=== PATIENT | male | born 1955 | race Caucasian/White ===

== ENCOUNTER 2017-05-27 16:34 | Inpatient (IN) | payer BC, OTHER ==
[2017-05-27] MEDS ORDERED: SODIUM CHLORIDE 0.9% 1,000 ML IV STA ×2 (17:52)
[2017-05-27] MEDS ORDERED: PIPERACILLIN-TAZOBACTAM 3.375 GM in DEXTROSE/WATER 1 50ML.BAG IVPB STA (17:53)
[2017-05-27] MEDS ORDERED: VANCOMYCIN IV PER PHARMACY 1 EACH MISC MISCELLANE PRN (17:54)
[2017-05-27 18:27] LABS: Basophils # (A) 0.1 k/uL (0-0.2); Basophils % (A) 1 %; Eosinophils # (A) 0.1 k/uL (0-0.7); Eosinophils % (A) 1 %; HGB 14.9 gm/dL (13.0-17.5); Lymphocytes # (A) 1.8 k/uL (1.0-4.8); Lymphocytes % (A) 18 %; MCH 29.2 pg (25.0-35.0); MCHC 32.4 g/dL (31.0-37.0); MCV 90.1 fL (80.0-100.0); Mean Platelet Volume 7.4; Monocytes # (A) 0.9 k/uL (0-1.0); Monocytes % (A) 8 %; Neutrophils # (A) 7.2 k/uL (1.3-7.7); Neutrophils % (A) 69 %; Platelet Count 175 k/uL (150-450); RBC 5.11 m/uL (4.30-5.90); RDW 13.6 % (11.5-15.5); WBC 10.4 k/uL (3.8-10.6)
[2017-05-27] MEDS ORDERED: LABETALOL 5 MG/ML VIAL MDV IVP STA (18:30)
--- NOTE | 2017-05-27 18:33 | ED ---
General Adult HPI - General Chief complaint: Skin/Abscess/Foreign Body Stated complaint: toe infection Time Seen by Provider: 05/27/17 17:01 Source: patient, family, RN notes reviewed, old records reviewed Mode of arrival: ambulatory Limitations: no limitations - History of Present Illness Initial comments: This is a 61-year-old male with history of poorly controlled diabetes presents with 3 weeks of worsening right great toe infection. Patient reports that 3 weeks ago he cut his toenails too short periods started having infection. Patient reports that over the past 2 weeks the skin over the great toe and surrounding digits started to flake off. He reports that the nail of the great toe is about to fall off. He reports that there is been area of black and swelling over the distal tip of the toe. Patient reports that he was sinus with diabetes many years ago. He initially saw Dr. Schofield started on oral antidiabetic agents. Patient reports that he's not had anything refilled since then. Patient reports it's been many years since he said his blood sugar checked. Patient reports he's also had some poorly healing wounds over his left lower extremity. He denies any chest pain or shortness of breath or abdominal pain. Denies any fever or chills. Patient states that he has poor sensation to bilateral feet. - Related Data Home Medications Medication Instructions Recorded Confirmed Ibuprofen [Motrin] 800 mg PO DAILY PRN 05/27/17 05/27/17 Allergies Allergy/AdvReac Type Severity Reaction Status Date / Time No Known Allergies Allergy Verified 05/27/17 17:00 Review of Systems ROS Statement: Those systems with pertinent positive or pertinent negative responses have been documented in the HPI. ROS Other: All systems not noted in ROS Statement are negative. Past Medical History Past Medical History: Diabetes Mellitus History of Any Multi-Drug Resistant Organisms: None Reported Past Surgical History: Tonsillectomy Past Psychological History: No Psychological Hx Reported Smoking Status: Former smoker Past Alcohol Use History: Daily, Occasional Past Drug Use History: None Reported General Exam - General Exam Comments Initial Comments: 61-year-old male. No acute distress. Limitations: no limitations General appearance: alert, in no apparent distress Head exam: Present: atraumatic, normocephalic, normal inspection Eye exam: Present: normal appearance, PERRL, EOMI. Absent: scleral icterus, conjunctival injection, periorbital swelling ENT exam: Present: normal exam, mucous membranes moist Neck exam: Present: normal inspection. Absent: tenderness, meningismus, lymphadenopathy Respiratory exam: Present: normal lung sounds bilaterally. Absent: respiratory distress, wheezes, rales, rhonchi, stridor Cardiovascular Exam: Present: regular rate, normal rhythm, normal heart sounds. Absent: systolic murmur, diastolic murmur, rubs, gallop, clicks GI/Abdominal exam: Present: soft, normal bowel sounds, other (protruberant). Absent: distended, tenderness, guarding, rebound, rigid Extremities exam: Present: normal inspection, full ROM, normal capillary refill. Absent: tenderness, pedal edema, joint swelling, calf tenderness Right Knee exam: Present: normal inspection, full ROM Lower Leg exam: Present: full ROM. Absent: normal inspection (dusky skin), tenderness, swelling Ankle exam: Present: full ROM. Absent: normal inspection (swelling and erythema.) Foot/Toe exam: Absent: normal inspection (first great toe infection with nail almost totally avulsed. Patient has gas filled bulla over great toe. ), full ROM Neurovascular tendon exam: Present: pulse deficit (Unable to palpate dorsalis pulse, but is done with doppler. ), decreased fine/light touch. Absent: abnormal cap refill (delayed cap refill) Gait: observed and normal Back exam: Present: normal inspection Neurological exam: Present: alert, oriented X3, CN II-XII intact Psychiatric exam: Present: normal affect, normal mood Course Vital Signs 05/27/17 05/27/17 05/27/17 16:35 18:40 18:59 Temperature 98.7 F 98.3 F Pulse Rate 74 69 52 L Respiratory 18 16 16 Rate Blood Pressure 222/93 208/88 158/69 O2 Sat by Pulse 98 98 98 Oximetry 05/27/17 19:25 Temperature Pulse Rate 57 L Respiratory 18 Rate Blood Pressure 154/74 O2 Sat by Pulse 98 Oximetry Medical Decision Making - Medical Decision Making This is a 61-year-old male with a history of poorly controlled diabetes presents today with infection over his right great toe. He reports he cut his nails short 3 weeks ago. He has not been any diabetes or blood pressure medications in many years. He reports that he virtually follows with Dr. Uribe. Patient has significant swelling, erythema in the left great toe. There is an area of bulla over the distal toe. There does appear to be some mild gas formation in this area. Patient has diminished dorsalis pedis pulse with palpation. We were able to obtained with Doppler ultrasound. Patient x- ray of the toe shows evidence of osteomyelitis within the tuft of the great toe. Patient started on IV vancomycin and Zosyn in the emergency department. He also came in with a very elevated blood pressure of 220/120. Patient was given 20 mg of labetalol IV push. Patient's EKG shows no acute abnormalities. Patient was informed of all these results. Discussed that this is a sequela of poorly controlled diabetes and vascular pathology. Patient will be admitted at this time for IV antibiotics for osteomyelitis. Discussed with Dr. Torres. He also examined the patient. - Lab Data Result diagrams: 05/27/17 18:13 05/27/17 18:13 Lab Results 05/27/17 05/27/17 Range/Units 18:13 18:13 WBC 10.4 (3.8-10.6) k/uL RBC 5.11 (4.30-5.90) m/uL Hgb 14.9 (13.0-17.5) gm/dL Hct 46.0 (39.0-53.0) % MCV 90.1 (80.0-100.0) fL MCH 29.2 (25.0-35.0) pg MCHC 32.4 (31.0-37.0) g/dL RDW 13.6 (11.5-15.5) % Plt Count 175 (150-450) k/uL Neutrophils % 69 % Lymphocytes % 18 % Monocytes % 8 % Eosinophils % 1 % Basophils % 1 % Neutrophils # 7.2 (1.3-7.7) k/uL Lymphocytes # 1.8 (1.0-4.8) k/uL Monocytes # 0.9 (0-1.0) k/uL Eosinophils # 0.1 (0-0.7) k/uL Basophils # 0.1 (0-0.2) k/uL Sodium 134 L (137-145) mmol/L Potassium 4.1 (3.5-5.1) mmol/L Chloride 98 (98-107) mmol/L Carbon Dioxide 28 (22-30) mmol/L Anion Gap 8 mmol/L BUN 17 (9-20) mg/dL Creatinine 0.80 (0.66-1.25) mg/dL Est GFR (MDRD) Af Amer >60 (>60 ml/min/1.73 sqM) Est GFR (MDRD) Non-Af >60 (>60 ml/min/1.73 sqM) Glucose 241 H (74-99) mg/dL Calcium 9.1 (8.4-10.2) mg/dL Total Bilirubin 1.2 (0.2-1.3) mg/dL AST 32 (17-59) U/L ALT 48 (21-72) U/L Alkaline Phosphatase 77 (38-126) U/L Total Protein 6.8 (6.3-8.2) g/dL Albumin 3.5 (3.5-5.0) g/dL 05/27/17 19:34 EKG shows sinus rhythm with short MN. Right bundle-branch block. Left anterior fascicular block. Left ventricular hypertrophy with repolarization abnormality. Ventricular rate 69 bpm. MN interval 104 ms. QRS ration 148 ms. QT QTc is 440/471 ms. - Radiology Data Radiology results: report reviewed Nose positive for osteomyelitis within the distal tuft of the right first phalanx. Disposition Clinical Impression: Poorly controlled diabetes mellitus, Hypertension, Osteomyelitis of toe of right foot Disposition: ADMITTED IP TO THIS HOSP Condition: Stable Referrals: Jose Hannah MD [Primary Care Provider] - 1-2 days Time of Disposition: 19:35
--- NOTE | 2017-05-27 18:34 | XR ---
EXAMINATION TYPE: XR foot complete RT DATE OF EXAM: 05/27/2017 COMPARISON: NONE HISTORY: Pain TECHNIQUE: 3 views FINDINGS: I see no fracture nor dislocation. There is some lucency on the medial aspect of the tuft o f the distal phalanx of the big toe that could relate to osteomyelitis. I see no fracture line. Metat arsals are intact. IMPRESSION: Possible osteomyelitis of the tuft of the distal phalanx big toe right foot.
[2017-05-27 18:37] LABS: ALT 48 U/L (21-72); AST 32 U/L (17-59); Albumin 3.5 g/dL (3.5-5.0); Alkaline Phosphatase 77 U/L (38-126); Anion Gap 8 mmol/L; Blood Urea Nitrogen 17 mg/dL (9-20); Calcium 9.1 mg/dL (8.4-10.2); Carbon Dioxide 28 mmol/L (22-30); Chloride 98 mmol/L (98-107); Glucose 241 mg/dL (74-99); Potassium 4.1 mmol/L (3.5-5.1); Sodium 134 mmol/L (137-145); Total Bilirubin 1.2 mg/dL (0.2-1.3); Total Protein 6.8 g/dL (6.3-8.2)
[2017-05-27] MEDS ORDERED: KETOROLAC 30 MG/ML 1 ML VIAL IVP STA (19:28)
[2017-05-27] MEDS ORDERED: ACETAMINOPHEN TAB 325 MG TAB PO PRN (19:35)
[2017-05-27] MEDS ORDERED: NALOXONE 0.4 MG/ML 1 ML VIAL IV PRN (19:35)
[2017-05-27] MEDS ORDERED: ONDANSETRON 4 MG/2 ML VIAL IVP PRN (19:35)
[2017-05-27] MEDS ORDERED: IBUPROFEN 400 MG TAB PO PRN (19:35)
[2017-05-27 20:40] VITALS: BMI 35.5
[2017-05-27] MEDS ORDERED: INSULIN ASPART 100 UNIT/ML 1 ML 10 ML VIAL SQ SCH (21:00)
[2017-05-27 21:22] LABS: Glucose,Whole Blood 197 mg/dL (75-99)
[2017-05-27] MEDS ORDERED: VANCOMYCIN 2,000 MG in SODIUM CHLORIDE 0.9% 500 ML IVPB ONE (22:00)
[2017-05-27] MEDS: HYDROmorphone 1 MG/ML 1 ML SYRINGE IVP PRN (23:00)
[2017-05-27 23:11] LABS: Hemoglobin A1C 9.3 % (4.0-6.0)
[2017-05-28] MEDS: SODIUM CHLORIDE 0.9% 1,000 ML IV SCH ×4 (03:55→20:55)
[2017-05-28] MEDS: HYDROmorphone 1 MG/ML 1 ML SYRINGE IVP PRN ×2 (06:29→18:48)
[2017-05-28] MEDS: PIPERACILLIN-TAZOBACTAM 3.375 GM in DEXTROSE/WATER 1 50ML.BAG IVPB SCH ×3 (06:29→20:56)
[2017-05-28 06:54] LABS: Glucose,Whole Blood 258 mg/dL (75-99)
[2017-05-28] MEDS: PANTOPRAZOLE 40 MG TABLET PO SCH (08:00)
[2017-05-28] MEDS: ATORVASTATIN 10 MG TAB PO SCH (08:01)
[2017-05-28] MEDS: INSULIN ASPART 100 UNIT/ML 1 ML 10 ML VIAL SQ SCH ×4 (08:01→20:51)
[2017-05-28] MEDS: VANCOMYCIN 2,000 MG in SODIUM CHLORIDE 0.9% 500 ML IVPB SCH ×2 (09:56→20:56)
--- NOTE | 2017-05-28 10:58 | P.HPIM ---
History of Present Illness H&P Date: 05/28/17 Chief Complaint: Right great toe infection This is a 61-year-old male with a past medical history of uncontrolled diabetes mellitus. He is noncompliant with medications.. It's been a few years since he is taken his metformin. He reports about 3 weeks ago clipping the toenail on his right great toe and cut it too short. He started to have infection along the edge of the toenail with some drainage and redness. He treated it with peroxide and antibiotic ointment. Patient had no improvement. He presents to the hospital now with black discoloration at the top of the toe. Toenail is following off. He has cellulitis changes along the distal aspect of the toe and into the top of the foot. Pulses were able to be obtained with the Doppler in the ER. He had a right foot x-ray and possible osteomyelitis of the of the distal phalanx of the big toe on the right foot. Patient started on IV Zosyn IV vancomycin. Culture obtained in the ER. Infectious disease and this was surgery have been consulted. Patient also had some severely elevated blood pressures on admission patient was given a dose of IV labetalol. Blood pressures have improved. Patient denies any past medical history of hypertension. Denies any fever, chills, sweats., Nausea or vomiting, bowel movement changes or urinary symptoms. Review of Systems Please refer to HPI otherwise unremarkable Past Medical History Past Medical History: Diabetes Mellitus History of Any Multi-Drug Resistant Organisms: None Reported Past Surgical History: Tonsillectomy Past Psychological History: No Psychological Hx Reported Smoking Status: Former smoker Past Alcohol Use History: Daily, Occasional Past Drug Use History: None Reported Medications and Allergies Home Medications Medication Instructions Recorded Confirmed Type Ibuprofen [Motrin] 800 mg PO DAILY PRN 05/27/17 05/27/17 History Allergies Allergy/AdvReac Type Severity Reaction Status Date / Time No Known Allergies Allergy Verified 05/27/17 17:00 Physical Exam Vitals: Vital Signs Temp Pulse Pulse Resp BP BP Pulse Ox 05/28/17 02:38 98.3 F 59 L 16 135/67 98 05/27/17 19:51 98.2 F 58 L 15 154/83 98 05/27/17 19:25 57 L 18 154/74 98 05/27/17 18:59 52 L 16 158/69 98 05/27/17 18:40 98.3 F 69 16 208/88 98 05/27/17 16:35 98.7 F 74 18 222/93 98 Intake and Output 05/27/17 05/28/17 05/28/17 22:59 06:59 14:59 Intake Total 1100 Output Total 200 Balance 900 Intake: Amount of Fluid Infused ( 1100 ml) Output: Urine 200 Other: Voiding Method Toilet # Voids 3 Weight 118.84 kg Head normocephalic Neck supple Lungs clear to auscultation bilaterally no wheezing or crackles Heart regular rate and rhythm S1-S2, no rub or gallop Abdomen is soft nontender nondistended positive bowel sounds no hepatosplenomegaly Extremities right great toe black discoloration of the top of the toe around the edges of the nail. Toenail is falling off. No drainage at this time. Red cellulitis type changes along the toe and into the top of the foot. A tickling sensation with palpation of the pad of the foot. No sensation with palpation of the great toe. Patient is unable to feel toe to 3 or 4. No discoloration noted. He is able to feel palpation on to 5 unable to palpate pulses. Apparently pulses were obtainable with Doppler. Neuro alert and orientated to 3 Results CBC & Chem 7: 05/27/17 18:13 05/27/17 18:13 Labs: Abnormal Lab Results - Last 24 Hours (Table) 05/27/17 05/27/17 05/27/17 Range/Units 18:13 18:13 20:38 Sodium 134 L (137-145) mmol/L Glucose 241 H (74-99) mg/dL POC Glucose (mg/dL) 197 H (75-99) mg/dL Hemoglobin A1c 9.3 H (4.0-6.0) % 05/28/17 Range/Units 06:48 Sodium (137-145) mmol/L Glucose (74-99) mg/dL POC Glucose (mg/dL) 258 H (75-99) mg/dL Hemoglobin A1c (4.0-6.0) % Microbiology - Last 24 Hours (Table) 05/27/17 18:13 Gram Stain - Preliminary Toe - Right First Wound Culture - Preliminary Thrombosis Risk Factor Assmnt - Choose All That Apply Each Factor Represents 1 point: Obesity (BMI >25) Thrombosis Risk Factor Assessment Total Risk Factor Score: 1 Thrombosis Risk Factor Assessment Level: Low Risk Assessment and Plan Assessment: 1. Osteomyelitis of the tuft of the distal phalanx of the big toe on the right foot area and wound culture results pending. Infectious disease and vascular surgery has been consulted. Patient currently on IV Zosyn and IV vancomycin. 2. Hypertensive emergency present on admission: Patient required IV labetalol. Blood pressures are improved. Continue to monitor 3. Uncontrolled diabetes mellitus type 2. History of noncompliance with medication. A1c is 9.3. nurses educator has been consulted. Continue with the NovoLog sliding scale. 4. GI prophylaxis Protonix and DVT prophylaxis subcu heparin Time with Patient: Greater than 30 (Greater than 50% of the total time spent in counseling and coordination of care.I performed an examination of the patient and discussed their management with the physician Corporate Paralegal. I have reviewed the Physician Corporate Paralegal's notes and agree with the documented findings and plan of care)
[2017-05-28 11:30] LABS: Glucose,Whole Blood 227 mg/dL (75-99)
[2017-05-28] MEDS ORDERED: LIDOCAINE 1% INJ 10MG/ML (20 ML MDV) ONE (11:36)
--- NOTE | 2017-05-28 13:03 | P.CONS ---
History of Present Illness - Reason for Consult Consult date: 05/28/17 Right great toe wound Requesting physician: Jose Hannah - History of Present Illness This is a 61-year-old male patient gives history that 3 weeks ago he cut his nails on his toes too short. He had worsening edema redness and flaking of the skin and eventually a tissue on the big toe became black and swollen. He came into the [facility] emergency center for evaluation. Foot x-rays that show possible osteomyelitis in the 12th of the distal phalanx right big toe. He has been afebrile with normal white count. Creatinine 0.8. Wound culture is showing gram-positive cocci and gram-negative bacilli. Blood cultures status received. Patient was started on Zosyn and vancomycin and admitted to the surgical unit. He has been seen in consultation by Dr. Armstrong with plans for debridement of the toe and nail. Patient has history of diabetes but is not taking any medications for many years. He was found having hemoglobin A1c of 9.3 and is now on Levemir and NovoLog scale. He was also found to have urgent hypertension with blood pressure 220/120 and started on IV labetalol. Review of Systems All systems: negative Constitutional: Denies anorexia, Denies chills, Denies fatigue, Denies fever, Denies poor appetite, Denies weight loss Eyes: denies blurred vision, denies pain Ears, nose, mouth and throat: Denies dental pain, Denies headache, Denies mouth pain, Denies sore throat, Denies vertigo Cardiovascular: Denies chest pain, Denies decreased exercise tolerance, Denies dyspnea on exertion, Denies lightheadedness, Denies shortness of breath, Denies syncope Respiratory: Denies cough, Denies cough with sputum, Denies dyspnea, Denies excessive sputum, Denies hemoptysis, Denies home oxygen, Denies wheezing Gastrointestinal: Denies abdominal pain, Denies diarrhea, Denies nausea, Denies vomiting Genitourinary: Denies dysuria, Denies hematuria Musculoskeletal: Denies myalgias Integumentary: Reports change in hair/nails, Reports color changes, Reports darkening of skin, Reports wounds, Denies pruritus, Denies rash Neurological: Denies numbness, Denies weakness Psychiatric: Denies anxiety, Denies depression Endocrine: Denies fatigue, Denies weight change Past Medical History Past Medical History: Diabetes Mellitus, Hypertension History of Any Multi-Drug Resistant Organisms: None Reported Past Surgical History: Tonsillectomy Past Psychological History: No Psychological Hx Reported Smoking Status: Former smoker Past Alcohol Use History: Daily, Occasional Additional Past Alcohol Use History / Comment(s): Patient only smoked briefly as a teenager. He denies any medical marijuana, marijuana, street drug use. He drinks alcohol socially and denies alcohol abuse. He lives at home with his . 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 Past Drug Use History: None Reported Medications and Allergies Home Medications Medication Instructions Recorded Confirmed Type Ibuprofen [Motrin] 800 mg PO DAILY PRN 05/27/17 05/27/17 History Allergies Allergy/AdvReac Type Severity Reaction Status Date / Time No Known Allergies Allergy Verified 05/27/17 17:00 Physical Exam Vitals: Vital Signs Temp Pulse Pulse Resp BP BP Pulse Ox 05/28/17 02:38 98.3 F 59 L 16 135/67 98 05/27/17 19:51 98.2 F 58 L 15 154/83 98 05/27/17 19:25 57 L 18 154/74 98 05/27/17 18:59 52 L 16 158/69 98 05/27/17 18:40 98.3 F 69 16 208/88 98 05/27/17 16:35 98.7 F 74 18 222/93 98 Intake and Output 05/27/17 05/28/17 05/28/17 22:59 06:59 14:59 Intake Total 1100 Output Total 200 Balance 900 Intake: Amount of Fluid Infused ( 1100 ml) Output: Urine 200 Other: Voiding Method Toilet # Voids 3 Weight 118.84 kg 118.84 kg Patient Weight 05/29/17 06:59 Weight 118.84 kg Gen: This is a 61-year-old obese male. He is sitting up in bed and appears to be in no acute distress. HEENT: Head is atraumatic, normocephalic. Pupils equal, round. Sclerae is anicteric. Junk developing. Mucous members of the mouth are slightly dry. No thrush noted. NECK: Short and thick. Supple. No JVD. No lymphadenopathy. No thyromegaly. LUNGS: Clear to auscultation. No wheezes or rhonchi. No intercostal retractions. HEART: Regular rate and rhythm. No murmur. ABDOMEN: Soft. Bowel sounds are present. No masses. No tenderness. EXTREMITIES: No pedal edema. No calf tenderness. +1 dorsalis pedis bilaterally. Patient has significant erythema, edema with black coloring to the right great toe. NEUROLOGICAL: Patient is awake, alert and oriented x3. Cranial nerves 2 through 12 are grossly intact. Results Results: Laboratory Results WBC 10.4 k/uL (3.8-10.6) 05/27/17 18:13 RBC 5.11 m/uL (4.30-5.90) 05/27/17 18:13 Hgb 14.9 gm/dL (13.0-17.5) 05/27/17 18: Hct 46.0 % (39.0-53.0) 05/27/17 18: MCV 90.1 fL (80.0-100.0) 05/27/17 18: MCH 29.2 pg (25.0-35.0) 05/27/17 18: MCHC 32.4 g/dL (31.0-37.0) 05/27/17 18: RDW 13.6 % (11.5-15.5) 05/27/17 18: Plt Count 175 k/uL (150-450) 05/27/17 18:13 Neutrophils % 69 % 05/27/17 18:13 Lymphocytes % 18 % 05/27/17 18:13 Monocytes % 8 % 05/27/17 18:13 Eosinophils % 1 % 05/27/17 18:13 Basophils % 1 % 05/27/17 18:13 Neutrophils # 7.2 k/uL (1.3-7.7) 05/27/17 18:13 Lymphocytes # 1.8 k/uL (1.0-4.8) 05/27/17 18: Monocytes # 0.9 k/uL (0-1.0) 05/27/17 18: Eosinophils # 0.1 k/uL (0-0.7) 05/27/17 18:13 Basophils # 0.1 k/uL (0-0.2) 05/27/17 18:13 Sodium 134 mmol/L (137-145) L 05/27/17 18:13 Potassium 4.1 mmol/L (3.5-5.1) 05/27/17 18:13 Chloride 98 mmol/L (98-107) 05/27/17 18:13 Carbon Dioxide 28 mmol/L (22-30) 05/27/17 18:13 Anion Gap 8 mmol/L 05/27/17 18:13 BUN 17 mg/dL (9-20) 05/27/17 18:13 Creatinine 0.80 mg/dL (0.66-1.25) 05/27/17 18:13 Est GFR (MDRD) Af Amer >60 (>60 ml/min/1.73 sqM) 05/27/17 18:13 Est GFR (MDRD) Non-Af >60 (>60 ml/min/1.73 sqM) 05/27/17 18:13 Glucose 241 mg/dL (74-99) H 05/27/17 18:13 POC Glucose (mg/dL) 227 mg/dL (75-99) H 05/28/17 11:27 POC Glu Call Center Operator CHELSEA Hari Mcfadden 05/28/17 11:[address] Glu mg/dL 220 05/27/17 18:13 Hemoglobin A1c 9.3 % (4.0-6.0) H 05/27/17 18:13 Calcium 9.1 mg/dL (8.4-10.2) 05/27/17 18:13 Total Bilirubin 1.2 mg/dL (0.2-1.3) 05/27/17 18:13 AST 32 U/L (17-59) 05/27/17 18:13 ALT 48 U/L (21-72) 05/27/17 18:13 Alkaline Phosphatase 77 U/L (38-126) 05/27/17 18:13 Troponin I <0.012 ng/mL (0.000-0.034) 05/27/17 18:13 Total Protein 6.8 g/dL (6.3-8.2) 05/27/17 18:13 Albumin 3.5 g/dL (3.5-5.0) 05/27/17 18:13 CBC & Chem 7: 05/27/17 18:13 05/27/17 18:13 Labs: Abnormal Lab Results - Last 24 Hours (Table) 05/27/17 05/27/17 05/27/17 Range/Units 18:13 18:13 20:38 Sodium 134 L (137-145) mmol/L Glucose 241 H (74-99) mg/dL POC Glucose (mg/dL) 197 H (75-99) mg/dL Hemoglobin A1c 9.3 H (4.0-6.0) % 05/28/17 05/28/17 Range/Units 06:48 11:27 Sodium (137-145) mmol/L Glucose (74-99) mg/dL POC Glucose (mg/dL) 258 H 227 H (75-99) mg/dL Hemoglobin A1c (4.0-6.0) % Microbiology - Last 24 Hours (Table) 05/27/17 18:13 Gram Stain - Preliminary Toe - Right First Wound Culture - Preliminary Assessment and Plan Plan: This is a 61-year-old male patient who presented to the hospital with diabetic ulcer to the right great toe in a patient with untreated diabetes. Patient is currently on IV antibiotics the form of Zosyn and vancomycin. Wound culture is in progress. Blood cultures status received Dr. Armstrong is planning for debridement. Sed rate, CRP, prealbumin ordered. Tetanus status will be updated. Continue supportive care. Patient understands need for tight glucose control in order to heal this wound. Further recommendations as patient progresses. The above dictated assessment and findings were discussed with Dr. Austin. The impression and plan of care have been directed as dictated. Vale Ford nurse practitioner acting as scribe for Dr. Austin.
[2017-05-28] MEDS: BACITRACIN 500 UNIT/GM OINT 28.4 GM TUBE TOPICAL SCH ×2 (13:22→20:57)
[2017-05-28] MEDS: KETOROLAC 30 MG/ML 1 ML VIAL IVP PRN (13:33)
[2017-05-28] MEDS ORDERED: DIPH,PERTUS(ACELL)TETVAC-LF 0.5 ML VIAL IM ONE (13:37)
--- NOTE | 2017-05-28 15:16 | CONS ---
DATE OF CONSULTATION: 05/28/2017 This is a 61-year-old gentleman who has been admitted to [facility]. He has a history of trimming his nails about 3 weeks ago and he went deeper and after that he was using hydrogen peroxide to clean the wound. He came to the emergency room and has been admitted with his nail completely and is stuck to the nail bed and there is some skin necrosis noted of the right foot big toe. The patient also has some chronic wounds on the left lower extremity dawn area. Patient has history of diabetes and hypertension controlled with medication. PHYSICAL EXAMINATION: NECK: Supple. Trachea central. Chest is clear to auscultation. Abdomen is soft. Femorals are palpable. Posterior tibial and dorsalis pedis by the Doppler. The patient has a right foot big toe that has skin necrosis and an infected nail bed and the patient has a chronic wound to the left lower extremity anterior of the dawn. PLAN: Debridement of the wound and removal of the nail which is hanging to the nail bed. MMODL / IJN: [id number] / CHULA
--- NOTE | 2017-05-28 15:19 | PCN ---
PROCEDURE NOTE PREOPERATIVE DIAGNOSIS: Infected nail bed to right foot big toe. PROCEDURE: debridement of the right foot, big toe of the nail bed and removal of the nail right foot, big toe. Patient was seen in his room. Right foot was prepped and draped in procedure manner; 1% Lidocaine was infiltrated in the nail bed area. This nailbed was hanging out which was removed and there was some skin necrosis noted at the nail bed which was excised with a sharp scissor. No active bleeding was noted. Wound was cleaned with saline and bacitracin to apply to the nail bed and dressings applied. Patient tolerated the procedure well. PLAN: We will use bacitracin cream for the nailbed and Medihoney gel for the left lower extremity. Will follow with you. If patient goes home, I will follow up in my office. Patient needs arterial study to evaluate further. MMODL / IJN: [id number] /
[2017-05-28 17:01] LABS: Glucose,Whole Blood 235 mg/dL (75-99)
--- NOTE | 2017-05-28 18:36 | NM ---
EXAMINATION TYPE: NM bone 3 phase DATE OF EXAM: 05/28/2017 COMPARISON: NONE HISTORY: Possible osteomyelitis. Great toe. Triple phase bone scintigraphy was performed following the injection of25.4 mCi Tc 99m MDP. Immediat e images and 3.5 hours post injection images acquired. FINDINGS: There is hyperemia of the right foot and ankle compared to the left. The delayed images show slight i ncreased uptake in the right big toe phalanges as well as the right first metatarsal head. Uptake is somewhat diffuse and consistent with soft tissue. IMPRESSION: Findings are most consistent with some cellulitis of the right foot. I do not see any strong evidence for osteomyelitis.
[2017-05-28] MEDS: HEPARIN SODIUM,PORCINE 5,000 UNIT/ML 1 ML VIAL SQ SCH (20:50)
[2017-05-28] MEDS: INSULIN DETEMIR 100 UNIT/ML 10 ML VIAL SQ SCH (20:50)
[2017-05-28 20:59] LABS: Glucose,Whole Blood 162 mg/dL (75-99)
--- NOTE | 2017-05-28 23:45 | P.CON ---
Consult Note - . Consult date: 05/28/17 Assessment/Plan:: This is a 61-year-old male patient gives history that 3 weeks ago he cut his nails on his toes too short. He had worsening edema redness and flaking of the skin and eventually a tissue on the big toe became black and swollen. He came into the [facility] emergency center for evaluation. Foot x-rays that show possible osteomyelitis in the 12th of the distal phalanx right big toe. He has been afebrile with normal white count. Creatinine 0.8. Wound culture is showing gram-positive cocci and gram-negative bacilli. Blood cultures status received. Patient was started on Zosyn and vancomycin and admitted to the surgical unit. He has been seen in consultation by Dr. Armstrong with plans for debridement of the toe and nail. Patient has history of diabetes but is not taking any medications for many years. He was found having hemoglobin A1c of 9.3 and is now on Levemir and NovoLog scale. He was also found to have urgent hypertension with blood pressure 220/120 and started on IV labetalol. Please see the consult note as dictated by nurse practitioner Mrs. Vale Ford. 61-year-old male has a history of significant medical noncompliance with his diabetes and his hypertension. He overs now very concerned due to the ulcerative processes occurred to the right great toe with concerns to toe loss. 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 It is tender plan will be to continue wound care, antibiotic therapy and offloading. Bone scan and process to determine if there is underlying osteomyelitis. We'll need especially offloading shoe at discharge. And may do well to follow the wound healing Center for a total contact cast to assist in the healing of this diabetic ulceration. Will need outpatient diabetic education. His hypertension is starting to improve with the medications and significant dietary restraints of being hospitalized. Wound culture will further guide antibiotic therapy the time of discharge, currently on vancomycin and Zosyn for the diabetic foot infection with concern to underlying osteomyelitis. The evaluation, assessment and plan his A. fib renders practitioner Mrs. Vale Ford.
[2017-05-29] MEDS: HYDROmorphone 1 MG/ML 1 ML SYRINGE IVP PRN ×3 (03:31→18:19)
[2017-05-29] MEDS: PIPERACILLIN-TAZOBACTAM 3.375 GM in DEXTROSE/WATER 1 50ML.BAG IVPB SCH ×3 (04:20→22:08)
[2017-05-29 07:01] LABS: Glucose,Whole Blood 179 mg/dL (75-99)
[2017-05-29 07:05] LABS: Basophils # (A) 0.1 k/uL (0-0.2); Basophils % (A) 1 %; Eosinophils # (A) 0.1 k/uL (0-0.7); Eosinophils % (A) 1 %; HCT 38.8 % (39.0-53.0); HGB 12.7 gm/dL (13.0-17.5); Lymphocytes # (A) 1.8 k/uL (1.0-4.8); Lymphocytes % (A) 19 %; MCH 29.6 pg (25.0-35.0); MCHC 32.8 g/dL (31.0-37.0); MCV 90.3 fL (80.0-100.0); Mean Platelet Volume 7.2; Monocytes # (A) 1.1 k/uL (0-1.0); Monocytes % (A) 11 %; Neutrophils # (A) 6.3 k/uL (1.3-7.7); Neutrophils % (A) 65 %; Platelet Count 194 k/uL (150-450); RDW 11.9 % (11.5-15.5); WBC 9.8 k/uL (3.8-10.6)
[2017-05-29] MEDS: SODIUM CHLORIDE 0.9% 1,000 ML IV SCH ×2 (07:05→13:26)
[2017-05-29 07:46] LABS: ALT 53 U/L (21-72); AST 29 U/L (17-59); Albumin 2.9 g/dL (3.5-5.0); Alkaline Phosphatase 75 U/L (38-126); Anion Gap 7 mmol/L; Blood Urea Nitrogen 16 mg/dL (9-20); Calcium 8.7 mg/dL (8.4-10.2); Carbon Dioxide 27 mmol/L (22-30); Chloride 102 mmol/L (98-107); Glucose 197 mg/dL (74-99); Potassium 4.7 mmol/L (3.5-5.1); Sodium 136 mmol/L (137-145); Total Bilirubin 1.3 mg/dL (0.2-1.3); Total Protein 5.7 g/dL (6.3-8.2)
[2017-05-29] MEDS: PANTOPRAZOLE 40 MG TABLET PO SCH (07:52)
[2017-05-29] MEDS: INSULIN ASPART 100 UNIT/ML 1 ML 10 ML VIAL SQ SCH ×4 (07:52→22:13)
[2017-05-29] MEDS: VANCOMYCIN 2,000 MG in SODIUM CHLORIDE 0.9% 500 ML IVPB SCH ×2 (08:30→22:08)
[2017-05-29] MEDS: ATORVASTATIN 10 MG TAB PO SCH (08:30)
[2017-05-29] MEDS: HEPARIN SODIUM,PORCINE 5,000 UNIT/ML 1 ML VIAL SQ SCH ×2 (08:30→22:11)
[2017-05-29] MEDS: BACITRACIN 500 UNIT/GM OINT 28.4 GM TUBE TOPICAL SCH ×2 (08:30→22:11)
[2017-05-29 11:33] LABS: Glucose,Whole Blood 193 mg/dL (75-99)
--- NOTE | 2017-05-29 12:35 | P.PN ---
Subjective Progress Note Date: 05/29/17 This is a 61-year-old male with a past medical history of uncontrolled diabetes mellitus. He is noncompliant with medications.. It's been a few years since he is taken his metformin. He reports about 3 weeks ago clipping the toenail on his right great toe and cut it too short. He started to have infection along the edge of the toenail with some drainage and redness. He treated it with peroxide and antibiotic ointment. Patient had no improvement. He presents to the hospital now with black discoloration at the top of the toe. Toenail is following off. He has cellulitis changes along the distal aspect of the toe and into the top of the foot. Pulses were able to be obtained with the Doppler in the ER. He had a right foot x-ray and possible osteomyelitis of the of the distal phalanx of the big toe on the right foot. Patient started on IV Zosyn IV vancomycin. Culture obtained in the ER. Infectious disease and this was surgery have been consulted. Patient also had some severely elevated blood pressures on admission patient was given a dose of IV labetalol. Blood pressures have improved. Patient denies any past medical history of hypertension. Denies any fever, chills, sweats., Nausea or vomiting, bowel movement changes or urinary symptoms. on 05/29/2017 patient is alert and oriented 3 glucose is better controlled, right big toe wound culture is positive for gram-negative bacilli, foot x-ray suggestive of osteomyelitis however bone scan is not revealing clear evidence of osteomyelitis, continue was current management at this time, awaiting final culture results. Objective - Vital Signs Vital signs: Vital Signs Temp 98 F 05/29/17 07:00 Pulse 60 05/29/17 07:00 Resp 16 05/29/17 07:00 BP 137/68 05/29/17 07:00 Pulse Ox 96 05/29/17 07:00 Intake & Output 05/28/17 05/29/17 05/29/17 18:59 06:59 18:59 Intake Total 240 Output Total 500 Balance -500 240 Weight 118.84 kg Intake: Oral 240 Output: Urine 500 Other: Voiding Method Toilet Toilet # Voids 2 - Exam Head normocephalic and atraumatic Neck supple no JVD no goiter no lymphadenopathy Lungs clear to auscultation bilaterally no wheezing or crackles Heart regular rate and rhythm S1-S2, no rub or gallop Abdomen is soft nontender nondistended positive bowel sounds no hepatosplenomegaly Extremities right great toe black discoloration of the top of the toe around the edges of the nail. Toenail is falling off. No drainage at this time. Red cellulitis type changes along the toe and into the top of the foot. A tickling sensation with palpation of the pad of the foot. No sensation with palpation of the great toe. Patient is unable to feel toe to 3 or 4. No discoloration noted. He is able to feel palpation on to 5 unable to palpate pulses. Apparently pulses were obtainable with Doppler. Neuro alert and orientated to 3 - Labs CBC & Chem 7: 05/29/17 06:38 05/29/17 06:38 Labs: Abnormal Lab Results - Last 24 Hours (Table) 05/27/17 05/27/17 05/28/17 Range/Units 18:15 18:15 15:49 Hgb (13.0-17.5) gm/dL Hct (39.0-53.0) % Monocytes # (0-1.0) k/uL ESR 48 H (0-15) mm/hr Sodium (137-145) mmol/L Glucose (74-99) mg/dL POC Glucose (mg/dL) (75-99) mg/dL C-Reactive Protein 78.2 H (<10.0) mg/L Total Protein (6.3-8.2) g/dL Albumin (3.5-5.0) g/dL Prealbumin 7.0 L (18.0-42.0) mg/dL 05/28/17 05/28/17 05/29/17 Range/Units 16:56 20:48 06:38 Hgb 12.7 L (13.0-17.5) gm/dL Hct 38.8 L (39.0-53.0) % Monocytes # 1.1 H (0-1.0) k/uL ESR (0-15) mm/hr Sodium (137-145) mmol/L Glucose (74-99) mg/dL POC Glucose (mg/dL) 235 H 162 H (75-99) mg/dL C-Reactive Protein (<10.0) mg/L Total Protein (6.3-8.2) g/dL Albumin (3.5-5.0) g/dL Prealbumin (18.0-42.0) mg/dL 05/29/17 05/29/17 05/29/17 Range/Units 06:38 06:55 11:26 Hgb (13.0-17.5) gm/dL Hct (39.0-53.0) % Monocytes # (0-1.0) k/uL ESR (0-15) mm/hr Sodium 136 L (137-145) mmol/L Glucose 197 H (74-99) mg/dL POC Glucose (mg/dL) 179 H 193 H (75-99) mg/dL C-Reactive Protein (<10.0) mg/L Total Protein 5.7 L (6.3-8.2) g/dL Albumin 2.9 L (3.5-5.0) g/dL Prealbumin (18.0-42.0) mg/dL Microbiology - Last 24 Hours (Table) 05/27/17 18:13 Blood Culture - Preliminary Blood No Growth after 24 hours 05/27/17 18:13 Gram Stain - Preliminary Toe - Right First Wound Culture - Preliminary Gram Neg Bacilli Assessment and Plan Plan: 1. Right foot cellulitis with possible Osteomyelitis of the tuft of the distal phalanx of the big toe on the right foot area and wound culture results pending. Infectious disease and vascular surgery has been consulted. Patient currently on IV Zosyn and IV vancomycin. 2. Hypertensive emergency present on admission: Patient required IV labetalol. Blood pressures are improved. Continue to monitor 3. Uncontrolled diabetes mellitus type 2. History of noncompliance with medication. A1c is 9.3. orthopedics teacher has been consulted. Continue with the NovoLog sliding scale. 4. GI prophylaxis Protonix and DVT prophylaxis subcu heparin
[2017-05-29 16:41] LABS: Glucose,Whole Blood 198 mg/dL (75-99)
[2017-05-29 19:33] LABS: Glucose,Whole Blood 204 mg/dL (75-99)
[2017-05-29] MEDS ORDERED: VANCOMYCIN TROUGH DUE 1 EACH MISC MISCELLANE ONE (20:00)
[2017-05-29] MEDS: INSULIN DETEMIR 100 UNIT/ML 10 ML VIAL SQ SCH (22:08)
[2017-05-29] MEDS: KETOROLAC 30 MG/ML 1 ML VIAL IVP PRN (22:14)
--- NOTE | 2017-05-29 23:49 | P.PN ---
Subjective Progress Note Date: 05/29/17 Principal diagnosis: Diabetic foot ulcer This is a 61-year-old male patient gives history that 3 weeks ago he cut his nails on his toes too short. He had worsening edema redness and flaking of the skin and eventually a tissue on the big toe became black and swollen. He came into the [facility] emergency center for evaluation. Foot x-rays that show possible osteomyelitis in the 12th of the distal phalanx right big toe. He has been afebrile with normal white count. Creatinine 0.8. Wound culture is showing gram-positive cocci and gram-negative bacilli. Blood cultures status received. Patient was started on Zosyn and vancomycin and admitted to the surgical unit. He has been seen in consultation by Dr. Armstrong with plans for debridement of the toe and nail. Patient has history of diabetes but is not taking any medications for many years. He was found having hemoglobin A1c of 9.3 and is now on Levemir and NovoLog scale. He was also found to have urgent hypertension with blood pressure 220/120 and started on IV labetalol. Patient is having some improvement today. We're able to inform him that the bone scan was negative for underlying osteomyelitis and will not require outpatient intravenous antibiotic therapy. Objective - Vital Signs Vital signs: Vital Signs Temp 98.1 F 05/29/17 14:50 Pulse 60 05/29/17 14:50 Resp 16 05/29/17 14:50 BP 134/74 05/29/17 14:50 Pulse Ox 97 05/29/17 14:50 Intake & Output 05/29/17 05/29/17 05/30/17 06:59 18:59 06:59 Intake Total 740 Output Total 500 Balance -500 740 Intake: Oral 740 Output: Urine 500 Other: Voiding Method Toilet # Voids 2 - Exam Gen: This is a 61-year-old obese male. He is sitting up in bed and appears to be in no acute distress. HEENT: Head is atraumatic, normocephalic. Pupils equal, round. Sclerae is anicteric. Junk developing. Mucous members of the mouth are slightly dry. No thrush noted. NECK: Short and thick. Supple. No JVD. No lymphadenopathy. No thyromegaly. LUNGS: Clear to auscultation. No wheezes or rhonchi. No intercostal retractions. HEART: Regular rate and rhythm. No murmur. ABDOMEN: Soft. Bowel sounds are present. No masses. No tenderness. EXTREMITIES: No pedal edema. No calf tenderness. +1 dorsalis pedis bilaterally. There is no erythema to the right great toe. He has had surgical debridement from Dr. Armstrong revealing evidence of a granulating base. Mild erythema on the dorsum of the foot. With his neuropathy does not have tenderness. NEUROLOGICAL: Patient is awake, alert and oriented x3 - Labs CBC & Chem 7: 05/29/17 06:38 05/29/17 06:38 Labs: Abnormal Lab Results - Last 24 Hours (Table) 05/27/17 05/29/17 05/29/17 Range/Units 18:15 06:38 06:38 Hgb 12.7 L (13.0-17.5) gm/dL Hct 38.8 L (39.0-53.0) % Monocytes # 1.1 H (0-1.0) k/uL Sodium 136 L (137-145) mmol/L Glucose 197 H (74-99) mg/dL POC Glucose (mg/dL) (75-99) mg/dL Total Protein 5.7 L (6.3-8.2) g/dL Albumin 2.9 L (3.5-5.0) g/dL Prealbumin 7.0 L (18.0-42.0) mg/dL 05/29/17 05/29/17 05/29/17 Range/Units 06:55 11:26 16:39 Hgb (13.0-17.5) gm/dL Hct (39.0-53.0) % Monocytes # (0-1.0) k/uL Sodium (137-145) mmol/L Glucose (74-99) mg/dL POC Glucose (mg/dL) 179 H 193 H 198 H (75-99) mg/dL Total Protein (6.3-8.2) g/dL Albumin (3.5-5.0) g/dL Prealbumin (18.0-42.0) mg/dL 05/29/17 Range/Units 19:30 Hgb (13.0-17.5) gm/dL Hct (39.0-53.0) % Monocytes # (0-1.0) k/uL Sodium (137-145) mmol/L Glucose (74-99) mg/dL POC Glucose (mg/dL) 204 H (75-99) mg/dL Total Protein (6.3-8.2) g/dL Albumin (3.5-5.0) g/dL Prealbumin (18.0-42.0) mg/dL Microbiology - Last 24 Hours (Table) 05/27/17 18:13 Blood Culture - Preliminary Blood No Growth after 48 hours 05/27/17 18:13 Gram Stain - Preliminary Toe - Right First Wound Culture - Preliminary Escherichia coli Presumptive Staph aureus Laboratory Results WBC 9.8 k/uL (3.8-10.6) 05/29/17 06:38 RBC 4.30 m/uL (4.30-5.90) 05/29/17 06:38 Hgb 12.7 gm/dL (13.0-17.5) L 05/29/17 06:38 Hct 38.8 % (39.0-53.0) L 05/29/17 06:38 MCV 90.3 fL (80.0-100.0) 05/29/17 06:38 MCH 29.6 pg (25.0-35.0) 05/29/17 06:38 MCHC 32.8 g/dL (31.0-37.0) 05/29/17 06:38 RDW 11.9 % (11.5-15.5) 05/29/17 06:38 Plt Count 194 k/uL (150-450) 05/29/17 06:38 Neutrophils % 65 % 05/29/17 06:38 Lymphocytes % 19 % 05/29/17 06:38 Monocytes % 11 % 05/29/17 06:38 Eosinophils % 1 % 05/29/17 06:38 Basophils % 1 % 05/29/17 06:38 Neutrophils # 6.3 k/uL (1.3-7.7) 05/29/17 06:38 Lymphocytes # 1.8 k/uL (1.0-4.8) 05/29/17 06:38 Monocytes # 1.1 k/uL (0-1.0) H 05/29/17 06:38 Eosinophils # 0.1 k/uL (0-0.7) 05/29/17 06:38 Basophils # 0.1 k/uL (0-0.2) 05/29/17 06:38 ESR 48 mm/hr (0-15) H 05/28/17 15:49 Sodium 136 mmol/L (137-145) L 05/29/17 06:38 Potassium 4.7 mmol/L (3.5-5.1) 05/29/17 06:38 Chloride 102 mmol/L (98-107) 05/29/17 06:38 Carbon Dioxide 27 mmol/L (22-30) 05/29/17 06:38 Anion Gap 7 mmol/L 05/29/17 06:38 BUN 16 mg/dL (9-20) 05/29/17 06:38 Creatinine 1.24 mg/dL (0.66-1.25) 05/29/17 06:38 Est GFR (MDRD) Af Amer >60 (>60 ml/min/1.73 sqM) 05/29/17 06:38 Est GFR (MDRD) Non-Af 60 (>60 ml/min/1.73 sqM) 05/29/17 06:38 Glucose 197 mg/dL (74-99) H 05/29/17 06:38 POC Glucose (mg/dL) 204 mg/dL (75-99) H 05/29/17 19:30 POC Glu Supervisor Pre Wave CHELSEA Cheyenne Ferrell 05/29/17 19:[address] Glu mg/dL 220 05/27/17 18:13 Hemoglobin A1c 9.3 % (4.0-6.0) H 05/27/17 18:13 Calcium 8.7 mg/dL (8.4-10.2) 05/29/17 06:38 Total Bilirubin 1.3 mg/dL (0.2-1.3) 05/29/17 06:38 AST 29 U/L (17-59) 05/29/17 06:38 ALT 53 U/L (21-72) 05/29/17 06:38 Alkaline Phosphatase 75 U/L (38-126) 05/29/17 06:38 Troponin I <0.012 ng/mL (0.000-0.034) 05/27/17 18:13 C-Reactive Protein 78.2 mg/L (<10.0) H 05/27/17 18:15 Total Protein 5.7 g/dL (6.3-8.2) L 05/29/17 06:38 Albumin 2.9 g/dL (3.5-5.0) L 05/29/17 06:38 Prealbumin 7.0 mg/dL (18.0-42.0) L 05/27/17 18:15 Vancomycin Trough 18.0 ug/mL 05/29/17 20:22 Microbiology 05/27/17 18:13 Blood Blood Culture - Preliminary No Growth after 48 hours 05/27/17 18:13 Toe - Right First Gram Stain - Preliminary 05/27/17 18:13 Toe - Right First Wound Culture - Preliminary Escherichia coli Presumptive Staph aureus Bone scan without evidence of osteomyelitis to the right great toe Assessment and Plan (1) Poorly controlled diabetes mellitus Current Visit: Yes Status: Acute Code(s): E11.65 - TYPE 2 DIABETES MELLITUS WITH HYPERGLYCEMIA SNOMED Code(s): 810109510 (2) Diabetic foot ulcer associated with type 2 diabetes mellitus, with fat layer exposed Current Visit: Yes Status: Acute Code(s): E11.621 - TYPE 2 DIABETES MELLITUS WITH FOOT ULCER; L97.502 - NON-PRS CHRONIC ULCER OTH PRT UNSP FOOT W FAT LAYER EXPOSED SNOMED Code(s): 3189060456143 Plan: 61-year-old male has a history of significant medical noncompliance with his diabetes and his hypertension. He however is now very concerned due to the ulcerative processes occurred to the right great toe with concerns to toe loss. 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 Bone scan has failed to reveal evidence of underlying osteomyelitis We'll need diabetic offloading shoe at discharge. And may do well to follow the wound healing Center for a total contact cast to assist in the healing of this diabetic ulceration. Will need outpatient diabetic education. His hypertension is starting to improve with the medications and significant dietary restraints of being hospitalized. Wound culture will further guide antibiotic therapy the time of discharge, currently on vancomycin and Zosyn for the diabetic foot infection , fortunately no osteomyelitis.
[2017-05-30] MEDS: HYDROmorphone 1 MG/ML 1 ML SYRINGE IVP PRN ×3 (01:30→19:14)
[2017-05-30 01:47] VITALS: RESP 16
[2017-05-30] MEDS: SODIUM CHLORIDE 0.9% 1,000 ML IV SCH ×3 (02:37→09:22)
[2017-05-30] MEDS: PIPERACILLIN-TAZOBACTAM 3.375 GM in DEXTROSE/WATER 1 50ML.BAG IVPB SCH ×3 (06:07→21:39)
[2017-05-30 07:08] LABS: Glucose,Whole Blood 179 mg/dL (75-99)
[2017-05-30 08:04] LABS: Basophils # (A) 0.1 k/uL (0-0.2); Basophils % (A) 1 %; Eosinophils # (A) 0.2 k/uL (0-0.7); Eosinophils % (A) 2 %; HGB 12.7 gm/dL (13.0-17.5); Lymphocytes # (A) 1.6 k/uL (1.0-4.8); Lymphocytes % (A) 15 %; MCH 29.4 pg (25.0-35.0); MCHC 32.5 g/dL (31.0-37.0); MCV 90.6 fL (80.0-100.0); Mean Platelet Volume 7.4; Monocytes # (A) 0.9 k/uL (0-1.0); Monocytes % (A) 9 %; Neutrophils # (A) 7.7 k/uL (1.3-7.7); Neutrophils % (A) 73 %; Platelet Count 216 k/uL (150-450); RDW 11.9 % (11.5-15.5); WBC 10.6 k/uL (3.8-10.6)
[2017-05-30 08:25] LABS: Albumin 3.1 g/dL (3.5-5.0); Calcium 8.3 mg/dL (8.4-10.2); Potassium 4.3 mmol/L (3.5-5.1); Total Bilirubin 1.4 mg/dL (0.2-1.3); Total Protein 5.9 g/dL (6.3-8.2)
[2017-05-30] MEDS: ATORVASTATIN 10 MG TAB PO SCH (08:44)
[2017-05-30] MEDS: VANCOMYCIN 2,000 MG in SODIUM CHLORIDE 0.9% 500 ML IVPB SCH (08:44)
[2017-05-30] MEDS: PANTOPRAZOLE 40 MG TABLET PO SCH (08:44)
[2017-05-30] MEDS: BACITRACIN 500 UNIT/GM OINT 28.4 GM TUBE TOPICAL SCH ×2 (08:45→21:41)
[2017-05-30] MEDS: INSULIN ASPART 100 UNIT/ML 1 ML 10 ML VIAL SQ SCH ×4 (08:45→21:39)
[2017-05-30] MEDS: HEPARIN SODIUM,PORCINE 5,000 UNIT/ML 1 ML VIAL SQ SCH ×2 (08:45→21:40)
--- NOTE | 2017-05-30 09:29 | PN ---
PROGRESS NOTE This is a 61-year-old gentleman who came with infected callus wound right foot, big toe. For that, patient had removal of the nail bed and the nail. Patient has history of diabetes and peripheral vascular disease. Today, we have changed the dressing and found to have the pulp of the right big toe is very soft and the nail bed and bone is exposed and also there was loss of skin on the plantar aspect of the big toe involving the distal phalanx. I have discussed with him because of nature of the bone exposed and the pulp is very soft and seems to have a poor blood supply. I have discussed with the patient and we will review with Dr. Adams Austin. Most likely this patient will need a partial toe amputation. If patient agrees, we will proceed. Patient has a Doppler signal on the foot involving the post tibial and dorsalis pedis. MMODL / IJN: [id number] /
--- NOTE | 2017-05-30 11:05 | P.PN ---
Subjective Progress Note Date: 05/30/17 This is a 61-year-old male with a past medical history of uncontrolled diabetes mellitus. He is noncompliant with medications.. It's been a few years since he is taken his metformin. He reports about 3 weeks ago clipping the toenail on his right great toe and cut it too short. He started to have infection along the edge of the toenail with some drainage and redness. He treated it with peroxide and antibiotic ointment. Patient had no improvement. He presents to the hospital now with black discoloration at the top of the toe. Toenail is following off. He has cellulitis changes along the distal aspect of the toe and into the top of the foot. Pulses were able to be obtained with the Doppler in the ER. He had a right foot x-ray and possible osteomyelitis of the of the distal phalanx of the big toe on the right foot. Patient started on IV Zosyn IV vancomycin. Culture obtained in the ER. Infectious disease and this was surgery have been consulted. Patient also had some severely elevated blood pressures on admission patient was given a dose of IV labetalol. Blood pressures have improved. Patient denies any past medical history of hypertension. Denies any fever, chills, sweats., Nausea or vomiting, bowel movement changes or urinary symptoms. 05/30/2017 patient has had some worsening in the right great toe. Evaluated by vascular surgery there planning to possibly proceed tomorrow with partial amputation of the right great toe. Patient had a rise in his creatinine to 1.64 possibly related to vancomycin. Case discussed with a faint infectious disease. Vancomycin discontinued. Patient started on IV fluids. They've also added daptomycin. Wound culture growing E. coli and presumptive staph aureus. Left tibia wound culture having some serous drainage. We'll culture this. Patient denies any chest pain, shortness breath, nausea or vomiting, bowel movement changes or urinary symptoms. Objective - Vital Signs Vital signs: Vital Signs Temp 97.9 F 05/30/17 07:00 Pulse 56 L 05/30/17 07:00 Resp 16 05/30/17 07:00 BP 166/82 05/30/17 07:00 Pulse Ox 98 05/30/17 07:00 Intake & Output 05/29/17 05/30/17 05/30/17 18:59 06:59 18:59 Intake Total 740 Balance 740 Intake: Oral 740 Other: Voiding Method Toilet Toilet Toilet # Voids 2 2 - Exam Head normocephalic Neck supple Lungs clear to auscultation bilaterally no wheezing or crackles Heart regular rate and rhythm S1-S2, no rub or gallop Abdomen is soft nontender nondistended positive bowel sounds no hepatosplenomegaly Extremities +1 edema right lower extremity. Dressing on right foot is clean dry and intact. Left tibia ulcer with serous drainage. The size of a quarter. No erythema Neuro alert and orientated to 3 - Labs CBC & Chem 7: 05/30/17 07:14 05/30/17 07:14 Labs: Abnormal Lab Results - Last 24 Hours (Table) 05/29/17 05/29/17 05/29/17 Range/Units 11:26 16:39 19:30 Hgb (13.0-17.5) gm/dL Sodium (137-145) mmol/L BUN (9-20) mg/dL Creatinine (0.66-1.25) mg/dL Glucose (74-99) mg/dL POC Glucose (mg/dL) 193 H 198 H 204 H (75-99) mg/dL Calcium (8.4-10.2) mg/dL Total Bilirubin (0.2-1.3) mg/dL Total Protein (6.3-8.2) g/dL Albumin (3.5-5.0) g/dL 05/30/17 05/30/17 05/30/17 Range/Units 06:57 07:14 07:14 Hgb 12.7 L (13.0-17.5) gm/dL Sodium 133 L (137-145) mmol/L BUN 24 H (9-20) mg/dL Creatinine 1.64 H (0.66-1.25) mg/dL Glucose 173 H (74-99) mg/dL POC Glucose (mg/dL) 179 H (75-99) mg/dL Calcium 8.3 L (8.4-10.2) mg/dL Total Bilirubin 1.4 H (0.2-1.3) mg/dL Total Protein 5.9 L (6.3-8.2) g/dL Albumin 3.1 L (3.5-5.0) g/dL Microbiology - Last 24 Hours (Table) 05/27/17 18:13 Blood Culture - Preliminary Blood No Growth after 48 hours 05/27/17 18:13 Gram Stain - Preliminary Toe - Right First Wound Culture - Preliminary Escherichia coli Presumptive Staph aureus Assessment and Plan Assessment: 1. Right great toe cellulitis and ulcer secondary to diabetes and peripheral vascular disease. Culture growing E. coli and presumptive staph aureus. Patient currently on Zosyn and daptomycin. Vancomycin discontinued today due to elevated creatinine. Daptomycin added by infectious disease. Vascular surgery following planning on a possible partial amputation of the right great toe tomorrow. Patient had debridement of that right great toe and toenail removal on 05/28/2017 2. Hypertensive emergency present on admission: Patient required IV labetalol. Blood pressures are improved. Continue to monitor 3. Uncontrolled diabetes mellitus type 2. History of noncompliance with medication. A1c is 9.3. clinical unit educator has been consulted. Continue with the NovoLog sliding scale. Avenue added during this admission. Blood sugars are still elevated. We'll increase Levemir to 12 units at bedtime. 4. GI prophylaxis Protonix and DVT prophylaxis subcu heparin 5. Left tibial ulcer: Culture drainage. Continue to monitor. We'll await further wound care recommendations per infectious disease I performed an examination of the patient and discussed their management with the physician Loom Fixer Supervisor. I have reviewed the Physician Loom Fixer Supervisor's notes and agree with the documented findings and plan of care
[2017-05-30 11:12] LABS: Glucose,Whole Blood 161 mg/dL (75-99)
[2017-05-30] MEDS: DAPTOmycin IN 0.9% NACL 500 MG/10 ML SYRINGE IVP SCH (11:56)
[2017-05-30 17:09] LABS: Glucose,Whole Blood 207 mg/dL (75-99)
[2017-05-30 19:56] LABS: Glucose,Whole Blood 146 mg/dL (75-99)
[2017-05-30] MEDS: INSULIN DETEMIR 100 UNIT/ML 10 ML VIAL SQ SCH (21:40)
[2017-05-31] MEDS: SODIUM CHLORIDE 0.9% 1,000 ML IV SCH ×3 (05:43→17:44)
[2017-05-31] MEDS: PIPERACILLIN-TAZOBACTAM 3.375 GM in DEXTROSE/WATER 1 50ML.BAG IVPB SCH ×3 (06:02→21:54)
[2017-05-31 07:08] LABS: Basophils # (A) 0.1 k/uL (0-0.2); Basophils % (A) 1 %; Eosinophils # (A) 0.1 k/uL (0-0.7); Eosinophils % (A) 1 %; HCT 38.4 % (39.0-53.0); HGB 12.3 gm/dL (13.0-17.5); Lymphocytes # (A) 1.3 k/uL (1.0-4.8); Lymphocytes % (A) 13 %; MCHC 32.1 g/dL (31.0-37.0); MCV 90.3 fL (80.0-100.0); Monocytes # (A) 0.8 k/uL (0-1.0); Monocytes % (A) 7 %; Neutrophils # (A) 8.1 k/uL (1.3-7.7); Neutrophils % (A) 77 %; Platelet Count 232 k/uL (150-450); RBC 4.25 m/uL (4.30-5.90); RDW 11.9 % (11.5-15.5); WBC 10.5 k/uL (3.8-10.6)
[2017-05-31 07:11] LABS: Glucose,Whole Blood 158 mg/dL (75-99)
[2017-05-31 07:18] LABS: Albumin 2.9 g/dL (3.5-5.0); Calcium 8.5 mg/dL (8.4-10.2); Potassium 4.6 mmol/L (3.5-5.1); Total Protein 5.8 g/dL (6.3-8.2)
[2017-05-31] MEDS: INSULIN ASPART 100 UNIT/ML 1 ML 10 ML VIAL SQ SCH ×4 (08:38→21:54)
[2017-05-31] MEDS: PANTOPRAZOLE 40 MG TABLET PO SCH (08:38)
[2017-05-31] MEDS: BACITRACIN 500 UNIT/GM OINT 28.4 GM TUBE TOPICAL SCH (09:44)
[2017-05-31] MEDS: HEPARIN SODIUM,PORCINE 5,000 UNIT/ML 1 ML VIAL SQ SCH ×2 (09:45→21:54)
[2017-05-31] MEDS ORDERED: hydrALAZINE HCL 20 MG/ML 1 ML VIAL IVP STA (09:58)
--- NOTE | 2017-05-31 10:00 | P.PN ---
Subjective Progress Note Date: 05/31/17 This is a 61-year-old male with a past medical history of uncontrolled diabetes mellitus. He is noncompliant with medications.. It's been a few years since he is taken his metformin. He reports about 3 weeks ago clipping the toenail on his right great toe and cut it too short. He started to have infection along the edge of the toenail with some drainage and redness. He treated it with peroxide and antibiotic ointment. Patient had no improvement. He presents to the hospital now with black discoloration at the top of the toe. Toenail is following off. He has cellulitis changes along the distal aspect of the toe and into the top of the foot. Pulses were able to be obtained with the Doppler in the ER. He had a right foot x-ray and possible osteomyelitis of the of the distal phalanx of the big toe on the right foot. Patient started on IV Zosyn IV vancomycin. Culture obtained in the ER. Infectious disease and this was surgery have been consulted. Patient also had some severely elevated blood pressures on admission patient was given a dose of IV labetalol. Blood pressures have improved. Patient denies any past medical history of hypertension. Denies any fever, chills, sweats., Nausea or vomiting, bowel movement changes or urinary symptoms. 05/30/2017 patient has had some worsening in the right great toe. Evaluated by vascular surgery there planning to possibly proceed tomorrow with partial amputation of the right great toe. Patient had a rise in his creatinine to 1.64 possibly related to vancomycin. Case discussed with a faint infectious disease. Vancomycin discontinued. Patient started on IV fluids. They've also added daptomycin. Wound culture growing E. coli and presumptive staph aureus. Left tibia wound culture having some serous drainage. We'll culture this. Patient denies any chest pain, shortness breath, nausea or vomiting, bowel movement changes or urinary symptoms. 05/31/2017 patient scheduled for partial amputation of the right great toe today. Patient is also had worsening in his kidney function creatinine is up to 2.06. Patient will have IV fluids increased to 100 mL an hour. Patient denies any chest pain or shortness of breath. Denies any nausea or vomiting. Reports regular bowel movements. And had no difficulty with urinating. Urine is a nice clear yellow. Patient feels anxious about surgery Objective - Vital Signs Vital signs: Vital Signs Temp 98 F 05/31/17 07:00 Pulse 58 L 05/31/17 07:00 Resp 16 05/31/17 07:00 BP 171/79 05/31/17 08:37 Pulse Ox 97 05/31/17 07:00 Intake & Output 05/30/17 05/31/17 05/31/17 18:59 06:59 18:59 Intake Total 237 400 Balance 237 400 Intake: Oral 237 400 Other: Voiding Method Toilet Toilet # Voids 2 0 - Exam Head normocephalic Neck supple Lungs clear to auscultation bilaterally no wheezing or crackles Heart regular rate and rhythm S1-S2, no rub or gallop Abdomen is soft nontender nondistended positive bowel sounds no hepatosplenomegaly Extremities +1 edema right lower extremity. Dressing on right foot is clean dry and intact. Left tibia ulcer with serous drainage. The size of a quarter. No erythema Neuro alert and orientated to 3 - Labs CBC & Chem 7: 05/31/17 06:43 05/31/17 06:43 Labs: Abnormal Lab Results - Last 24 Hours (Table) 05/30/17 05/30/17 05/30/17 Range/Units 10:55 16:56 19:48 RBC (4.30-5.90) m/uL Hgb (13.0-17.5) gm/dL Hct (39.0-53.0) % Neutrophils # (1.3-7.7) k/uL Sodium (137-145) mmol/L BUN (9-20) mg/dL Creatinine (0.66-1.25) mg/dL Glucose (74-99) mg/dL POC Glucose (mg/dL) 161 H 207 H 146 H (75-99) mg/dL Total Protein (6.3-8.2) g/dL Albumin (3.5-5.0) g/dL 05/31/17 05/31/17 05/31/17 Range/Units 06:43 06:43 07:01 RBC 4.25 L (4.30-5.90) m/uL Hgb 12.3 L (13.0-17.5) gm/dL Hct 38.4 L (39.0-53.0) % Neutrophils # 8.1 H (1.3-7.7) k/uL Sodium 136 L (137-145) mmol/L BUN 27 H (9-20) mg/dL Creatinine 2.06 H (0.66-1.25) mg/dL Glucose 168 H (74-99) mg/dL POC Glucose (mg/dL) 158 H (75-99) mg/dL Total Protein 5.8 L (6.3-8.2) g/dL Albumin 2.9 L (3.5-5.0) g/dL Microbiology - Last 24 Hours (Table) 05/30/17 10:40 Gram Stain - Preliminary Leg - Right Wound Culture - Preliminary 05/27/17 18:13 Blood Culture - Preliminary Blood No Growth after 72 hours 05/27/17 18:13 Gram Stain - Final Toe - Right First Wound Culture - Final Escherichia coli Staphylococcus aureus Assessment and Plan Assessment: 1. Right great toe cellulitis and ulcer secondary to diabetes and peripheral vascular disease. Culture growing E. coli and MRSA. Patient currently on Zosyn and daptomycin. Vancomycin discontinued due to elevated creatinine. Patient had debridement of that right great toe and toenail removal on 2017. Patient scheduled for partial amputation of the right great toe today 2. Hypertensive emergency present on admission: Patient required IV labetalol. Blood pressures elevated this morning. Continue to monitor. We'll give 1 dose of IV hydralazine 3. Uncontrolled diabetes mellitus type 2. History of noncompliance with medication. A1c is 9.3. clinical unit educator has been consulted. Continue with the NovoLog sliding scale. Continue to monitor. Continue Levemir 12 units at bedtime 4. GI prophylaxis Protonix and DVT prophylaxis subcu heparin 5. Left tibial ulcer: Culture drainage. Continue to monitor. We'll await further wound care recommendations per infectious disease 6. Acute kidney injury: Secondary to the IV vancomycin. IV vancomycin discontinued yesterday. Patient started on IV fluids. Will increase the normal saline to 100 mL an hour. Creatinine is at 2.06. Repeat labs in a.m. I performed an examination of the patient and discussed their management with the physician Manager Reliability. I have reviewed the Physician Manager Reliability's notes and agree with the documented findings and plan of care
[2017-05-31] MEDS: DAPTOmycin IN 0.9% NACL 500 MG/10 ML SYRINGE IVP SCH (11:33)
[2017-05-31] MEDS ORDERED: IV FLUID CONTINUATION 1,000 ML IV ONE ×2 (12:07→13:39)
[2017-05-31 12:09] LABS: Glucose,Whole Blood 145 mg/dL (75-99)
[2017-05-31] MEDS ORDERED: DEXAMETHASONE SOD PHOSPHATE 10 MG/ML 1 ML VIAL IV ONE (12:18)
[2017-05-31] MEDS ORDERED: PROPOFOL 10 MG/ML 20 ML VIAL IV ONE (13:39)
[2017-05-31] MEDS ORDERED: LIDOCAINE 1% INJ 10MG/ML (20 ML MDV) ONE (13:39)
[2017-05-31] MEDS ORDERED: SUCCINYLCHOLINE CHLORIDE 100 MG/5 ML SYR IV ONE (13:39)
[2017-05-31] MEDS ORDERED: fentaNYL (PF) 50 MCG/ML 2 ML AMP ONE (13:39)
[2017-05-31] MEDS ORDERED: ePHEDrine SULFATE/0.9% NACL/PF 50 MG/5 ML SYRINGE IV ONE (13:39)
[2017-05-31] MEDS ORDERED: MIDAZOLAM 2 MG/2 ML VIAL ONE (13:39)
--- NOTE | 2017-05-31 14:13 | P.PN ---
Subjective Progress Note Date: 05/31/17 Principal diagnosis: Diabetic foot ulcer This is a 61-year-old male patient gives history that 3 weeks ago he cut his nails on his toes too short. He had worsening edema redness and flaking of the skin and eventually a tissue on the big toe became black and swollen. He came into the [facility] emergency center for evaluation. Foot x-rays that show possible osteomyelitis in the 12th of the distal phalanx right big toe. He has been afebrile with normal white count. Creatinine 0.8. Wound culture is showing gram-positive cocci and gram-negative bacilli. Blood cultures status received. Patient was started on Zosyn and vancomycin and admitted to the surgical unit. He has been seen in consultation by Dr. Armstrong with plans for debridement of the toe and nail. Patient has history of diabetes but is not taking any medications for many years. He was found having hemoglobin A1c of 9.3 and is now on Levemir and NovoLog scale. He was also found to have urgent hypertension with blood pressure 220/120 and started on IV labetalol. Wound however had exposed bone per surgeon when toe derided. Will have distal amputation with flap. Objective - Vital Signs Vital signs: Vital Signs Temp 99.2 F 05/31/17 12:13 Pulse 77 05/31/17 12:13 Resp 16 05/31/17 12:13 BP 189/88 05/31/17 12:13 Pulse Ox 95 05/31/17 12:13 Intake & Output 05/30/17 05/31/17 05/31/17 18:59 06:59 18:59 Intake Total 237 400 250 Balance 237 400 250 Intake: IV 250 Oral 237 400 Other: Voiding Method Toilet Toilet # Voids 2 0 - Exam Gen: This is a 61-year-old obese male. He is sitting up in bed and appears to be in no acute distress. Post op dressing in place. - Labs CBC & Chem 7: 05/31/17 06:43 05/31/17 06:43 Labs: Abnormal Lab Results - Last 24 Hours (Table) 05/30/17 05/30/17 05/31/17 Range/Units 16:56 19:48 06:43 RBC 4.25 L (4.30-5.90) m/uL Hgb 12.3 L (13.0-17.5) gm/dL Hct 38.4 L (39.0-53.0) % Neutrophils # 8.1 H (1.3-7.7) k/uL Sodium (137-145) mmol/L BUN (9-20) mg/dL Creatinine (0.66-1.25) mg/dL Glucose (74-99) mg/dL POC Glucose (mg/dL) 207 H 146 H (75-99) mg/dL Total Protein (6.3-8.2) g/dL Albumin (3.5-5.0) g/dL 05/31/17 05/31/17 05/31/17 Range/Units 06:43 07:01 11:59 RBC (4.30-5.90) m/uL Hgb (13.0-17.5) gm/dL Hct (39.0-53.0) % Neutrophils # (1.3-7.7) k/uL Sodium 136 L (137-145) mmol/L BUN 27 H (9-20) mg/dL Creatinine 2.06 H (0.66-1.25) mg/dL Glucose 168 H (74-99) mg/dL POC Glucose (mg/dL) 158 H 145 H (75-99) mg/dL Total Protein 5.8 L (6.3-8.2) g/dL Albumin 2.9 L (3.5-5.0) g/dL Microbiology - Last 24 Hours (Table) 05/30/17 10:40 Gram Stain - Preliminary Leg - Right Wound Culture - Preliminary 05/27/17 18:13 Blood Culture - Preliminary Blood No Growth after 72 hours 05/27/17 18:13 Gram Stain - Final Toe - Right First Wound Culture - Final Escherichia coli Staphylococcus aureus Assessment and Plan (1) Poorly controlled diabetes mellitus Current Visit: Yes Status: Acute Code(s): E11.65 - TYPE 2 DIABETES MELLITUS WITH HYPERGLYCEMIA SNOMED Code(s): 167191323 (2) Diabetic foot ulcer associated with type 2 diabetes mellitus, with fat layer exposed Current Visit: Yes Status: Acute Code(s): E11.621 - TYPE 2 DIABETES MELLITUS WITH FOOT ULCER; L97.502 - NON-PRS CHRONIC ULCER OTH PRT UNSP FOOT W FAT LAYER EXPOSED SNOMED Code(s): 8195678180807 Plan: 61-year-old male has a history of significant medical noncompliance with his diabetes and his hypertension. He however is now very concerned due to the ulcerative processes occurred to the right great toe with concerns to toe loss. 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 Bone scan has failed to reveal evidence of underlying osteomyelitis We'll need diabetic offloading shoe at discharge. And may do well to follow the wound healing Center for a total contact cast to assist in the healing of this diabetic ulceration. Will need outpatient diabetic education. His hypertension is starting to improve with the medications and significant dietary restraints of being hospitalized. The surgeon found exposed bone at debridement site thus was taken to OR today for distal amputation. will not need IV antibiotic therapy at discharge, Augmentin sent to pharmacy.
[2017-05-31 14:37] LABS: Glucose,Whole Blood 146 mg/dL (75-99)
[2017-05-31] MEDS: HYDROmorphone 2 MG/ML 1 ML SYRINGE IVP PRN ×2 (16:44→19:48)
--- NOTE | 2017-05-31 16:55 | OP ---
OPERATIVE REPORT PREOP DIAGNOSES: Gangrene of the right foot, big toe. OPERATIONS: Amputation of the right foot big toe. DESCRIPTION OF PROCEDURE: This patient has an infected nail bed and gangrene changes noted about 3 weeks ago. The patient was on antibiotic and we brought this patient to the operating room. Right foot was prepped and draped and drapes applied in the usual sterile manner. An incision was made at the base of the proximal phalanx, big toe, deepened through skin, fat, and fascia. Tendons were divided and the posterior flap incision was made which was longer than the anterior flap incision deepened through skin, fat, fascia, and tendons were divided. The proximal phalanx of the right foot big toe was divided with the electric saw and after that, the specimen was removed and hemostasis was controlled and incisions were closed with hydrogen peroxide and saline. Incision was approximated with 3-0 Vicryl and skin was closed with 4-0 nylon mattress suture and dressing applied. The patient tolerated the procedure well. MMODL / IJN: [id number] /
[2017-05-31 17:14] LABS: Glucose,Whole Blood 192 mg/dL (75-99)
[2017-05-31] MEDS ORDERED: hydrALAZINE HCL 20 MG/ML 1 ML VIAL IVP PRN (19:44)
[2017-05-31 21:12] LABS: Glucose,Whole Blood 254 mg/dL (75-99)
[2017-05-31] MEDS: INSULIN DETEMIR 100 UNIT/ML 10 ML VIAL SQ SCH (21:54)
[2017-06-01] MEDS: BACITRACIN 500 UNIT/GM OINT 28.4 GM TUBE TOPICAL SCH ×2 (05:11→10:59)
[2017-06-01] MEDS: HYDROmorphone 2 MG/ML 1 ML SYRINGE IVP PRN ×3 (05:57→18:09)
[2017-06-01] MEDS: PIPERACILLIN-TAZOBACTAM 3.375 GM in DEXTROSE/WATER 1 50ML.BAG IVPB SCH ×2 (05:58→14:16)
[2017-06-01] MEDS: SODIUM CHLORIDE 0.9% 1,000 ML IV SCH ×2 (06:05→18:04)
[2017-06-01] MEDS: INSULIN ASPART 100 UNIT/ML 1 ML 10 ML VIAL SQ SCH ×3 (07:30→17:32)
[2017-06-01 07:40] LABS: Glucose,Whole Blood 186 mg/dL (75-99)
[2017-06-01 08:12] LABS: Basophils % (A) 0 %; Eosinophils % (A) 0 %; HCT 37.3 % (39.0-53.0); HGB 11.8 gm/dL (13.0-17.5); Lymphocytes # (A) 1.3 k/uL (1.0-4.8); Lymphocytes % (A) 11 %; MCH 28.8 pg (25.0-35.0); MCHC 31.6 g/dL (31.0-37.0); MCV 91.2 fL (80.0-100.0); Mean Platelet Volume 7.2; Monocytes # (A) 0.9 k/uL (0-1.0); Monocytes % (A) 8 %; Neutrophils % (A) 79 %; Platelet Count 271 k/uL (150-450); RBC 4.09 m/uL (4.30-5.90); RDW 11.9 % (11.5-15.5); WBC 11.4 k/uL (3.8-10.6)
[2017-06-01] MEDS: PANTOPRAZOLE 40 MG TABLET PO SCH (08:16)
[2017-06-01] MEDS: HEPARIN SODIUM,PORCINE 5,000 UNIT/ML 1 ML VIAL SQ SCH (08:16)
[2017-06-01 08:29] LABS: Albumin 3.1 g/dL (3.5-5.0); Calcium 8.5 mg/dL (8.4-10.2); Potassium 4.8 mmol/L (3.5-5.1); Total Bilirubin 0.8 mg/dL (0.2-1.3)
--- NOTE | 2017-06-01 09:43 | P.PN ---
Progress Note - Text 61 old diabetic male, patient had had infected gangrene of the right foot big toe patient went for a right foot big toe amputation today we've changed her dressing slight redness noted but no discharge dressing change continue with IV antibiotic we'll change her dressing on Saturday
[2017-06-01 11:33] LABS: Glucose,Whole Blood 223 mg/dL (75-99)
[2017-06-01] MEDS: DAPTOmycin IN 0.9% NACL 500 MG/10 ML SYRINGE IVP SCH (12:44)
--- NOTE | 2017-06-01 14:04 | P.PN ---
Subjective Progress Note Date: 06/01/17 Patient is doing well today. Pain is better controlled. Kidney function is not improving. Objective - Vital Signs Vital signs: Vital Signs Temp 97.4 F L 06/01/17 08:19 Pulse 74 06/01/17 08:19 Resp 16 06/01/17 08:19 BP 133/66 06/01/17 08:19 Pulse Ox 97 06/01/17 08:19 Intake & Output 05/31/17 06/01/17 06/01/17 18:59 06:59 18:59 Intake Total 1100 2710 Output Total 10 Balance 1090 2710 Intake: IV 1100 Intake, IV Titration 1750 Amount Piperacillin-Tazobactam 3 150 .375 gm In Dextrose/Water 1 50ml.bag @ 12.5 mls/hr IVPB Q8H [facility] Rx#: [id number] Sodium Chloride 0.9% 1, 1600 000 ml @ 100 mls/hr IV . Q10H [facility] Rx#:[id number] Oral 960 Output: Estimated Blood Loss 10 Other: Voiding Method Toilet Toilet # Voids 2 3 - Exam General: The patient is awake and alert, in no distress Eye: there is normal conjunctiva bilaterally. Neck: The neck is supple, there is no JVD. Cardiovascular: Normal S1-S2, no S3-S4, no murmurs. Respiratory: Lungs clear to auscultation bilaterally Gastrointestinal: Abdomen is soft, nontender Musculoskeletal: Right foot wrapped in clean dressing.. Neurological:. Speech is normal. Skin: Skin is warm and dry - Labs CBC & Chem 7: 06/01/17 06:47 06/01/17 06:47 Labs: Abnormal Lab Results - Last 24 Hours (Table) 05/31/17 05/31/17 05/31/17 Range/Units 14:35 16:42 21:10 WBC (3.8-10.6) k/uL RBC (4.30-5.90) m/uL Hgb (13.0-17.5) gm/dL Hct (39.0-53.0) % Neutrophils # (1.3-7.7) k/uL BUN (9-20) mg/dL Creatinine (0.66-1.25) mg/dL Glucose (74-99) mg/dL POC Glucose (mg/dL) 146 H 192 H 254 H (75-99) mg/dL Total Protein (6.3-8.2) g/dL Albumin (3.5-5.0) g/dL 06/01/17 06/01/17 06/01/17 Range/Units 06:47 06:47 06:51 WBC 11.4 H (3.8-10.6) k/uL RBC 4.09 L (4.30-5.90) m/uL Hgb 11.8 L (13.0-17.5) gm/dL Hct 37.3 L (39.0-53.0) % Neutrophils # 9.0 H (1.3-7.7) k/uL BUN 31 H (9-20) mg/dL Creatinine 2.06 H (0.66-1.25) mg/dL Glucose 184 H (74-99) mg/dL POC Glucose (mg/dL) 186 H (75-99) mg/dL Total Protein 6.0 L (6.3-8.2) g/dL Albumin 3.1 L (3.5-5.0) g/dL 06/01/17 Range/Units 11:30 WBC (3.8-10.6) k/uL RBC (4.30-5.90) m/uL Hgb (13.0-17.5) gm/dL Hct (39.0-53.0) % Neutrophils # (1.3-7.7) k/uL BUN (9-20) mg/dL Creatinine (0.66-1.25) mg/dL Glucose (74-99) mg/dL POC Glucose (mg/dL) 223 H (75-99) mg/dL Total Protein (6.3-8.2) g/dL Albumin (3.5-5.0) g/dL Microbiology - Last 24 Hours (Table) 05/27/17 18:13 Blood Culture - Preliminary Blood No Growth after 96 hours Assessment and Plan Assessment: 1. Infected gangrene of the right foot big toe status post amputation. Patient was maintained on Zosyn and vancomycin which was changed to Toe secondary to acute kidney injury. Vascular surgery following. Culture growing E. coli and MRSA. 2. Hypertensive emergency present on admission: Patient is not known to have essential hypertension. Elevated blood pressure may be attributed to uncontrolled pain. Patient has been receiving IV hydralazine as needed. I'll start him on low-dose Norvasc for now. Ideally patient should be on DUKE inhibitor but would avoid secondary to a KI. 3. Uncontrolled diabetes mellitus type 2. History of noncompliance with medication. A1c is 9.3. clinical document improvement educator has been consulted. Continue with the NovoLog sliding scale. Continue to monitor. Continue Levemir 12 units at bedtime 4. GI prophylaxis Protonix and DVT prophylaxis subcu heparin 6. Acute kidney injury: May be Secondary to the IV vancomycin. IV vancomycin discontinued yesterday. Patient started on IV fluids. We will consult nephrology for further evaluation.
[2017-06-01 16:47] LABS: Glucose,Whole Blood 199 mg/dL (75-99)
[2017-06-01 20:52] LABS: Glucose,Whole Blood 130 mg/dL (75-99)
[2017-06-02] MEDS: HEPARIN SODIUM,PORCINE 5,000 UNIT/ML 1 ML VIAL SQ SCH ×3 (00:10→22:11)
[2017-06-02] MEDS: PIPERACILLIN-TAZOBACTAM 3.375 GM in DEXTROSE/WATER 1 50ML.BAG IVPB SCH ×4 (00:10→22:11)
[2017-06-02] MEDS: INSULIN DETEMIR 100 UNIT/ML 10 ML VIAL SQ SCH ×2 (00:10→22:12)
[2017-06-02] MEDS: BACITRACIN 500 UNIT/GM OINT 28.4 GM TUBE TOPICAL SCH ×3 (00:11→22:12)
[2017-06-02] MEDS: INSULIN ASPART 100 UNIT/ML 1 ML 10 ML VIAL SQ SCH ×5 (00:18→22:12)
[2017-06-02] MEDS: SODIUM CHLORIDE 0.9% 1,000 ML IV SCH ×3 (00:18→22:13)
[2017-06-02] MEDS: HYDROmorphone 2 MG/ML 1 ML SYRINGE IVP PRN ×3 (06:48→18:58)
[2017-06-02 07:29] LABS: Glucose,Whole Blood 161 mg/dL (75-99)
[2017-06-02] MEDS: PANTOPRAZOLE 40 MG TABLET PO SCH (08:25)
[2017-06-02] MEDS ORDERED: hydrALAZINE HCL 20 MG/ML 1 ML VIAL IVP PRN (10:38)
--- NOTE | 2017-06-02 10:43 | P.NPCON ---
History of Present Illness - Reason for Consult acute renal failure - History of Present Illness Reason for consultation: Acute kidney injury History of present illness: Patient is a 61-year-old male seen in renal consultation for acute kidney injury. Patient denies any prior history of kidney disease. His baseline creatinine as of May 27 with 0.8. On last few days due to function has been worsening with creatinine up to 2.06 the last 2 days. Patient presented to the hospital with right toe infection. He underwent debridement by vascular surgery on May 28 and subsequently required amputation on May 31. His bone scan was suggestive of cellulitis. Initially he did receive a few doses of IV vancomycin and was also receiving Toradol for pain control. Patient also admits to taking ibuprofen a few times daily prior to admission due to the pain. His oral intake is good. He denies any chest pain or shortness of breath. He admits to good urine output. No vomiting or diarrhea. Patient denies any prior history of high blood pressure. His blood pressures have been running high this admission. He does admit to stress and anxiety due to being in the hospital. Denies any family history of renal disease. No other complaints at this time. Vital signs are stable. General: The patient appeared well nourished and normally developed. HEENT: Head exam is unremarkable. Neck is without jugular venous distension. LUNGS: Lungs are clear to auscultation and percussion. Breath sounds decreased. HEART: Rate and Rhythm are regular. First and second heart sounds normal. No murmurs, rubs or gallops. ABDOMEN: Abdominal exam reveals normal bowel sounds. Non-tender and non- distended. No evidence of peritonitis. EXTREMITITES: 1+ edema. Right foot wrapped. No obvious drainage. Past Medical History Past Medical History: Diabetes Mellitus, Hypertension History of Any Multi-Drug Resistant Organisms: None Reported Past Surgical History: Tonsillectomy Past Psychological History: No Psychological Hx Reported Smoking Status: Former smoker Past Alcohol Use History: Daily, Occasional Additional Past Alcohol Use History / Comment(s): Patient only smoked briefly as a teenager. He denies any medical marijuana, marijuana, street drug use. He drinks alcohol socially and denies alcohol abuse. He lives at home with his . 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 Past Drug Use History: None Reported Medications and Allergies Home Medications Medication Instructions Recorded Confirmed Type Ibuprofen [Motrin] 800 mg PO DAILY PRN 05/27/17 05/27/17 History Amoxic-Pot Clav 875-125Mg 1 tab PO Q12HR #20 tablet 05/31/17 Rx [Augmentin 875-125] Allergies Allergy/AdvReac Type Severity Reaction Status Date / Time No Known Allergies Allergy Verified 05/31/17 12:18 Physical Exam Vitals: Vital Signs Temp Pulse Pulse Resp BP Pulse Ox 06/02/17 08:20 97.9 F 62 16 184/78 06/02/17 02:36 97.5 F L 64 16 180/66 95 06/02/17 00:00 64 64 16 06/01/17 23:23 97.7 F 63 16 164/81 97 06/01/17 20:00 64 64 16 06/01/17 15:22 163/86 06/01/17 14:53 97.5 F L 64 16 165/77 98 Intake and Output 06/01/17 06/02/17 06/02/17 22:59 06:59 14:59 Intake Total 1550 360 Output Total 400 Balance -400 1550 360 Intake: Intake, IV Titration 950 Amount Piperacillin-Tazobactam 3 150 .375 gm In Dextrose/Water 1 50ml.bag @ 12.5 mls/hr IVPB Q8H [facility] Rx#: [id number] Sodium Chloride 0.9% 1, 800 000 ml @ 100 mls/hr IV . Q10H [facility] Rx#:[id number] Oral 600 360 Output: Urine 400 Other: Voiding Method Toilet # Voids 3 Results - Lab Results Most recent lab results Calcium 8.5 mg/dL (8.4-10.2) 06/01/17 06:47 06/01/17 06:47 06/01/17 06:47 Assessment and Plan Plan: Assessment: #1. Nonoliguric acute kidney injury secondary to ATN secondary to NSAIDs and cellulitis. Baseline creatinine is 1. Last 2 days creatinine seems to have stabilized at 2.06. #2. Right great toe infection status post amputation. Wound culture positive for E. coli and staph aureus. Maintained on antibiotics per infectious disease recommendations. #3. Benign hypertension. Partially related to IV fluids and anxiety. Patient denies prior history of hypertension. Plan: I will decrease rate of IV fluids to 50 mL an hour. Avoid nephrotoxic agents and hypotensive episodes. NSAIDs have been discontinued. Maintain when necessary hydralazine for systolic blood pressure greater than 160. Repeat electrolytes in the morning. Check UA and renal ultrasound. Thank you for the consultation. I will continue to follow the patient with you during his hospital stay.
--- NOTE | 2017-06-02 11:46 | US ---
EXAMINATION TYPE: US kidneys/renal and bladder DATE OF EXAM: 06/02/2017 COMPARISON: Previous study dated 02/01/2014. CLINICAL HISTORY: robbie. Abnormal labs. Diabetic. No pain EXAM MEASUREMENTS: Right Kidney: 12.0 x 6.7 x 6.3 cm Left Kidney: 12.3 x 5.5 x 7.1 cm Right Kidney: wnl Left Kidney: wnl Bladder: moderately distended, wnl as visualized Bilateral Jets seen There is no evidence for hydronephrosis at this point in time. No nephrolithiasis is seen. No og s are identified. The urinary bladder is anechoic. Bilateral ureteral jets are seen. IMPRESSION: NORMAL RENAL ULTRASOUND.
[2017-06-02 11:59] LABS: Glucose,Whole Blood 110 mg/dL (75-99)
[2017-06-02 13:31] LABS: Basophils # (A) 0.1 k/uL (0-0.2); Basophils % (A) 1 %; Eosinophils # (A) 0.1 k/uL (0-0.7); Eosinophils % (A) 2 %; HCT 39.1 % (39.0-53.0); HGB 12.6 gm/dL (13.0-17.5); Lymphocytes # (A) 1.5 k/uL (1.0-4.8); Lymphocytes % (A) 16 %; MCH 29.4 pg (25.0-35.0); MCHC 32.3 g/dL (31.0-37.0); Monocytes # (A) 0.9 k/uL (0-1.0); Monocytes % (A) 10 %; Neutrophils # (A) 6.6 k/uL (1.3-7.7); Neutrophils % (A) 71 %; Platelet Count 323 k/uL (150-450); RBC 4.29 m/uL (4.30-5.90); WBC 9.3 k/uL (3.8-10.6)
[2017-06-02 13:42] LABS: Potassium 4.8 mmol/L (3.5-5.1)
--- NOTE | 2017-06-02 14:16 | P.PN ---
Subjective Progress Note Date: 06/02/17 Patient is doing well today. Pain is better controlled. Kidney function is not improving. Blood pressure remained elevated despite patient being comfortable and is not in a lot of pain. Objective - Vital Signs Vital signs: Vital Signs Temp 97.9 F 06/02/17 08:20 Pulse 62 06/02/17 08:20 Resp 16 06/02/17 08:20 BP 177/91 06/02/17 12:01 Pulse Ox 95 06/02/17 02:36 Intake & Output 06/01/17 06/02/17 06/02/17 18:59 06:59 18:59 Intake Total 1550 360 Output Total 400 Balance 1150 360 Intake: Intake, IV Titration 950 Amount Piperacillin-Tazobactam 3 150 .375 gm In Dextrose/Water 1 50ml.bag @ 12.5 mls/hr IVPB Q8H [facility] Rx#: [id number] Sodium Chloride 0.9% 1, 800 000 ml @ 100 mls/hr IV . Q10H [facility] Rx#:[id number] Oral 600 360 Output: Urine 400 Other: Voiding Method Toilet # Voids 3 3 - Exam General: The patient is awake and alert, in no distress Eye: there is normal conjunctiva bilaterally. Neck: The neck is supple, there is no JVD. Cardiovascular: Normal S1-S2, no S3-S4, no murmurs. Respiratory: Lungs clear to auscultation bilaterally Gastrointestinal: Abdomen is soft, nontender Musculoskeletal: Right foot wrapped in clean dressing.. Neurological:. Speech is normal. Skin: Skin is warm and dry - Labs CBC & Chem 7: 06/02/17 13:11 06/02/17 13:11 Labs: Abnormal Lab Results - Last 24 Hours (Table) 06/01/17 06/01/17 06/02/17 Range/Units 16:40 20:31 07:22 RBC (4.30-5.90) m/uL Hgb (13.0-17.5) gm/dL BUN (9-20) mg/dL Creatinine (0.66-1.25) mg/dL Glucose (74-99) mg/dL POC Glucose (mg/dL) 199 H 130 H 161 H (75-99) mg/dL 06/02/17 06/02/17 06/02/17 Range/Units 11:45 13:11 13:11 RBC 4.29 L (4.30-5.90) m/uL Hgb 12.6 L (13.0-17.5) gm/dL BUN 28 H (9-20) mg/dL Creatinine 2.27 H (0.66-1.25) mg/dL Glucose 127 H (74-99) mg/dL POC Glucose (mg/dL) 110 H (75-99) mg/dL Microbiology - Last 24 Hours (Table) 05/27/17 18:13 Blood Culture - Preliminary Blood No Growth after 120 hours 05/30/17 10:40 Gram Stain - Final Leg - Right Wound Culture - Final Assessment and Plan Assessment: 1. Infected gangrene of the right foot big toe status post amputation. Patient was maintained on Zosyn and vancomycin which was changed to Toe secondary to acute kidney injury. Vascular surgery following. Culture growing E. coli and MRSA. 2. Hypertensive emergency present on admission: now patient with new onset essential hypertension. Start Norvasc 5 mg daily. Continue IV hydralazine as needed. Ideally patient should be on DUKE inhibitor but would avoid right now secondary to JUAN. 3. Uncontrolled diabetes mellitus type 2. History of noncompliance with medication. A1c is 9.3. portrait consultant has been consulted. Continue with the NovoLog sliding scale. Continue to monitor. Continue Levemir 12 units at bedtime 4. GI prophylaxis Protonix and DVT prophylaxis subcu heparin 6. Acute kidney injury: May be Secondary to the IV vancomycin. IV vancomycin discontinued yesterday. Patient started on IV fluids. he was seen and evaluated by nephrology. Kidney ultrasound unremarkable. Continue gentle IV fluid hydration.
[2017-06-02 14:33] LABS: Appearance,Urine Clear (Clear); Bilirubin,Urine Negative (Negative); Blood,Urine Trace (Negative); Color,Urine Light Yellow; Glucose,Urine (UA) Negative (Negative); Ketones,Urine Negative (Negative); Leukocyte Esterase,Urine Negative (Negative); Nitrite,Urine Negative (Negative); Protein,Urine Negative (Negative); Specific Gravity,Urine 1.005 (1.001-1.035); Urobilinogen,Urine <2.0 mg/dL (<2.0)
[2017-06-02] MEDS: amLODIPine 5 MG TAB PO SCH (14:55)
[2017-06-02 17:05] LABS: Glucose,Whole Blood 125 mg/dL (75-99)
[2017-06-02 20:27] LABS: Glucose,Whole Blood 153 mg/dL (75-99)
[2017-06-03] MEDS: HYDROmorphone 2 MG/ML 1 ML SYRINGE IVP PRN ×3 (02:38→20:50)
[2017-06-03 07:10] LABS: Glucose,Whole Blood 121 mg/dL (75-99)
[2017-06-03] MEDS: PIPERACILLIN-TAZOBACTAM 3.375 GM in DEXTROSE/WATER 1 50ML.BAG IVPB SCH ×3 (07:31→20:50)
[2017-06-03 07:33] LABS: Potassium 4.7 mmol/L (3.5-5.1)
[2017-06-03] MEDS: INSULIN ASPART 100 UNIT/ML 1 ML 10 ML VIAL SQ SCH ×4 (07:33→20:53)
[2017-06-03] MEDS: HEPARIN SODIUM,PORCINE 5,000 UNIT/ML 1 ML VIAL SQ SCH ×2 (09:07→20:50)
[2017-06-03] MEDS: amLODIPine 5 MG TAB PO SCH (09:07)
[2017-06-03] MEDS: PANTOPRAZOLE 40 MG TABLET PO SCH (09:07)
[2017-06-03] MEDS: BACITRACIN 500 UNIT/GM OINT 28.4 GM TUBE TOPICAL SCH ×2 (09:07→20:53)
[2017-06-03 11:40] LABS: Glucose,Whole Blood 166 mg/dL (75-99)
--- NOTE | 2017-06-03 12:48 | P.PN ---
Subjective Progress Note Date: 06/03/17 This is a 61-year-old male with a past medical history of uncontrolled diabetes mellitus. He is noncompliant with medications.. It's been a few years since he is taken his metformin. He reports about 3 weeks ago clipping the toenail on his right great toe and cut it too short. He started to have infection along the edge of the toenail with some drainage and redness. He treated it with peroxide and antibiotic ointment. Patient had no improvement. He presents to the hospital now with black discoloration at the top of the toe. Toenail is following off. He has cellulitis changes along the distal aspect of the toe and into the top of the foot. Pulses were able to be obtained with the Doppler in the ER. He had a right foot x-ray and possible osteomyelitis of the of the distal phalanx of the big toe on the right foot. Patient started on IV Zosyn IV vancomycin. Culture obtained in the ER. Infectious disease and this was surgery have been consulted. Patient also had some severely elevated blood pressures on admission patient was given a dose of IV labetalol. Blood pressures have improved. Patient denies any past medical history of hypertension. Denies any fever, chills, sweats., Nausea or vomiting, bowel movement changes or urinary symptoms. 05/30/2017 patient has had some worsening in the right great toe. Evaluated by vascular surgery there planning to possibly proceed tomorrow with partial amputation of the right great toe. Patient had a rise in his creatinine to 1.64 possibly related to vancomycin. Case discussed with a faint infectious disease. Vancomycin discontinued. Patient started on IV fluids. They've also added daptomycin. Wound culture growing E. coli and presumptive staph aureus. Left tibia wound culture having some serous drainage. We'll culture this. Patient denies any chest pain, shortness breath, nausea or vomiting, bowel movement changes or urinary symptoms. 05/31/2017 patient scheduled for partial amputation of the right great toe today. Patient is also had worsening in his kidney function creatinine is up to 2.06. Patient will have IV fluids increased to 100 mL an hour. Patient denies any chest pain or shortness of breath. Denies any nausea or vomiting. Reports regular bowel movements. And had no difficulty with urinating. Urine is a nice clear yellow. Patient feels anxious about surgery 06/03/2017 status post right great toe amputation completed on 05/31/2017. Patient's pain is controlled. Infectious diseases recommending Augmentin at discharge. Daptomycin discontinued. He is currently on Zosyn. Creatinine still elevated at 2.26. Nephrology is following. Patient has no new complaints Objective - Vital Signs Vital signs: Vital Signs Temp 98.2 F 06/03/17 07:00 Pulse 60 06/03/17 07:00 Resp 16 06/03/17 07:00 BP 182/85 06/03/17 07:00 Pulse Ox 96 06/03/17 07:00 Intake & Output 06/02/17 06/03/17 06/03/17 18:59 06:59 18:59 Intake Total 960 980 480 Output Total 450 Balance 960 530 480 Intake: IV 600 Sodium Chloride 0.9% 1, 600 000 ml @ 50 mls/hr IV . Q20H KAY Rx#:[id number] Intake, IV Titration 500 Amount Piperacillin-Tazobactam 3 100 .375 gm In Dextrose/Water 1 50ml.bag @ 12.5 mls/hr IVPB Q8H KAY Rx#: [id number] Sodium Chloride 0.9% 1, 400 000 ml @ 50 mls/hr IV . Q20H KAY Rx#:[id number] Oral 360 480 480 Output: Urine 450 Other: Voiding Method Toilet Toilet - Exam Head normocephalic Neck supple Lungs clear to auscultation bilaterally no wheezing or crackles Heart regular rate and rhythm S1-S2, no rub or gallop Abdomen is soft nontender nondistended positive bowel sounds no hepatosplenomegaly Extremities +1 edema bilateral lower extremities Neuro alert and orientated to 3 - Labs CBC & Chem 7: 06/02/17 13:11 06/03/17 06:53 Labs: Abnormal Lab Results - Last 24 Hours (Table) 06/02/17 06/02/17 06/02/17 Range/Units 13:11 13:11 14:15 RBC 4.29 L (4.30-5.90) m/uL Hgb 12.6 L (13.0-17.5) gm/dL Chloride (98-107) mmol/L BUN 28 H (9-20) mg/dL Creatinine 2.27 H (0.66-1.25) mg/dL Glucose 127 H (74-99) mg/dL POC Glucose (mg/dL) (75-99) mg/dL Urine Blood Trace H (Negative) 06/02/17 06/02/17 06/03/17 Range/Units 16:48 20:01 06:53 RBC (4.30-5.90) m/uL Hgb (13.0-17.5) gm/dL Chloride 108 H (98-107) mmol/L BUN 26 H (9-20) mg/dL Creatinine 2.26 H (0.66-1.25) mg/dL Glucose 133 H (74-99) mg/dL POC Glucose (mg/dL) 125 H 153 H (75-99) mg/dL Urine Blood (Negative) 06/03/17 06/03/17 Range/Units 07:02 11:37 RBC (4.30-5.90) m/uL Hgb (13.0-17.5) gm/dL Chloride (98-107) mmol/L BUN (9-20) mg/dL Creatinine (0.66-1.25) mg/dL Glucose (74-99) mg/dL POC Glucose (mg/dL) 121 H 166 H (75-99) mg/dL Urine Blood (Negative) Microbiology - Last 24 Hours (Table) 05/27/17 18:13 Blood Culture - Final Blood No Growth after 144 hours Assessment and Plan Assessment: 1. 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 Vascular surgery following. Patient currently on IV Zosyn. Wound culture had grown E. coli and MSSA. Infectious diseases recommending Augmentin at time of discharge 2. Hypertensive emergency present on admission with essential hypertension. We 'll pressures remain elevated. Norvasc added during the admission. Awaiting repeat blood pressure from this morning. 3. Uncontrolled diabetes mellitus type 2. History of noncompliance with medication. A1c is 9.3. medical educator has been consulted. Continue with the NovoLog sliding scale. Continue to monitor. Continue Levemir 12 units at bedtime 4. GI prophylaxis Protonix and DVT prophylaxis subcu heparin 5. Left tibial ulcer: Culture negative for growth. Appears to be improving. 6. Acute kidney injury: Secondary to the IV vancomycin and NSAIDs. Nephrology is following. Continue with IV fluid hydration. Renal ultrasound within normal limits. Creatinine 2.26 I performed an examination of the patient and discussed their management with the physician Em Physician. I have reviewed the Physician Em Physician's notes and agree with the documented findings and plan of care
--- NOTE | 2017-06-03 13:32 | P.PN ---
Progress Note - Text 61-year-old diabetic male who had a right big toe amputation today we have changed the dressing there is no flap necrosis noted no discharge or redness patient is going to go home tomorrow on by mouth antibiotic per Dr. Austin recommendation we'll change her dressing every other day when he goes home patient will follow me in in my office on advise nonweightbearing
[2017-06-03] MEDS: SODIUM CHLORIDE 0.9% 1,000 ML IV SCH (15:40)
[2017-06-03 17:08] LABS: Glucose,Whole Blood 172 mg/dL (75-99)
[2017-06-03 20:29] LABS: Glucose,Whole Blood 145 mg/dL (75-99)
[2017-06-03] MEDS: CARVEDILOL 6.25 MG TAB PO SCH (20:52)
[2017-06-03] MEDS: INSULIN DETEMIR 100 UNIT/ML 10 ML VIAL SQ SCH (20:53)
--- NOTE | 2017-06-03 22:43 | PN ---
PROGRESS NOTE Patient is seen for followup for acute kidney injury secondary to NSAIDs, cellulitis and ATN. The patient's serum creatinine is at 2.26, which is about the same as yesterday. He has had good urine output. His admission creatinine was 0.8 mg/dL. No nephrotoxic agents on board at this time. Blood pressure is not low. The patient is maintained on IV fluids at 50 mL/hour. PHYSICAL EXAMINATION: Blood pressure is elevated, 182/85 this morning and then 167/81. The patient is afebrile. Heart rate about 60 per minute. EXAMINATION OF THE HEART: S1, S2. EXAMINATION OF LUNGS: Bilateral breath sounds are heard. ABDOMEN: Soft, non-tender. Examination of lower extremities shows edema 1+ bilaterally. Right foot is currently dressed. LABS: Sodium 141, potassium 4.8, BUN 26, serum creatinine 2.26. ASSESSMENT: 1. Acute kidney injury secondary to acute tubular necrosis/non-steroidal anti- inflammatory agents. Renal function stable at this time. 2. Hypertension. Blood pressure is uncontrolled. I will discontinue the IV fluids in a.m. Patient is maintained on Norvasc. He already has edema and therefore I do not want to increase the Norvasc. We can add another agent. The patient has been receiving IV hydralazine. Oral beta-sammy will be added and down the road as the volume status improves his blood pressure should improve as well. 3. Right foot cellulitis and gangrene, status post right big toe amputation. PLAN: Discontinue IV fluids, add Coreg and repeat labs in a.m. Patient will need outpatient followup. He is advised to avoid use of any NSAIDs down the road. MMODL / IJN: [id number] /
--- NOTE | 2017-06-03 22:59 | P.PN ---
Subjective Progress Note Date: 06/03/17 Principal diagnosis: Diabetic foot ulcer This is a 61-year-old male patient gives history that 3 weeks ago he cut his nails on his toes too short. He had worsening edema redness and flaking of the skin and eventually a tissue on the big toe became black and swollen. He came into the [facility] emergency center for evaluation. Foot x-rays that show possible osteomyelitis in the 12th of the distal phalanx right big toe. He has been afebrile with normal white count. Creatinine 0.8. Wound culture is showing gram-positive cocci and gram-negative bacilli. Blood cultures status received. Patient was started on Zosyn and vancomycin and admitted to the surgical unit. He has been seen in consultation by Dr. Armstrong with plans for debridement of the toe and nail. Patient has history of diabetes but is not taking any medications for many years. He was found having hemoglobin A1c of 9.3 and is now on Levemir and NovoLog scale. He was also found to have urgent hypertension with blood pressure 220/120 and started on IV labetalol. Wound however had exposed bone per surgeon when toe derided. Distal toe amputation and flap closure has occurred Objective - Vital Signs Vital signs: Vital Signs Temp 98.5 F 06/03/17 14:58 Pulse 59 L 06/03/17 14:58 Resp 16 06/03/17 14:58 BP 167/81 06/03/17 14:58 Pulse Ox 96 06/03/17 14:58 Intake & Output 06/03/17 06/03/17 06/04/17 06:59 18:59 06:59 Intake Total 980 1480 400 Output Total 450 Balance 530 1480 400 Intake: Intake, IV Titration 500 Amount Piperacillin-Tazobactam 3 100 .375 gm In Dextrose/Water 1 50ml.bag @ 12.5 mls/hr IVPB Q8H KAY Rx#: [id number] Sodium Chloride 0.9% 1, 400 000 ml @ 50 mls/hr IV . Q20H KAY Rx#:[id number] Oral 480 1480 400 Output: Urine 450 Other: Voiding Method Toilet Toilet # Voids 3 - Exam Gen: This is a 61-year-old obese male. He is sitting up in bed and appears to be in no acute distress. Gen: This is a 61-year-old obese male. He is sitting up in bed and appears to be in no acute distress. HEENT: Head is atraumatic, normocephalic. Pupils equal, round. Sclerae is anicteric. Junk developing. Mucous members of the mouth are slightly dry. No thrush noted. NECK: Short and thick. Supple. No JVD. No lymphadenopathy. No thyromegaly. LUNGS: Clear to auscultation. No wheezes or rhonchi. No intercostal retractions. HEART: Regular rate and rhythm. No murmur. ABDOMEN: Soft. Bowel sounds are present. No masses. No tenderness. EXTREMITIES: No pedal edema. No calf tenderness. +1 dorsalis pedis bilaterally. The amputation site is healing well. No evidence of a flap necrosis. Scant drainage. No tenderness. NEUROLOGICAL: Patient is awake, alert and oriented x3 - Labs CBC & Chem 7: 06/02/17 13:11 06/03/17 06:53 Labs: Abnormal Lab Results - Last 24 Hours (Table) 06/03/17 06/03/17 06/03/17 Range/Units 06:53 07:02 11:37 Chloride 108 H (98-107) mmol/L BUN 26 H (9-20) mg/dL Creatinine 2.26 H (0.66-1.25) mg/dL Glucose 133 H (74-99) mg/dL POC Glucose (mg/dL) 121 H 166 H (75-99) mg/dL 06/03/17 06/03/17 Range/Units 17:05 20:13 Chloride (98-107) mmol/L BUN (9-20) mg/dL Creatinine (0.66-1.25) mg/dL Glucose (74-99) mg/dL POC Glucose (mg/dL) 172 H 145 H (75-99) mg/dL Microbiology - Last 24 Hours (Table) 05/27/17 18:13 Blood Culture - Final Blood No Growth after 144 hours Laboratory Results WBC 9.3 k/uL (3.8-10.6) 06/02/17 13:11 RBC 4.29 m/uL (4.30-5.90) L 06/02/17 13:11 Hgb 12.6 gm/dL (13.0-17.5) L 06/02/17 13:11 Hct 39.1 % (39.0-53.0) 06/02/17 13:11 MCV 91.0 fL (80.0-100.0) 06/02/17 13:11 MCH 29.4 pg (25.0-35.0) 06/02/17 13:11 MCHC 32.3 g/dL (31.0-37.0) 06/02/17 13:11 RDW 12.0 % (11.5-15.5) 06/02/17 13:11 Plt Count 323 k/uL (150-450) 06/02/17 13:11 Neutrophils % 71 % 06/02/17 13:11 Lymphocytes % 16 % 06/02/17 13:11 Monocytes % 10 % 06/02/17 13:11 Eosinophils % 2 % 06/02/17 13:11 Basophils % 1 % 06/02/17 13:11 Neutrophils # 6.6 k/uL (1.3-7.7) 06/02/17 13:11 Lymphocytes # 1.5 k/uL (1.0-4.8) 06/02/17 13:11 Monocytes # 0.9 k/uL (0-1.0) 06/02/17 13:11 Eosinophils # 0.1 k/uL (0-0.7) 06/02/17 13:11 Basophils # 0.1 k/uL (0-0.2) 06/02/17 13:11 ESR 48 mm/hr (0-15) H 05/28/17 15:49 Sodium 141 mmol/L (137-145) 06/03/17 06:53 Potassium 4.7 mmol/L (3.5-5.1) 06/03/17 06:53 Chloride 108 mmol/L (98-107) H 06/03/17 06:53 Carbon Dioxide 22 mmol/L (22-30) 06/03/17 06:53 Anion Gap 11 mmol/L 06/03/17 06:53 BUN 26 mg/dL (9-20) H 06/03/17 06:53 Creatinine 2.26 mg/dL (0.66-1.25) H 06/03/17 06:53 Est GFR (MDRD) Af Amer 36 (>60 ml/min/1.73 sqM) 06/03/17 06:53 Est GFR (MDRD) Non-Af 30 (>60 ml/min/1.73 sqM) 06/03/17 06:53 Glucose 133 mg/dL (74-99) H 06/03/17 06:53 POC Glucose (mg/dL) 145 mg/dL (75-99) H 06/03/17 20:13 POC Glu Electrical Solderer Cheyenne Daley 06/03/17 20:[address] Glu mg/dL 220 05/27/17 18:13 Hemoglobin A1c 9.3 % (4.0-6.0) H 05/27/17 18:13 Calcium 9.0 mg/dL (8.4-10.2) 06/03/17 06:53 Total Bilirubin 0.8 mg/dL (0.2-1.3) 06/01/17 06:47 AST 24 U/L (17-59) 06/01/17 06:47 ALT 45 U/L (21-72) 06/01/17 06:47 Alkaline Phosphatase 89 U/L (38-126) 06/01/17 06:47 Troponin I <0.012 ng/mL (0.000-0.034) 05/27/17 18:13 C-Reactive Protein 78.2 mg/L (<10.0) H 05/27/17 18:15 Total Protein 6.0 g/dL (6.3-8.2) L 06/01/17 06:47 Albumin 3.1 g/dL (3.5-5.0) L 06/01/17 06:47 Prealbumin 7.0 mg/dL (18.0-42.0) L 05/27/17 18:15 Urine Color Light Yellow 06/02/17 14:15 Urine Appearance Clear (Clear) 06/02/17 14:15 Urine pH 5.0 (5.0-8.0) 06/02/17 14:15 Ur Specific Pioneer 1.005 (1.001-1.035) 06/02/17 14:15 Urine Protein Negative (Negative) 06/02/17 14:15 Urine Glucose (UA) Negative (Negative) 06/02/17 14:15 Urine Ketones Negative (Negative) 06/02/17 14:15 Urine Blood Trace (Negative) H 06/02/17 14:15 Urine Nitrite Negative (Negative) 06/02/17 14:15 Urine Bilirubin Negative (Negative) 06/02/17 14:15 Urine Urobilinogen <2.0 mg/dL (<2.0) 06/02/17 14:15 Ur Leukocyte Esterase Negative (Negative) 06/02/17 14:15 Vancomycin Trough 18.0 ug/mL 05/29/17 20:22 Microbiology 05/27/17 18:13 Blood Blood Culture - Final No Growth after 144 hours 05/30/17 10:40 Leg - Right Gram Stain - Final 05/30/17 10:40 Leg - Right Wound Culture - Final 05/27/17 18:13 Toe - Right First Gram Stain - Final 05/27/17 18:13 Toe - Right First Wound Culture - Final Escherichia coli Staphylococcus aureus Assessment and Plan (1) Poorly controlled diabetes mellitus Current Visit: Yes Status: Acute Code(s): E11.65 - TYPE 2 DIABETES MELLITUS WITH HYPERGLYCEMIA SNOMED Code(s): 066772802 (2) Diabetic foot ulcer associated with type 2 diabetes mellitus, with fat layer exposed Current Visit: Yes Status: Acute Code(s): E11.621 - TYPE 2 DIABETES MELLITUS WITH FOOT ULCER; L97.502 - NON-PRS CHRONIC ULCER OTH PRT UNSP FOOT W FAT LAYER EXPOSED SNOMED Code(s): 9254927159276 Plan: 61-year-old male has a history of significant medical noncompliance with his diabetes and his hypertension. He however is now very concerned due to the ulcerative processes occurred to the right great toe with concerns to toe loss. 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 Bone scan has failed to reveal evidence of underlying osteomyelitis We'll need diabetic offloading shoe at discharge. And may do well to follow the wound healing Center for a total contact cast to assist in the healing of this diabetic ulceration. Will need outpatient diabetic education. His hypertension is starting to improve with the medications and significant dietary restraints of being hospitalized. As noted there was some exposed bone. Given the patient's many difficulties distal toe amputation with flap closure has occurred. Patient tolerated the surgery well. Sclerae for discharge home in the morning. He is having much improved glucose control. Oral Augmentin is sent to his pharmacy should follow- up with the vascular surgeon in his office or the wound center.
[2017-06-04] MEDS: HYDROmorphone 2 MG/ML 1 ML SYRINGE IVP PRN (03:49)
[2017-06-04] MEDS: PIPERACILLIN-TAZOBACTAM 3.375 GM in DEXTROSE/WATER 1 50ML.BAG IVPB SCH ×2 (05:11→13:06)
[2017-06-04 07:13] LABS: Glucose,Whole Blood 130 mg/dL (75-99)
[2017-06-04 07:55] LABS: Basophils # (A) 0.1 k/uL (0-0.2); Basophils % (A) 1 %; Eosinophils # (A) 0.2 k/uL (0-0.7); Eosinophils % (A) 2 %; HCT 37.9 % (39.0-53.0); HGB 12.1 gm/dL (13.0-17.5); Lymphocytes # (A) 1.6 k/uL (1.0-4.8); Lymphocytes % (A) 17 %; MCH 29.3 pg (25.0-35.0); MCV 91.4 fL (80.0-100.0); Mean Platelet Volume 6.6; Monocytes # (A) 0.8 k/uL (0-1.0); Monocytes % (A) 8 %; Neutrophils # (A) 6.6 k/uL (1.3-7.7); Neutrophils % (A) 70 %; Platelet Count 318 k/uL (150-450); RBC 4.14 m/uL (4.30-5.90); RDW 12.1 % (11.5-15.5); WBC 9.4 k/uL (3.8-10.6)
[2017-06-04 08:00] VITALS: TEMP 97.7
[2017-06-04] MEDS: INSULIN ASPART 100 UNIT/ML 1 ML 10 ML VIAL SQ SCH ×2 (08:01→11:48)
[2017-06-04 08:26] LABS: Calcium 9.2 mg/dL (8.4-10.2); Potassium 4.8 mmol/L (3.5-5.1)
[2017-06-04] MEDS: CARVEDILOL 6.25 MG TAB PO SCH (08:53)
[2017-06-04] MEDS: PANTOPRAZOLE 40 MG TABLET PO SCH (08:53)
[2017-06-04] MEDS: HEPARIN SODIUM,PORCINE 5,000 UNIT/ML 1 ML VIAL SQ SCH (08:53)
[2017-06-04] MEDS: amLODIPine 5 MG TAB PO SCH (08:53)
[2017-06-04] MEDS: BACITRACIN 500 UNIT/GM OINT 28.4 GM TUBE TOPICAL SCH (08:53)
[2017-06-04 11:02] VITALS: BP 152/74; PULSE 60
[2017-06-04 11:14] LABS: Glucose,Whole Blood 127 mg/dL (75-99)
[2017-06-04] MEDS ORDERED: HYDROcodone/APAP 5-325MG 1 EACH TAB PO PRN (11:47)
--- NOTE | 2017-06-04 15:26 | P.DS ---
Providers Date of admission: 05/27/17 19:35 Expected date of discharge: 06/04/17 Attending physician: Jose Hannah Consults: 05/27/17 22:49 Consult Physician Urgent Consulting Provider: Adams Austin Consult Reason/Comments: right great toe wound Do you want consulting provider notified?: Yes, Notify in am 05/27/17 22:51 Consult Physician Urgent Consulting Provider: Jewel Armstrong Consult Reason/Comments: new consult Do you want consulting provider notified?: Yes, Notify in am 06/01/17 13:59 Consult Physician Routine Consulting Provider: Diaz Romo Consult Reason/Comments: JUAN Do you want consulting provider notified?: Yes Primary care physician: Jose Hannah [facility] Course: Discharge diagnosis 1. 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 Vascular surgery following. Patient currently on IV Zosyn. Wound culture had grown E. coli and MSSA. Infectious diseases recommending Augmentin at time of discharge 2. Hypertensive emergency present on admission 3. Uncontrolled diabetes mellitus type 2. History of noncompliance with medication. A1c is 9.3. art educator has been consulted. Continue with the NovoLog sliding scale. Continue to monitor. Continue Levemir 12 units at bedtime 4. Newly diagnosed essential hypertension. Patient started on Norvasc and Coreg during this admission 5. Left tibial ulcer: Culture negative for growth. Appears to be improving. 6. Acute kidney injury: Secondary to the IV vancomycin and NSAIDs. Nephrology is following. Continue with IV fluid hydration. Renal ultrasound within normal limits. Creatinine 2.47 at time of discharge Hospital course This is a 61-year-old male with a past medical history of uncontrolled diabetes mellitus. He is noncompliant with medications.. It's been a few years since he is taken his metformin. He reports about 3 weeks ago clipping the toenail on his right great toe and cut it too short. He started to have infection along the edge of the toenail with some drainage and redness. He treated it with peroxide and antibiotic ointment. Patient had no improvement. He presents to the hospital now with black discoloration at the top of the toe. Toenail is following off. He has cellulitis changes along the distal aspect of the toe and into the top of the foot. Pulses were able to be obtained with the Doppler in the ER. He had a right foot x-ray and possible osteomyelitis of the of the distal phalanx of the big toe on the right foot. Patient started on IV Zosyn IV vancomycin. Culture obtained in the ER. Infectious disease and this was surgery have been consulted. Patient also had some severely elevated blood pressures on admission 207/93 patient was given a dose of IV labetalol. Blood pressures have improved. Patient denies any past medical history of hypertension. Denies any fever, chills, sweats., Nausea or vomiting, bowel movement changes or urinary symptoms. Patient was started on IV antibiotics in the form of IV Zosyn and IV vancomycin. He was seen by both infectious disease and vascular surgery. They initially debrided the right great toe. However, patient did require amputation of the right great toe due to infected gangrene. Wound culture had grown E. coli and MSSA. Infectious disease is recommending Augmentin for 10 more days. Patient will follow-up with vascular surgery on the June 06 for further wound care dressing and evaluation. Nephrology was consulted due to an acute kidney injury which was related to the IV vancomycin and NSAIDs. These medications were discontinued. Patient was given IV fluids. Creatinine at discharge is contained elevated at 2.47. However, nephrology has cleared patient for discharge to have a CBC and BMP checked on Saturday. And they'll follow up with him nephrology in 1 week. Also during this admission patient has had elevated blood pressures. He is required the addition of Norvasc and Coreg. Due to his kidney function we are unable to add DUKE inhibitor at this time. Patient also given a prescription for [place] for pain control. He'll continue wound care instructions and home care nurse to come out to help with wound care. Patient has a left tibial ulcer that is also healing nicely. Again he'll be following up with vascular surgery to make sure this continues to heal. At this time no ointment has been applied. Initially ointment had made the ulcer very soft. Cultures were obtained and were negative. Also note the patient has been started on insulin during this admission. He had issues with noncompliance with oral hypoglycemics at home A1c was 9.3. Levemir was started during this admission. He will be given a prescription for Levemir flex pen. He has been seen by our life educator. Patient has been given information for diabetic classes. Patient is medically stable for discharge. Blood sugars have been controlled since the initiation of Levemir. Please refer to chart for any further details I performed an examination of the patient and discussed their management with the physician Barber Tool Sharpener. I have reviewed the Physician Barber Tool Sharpener's notes and agree with the documented findings and plan of care Patient Condition at Discharge: Stable Plan - Discharge Summary Discharge Rx Participant: Yes New Discharge Prescriptions: New Amoxic-Pot Clav 875-125Mg [Augmentin 875-125] 1 tab PO Q12HR #20 tablet amLODIPine [Norvasc] 5 mg PO DAILY #30 tab Carvedilol [Coreg] 6.25 mg PO BID-W/MEALS #60 tab HYDROcodone/APAP 5-325MG [[place] 5-325] 1 each PO Q6HR PRN #40 tab PRN Reason: Pain Insulin Detemir [Levemir Flextouch] 12 units SQ HS #1 pen Discontinued Ibuprofen [Motrin] 800 mg PO DAILY PRN PRN Reason: Pain Discharge Medication List Amoxic-Pot Clav 875-125Mg [Augmentin 875-125] 1 tab PO Q12HR #20 tablet [Rx] Carvedilol [Coreg] 6.25 mg PO BID-W/MEALS #60 tab 06/04/17 [Rx] HYDROcodone/APAP 5-325MG [[place] 5-325] 1 each PO Q6HR PRN #40 tab 06/04/17 [Rx] Insulin Detemir [Levemir Flextouch] 12 units SQ HS #1 pen 06/04/17 [Rx] amLODIPine [Norvasc] 5 mg PO DAILY #30 tab 06/04/17 [Rx] Follow up Appointment(s)/Referral(s): Lorri Solorzano MD [STAFF PHYSICIAN] - 1 Week [facility], [NON-STAFF] - Jewel Armstrong MD [STAFF PHYSICIAN] - 06/06/17 Jose Hannah MD [Primary Care Provider] - 3 Days Activity/Diet/Wound Care/Special Instructions: Glucometer - [facility] - [phone] Diet: diabetic, cardiac Activity: per vascular surgeon Check CBC, BMP on Saturday Discharge Disposition: HOME WITH HOME HEALTH SERVICES
== END 2017-06-04 17:25 | disposition home health service (06) | DRG 255 ==
LOC: EC 16:34 → 3SUR 19:35
PROVIDERS: ADMIT Internal Medicine; ATTEND Internal Medicine
PROC: 0HBMXZZ Excision of Right Foot Skin, External Approach (ICD-10-PCS; 2017-05-28)
PROC: 0HBRXZZ Excision of Toe Nail, External Approach (ICD-10-PCS; 2017-05-28)
PROC: 0Y6P0Z1 Detachment at Right 1st Toe, High, Open Approach (ICD-10-PCS; principal; 2017-05-31 14:15)
DX: E11.52 Type 2 diabetes mellitus with diabetic peripheral angiopathy with gangrene (principal); N17.0 Acute kidney failure with tubular necrosis; I96 Gangrene, not elsewhere classified; I16.1 Hypertensive emergency; E11.65 Type 2 diabetes mellitus with hyperglycemia; F06.4 Anxiety disorder due to known physiological condition; I10 Essential (primary) hypertension; L03.031 Cellulitis of right toe; T39.395A Adverse effect of other nonsteroidal anti-inflammatory drugs [NSAID], initial encounter; T36.8X5A Adverse effect of other systemic antibiotics, initial encounter; T50.995A Adverse effect of other drugs, medicaments and biological substances, initial encounter; E11.622 Type 2 diabetes mellitus with other skin ulcer; L98.499 Non-pressure chronic ulcer of skin of other sites with unspecified severity; B96.20 Unspecified Escherichia coli [E. coli] as the cause of diseases classified elsewhere; B95.62 Methicillin resistant Staphylococcus aureus infection as the cause of diseases classified elsewhere; Z87.891 Personal history of nicotine dependence; Z91.14 Patient's other noncompliance with medication regimen; Y92.239 Unspecified place in hospital as the place of occurrence of the external cause
CPT/HCPCS: 36415; 76770; 78315; 80048; 80053; 80202; 81001; 83036; 84134; 84484; 85025; 85652; 86140; 87040; 87070; 87077; 87186; 87205; 88305; 88311; 93005; 96361; 96365; 96375; 99285

== ENCOUNTER → 2017-06-06 | Outpatient (CLI) | payer OTHER ==
[2017-06-06 17:40] LABS: HCT 37.8 % (39.0-53.0); HGB 12.1 gm/dL (13.0-17.5); MCV 90.5 fL (80.0-100.0); Mean Platelet Volume 6.7; Platelet Count 298 k/uL (150-450); RBC 4.18 m/uL (4.30-5.90); RDW 11.9 % (11.5-15.5); WBC 12.7 k/uL (3.8-10.6)
[2017-06-06 17:47] LABS: Calcium 9.5 mg/dL (8.4-10.2); Potassium 4.9 mmol/L (3.5-5.1)
== END | disposition home or self-care (01) ==
LOC: LABWHC1 16:32
PROVIDERS: ATTEND Internal Medicine
DX: N17.9 Acute kidney failure, unspecified (principal); I96 Gangrene, not elsewhere classified
CPT/HCPCS: 36415; 80048; 85027

== ENCOUNTER 2018-07-20 10:05 | Emergency (ER) | payer OTHER, BC ==
[2018-07-20 10:35] VITALS: RESP 18
[2018-07-20 10:55] LABS: Glucose,Whole Blood 128 mg/dL (75-99)
[2018-07-20] MEDS ORDERED: CEPHALEXIN 500MG STARTER PACK 4 CAP BTL PO STA (11:33)
[2018-07-20] MEDS ORDERED: SULFAMETH-TMP DS STARTER PACK 2 TAB BTL PO STA (11:34)
--- NOTE | 2018-07-20 11:40 | ED ---
General Adult HPI - General Chief complaint: Skin/Abscess/Foreign Body Stated complaint: Leg sore/blister Time Seen by Provider: 07/20/18 10:55 Source: patient, RN notes reviewed Mode of arrival: ambulatory Limitations: no limitations - History of Present Illness Initial comments: 62-year-old male presents to the emergency department for a chief complaint of wound on the left ankle. Patient states this has been there for the past 4 days. Patient states he has had similar ones in the past that he has had to seen wound care for. Patient does admit to diabetic neuropathy as well as arterial insufficiency. Patient states he thinks that she may have rubbed here. He denies fevers or chills. Patient states he did have a podiatry appointment 3 days ago but they canceled on him. He is going to try to see them Saturday.Patient has no other complaints at this time including shortness of breath, chest pain, abdominal pain, nausea or vomiting, headache, or visual changes. - Related Data Previous Rx's Medication Instructions Recorded Carvedilol [Coreg] 6.25 mg PO BID-W/MEALS #60 tab 06/04/17 HYDROcodone/APAP 5-325MG [[place] 1 each PO Q6HR PRN #40 tab 06/04/17 5-325] Insulin Glargine,Hum.rec.anlog 12 unit SQ HS #1 pen 06/04/17 [Lantus Solostar] amLODIPine [Norvasc] 5 mg PO DAILY #30 tab 06/04/17 Cephalexin [Keflex] 500 mg PO Q6HR 10 Days cap 07/20/18 Sulfamethox-Tmp 800-160Mg [Bactrim 1 tab PO Q12HR #20 tab 07/20/18 DS 800-160 mg] Allergies Allergy/AdvReac Type Severity Reaction Status Date / Time No Known Allergies Allergy Verified 07/20/18 10:35 Review of Systems ROS Statement: Those systems with pertinent positive or pertinent negative responses have been documented in the HPI. ROS Other: All systems not noted in ROS Statement are negative. Past Medical History Past Medical History: Diabetes Mellitus, Hypertension Additional Past Medical History / Comment(s): wound rt great toe amputation area History of Any Multi-Drug Resistant Organisms: None Reported Past Surgical History: Tonsillectomy Additional Past Surgical History / Comment(s): rt great toe amputation Past Anesthesia/Blood Transfusion Reactions: No Reported Reaction Past Psychological History: No Psychological Hx Reported Smoking Status: Former smoker Past Alcohol Use History: Occasional Past Drug Use History: None Reported - Past Family History Mother Family Medical History: No Reported History General Exam Limitations: no limitations General appearance: alert, in no apparent distress Head exam: Present: atraumatic, normocephalic, normal inspection Eye exam: Present: normal appearance, PERRL, EOMI. Absent: scleral icterus, conjunctival injection, periorbital swelling ENT exam: Present: normal exam, mucous membranes moist Neck exam: Present: normal inspection. Absent: tenderness, meningismus, lymphadenopathy Respiratory exam: Present: normal lung sounds bilaterally. Absent: respiratory distress, wheezes, rales, rhonchi, stridor Cardiovascular Exam: Present: regular rate, normal rhythm, normal heart sounds. Absent: systolic murmur, diastolic murmur, rubs, gallop, clicks Extremities exam: Present: normal capillary refill (Capillary refill less than 2 seconds in bilateral feet, warm to palpation.), other (There is a quarter- sized superficial wound noted just above the left medial malleolus. No significant surrounding erythema. No purulent drainage. No evidence of cellulitis at this time.) Neurological exam: Present: alert, oriented X3, CN II-XII intact Psychiatric exam: Present: normal affect, normal mood Skin exam: Present: warm, dry, intact, normal color. Absent: rash Course Vital Signs 07/20/18 10:34 Temperature 98.4 F Pulse Rate 69 Respiratory 18 Rate Blood Pressure 198/78 O2 Sat by Pulse 96 Oximetry Medical Decision Making - Medical Decision Making 62-year-old male presents to the emergency department for a chief complaint of wound. Wound is just above the left medial malleolus. Patient does have a history of diabetic neuropathy as well as arterial insufficiency. he has had chronic wounds in the past. No surrounding erythema or evidence of cellulitis. No purulent drainage. Wound is about quarter sized and superficial. Does appear like this will be a chronic wound. However patient started on antibiotics to treat any minimal cellulitis and prevent this as well. Patient will follow-up with his water chaser on Saturday. He will follow up with wound care as well. He will return here if he has any worsening symptoms. He is aware to watch for any signs of infection and return if this occurred as he may not heal well. - Lab Data Lab Results 07/20/18 Range/Units 10:52 POC Glucose (mg/dL) 128 H (75-99) mg/dL POC Glu Plate Painter ID Ivana Kamara Disposition Clinical Impression: Leg wound, left Disposition: HOME SELF-CARE Condition: Good Instructions (If sedation given, give patient instructions): Chronic Wounds (ED ), Acute Wounds (ED) Additional Instructions: Please follow up with primary care and podiatry tomorrow. Please follow-up with wound care. Return here to the emergency department if you have any worsening symptoms. Prescriptions: Cephalexin [Keflex] 500 mg PO Q6HR 10 Days cap Sulfamethox-Tmp 800-160Mg [Bactrim DS 800-160 mg] 1 tab PO Q12HR #20 tab Is patient prescribed a controlled substance at d/c from ED?: No Referrals: Jose Hannah MD [Primary Care Provider] - 1-2 days [facility] [[facility] - 1-2 days Time of Disposition: 12:06
[2018-07-20 12:13] VITALS: BP 184/83; PULSE 54; TEMP 98.3
== END 2018-07-20 12:14 | disposition home or self-care (01) ==
LOC: EC 10:05
DX: E11.622 Type 2 diabetes mellitus with other skin ulcer (principal); L97.329 Non-pressure chronic ulcer of left ankle with unspecified severity; E11.51 Type 2 diabetes mellitus with diabetic peripheral angiopathy without gangrene; I77.1 Stricture of artery; Z87.891 Personal history of nicotine dependence; E11.40 Type 2 diabetes mellitus with diabetic neuropathy, unspecified; Z89.411 Acquired absence of right great toe
CPT/HCPCS: 36415; 99283

== ENCOUNTER 2022-04-19 18:37 | Emergency (ER) | payer MEDICARE, BC ==
[2022-04-19] MEDS ORDERED: ACETAMINOPHEN TAB 325 MG TAB PO STA (19:47)
--- NOTE | 2022-04-19 19:52 | ED ---
General Adult HPI - General Chief complaint: Extremity Problem,Nontraumatic Stated complaint: Leg Pain & Swelling Time Seen by Provider: 04/19/22 19:30 Source: patient, RN notes reviewed Mode of arrival: wheelchair Limitations: no limitations - History of Present Illness Initial comments: 66-year-old male presents to the emergency department for evaluation of right lower extremity edema, increased redness, and pain. Patient states his symptoms began a week ago but worsened dramatically this afternoon. States he now has gathered purple discoloration on both legs. Complains of increased skin sensitivity, though no itching. States he typically keeps his legs elevated due to swelling. Reports the right leg is usually more swollen than the left and does usually have brownish discoloration to bilateral lower legs. Denies fever, though is found to be febrile. No new medication changes, travel, or injury. Denies headache, dizziness, chest pain, shortness of breath, abdominal pain, nausea, vomiting, diarrhea, hematochezia, hematuria, dysuria, or bleeding. - Related Data Previous Rx's Medication Instructions Recorded HYDROcodone/APAP 5-325MG [[place] 1 each PO Q6HR PRN #40 tab 06/04/17 5-325] Insulin Glargine,Hum.rec.anlog 12 unit SQ HS #1 pen 06/04/17 [Lantus Solostar] amLODIPine [Norvasc] 5 mg PO DAILY #30 tab 06/04/17 carvediloL [Coreg] 6.25 mg PO BID-W/MEALS #60 tab 06/04/17 Cephalexin [Keflex] 500 mg PO Q6HR 10 Days cap 07/20/18 Sulfamethox-Tmp 800-160Mg [Bactrim 1 tab PO Q12HR #20 tab 07/20/18 DS 800-160 mg] Allergies Allergy/AdvReac Type Severity Reaction Status Date / Time No Known Allergies Allergy Verified 04/19/22 19:17 Review of Systems ROS Statement: Those systems with pertinent positive or pertinent negative responses have been documented in the HPI. ROS Other: All systems not noted in ROS Statement are negative. Past Medical History Past Medical History: Diabetes Mellitus, Hypertension Additional Past Medical History / Comment(s): wound rt great toe amputation area History of Any Multi-Drug Resistant Organisms: None Reported Past Surgical History: Tonsillectomy Additional Past Surgical History / Comment(s): rt great toe amputation Past Anesthesia/Blood Transfusion Reactions: No Reported Reaction Past Psychological History: No Psychological Hx Reported Smoking Status: Never smoker Past Alcohol Use History: Occasional Past Drug Use History: None Reported - Past Family History Mother Family Medical History: No Reported History General Exam Limitations: no limitations General appearance: alert, in no apparent distress, anxious, other (This is a no ntoxic, well appearing male who is somewhat anxious, though in no acute distress.) Eye exam: Present: normal appearance, PERRL, EOMI. Absent: scleral icterus, conjunctival injection ENT exam: Present: normal oropharynx, other (No petechiae or bleeding from the gums) Neck exam: Present: normal inspection, full ROM. Absent: lymphadenopathy Respiratory exam: Present: normal lung sounds bilaterally. Absent: respiratory distress, wheezes, rales, rhonchi, stridor, chest wall tenderness Cardiovascular Exam: Present: normal rhythm, tachycardia, normal heart sounds GI/Abdominal exam: Present: soft, normal bowel sounds, other (Large abdominal habitus). Absent: distended, tenderness, guarding, rebound, rigid Extremities exam: Present: full ROM, tenderness (patient endorses increased sensitivity of skin but erythematous areas and purpura are not painful with palpation), pedal edema (2+ pedal and post-tibial pulses bilaterally), other (right lower extremity more swollen than left though patient states this is baseline for him). Absent: normal inspection (Purpura on bilateral lower extremities. Erythematous areas on RLE, both upper and lower leg. No drainage, pustule formation, or blistering.), calf tenderness Back exam: Absent: CVA tenderness (R), CVA tenderness (L) Neurological exam: Present: alert, oriented X3 Psychiatric exam: Present: anxious Skin exam: Present: warm, dry, intact, other (purpura remains isolated to bilateral lower extremities). Absent: normal color Course Vital Signs 04/19/22 04/19/22 04/20/22 19:14 19:49 00:30 Temperature 99.5 F 100.7 F H 98.9 F Pulse Rate 135 H 85 83 Respiratory 16 16 18 Rate Blood Pressure 135/73 168/73 129/76 O2 Sat by Pulse 96 99 97 Oximetry - Reevaluation(s) Reevaluation #1: 04/19/22 20:00 This patient's care was discussed with my attending, Dr. Burt, who also is present at bedside to examine patient. We discussed possible pathologies includ ing ITP, TTP, DIC, and HUS. Patient is advised that inpatient hospitalization would be recommended. Patient is not willing to stay overnight in the hospital but is agreeable with ED work-up POC including labs, imaging, and fluids. 04/19/22 21:53 Upon return from x-ray, patient complained of increased discomfort to the lower extremities. Pain medication will be ordered. Updated on results. Discussed plan of care including DVT study. Again reiterated my intent to admit for inpatient stay. 04/20/22 00:21 Upon reassessment, patient is reassured by negative DVT study and states pain is minimal. He insists on leaving AMA. Discussed my concerns with this including his poor renal function, the elevated D-Dimer, and the appearance of these purpuric lesions. Reiterated the importance of close follow up care. Instructed to return if he changes his mind regarding admission or with any other concerns. Medical Decision Making - Medical Decision Making This is a 66-year-old male with a past medical history of diabetes, chronic kidney disease, and hypertension who presents to the emergency department for evaluation of purpura lesions on bilateral lower extremities. Upon exam, patient is mildly anxious, though in no acute distress. Reports onset of lesions this afternoon. Has had no bleeding, injuries, or trauma. Patient is initially tachycardic with a slightly elevated temperature. He has no shortness of breath, difficulty breathing, or chest pain. Given the non-blanchable appearance of these lesions there was concern for coagulopathies including ITP, TTP, DIC, and HUS. Patient was placed on dixonac operator and laboratory studies were obtained. Hemoglobin stable at 12.7. Platelet count is 377. PT 10.8, INR 1.0, PTT 25.8. D-dimer is elevated at 8.4. Renal function is worsened from baseline BUN 51, creatinine 4.27. Liver enzymes are also mildly elevated. Urinalysis shows trace blood with hyaline casts. Given patient's poor renal function, imaging is limited, however venous Doppler study of bilateral lower e xtremities was obtained and was negative for DVT, of which patient was most concerned. Patient was given IV fluids, though had a conservative rate given his known renal impairment. Zosyn was administered. Patient did have elevated heart rate and temperature which resolved prior to departure. Despite multiple discussions of hospital admission, patient chose to leave AGAINST MEDICAL ADVICE. He is advised of the great risk associated with this given his decreased renal function and the unknown etiology of this pathology. He is implored to follow up with his PCP on Saturday, but to not hesitate to return to the emergency department if he changes his mind regarding admission or with any new or worsening symptoms. I spoke with patient and at length about my concerns. They verbalized understanding. Attending:Carmel - Lab Data Result diagrams: 04/19/22 20:02 04/19/22 20:02 Lab Results 04/19/22 04/19/22 04/19/22 Range/Units 20:02 20:02 20:02 WBC 12.7 H (3.8-10.6) k/uL RBC 4.23 L (4.30-5.90) m/uL Hgb 12.7 L (13.0-17.5) gm/dL Hct 39.1 (39.0-53.0) % MCV 92.6 (80.0-100.0) fL MCH 30.2 (25.0-35.0) pg MCHC 32.6 (31.0-37.0) g/dL RDW 12.5 (11.5-15.5) % Plt Count 377 (150-450) k/uL MPV 7.9 Neutrophils % 87 % Lymphocytes % 5 % Monocytes % 5 % Eosinophils % 1 % Basophils % 0 % Neutrophils # 11.1 H (1.3-7.7) k/uL Lymphocytes # 0.7 L (1.0-4.8) k/uL Monocytes # 0.7 (0-1.0) k/uL Eosinophils # 0.1 (0-0.7) k/uL Basophils # 0.1 (0-0.2) k/uL ESR (0-15) mm/hr PT 10.8 (9.0-12.0) sec INR 1.0 (<1.2) APTT 25.8 (22.0-30.0) sec D-Dimer 8.44 H (<0.60) mg/L FEU Sodium 136 L (137-145) mmol/L Potassium 4.8 (3.5-5.1) mmol/L Chloride 103 (98-107) mmol/L Carbon Dioxide 22 (22-30) mmol/L Anion Gap 11 mmol/L BUN 51 H (9-20) mg/dL Creatinine 4.37 H (0.66-1.25) mg/dL Est GFR (CKD-EPI)AfAm 15 (>60 ml/min/1.73 sqM) Est GFR (CKD-EPI)NonAf 13 (>60 ml/min/1.73 sqM) Glucose 176 H (74-99) mg/dL Plasma Lactic Acid Prave[place] (0.7-2.0) mmol/L Calcium 8.9 (8.4-10.2) mg/dL Total Bilirubin 0.7 (0.2-1.3) mg/dL AST 69 H (17-59) U/L ALT 54 H (4-49) U/L Alkaline Phosphatase 181 H (38-126) U/L Total Protein 7.0 (6.3-8.2) g/dL Albumin 3.6 (3.5-5.0) g/dL Urine Color Urine Appearance (Clear) Urine pH (5.0-8.0) Ur Specific [place] (1.001-1.035) Urine Protein (Negative) Urine Glucose (UA) (Negative) Urine Ketones (Negative) Urine Blood (Negative) Urine Nitrite (Negative) Urine Bilirubin (Negative) Urine Urobilinogen (<2.0) mg/dL Ur Leukocyte Esterase (Negative) Urine RBC (0-5) /hpf Urine WBC (0-5) /hpf Ur Squamous Epith Cells (0-4) /hpf Amorphous Sediment (None) /hpf Urine Bacteria (None) /hpf Hyaline Casts (0-2) /lpf Urine Mucus (None) /hpf 04/19/22 04/19/22 04/19/22 Range/Units 20:02 21:29 23:36 WBC (3.8-10.6) k/uL RBC (4.30-5.90) m/uL Hgb (13.0-17.5) gm/dL Hct (39.0-53.0) % MCV (80.0-100.0) fL MCH (25.0-35.0) pg MCHC (31.0-37.0) g/dL RDW (11.5-15.5) % Plt Count (150-450) k/uL MPV Neutrophils % % Lymphocytes % % Monocytes % % Eosinophils % % Basophils % % Neutrophils # (1.3-7.7) k/uL Lymphocytes # (1.0-4.8) k/uL Monocytes # (0-1.0) k/uL Eosinophils # (0-0.7) k/uL Basophils # (0-0.2) k/uL ESR 97 H (0-15) mm/hr PT (9.0-12.0) sec INR (<1.2) APTT (22.0-30.0) sec D-Dimer (<0.60) mg/L FEU Sodium (137-145) mmol/L Potassium (3.5-5.1) mmol/L Chloride (98-107) mmol/L Carbon Dioxide (22-30) mmol/L Anion Gap mmol/L BUN (9-20) mg/dL Creatinine (0.66-1.25) mg/dL Est GFR (CKD-EPI)AfAm (>60 ml/min/1.73 sqM) Est GFR (CKD-EPI)NonAf (>60 ml/min/1.73 sqM) Glucose (74-99) mg/dL Plasma Lactic Acid [place] 1.7 (0.7-2.0) mmol/L Calcium (8.4-10.2) mg/dL Total Bilirubin (0.2-1.3) mg/dL AST (17-59) U/L ALT (4-49) U/L Alkaline Phosphatase (38-126) U/L Total Protein (6.3-8.2) g/dL Albumin (3.5-5.0) g/dL Urine Color Yellow Urine Appearance Turbid (Clear) Urine pH 6.0 (5.0-8.0) Ur Specific [place] 1.017 (1.001-1.035) Urine Protein 3+ H (Negative) Urine Glucose (UA) 1+ H (Negative) Urine Ketones Negative (Negative) Urine Blood Trace H (Negative) Urine Nitrite Negative (Negative) Urine Bilirubin Negative (Negative) Urine Urobilinogen <2.0 (<2.0) mg/dL Ur Leukocyte Esterase Moderate H (Negative) Urine RBC 8 H (0-5) /hpf Urine WBC 22 H (0-5) /hpf Ur Squamous Epith Cells 2 (0-4) /hpf Amorphous Sediment Few H (None) /hpf Urine Bacteria Rare H (None) /hpf Hyaline Casts 91 H (0-2) /lpf Urine Mucus Few H (None) /hpf - EKG Data EKG shows normal: sinus rhythm Rate: normal EKG Comments: EKG obtained at 2107 shows sinus rhythm short MA interval and right bundle- branch block. Ventricular rate 79, MA interval 108, QRS duration 146, QT/QTC 399/431. Interpretation abnormal ECG - Radiology Data Radiology results: report reviewed, image reviewed Interpreted by me: Direct visualization of chest x-ray shows no area of focal consolidation or infiltrate. Two-view chest x-ray was obtained. Report was reviewed in its entirety. Impression per Dr. Matthew is normal chest. Venous Doppler study of bilateral lower extremities was performed. Report was reviewed in its entirety. Impression per Dr. Matthew is no evidence of deep vein thrombosis in both legs. Disposition Clinical Impression: Purpura, Vasculitis of skin, [id number] kidney injury Disposition: Left Against Medical Advice Condition: Serious Instructions (If sedation given, give patient instructions): Purpura (ED) Additional Instructions: If you change your mind regarding hospital admission, please do not hesitate to return the emergency Department. If your condition worsens, your fever returns, you develop bleeding, or if you unable to get in to see your PCP, return to the emergency department immediately. When you see your PCP, discuss today's visit including worsening kidney function. Call your PCP in the morning to schedule follow-up appointment as soon as possible. Avoid taking Motrin or Aspirin containing products. Is patient prescribed a controlled substance at d/c from ED?: No Referrals: Jose Hannah MD [Primary Care Provider] - 1-2 days Time of Disposition: 00:27
[2022-04-19] MEDS ORDERED: LACTATED RINGERS 1,000 ML IV SCH (20:00)
[2022-04-19 20:12] LABS: Basophils # (A) 0.1 k/uL (0-0.2); Basophils % (A) 0 %; Eosinophils # (A) 0.1 k/uL (0-0.7); Eosinophils % (A) 1 %; HCT 39.1 % (39.0-53.0); HGB 12.7 gm/dL (13.0-17.5); Lymphocytes # (A) 0.7 k/uL (1.0-4.8); Lymphocytes % (A) 5 %; MCH 30.2 pg (25.0-35.0); MCHC 32.6 g/dL (31.0-37.0); MCV 92.6 fL (80.0-100.0); Mean Platelet Volume 7.9; Monocytes # (A) 0.7 k/uL (0-1.0); Monocytes % (A) 5 %; Neutrophils # (A) 11.1 k/uL (1.3-7.7); Neutrophils % (A) 87 %; Platelet Count 377 k/uL (150-450); RBC 4.23 m/uL (4.30-5.90); RDW 12.5 % (11.5-15.5); WBC 12.7 k/uL (3.8-10.6)
[2022-04-19 20:19] LABS: Albumin 3.6 g/dL (3.5-5.0); Calcium 8.9 mg/dL (8.4-10.2); Potassium 4.8 mmol/L (3.5-5.1); Total Bilirubin 0.7 mg/dL (0.2-1.3)
[2022-04-19 20:43] LABS: Partial Thromboplastin Time 25.8 sec (22.0-30.0); Prothrombin Time 10.8 sec (9.0-12.0)
[2022-04-19] MEDS ORDERED: PIPERACILLIN-TAZOBACTAM 3.375 GM in SODIUM CHLORIDE 0.9% 100 ML IVPB STA (20:51)
[2022-04-19] MEDS ORDERED: HYDROmorphone 1 MG/ML 1 ML SYRINGE IVP STA (21:52)
[2022-04-19] MEDS ORDERED: ONDANSETRON 4 MG/2 ML VIAL IVP STA (21:52)
--- NOTE | 2022-04-19 22:37 | XR ---
EXAMINATION TYPE: XR chest 2V DATE OF EXAM: 04/19/2022 COMPARISON: NONE HISTORY: Leg pain TECHNIQUE: 2 view FINDINGS: Heart and mediastinum are normal. Lungs are clear. Diaphragm is normal. Bony thorax is inta ct. IMPRESSION: Normal chest.
--- NOTE | 2022-04-19 22:44 | US ---
EXAMINATION TYPE: US venous doppler duplex LE DATE OF EXAM: 04/19/2022 10:36 PM COMPARISON: NONE CLINICAL HISTORY: BLE edema. Leg swelling, very painful bilaterally. Deep red blotches on legs. SIDE PERFORMED: Bilateral TECHNIQUE: The lower extremity deep venous system is examined utilizing real time linear array sonog lara with graded compression, doppler sonography and color-flow sonography. VESSELS IMAGED: Common Femoral Vein Deep Femoral Vein Greater Saphenous Vein * Femoral Vein Popliteal Vein Small Saphenous Vein * Proximal Calf Veins (* superficial vessels) Some compressions deferred due to patient pain tolerance. Suboptimal due to edema. Right Leg: Negative for acute DVT Left Leg: Negative for acute DVT IMPRESSION: No evidence of deep vein thrombosis in both legs.
[2022-04-19 23:59] LABS: Amorphous Sediment,Urine Few /hpf; Appearance,Urine Turbid (Clear); Bacteria,Urine Rare /hpf; Bilirubin,Urine Negative (Negative); Blood,Urine Trace (Negative); Color,Urine Yellow; Glucose,Urine (UA) 1+ (Negative); Hyaline Casts,Urine 91 /lpf (0-2); Ketones,Urine Negative (Negative); Leukocyte Esterase,Urine Moderate (Negative); Mucus,Urine Few /hpf; Nitrite,Urine Negative (Negative); Protein,Urine 3+ (Negative); RBC,Urine 8 /hpf (0-5); Specific Gravity,Urine 1.017 (1.001-1.035); Squamous Epithelial Cell,Urine 2 /hpf (0-4); Urobilinogen,Urine <2.0 mg/dL (<2.0); WBC,Urine 22 /hpf (0-5)
[2022-04-20 00:31] VITALS: BP 129/76; PULSE 83; RESP 18; TEMP 98.9
== END 2022-04-20 00:31 | disposition left against medical advice (07) ==
LOC: EC 18:37
DX: S37.009A Unspecified injury of unspecified kidney, initial encounter (principal); D69.2 Other nonthrombocytopenic purpura; L95.9 Vasculitis limited to the skin, unspecified; I12.9 Hypertensive chronic kidney disease with stage 1 through stage 4 chronic kidney disease, or unspecified chronic kidney disease; E11.22 Type 2 diabetes mellitus with diabetic chronic kidney disease; N18.9 Chronic kidney disease, unspecified; Z53.29 Procedure and treatment not carried out because of patient's decision for other reasons; X58.XXXA Exposure to other specified factors, initial encounter
CPT/HCPCS: 99283; 96365; 96366 ×2; 96375; 36415; 93005; 85379; 80053; 85652; 83605; 85025; 85610; 85730; 81001; 87040; 87086; 71046; 93970; J2543; J1170; 96361

== ENCOUNTER 2022-12-15 11:04 | Inpatient (IN) | payer MEDICARE ==
[2022-12-15] MEDS ORDERED: SODIUM CHLORIDE 0.9% 500 ML 500 ML IV STA (11:29)
[2022-12-15] MEDS ORDERED: HYDROmorphone 0.5 MG/0.5 ML SYRINGE IVP STA (11:51)
[2022-12-15 12:01] LABS: HCT 30.7 % (39.0-53.0); HGB 9.9 gm/dL (13.0-17.5); MCH 29.7 pg (25.0-35.0); MCHC 32.3 g/dL (31.0-37.0); MCV 92.1 fL (80.0-100.0); Mean Platelet Volume 7.3; Platelet Count 384 k/uL (150-450); RBC 3.34 m/uL (4.30-5.90); RDW 13.5 % (11.5-15.5); WBC 12.1 k/uL (3.8-10.6)
[2022-12-15 12:14] LABS: Partial Thromboplastin Time 24.5 sec (22.0-30.0); Prothrombin Time 10.4 sec (9.0-12.0)
[2022-12-15 12:25] LABS: ALT 16 U/L (4-49); AST 26 U/L (17-59); African American GFR (CKD) 23 (>60 ml/min/1.73 sqM); Albumin 3.1 g/dL (3.5-5.0); Alkaline Phosphatase 122 U/L (38-126); Anion Gap 11 mmol/L; Blood Urea Nitrogen 52 mg/dL (9-20); Calcium 8.3 mg/dL (8.4-10.2); Carbon Dioxide 21 mmol/L (22-30); Chloride 105 mmol/L (98-107); Glucose 136 mg/dL (74-99); Magnesium 2.2 mg/dL (1.6-2.3); Non-African American GFR(CKD) 20 (>60 ml/min/1.73 sqM); Potassium 4.1 mmol/L (3.5-5.1); Sodium 137 mmol/L (137-145); Total Bilirubin 0.5 mg/dL (0.2-1.3); Total Protein 6.3 g/dL (6.3-8.2)
--- NOTE | 2022-12-15 12:28 | XR ---
EXAMINATION TYPE: XR foot complete LT DATE OF EXAM: 12/15/2022 12:21 PM INDICATION: Patient age:Male; 67 years old; Reason for study: pain; PHH. COMPARISON: None TECHNIQUE: The left foot was examined in the AP, oblique, and lateral projections. FINDINGS: No evidence of any acute osseous pathology. Joints are preserved. Atherosclerosis of the arterial vas culature. Calcifications near the posterior aspect of the ankle. Soft tissue wound noted near the thuy l. No evidence for erosion to suggest osteomyelitis. IMPRESSION: Soft tissue wound overlying the heel without evidence for erosion the osseous structures.
[2022-12-15 13:23] LABS: Eosinophils # (M) 0.61 k/uL (0-0.7); Lymphocytes # (M) 0.97 k/uL (1.0-4.8); Monocytes # (M) 1.33 k/uL (0-1.0); Neutrophils % (M) 76 %; Nucleated Red Blood Cells 0 /100 WBC (0-0); Total Cells Counted 100
[2022-12-15 13:24] LABS: RBC Morphology Normal
[2022-12-15] MEDS ORDERED: ACETAMINOPHEN TAB 325 MG TAB PO PRN (13:44)
[2022-12-15] MEDS ORDERED: NALOXONE 0.4 MG/ML 1 ML VIAL IV PRN (13:44)
[2022-12-15] MEDS ORDERED: ONDANSETRON 4 MG/2 ML VIAL IVP PRN (13:44)
--- NOTE | 2022-12-15 13:44 | ED ---
Weakness HPI - General Chief complaint: Weakness Stated complaint: Leg Pain Time Seen by Provider: 12/15/22 11:13 Source: patient, RN notes reviewed Mode of arrival: wheelchair Limitations: physical limitation - History of Present Illness Initial comments: 67-year-old male presents emergency Department with chief complaint of increasing weakness, left foot pain and infection. Patient is currently receiving daptomycin and Flagyl for ongoing diabetic foot infection that has been worsening. Patient injury 2 days ago in which she cannot ambulate she's had a prior right leg amputation. Patient states his pain, infection are also fairly worsen from his normal baseline use no he's been taking the antibiotics. Patient denies any chest pain or shortness of breath - Related Data Previous Rx's Medication Instructions Recorded HYDROcodone/APAP 5-325MG [[place] 1 each PO Q6HR PRN #40 tab 06/04/17 5-325] Insulin Glargine,Hum.rec.anlog 12 unit SQ HS #1 pen 06/04/17 [Lantus Solostar] amLODIPine [Norvasc] 5 mg PO DAILY #30 tab 06/04/17 carvediloL [Coreg] 6.25 mg PO BID-W/MEALS #60 tab 06/04/17 Cephalexin [Keflex] 500 mg PO Q6HR 10 Days cap 07/20/18 Sulfamethox-Tmp 800-160Mg [Bactrim 1 tab PO Q12HR #20 tab 07/20/18 DS 800-160 mg] Allergies Allergy/AdvReac Type Severity Reaction Status Date / Time No Known Allergies Allergy Verified 12/15/22 11:10 Review of Systems ROS Statement: Those systems with pertinent positive or pertinent negative responses have been documented in the HPI. ROS Other: All systems not noted in ROS Statement are negative. Past Medical History Past Medical History: Diabetes Mellitus, Hypertension Additional Past Medical History / Comment(s): wound rt great toe amputation area History of Any Multi-Drug Resistant Organisms: MRSA Date of last positivie culture/infection: 10/08/22 MDRO Source:: Left Heel Past Surgical History: Tonsillectomy Additional Past Surgical History / Comment(s): rt great toe amputation Past Anesthesia/Blood Transfusion Reactions: No Reported Reaction Past Psychological History: No Psychological Hx Reported Smoking Status: Never smoker Past Alcohol Use History: Occasional Past Drug Use History: None Reported - Past Family History Mother Family Medical History: No Reported History General Exam Limitations: physical limitation General appearance: alert, in no apparent distress Head exam: Present: atraumatic, normocephalic, normal inspection Eye exam: Present: normal appearance, PERRL, EOMI. Absent: scleral icterus, conjunctival injection, periorbital swelling ENT exam: Present: normal exam, normal oropharynx, mucous membranes moist, TM's normal bilaterally Neck exam: Present: normal inspection, full ROM. Absent: tenderness, meningismus, lymphadenopathy Respiratory exam: Present: normal lung sounds bilaterally. Absent: respiratory distress, wheezes, rales, rhonchi, stridor Cardiovascular Exam: Present: regular rate, normal rhythm, normal heart sounds. Absent: systolic murmur, diastolic murmur, rubs, gallop, clicks GI/Abdominal exam: Present: soft, normal bowel sounds. Absent: distended, ten derness, guarding, rebound, rigid Extremities exam: Present: other (Left heel there is extensive ulceration, erythema and purulent drainage noted) Course Vital Signs 12/15/22 12/15/22 12/15/22 11:10 11:15 12:40 Temperature 99 F 97.5 F L Pulse Rate 74 69 67 Pulse Rate [ 69 Exploration Driller ] Respiratory 18 18 17 Rate Blood Pressure 135/65 129/60 138/70 O2 Sat by Pulse 97 96 97 Oximetry 12/15/22 12/15/22 13:06 14:18 Temperature 98.4 F 98.0 F Pulse Rate 67 69 Pulse Rate [ Exploration Driller ] Respiratory 18 18 Rate Blood Pressure 139/80 138/72 O2 Sat by Pulse 97 98 Oximetry EKG Findings - EKG Comments: EKG Findings:: EKG performed at 11:57 sinus rhythm and right bundle rate of 78 ME 131 QRS 160 QT/QTC 426/446 - EKG Results: EKG: interpreted by ERMD Medical Decision Making - Medical Decision Making Was pt. sent in by a medical professional or institution (, PA, RUG CLEANER, urgent care, hospital, or intermediate...) When possible be specific @ -No Did you speak to anyone other than the patient for history (EMS, parent, family, police, friend...)? What history was obtained from this source @ - providing severe past medical history Did you review nursing and triage notes (agree or disagree)? Why? @ -I reviewed and agree with nursing and triage notes Were old charts reviewed (outside hosp., previous admission, EMS record, old EKG, old radiological studies, urgent care reports/EKG's, intermediate records)? Report findings @ -No old charts were reviewed Differential Diagnosis (chest pain, altered mental status, abdominal pain women, abdominal pain men, vaginal bleeding, weakness, fever, dyspnea, syncope, headache, dizziness, GI bleed, back pain, seizure, CVA, palpatations, mental health, musculoskeletal)? @ -Diabetic infection, osteomyelitis, weakness, sepsis EKG interpreted by me (3pts min.). @ -As above X-rays interpreted by me (1pt min.). @ -X-ray showing soft tissue changes no evidence of bony erosion CT interpreted by me (1pt min.). @ -None done U/S interpreted by me (1pt. min.). @ -None done What testing was considered but not performed or refused? (CT, X-rays, U/S, labs)? Why? @ -None What meds were considered but not given or refused? Why? @ -None Did you discuss the management of the patient with other professionals (professionals i.e. , PA, RUG CLEANER, lab, RT, psych nurse, social work msw, tacker off, teacher, correctional officer captain, director of casework department)? Give summary @ -Dr. Hannah for admission given increased weakness, worsening infection with consults Was smoking cessation discussed for >3mins.? @ -No Was critical care preformed (if so, how long)? @ -No Were there social determinants of health that impacted care today? How? (Homelessness, low income, unemployed, alcoholism, drug addiction, transportation, low edu. Level, literacy, decrease access to med. care, longterm, rehab)? @ -No Was there de-escalation of care discussed even if they declined (Discuss DNR or withdrawal of care, Hospice)? DNR status @ -No What co-morbidities impacted this encounter? (DM, HTN, Smoking, COPD, CAD, Cancer, CVA, ARF, Chemo, Hep., AIDS, mental health diagnosis, sleep apnea, morbid obesity)? @ -Diabetes Was patient admitted / discharged? Hospital course, mention meds given and route, prescriptions, significant lab abnormalities, going to OR and other pertinent info. @ -Admitted patient's having failure of outpatient treatment for diabetic infection patient is unable to transfer weight increasing pain. Patient be admitted for IV antibiotic as, consult to infectious disease, and Dr. Armstrong Undiagnosed new problem with uncertain prognosis? @ -No Drug Therapy requiring intensive monitoring for toxicity (Heparin, Nitro, Insulin, Cardizem)? @ -No Were any procedures done? @ -No Diagnosis/symptom? @ -Weakness, diabetic infection, failure of outpatient treatment Acute, or Chronic, or Acute on Chronic? @ -Acute Uncomplicated (without systemic symptoms) or Complicated (systemic symptoms)? @ -Comp complicated Side effects of treatment? @ -No Exacerbation, Progression, or Severe Exacerbation? @ -No Poses a threat to life or bodily function? How? (Chest pain, [place], [place], pneumonia, PE, COPD, DKA, ARF, appy, cholecystitis, CVA, Diverticulitis, Homicidal, Suicidal, threat to staff... and all critical care pts) @ -No - Lab Data Result diagrams: 12/15/22 11:40 12/15/22 11:40 Lab Results 12/15/22 12/15/22 12/15/22 Range/Units 11:40 11:40 11:40 WBC 12.1 H (3.8-10.6) k/uL RBC 3.34 L (4.30-5.90) m/uL Hgb 9.9 L (13.0-17.5) gm/dL Hct 30.7 L (39.0-53.0) % MCV 92.1 (80.0-100.0) fL MCH 29.7 (25.0-35.0) pg MCHC 32.3 (31.0-37.0) g/dL RDW 13.5 (11.5-15.5) % Plt Count 384 (150-450) k/uL MPV 7.3 Neutrophils % (Manual) 76 % Lymphocytes % (Manual) 8 % Monocytes % (Manual) 11 % Eosinophils % (Manual) 5 % Neutrophils # (Manual) 9.20 H (1.3-7.7) k/uL Lymphocytes # (Manual) 0.97 L (1.0-4.8) k/uL Monocytes # (Manual) 1.33 H (0-1.0) k/uL Eosinophils # (Manual) 0.61 (0-0.7) k/uL Nucleated RBCs 0 (0-0) /100 WBC Manual Slide Review Performed RBC Morphology Normal PT 10.4 (9.0-12.0) sec INR 1.0 (<1.2) APTT 24.5 (22.0-30.0) sec Sodium 137 (137-145) mmol/L Potassium 4.1 (3.5-5.1) mmol/L Chloride 105 (98-107) mmol/L Carbon Dioxide 21 L (22-30) mmol/L Anion Gap 11 mmol/L BUN 52 H (9-20) mg/dL Creatinine 3.08 H (0.66-1.25) mg/dL Est GFR (CKD-EPI)AfAm 23 (>60 ml/min/1.73 sqM) Est GFR (CKD-EPI)NonAf 20 (>60 ml/min/1.73 sqM) Glucose 136 H (74-99) mg/dL Plasma Lactic Acid Praveen (0.7-2.0) mmol/L Calcium 8.3 L (8.4-10.2) mg/dL Magnesium 2.2 (1.6-2.3) mg/dL Total Bilirubin 0.5 (0.2-1.3) mg/dL AST 26 (17-59) U/L ALT 16 (4-49) U/L Alkaline Phosphatase 122 (38-126) U/L Total Protein 6.3 (6.3-8.2) g/dL Albumin 3.1 L (3.5-5.0) g/dL 12/15/22 Range/Units 11:40 WBC (3.8-10.6) k/uL RBC (4.30-5.90) m/uL Hgb (13.0-17.5) gm/dL Hct (39.0-53.0) % MCV (80.0-100.0) fL MCH (25.0-35.0) pg MCHC (31.0-37.0) g/dL RDW (11.5-15.5) % Plt Count (150-450) k/uL MPV Neutrophils % (Manual) % Lymphocytes % (Manual) % Monocytes % (Manual) % Eosinophils % (Manual) % Neutrophils # (Manual) (1.3-7.7) k/uL Lymphocytes # (Manual) (1.0-4.8) k/uL Monocytes # (Manual) (0-1.0) k/uL Eosinophils # (Manual) (0-0.7) k/uL Nucleated RBCs (0-0) /100 WBC Manual Slide Review RBC Morphology PT (9.0-12.0) sec INR (<1.2) APTT (22.0-30.0) sec Sodium (137-145) mmol/L Potassium (3.5-5.1) mmol/L Chloride (98-107) mmol/L Carbon Dioxide (22-30) mmol/L Anion Gap mmol/L BUN (9-20) mg/dL Creatinine (0.66-1.25) mg/dL Est GFR (CKD-EPI)AfAm (>60 ml/min/1.73 sqM) Est GFR (CKD-EPI)NonAf (>60 ml/min/1.73 sqM) Glucose (74-99) mg/dL Plasma Lactic Acid Praveen 0.8 (0.7-2.0) mmol/L Calcium (8.4-10.2) mg/dL Magnesium (1.6-2.3) mg/dL Total Bilirubin (0.2-1.3) mg/dL AST (17-59) U/L ALT (4-49) U/L Alkaline Phosphatase (38-126) U/L Total Protein (6.3-8.2) g/dL Albumin (3.5-5.0) g/dL Disposition Clinical Impression: Weakness, Diabetic foot ulcer associated with type 2 diabetes mellitus, with fat layer exposed, Left ankle pain, Failure of outpatient treatment Disposition: ADMITTED IP TO THIS HOSP Condition: Poor Time of Disposition: 13:44
[2022-12-15] MEDS: HYDROcodone/APAP 5-325MG 1 EACH TAB PO PRN (16:49)
[2022-12-15 17:05] LABS: Glucose,Whole Blood 109 mg/dL (70-110)
--- NOTE | 2022-12-15 17:31 | P.GSCN ---
History of Present Illness History of present illness: 67-year-old diabetic male well known to me from the past patient has a wound on the left heel his been coming to the wound clinic for local wound care and hyperbaric treatment patient fell down at home she developed large wound with hematoma and we will blister formation on the lateral aspect of the heel and on the bed and at the ankle at the tendocalcaneus area with some fluctuation and tenderness noted as patient had a right above-knee impression done in the past patient is scheduled to have a debridement of the left foot and and left ankl tendocalcaneus area Medical history history of diabetes hypertension no history of coronary disease Surgical history patient 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 Neck examination neck is supple no bruit appreciated Chest is clear good and both lungs first and second sound present Abdomen is soft nontender Femorals are 1+ bilateral dorsal pedis is palpable her palpable on the left foot patient has a wound on the left heel with exposed calcaneus and also patient has an infected area and the left ankle and a lateral aspect of the foot with some fluctuation and tenderness with some redness Plan is patient IV antibiotic under care of infectious disease patient will need debridement and deep culture risk and complication discussed Past Medical History Past Medical History: Diabetes Mellitus, Hypertension Additional Past Medical History / Comment(s): wound rt great toe amputation area History of Any Multi-Drug Resistant Organisms: MRSA Year Discovered:: 10/08/22 MDRO Source:: Left Heel Past Surgical History: Tonsillectomy Additional Past Surgical History / Comment(s): rt great toe amputation, RAKA Past Anesthesia/Blood Transfusion Reactions: No Reported Reaction Past Psychological History: No Psychological Hx Reported Smoking Status: Never smoker Past Alcohol Use History: Occasional Additional Past Alcohol Use History / Comment(s): Patient only smoked briefly as a teenager. He denies any medical marijuana, marijuana, street drug use. He drinks alcohol socially and denies alcohol abuse. He lives at home with his . 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 Past Drug Use History: None Reported - Past Family History Mother Family Medical History: No Reported History Medications and Allergies Home Medications Medication Instructions Recorded Confirmed Type Albuterol Sulfate [Ventolin HFA] 1 - 2 puff INHALATION RT-QID PRN 12/15/22 12/15/22 History Ferrous Sulfate [Feosol] 325 mg PO DAILY 12/15/22 12/15/22 History HYDROcodone/APAP 10-325MG [[place] 1 tab PO Q8H 12/15/22 12/15/22 History 10-325] Insulin Glargine,Hum.rec.anlog 14 units SQ HS 12/15/22 12/15/22 History [Tomeliza Solostar] Levothyroxine Sodium [Synthroid] 25 mcg PO DAILY 12/15/22 12/15/22 History Loratadine [Claritin] 10 mg PO HS 12/15/22 12/15/22 History Potassium Chloride ER [K-Dur 20] 20 meq PO DAILY 12/15/22 12/15/22 History Tamsulosin HCl [Flomax] 0.4 mg PO DAILY 12/15/22 12/15/22 History Torsemide [Demadex] 40 mg PO DAILY 12/15/22 12/15/22 History allopurinoL [Zyloprim] 100 mg PO DAILY 12/15/22 12/15/22 History amLODIPine [Norvasc] 10 mg PO DAILY 12/15/22 12/15/22 History cloNIDine HCL [Catapres] 0.1 mg PO DAILY 12/15/22 12/15/22 History hydrALAZINE HCL [Apresoline] 100 mg PO DAILY 12/15/22 12/15/22 History metroNIDAZOLE [Flagyl] 500 mg PO TID 12/15/22 12/15/22 History Allergies Allergy/AdvReac Type Severity Reaction Status Date / Time No Known Allergies Allergy Verified 12/15/22 14:42 Surgical - Exam Vital Signs Temp Pulse Resp BP Pulse Ox 99 F 74 18 135/65 97 12/15/22 11:10 12/15/22 11:10 12/15/22 11:10 12/15/22 11:10 12/15/22 11:10 Results - Labs 12/15/22 11:40 12/15/22 11:40 Abnormal Lab Results - Last 24 Hours (Table) 12/15/22 12/15/22 Range/Units 11:40 11:40 WBC 12.1 H (3.8-10.6) k/uL RBC 3.34 L (4.30-5.90) m/uL Hgb 9.9 L (13.0-17.5) gm/dL Hct 30.7 L (39.0-53.0) % Neutrophils # (Manual) 9.20 H (1.3-7.7) k/uL Lymphocytes # (Manual) 0.97 L (1.0-4.8) k/uL Monocytes # (Manual) 1.33 H (0-1.0) k/uL Carbon Dioxide 21 L (22-30) mmol/L BUN 52 H (9-20) mg/dL Creatinine 3.08 H (0.66-1.25) mg/dL Glucose 136 H (74-99) mg/dL Calcium 8.3 L (8.4-10.2) mg/dL Albumin 3.1 L (3.5-5.0) g/dL Diabetes panel 12/15/22 Range/Units 11:40 Sodium 137 (137-145) mmol/L Potassium 4.1 (3.5-5.1) mmol/L Chloride 105 (98-107) mmol/L Carbon Dioxide 21 L (22-30) mmol/L BUN 52 H (9-20) mg/dL Creatinine 3.08 H (0.66-1.25) mg/dL Glucose 136 H (74-99) mg/dL Calcium 8.3 L (8.4-10.2) mg/dL AST 26 (17-59) U/L ALT 16 (4-49) U/L Alkaline Phosphatase 122 (38-126) U/L Total Protein 6.3 (6.3-8.2) g/dL Albumin 3.1 L (3.5-5.0) g/dL Calcium panel 12/15/22 Range/Units 11:40 Calcium 8.3 L (8.4-10.2) mg/dL Albumin 3.1 L (3.5-5.0) g/dL Pituitary panel 12/15/22 Range/Units 11:40 Sodium 137 (137-145) mmol/L Potassium 4.1 (3.5-5.1) mmol/L Chloride 105 (98-107) mmol/L Carbon Dioxide 21 L (22-30) mmol/L BUN 52 H (9-20) mg/dL Creatinine 3.08 H (0.66-1.25) mg/dL Glucose 136 H (74-99) mg/dL Calcium 8.3 L (8.4-10.2) mg/dL Adrenal panel 12/15/22 Range/Units 11:40 Sodium 137 (137-145) mmol/L Potassium 4.1 (3.5-5.1) mmol/L Chloride 105 (98-107) mmol/L Carbon Dioxide 21 L (22-30) mmol/L BUN 52 H (9-20) mg/dL Creatinine 3.08 H (0.66-1.25) mg/dL Glucose 136 H (74-99) mg/dL Calcium 8.3 L (8.4-10.2) mg/dL Total Bilirubin 0.5 (0.2-1.3) mg/dL AST 26 (17-59) U/L ALT 16 (4-49) U/L Alkaline Phosphatase 122 (38-126) U/L Total Protein 6.3 (6.3-8.2) g/dL Albumin 3.1 L (3.5-5.0) g/dL
[2022-12-15 18:24] LABS: Appearance,Urine Clear (Clear); Bacteria,Urine Rare /hpf; Bilirubin,Urine Negative (Negative); Blood,Urine Negative (Negative); Color,Urine Yellow; Glucose,Urine (UA) Negative (Negative); Hyaline Casts,Urine 3 /lpf (0-2); Ketones,Urine Negative (Negative); Leukocyte Esterase,Urine Small (Negative); Mucus,Urine Rare /hpf; Nitrite,Urine Negative (Negative); Protein,Urine 1+ (Negative); RBC,Urine 1 /hpf (0-5); Specific Gravity,Urine 1.008 (1.001-1.035); Squamous Epithelial Cell,Urine <1 /hpf (0-4); Urobilinogen,Urine <2.0 mg/dL (<2.0); WBC,Urine 3 /hpf (0-5)
[2022-12-15 20:22] LABS: Glucose,Whole Blood 171 mg/dL (70-110)
[2022-12-15] MEDS: COLLAGENASE 250 UNIT/GM OINTMENT 30 GM TUBE TOPICAL SCH (23:44)
[2022-12-15] MEDS: HYDROmorphone 1 MG/ML 1 ML SYRINGE IVP PRN (23:49)
[2022-12-16] MEDS: HYDROmorphone 1 MG/ML 1 ML SYRINGE IVP PRN (06:41)
[2022-12-16 07:12] LABS: Glucose,Whole Blood 112 mg/dL (70-110)
--- NOTE | 2022-12-16 07:46 | P.CONS ---
History of Present Illness - Reason for Consult Consult date: 12/15/22 - History of Present Illness Patient is a 67-year-old male with a past medical history significant for diabetes mellitus hypertension patient did have a history of left heel diabetic foot infection underlying osteomyelitis with a culture positive for MRSA patient did have a renal insufficiency and is currently getting daptomycin in the outpatient setting along with oral Flagyl patient is presenting to the ER concerning for increasing discomfort to the left heel area describing to be more of a dull aching and sharp pain 5-6 out of 10 no radiation and the patient did have a increasing discoloration and blister formation to the lateral aspect of the left foot along with increasing swelling redness and some foul-smelling drainage with the same but the patient has been evaluated by the ER physician on arrival to the ER patient did have a low-grade fever of 99 F patient did have a white count of 12.1 with a left shift creatinine 3.08 liver enzymes are normal urine was negative patient did have x-ray of the foot soft tissue wound overlying the heel without evidence of erosion patient did receive a dose of daptomycin in the ER subsequently has been admitted to the hospital infectious disease was consulted for further management of antibiotic therapy Past Medical History Past Medical History: Diabetes Mellitus, Hypertension Additional Past Medical History / Comment(s): wound rt great toe amputation area History of Any Multi-Drug Resistant Organisms: MRSA Year Discovered:: 10/08/22 MDRO Source:: Left Heel Past Surgical History: Tonsillectomy Additional Past Surgical History / Comment(s): rt great toe amputation, RAKA Past Anesthesia/Blood Transfusion Reactions: No Reported Reaction Past Psychological History: No Psychological Hx Reported Smoking Status: Never smoker Past Alcohol Use History: Occasional Additional Past Alcohol Use History / Comment(s): Patient only smoked briefly as a teenager. He denies any medical marijuana, marijuana, street drug use. He drinks alcohol socially and denies alcohol abuse. He lives at home with his . 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 Past Drug Use History: None Reported - Past Family History Mother Family Medical History: No Reported History Medications and Allergies Home Medications Medication Instructions Recorded Confirmed Type Albuterol Sulfate [Ventolin HFA] 1 - 2 puff INHALATION RT-QID PRN 12/15/22 12/15/22 History Ferrous Sulfate [Feosol] 325 mg PO DAILY 12/15/22 12/15/22 History HYDROcodone/APAP 10-325MG [[place] 1 tab PO Q8H 12/15/22 12/15/22 History 10-325] Insulin Glargine,Hum.rec.anlog 14 units SQ HS 12/15/22 12/15/22 History [[place]] Levothyroxine Sodium [Synthroid] 25 mcg PO DAILY 12/15/22 12/15/22 History Loratadine [Claritin] 10 mg PO HS 12/15/22 12/15/22 History Potassium Chloride ER [K-Dur 20] 20 meq PO DAILY 12/15/22 12/15/22 History Tamsulosin HCl [Flomax] 0.4 mg PO DAILY 12/15/22 12/15/22 History Torsemide [Demadex] 40 mg PO DAILY 12/15/22 12/15/22 History allopurinoL [Zyloprim] 100 mg PO DAILY 12/15/22 12/15/22 History amLODIPine [Norvasc] 10 mg PO DAILY 12/15/22 12/15/22 History cloNIDine HCL [Catapres] 0.1 mg PO DAILY 12/15/22 12/15/22 History hydrALAZINE HCL [Apresoline] 100 mg PO DAILY 12/15/22 12/15/22 History metroNIDAZOLE [Flagyl] 500 mg PO TID 12/15/22 12/15/22 History Allergies Allergy/AdvReac Type Severity Reaction Status Date / Time No Known Allergies Allergy Verified 12/15/22 14:42 Physical Exam Vitals: Vital Signs Temp Pulse Pulse Pulse Resp BP BP 12/15/22 15:22 98.1 F 71 17 156/74 12/15/22 14:18 98.0 F 69 18 138/72 12/15/22 13:06 98.4 F 67 18 139/80 12/15/22 12:40 97.5 F L 67 17 138/70 12/15/22 11:15 69 69 18 129/60 12/15/22 11:10 99 F 74 18 135/65 Pulse Ox 12/15/22 15:22 97 12/15/22 14:18 98 12/15/22 13:06 97 12/15/22 12:40 97 12/15/22 11:15 96 12/15/22 11:10 97 Intake and Output 12/15/22 12/15/22 12/15/22 06:59 14:59 22:59 Other: Weight 99.79 kg Results CBC & Chem 7: 12/15/22 11:40 12/15/22 11:40 Labs: Abnormal Lab Results - Last 24 Hours (Table) 12/15/22 12/15/22 Range/Units 11:40 11:40 WBC 12.1 H (3.8-10.6) k/uL RBC 3.34 L (4.30-5.90) m/uL Hgb 9.9 L (13.0-17.5) gm/dL Hct 30.7 L (39.0-53.0) % Neutrophils # (Manual) 9.20 H (1.3-7.7) k/uL Lymphocytes # (Manual) 0.97 L (1.0-4.8) k/uL Monocytes # (Manual) 1.33 H (0-1.0) k/uL Carbon Dioxide 21 L (22-30) mmol/L BUN 52 H (9-20) mg/dL Creatinine 3.08 H (0.66-1.25) mg/dL Glucose 136 H (74-99) mg/dL Calcium 8.3 L (8.4-10.2) mg/dL Albumin 3.1 L (3.5-5.0) g/dL Assessment and Plan Plan: 1patient with extensive left heel diabetic foot infection in this patient with recent outpatient culture positive for MRSA and the patient was getting daptomycin and oral Flagyl for it subsequently the patient did have a culture done on 12/10/2022 that did grew Proteus mirabilis now with worsening of cellulitis and necrotic changes patient did have a elevated white count no bony changes were noticed on the x-ray however concern of possible for deep infection and will benefit from surgical debridement and deep culture as per discussion with the vascular surgeon. 2we will start the patient on Rocephin 2 g daily Flagyl and continue with the daptomycin. 3local wound care with Santyl followed by moist dressing change daily and keep the area of the pressure. We will follow on clinical condition and cultures to further adjust medication if needed Thank you for this consultation we will follow the patient along with you Dictation was produced using [employer] software. please excuse any grammatical, word or spelling errors. Time with Patient: Greater than 30
[2022-12-16] MEDS ORDERED: PROPOFOL 10 MG/ML 20 ML VIAL IV ONE (07:53)
[2022-12-16] MEDS ORDERED: MIDAZOLAM 2 MG/2 ML VIAL ONE (07:53)
[2022-12-16] MEDS ORDERED: fentaNYL (PF) 50 MCG/ML 2 ML AMP ONE (07:53)
[2022-12-16] MEDS ORDERED: LACTATED RINGERS 1,000 ML IV ONE (07:56)
[2022-12-16] MEDS ORDERED: LIDOCAINE 1% INJ 10MG/ML (20 ML MDV) SQ ONE (08:05)
[2022-12-16] MEDS ORDERED: COLLAGENASE 250 UNIT/GM OINTMENT 30 GM TUBE TOPICAL ONE (08:25)
--- NOTE | 2022-12-16 08:35 | P.PCN ---
Operative Findings: Diagnoses is right ankle wound A lateral aspect of the heel measurement is 4 x 2 cm and her wound on the medial aspect of the ankle is 4 x 6 cm Postop right heel lateral aspect is 6 x 2 cm respectively is 0.5 x 1 cm Procedure this patient has a chronic wound on the right heel area patient developed wound on the medial lateral aspect of the ankle history of fall patient was brought to the operating room right foot was prepped and draped applied sterile manner under local IV sedation incision was made on the lateral aspect of the wound at the ankle ankle area deepened through skin fat and fascia all due to last tissue was noted and that was involving the tendocalcaneus which was tendocalcaneus was infected as her drainage of pus and necrotic tissue which was excised with sharp knife all the cubital tissue was removed which was sent for deep culture there were some bleeding points which were suture ligated then patient had a similar wound on the mid medial aspect aspect of the ankle deepened through skin fat and fascia there was all delivered last tissue all the necrotic which was excised with sharp knife deep tissue was sent for deep culture hemostasis well controlled wound was irrigated with saline Santyl cream applied to the wound pressure dressing applied patient are to the procedure well prognosis is guarded and transferred to the recovery room in satisfactory condition
[2022-12-16] MEDS ORDERED: TORSEMIDE 20 MG TAB PO SCH (09:15)
[2022-12-16] MEDS: HYDROcodone/APAP 10-325MG 1 EACH TAB PO SCH ×3 (09:57→23:36)
[2022-12-16] MEDS: LEVOTHYROXINE 25 MCG TAB PO SCH (09:58)
[2022-12-16] MEDS: allopurinoL 100 MG TAB PO SCH (09:58)
[2022-12-16] MEDS: POTASSIUM CHLORIDE ER 20 MEQ TAB.ER PO SCH (09:58)
[2022-12-16] MEDS: metroNIDAZOLE 500 MG TAB PO SCH ×3 (09:58→21:24)
[2022-12-16] MEDS: TAMSULOSIN 0.4 MG CAP.ER.24H PO SCH (09:58)
[2022-12-16] MEDS: hydrALAZINE HCL 50 MG TAB PO SCH (09:58)
[2022-12-16] MEDS: cloNIDine HCL 0.1 MG TAB PO SCH (09:58)
[2022-12-16] MEDS: amLODIPine 10 MG TAB PO SCH (09:58)
[2022-12-16] MEDS: COLLAGENASE 250 UNIT/GM OINTMENT 30 GM TUBE TOPICAL SCH (09:58)
[2022-12-16] MEDS: FERROUS SULFATE 325 MG TAB PO SCH (09:58)
[2022-12-16] MEDS ORDERED: DEXTROSE 50% SYRINGE 50 ML IVP PRN ×2 (10:17)
--- NOTE | 2022-12-16 10:23 | P.HPIM ---
History of Present Illness H&P Date: 12/16/22 Chief Complaint: Left foot diabetic ulceration with failed outpatient treatment This is 67-year-old male patient who presented to the ER with concerns of left foot pain infection. Patient has been receiving outpatient IV antibiotics of daptomycin and Flagyl and followed with wound care. Per patient's at bedside patient was developing blisters to foot over the past week and having increasing pain prompting the patient to come to ER. Patient has a past medical history of diabetes mellitus, hypertension, chronic kidney disease and previous amputations. Foot x-ray completed showing soft tissue wound overlying the heel without evidence for erosion of the osseous structures. At this time patient will be admitted patient was started on IV antibiotics of Rocephin and daptomycin along with by mouth Flagyl. Vascular surgery also consulted status post debridement with Dr. Armstrong on 12/16/2022. We'll also consult nephrology services for chronic kidney disease. At this time patient is resting comfortably in bed. Patient denies chest pain or shortness of breath. Patient denies nausea vomiting or diarrhea. Patient denies any urinary burning or frequency Review of Systems Please refer to HPI otherwise unremarkable Past Medical History Past Medical History: Diabetes Mellitus, Hypertension Additional Past Medical History / Comment(s): wound rt great toe amputation area History of Any Multi-Drug Resistant Organisms: MRSA Date of last positivie culture/infection: 10/08/22 MDRO Source:: Left Heel Past Surgical History: Tonsillectomy Additional Past Surgical History / Comment(s): rt great toe amputation, RAKA Past Anesthesia/Blood Transfusion Reactions: No Reported Reaction Past Psychological History: No Psychological Hx Reported Smoking Status: Never smoker Past Alcohol Use History: Occasional Additional Past Alcohol Use History / Comment(s): Patient only smoked briefly as a teenager. He denies any medical marijuana, marijuana, street drug use. He drinks alcohol socially and denies alcohol abuse. He lives at home with his . 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 Past Drug Use History: None Reported - Past Family History Mother Family Medical History: No Reported History Medications and Allergies Home Medications Medication Instructions Recorded Confirmed Type Albuterol Sulfate [Ventolin HFA] 1 - 2 puff INHALATION RT-QID PRN 12/15/22 12/15/22 History Ferrous Sulfate [Feosol] 325 mg PO DAILY 12/15/22 12/15/22 History HYDROcodone/APAP 10-325MG [[place] 1 tab PO Q8H 12/15/22 12/15/22 History 10-325] Insulin Glargine,Hum.rec.anlog 14 units SQ HS 12/15/22 12/15/22 History [James Solostar] Levothyroxine Sodium [Synthroid] 25 mcg PO DAILY 12/15/22 12/15/22 History Loratadine [Claritin] 10 mg PO HS 12/15/22 12/15/22 History Potassium Chloride ER [K-Dur 20] 20 meq PO DAILY 12/15/22 12/15/22 History Tamsulosin HCl [Flomax] 0.4 mg PO DAILY 12/15/22 12/15/22 History Torsemide [Demadex] 40 mg PO DAILY 12/15/22 12/15/22 History allopurinoL [Zyloprim] 100 mg PO DAILY 12/15/22 12/15/22 History amLODIPine [Norvasc] 10 mg PO DAILY 12/15/22 12/15/22 History cloNIDine HCL [Catapres] 0.1 mg PO DAILY 12/15/22 12/15/22 History hydrALAZINE HCL [Apresoline] 100 mg PO DAILY 12/15/22 12/15/22 History metroNIDAZOLE [Flagyl] 500 mg PO TID 12/15/22 12/15/22 History Allergies Allergy/AdvReac Type Severity Reaction Status Date / Time No Known Allergies Allergy Verified 12/15/22 14:42 Physical Exam Vitals: Vital Signs Temp Pulse Pulse Pulse Resp BP BP 12/16/22 09:05 98.3 F 61 18 151/72 12/16/22 09:02 12/16/22 08:56 61 16 146/65 12/16/22 08:41 60 16 140/62 12/16/22 08:26 99.2 F 63 18 136/62 12/16/22 07:15 98.8 F 65 18 159/67 12/16/22 01:38 98.9 F 59 L 18 146/74 12/15/22 19:02 98.8 F 68 17 129/74 12/15/22 15:22 98.1 F 71 17 156/74 12/15/22 14:18 98.0 F 69 18 138/72 12/15/22 13:06 98.4 F 67 18 139/80 12/15/22 12:40 97.5 F L 67 17 138/70 12/15/22 11:15 69 69 18 129/60 12/15/22 11:10 99 F 74 18 135/65 Pulse Ox 12/16/22 09:05 95 12/16/22 09:02 95 12/16/22 08:56 94 L 12/16/22 08:41 95 12/16/22 08:26 98 12/16/22 07:15 95 12/16/22 01:38 96 12/15/22 19:02 97 12/15/22 15:22 97 12/15/22 14:18 98 12/15/22 13:06 97 12/15/22 12:40 97 12/15/22 11:15 96 12/15/22 11:10 97 Intake and Output 12/15/22 12/16/22 12/16/22 22:59 06:59 14:59 Intake Total 222 500 Output Total 450 5 Balance 222 -450 495 Intake: IV 500 Oral 222 Output: Urine 450 Estimated Blood Loss 5 Other: Voiding Method Urinal # Voids 1 Weight 99.79 kg Head normocephalic Neck supple Lungs clear to auscultation bilaterally no wheezing or crackles Heart regular rate and rhythm S1-S2, no rub or gallop Abdomen is soft nontender nondistended positive bowel sounds no hepatosplenomegaly Extremities no edema. Left foot dressing clean dry and intact Neuro alert and orientated to 3 Results CBC & Chem 7: 12/15/22 11:40 12/15/22 11:40 Labs: Abnormal Lab Results - Last 24 Hours (Table) 12/15/22 12/15/22 12/15/22 Range/Units 11:29 11:40 11:40 WBC 12.1 H (3.8-10.6) k/uL RBC 3.34 L (4.30-5.90) m/uL Hgb 9.9 L (13.0-17.5) gm/dL Hct 30.7 L (39.0-53.0) % Neutrophils # (Manual) 9.20 H (1.3-7.7) k/uL Lymphocytes # (Manual) 0.97 L (1.0-4.8) k/uL Monocytes # (Manual) 1.33 H (0-1.0) k/uL Carbon Dioxide 21 L (22-30) mmol/L BUN 52 H (9-20) mg/dL Creatinine 3.08 H (0.66-1.25) mg/dL Glucose 136 H (74-99) mg/dL POC Glucose (mg/dL) (70-110) mg/dL Calcium 8.3 L (8.4-10.2) mg/dL Albumin 3.1 L (3.5-5.0) g/dL Urine Protein 1+ H (Negative) Ur Leukocyte Esterase Small H (Negative) Urine Bacteria Rare H (None) /hpf Hyaline Casts 3 H (0-2) /lpf Urine Mucus Rare H (None) /hpf 12/15/22 12/16/22 Range/Units 20:20 07:11 WBC (3.8-10.6) k/uL RBC (4.30-5.90) m/uL Hgb (13.0-17.5) gm/dL Hct (39.0-53.0) % Neutrophils # (Manual) (1.3-7.7) k/uL Lymphocytes # (Manual) (1.0-4.8) k/uL Monocytes # (Manual) (0-1.0) k/uL Carbon Dioxide (22-30) mmol/L BUN (9-20) mg/dL Creatinine (0.66-1.25) mg/dL Glucose (74-99) mg/dL POC Glucose (mg/dL) 171 H 112 H (70-110) mg/dL Calcium (8.4-10.2) mg/dL Albumin (3.5-5.0) g/dL Urine Protein (Negative) Ur Leukocyte Esterase (Negative) Urine Bacteria (None) /hpf Hyaline Casts (0-2) /lpf Urine Mucus (None) /hpf Thrombosis Risk Factor Assmnt - Choose All That Apply Any of the Below Risk Factors Present?: Yes Each Factor Represents 1 point: Medical pt on bed rest, Swollen legs (current) Each Risk Factor Represents 2 Points: Age 61-74 years, Patient confined to bed Thrombosis Risk Factor Assessment Total Risk Factor Score: 6 Thrombosis Risk Factor Assessment Level: High Risk Assessment and Plan Assessment: 1. Left foot diabetic ulceration with failed outpatient treatment 2. Chronic kidney disease 3. Diabetes mellitus type 2. A home Lantus dose ordered plus sliding scale coverage 4. Essential hypertension 5. History of right greater toe amputation 6. Obesity 7. Hypothyroidism DVT prophylaxis Lovenox. GI prophylaxis Protonix Vascular, infectious disease and nephrology service is consulted Patient maintained on IV antibiotics of daptomycin Rocephin plus by mouth Flagyl Repeat labs ordered Time with Patient: Greater than 30 (Greater than 60% of the total time spent in counseling and coordination of care)
[2022-12-16 11:26] LABS: Basophils % (A) 0 %; Eosinophils # (A) 0.3 k/uL (0-0.7); Eosinophils % (A) 3 %; HCT 29.9 % (39.0-53.0); HGB 9.4 gm/dL (13.0-17.5); Hypochromasia Slight; Lymphocytes # (A) 1.2 k/uL (1.0-4.8); Lymphocytes % (A) 10 %; MCH 29.3 pg (25.0-35.0); MCHC 31.6 g/dL (31.0-37.0); MCV 92.8 fL (80.0-100.0); Mean Platelet Volume 7.1; Monocytes # (A) 0.7 k/uL (0-1.0); Monocytes % (A) 6 %; Neutrophils # (A) 9.2 k/uL (1.3-7.7); Neutrophils % (A) 79 %; Platelet Count 369 k/uL (150-450); RBC 3.22 m/uL (4.30-5.90); RDW 13.6 % (11.5-15.5); WBC 11.7 k/uL (3.8-10.6)
[2022-12-16 11:35] LABS: ALT 14 U/L (4-49); AST 22 U/L (17-59); African American GFR (CKD) 27 (>60 ml/min/1.73 sqM); Albumin 2.8 g/dL (3.5-5.0); Albumin/Globulin Ratio 0.9; Alkaline Phosphatase 102 U/L (38-126); Anion Gap 10 mmol/L; Blood Urea Nitrogen 47 mg/dL (9-20); Calcium 8.2 mg/dL (8.4-10.2); Carbon Dioxide 23 mmol/L (22-30); Chloride 104 mmol/L (98-107); Glucose 116 mg/dL (74-99); Non-African American GFR(CKD) 23 (>60 ml/min/1.73 sqM); Potassium 4.4 mmol/L (3.5-5.1); Sodium 137 mmol/L (137-145); Total Bilirubin 0.4 mg/dL (0.2-1.3); Total Protein 5.8 g/dL (6.3-8.2)
[2022-12-16 11:45] LABS: Glucose,Whole Blood 133 mg/dL (70-110)
[2022-12-16] MEDS: INSULIN ASPART (NovoLOG) 100 UNIT/ML VIAL SQ SCH ×3 (12:11→21:24)
[2022-12-16] MEDS: HYDROcodone/APAP 5-325MG 1 EACH TAB PO PRN (14:19)
[2022-12-16 17:08] LABS: Glucose,Whole Blood 153 mg/dL (70-110)
[2022-12-16] MEDS: ALBUTEROL NEBULIZED 2.5 MG/3 ML INHALATION PRN (20:06)
[2022-12-16 20:14] LABS: Glucose,Whole Blood 164 mg/dL (70-110)
--- NOTE | 2022-12-16 20:23 | P.NPCON ---
History of Present Illness - Reason for Consult acute renal failure - History of Present Illness Patient is a 67-year-old male with history of type 2 diabetes, hypertension and chronic kidney disease NKF stage IV with baseline creatinine around 2.7-3.3 mg/dL. Patient is admitted to the hospital with increased pain in his left ankle after he twisted it while getting up from the commode 3 days ago. The swelling has persisted and worsened with worsening pain as well and therefore patient came into the hospital. He has chronic wounds on his leg which started bleeding. No fever noted Blood pressure is not low. Patient has been voiding. Serum creatinine was 3.0 on initial admission and decreased to 2.7 today. Currently not on IV fluids. Patient received 1 L fluid bolus in the ER. No complaints of chest pains or shortness of breath. Review of Systems As per HPI. Past Medical History Past Medical History: Diabetes Mellitus, Hypertension Additional Past Medical History / Comment(s): wound rt great toe amputation area History of Any Multi-Drug Resistant Organisms: MRSA Date of last positivie culture/infection: 10/08/22 MDRO Source:: Left Heel Past Surgical History: Tonsillectomy Additional Past Surgical History / Comment(s): rt great toe amputation, RAKA Past Anesthesia/Blood Transfusion Reactions: No Reported Reaction Past Psychological History: No Psychological Hx Reported Smoking Status: Never smoker Past Alcohol Use History: Occasional Additional Past Alcohol Use History / Comment(s): Patient only smoked briefly as a teenager. He denies any medical marijuana, marijuana, street drug use. He drinks alcohol socially and denies alcohol abuse. He lives at home with his . 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 Past Drug Use History: None Reported - Past Family History Mother Family Medical History: No Reported History Medications and Allergies Home Medications Medication Instructions Recorded Confirmed Type Albuterol Sulfate [Ventolin HFA] 1 - 2 puff INHALATION RT-QID PRN 12/15/22 12/15/22 History Ferrous Sulfate [Feosol] 325 mg PO DAILY 12/15/22 12/15/22 History HYDROcodone/APAP 10-325MG [[place] 1 tab PO Q8H 12/15/22 12/15/22 History 10-325] Insulin Glargine,Hum.rec.anlog 14 units SQ HS 12/15/22 12/15/22 History [James Allen] Levothyroxine Sodium [Synthroid] 25 mcg PO DAILY 12/15/22 12/15/22 History Loratadine [Claritin] 10 mg PO HS 12/15/22 12/15/22 History Potassium Chloride ER [K-Dur 20] 20 meq PO DAILY 12/15/22 12/15/22 History Tamsulosin HCl [Flomax] 0.4 mg PO DAILY 12/15/22 12/15/22 History Torsemide [Demadex] 40 mg PO DAILY 12/15/22 12/15/22 History allopurinoL [Zyloprim] 100 mg PO DAILY 12/15/22 12/15/22 History amLODIPine [Norvasc] 10 mg PO DAILY 12/15/22 12/15/22 History cloNIDine HCL [Catapres] 0.1 mg PO DAILY 12/15/22 12/15/22 History hydrALAZINE HCL [Apresoline] 100 mg PO DAILY 12/15/22 12/15/22 History metroNIDAZOLE [Flagyl] 500 mg PO TID 12/15/22 12/15/22 History Allergies Allergy/AdvReac Type Severity Reaction Status Date / Time No Known Allergies Allergy Verified 12/15/22 14:42 Physical Exam Vitals: Vital Signs Temp Pulse Pulse Pulse Resp BP Pulse Ox 12/16/22 20:13 68 12/16/22 20:06 65 12/16/22 19:13 98.9 F 63 18 130/74 97 12/16/22 13:06 97.9 F 59 L 18 129/73 97 12/16/22 10:05 62 156/77 12/16/22 09:35 59 L 151/79 12/16/22 09:05 98.3 F 61 18 151/72 95 12/16/22 09:02 95 12/16/22 08:56 61 16 146/65 94 L 12/16/22 08:41 60 16 140/62 95 12/16/22 08:26 99.2 F 63 18 136/62 98 12/16/22 07:15 98.8 F 65 18 159/67 95 12/16/22 01:38 98.9 F 59 L 18 146/74 96 Intake and Output 12/16/22 12/16/22 12/16/22 06:59 14:59 22:59 Intake Total 500 Output Total 450 5 Balance -450 495 Intake: IV 500 Output: Urine 450 Estimated Blood Loss 5 Other: # Voids 4 Patient is awake, comfortable, no acute distress Examination of the heart S1 and S2 Examination of the lungs bilateral breath sounds are heard Abdomen is soft nontender Examination of lower extremities shows right AKA. Left foot is currently wrapped. No significant edema noted. Results - Lab Results Most recent lab results Calcium 8.2 mg/dL (8.4-10.2) L 12/16/22 10:58 Magnesium 2.2 mg/dL (1.6-2.3) 12/15/22 11:40 12/16/22 10:58 12/16/22 10:58 Assessment and Plan Assessment: 1. Acute kidney injury likely ATN. Possible element of hypovolemia. Renal function improved post fluid bolus. I will hold the diuretics. 2. Chronic kidney disease NKF stage IV with baseline creatinine 2.7-3.3 mg/dL. Etiology is likely nephrosclerosis. 3. Left ankle wound/diabetic ulcer 4. History of right AKA Plan: Hold diuretics Add gentle IV hydration Check chest x-ray Repeat labs in a.m. Avoid hypotension next Thank you for the consultation. We will continue to follow the patient with you during his hospitalization
[2022-12-16] MEDS: SODIUM CHLORIDE 0.9% 1,000 ML IV SCH (21:23)
[2022-12-16] MEDS: INSULIN DETEMIR (LEVEMIR) 100 UNIT/ML SYR SQ SCH (21:24)
[2022-12-16] MEDS: LORATADINE 10 MG TAB PO SCH (21:24)
--- NOTE | 2022-12-16 21:28 | XR ---
EXAMINATION TYPE: XR chest 1V DATE OF EXAM: 12/16/2022 9:19 PM COMPARISON: Chest radiographs from 03/19/2022 TECHNIQUE: XR chest 1V Frontal view of the chest. CLINICAL INDICATION:Male, 67 years old with history of chf; FINDINGS: Lungs/Pleura: There is no evidence of pleural effusion, focal consolidation, or pneumothorax. Pulmonary vascularity: Unremarkable. Heart/mediastinum: Cardiomediastinal silhouette is unremarkable. Musculoskeletal: No acute osseous pathology. IMPRESSION: No acute cardiopulmonary disease/process.
[2022-12-17] MEDS: LEVOTHYROXINE 25 MCG TAB PO SCH (06:16)
[2022-12-17 07:50] LABS: Glucose,Whole Blood 107 mg/dL (70-110)
[2022-12-17] MEDS: INSULIN ASPART (NovoLOG) 100 UNIT/ML VIAL SQ SCH ×4 (08:19→21:02)
[2022-12-17] MEDS: POTASSIUM CHLORIDE ER 20 MEQ TAB.ER PO SCH (08:20)
[2022-12-17] MEDS: hydrALAZINE HCL 50 MG TAB PO SCH ×2 (08:20→21:01)
[2022-12-17] MEDS: amLODIPine 10 MG TAB PO SCH (08:20)
[2022-12-17] MEDS: HYDROcodone/APAP 10-325MG 1 EACH TAB PO SCH ×3 (08:20→23:56)
[2022-12-17] MEDS: PANTOPRAZOLE 40 MG TABLET PO SCH (08:20)
[2022-12-17] MEDS: allopurinoL 100 MG TAB PO SCH (08:20)
[2022-12-17] MEDS: FERROUS SULFATE 325 MG TAB PO SCH (08:20)
[2022-12-17] MEDS: cloNIDine HCL 0.1 MG TAB PO SCH (08:20)
[2022-12-17] MEDS: TAMSULOSIN 0.4 MG CAP.ER.24H PO SCH (08:20)
[2022-12-17] MEDS: metroNIDAZOLE 500 MG TAB PO SCH ×3 (08:20→21:02)
[2022-12-17] MEDS: ENOXAPARIN 40 MG/0.4 ML SYRINGE SQ SCH (08:21)
[2022-12-17] MEDS: COLLAGENASE 250 UNIT/GM OINTMENT 30 GM TUBE TOPICAL SCH (08:21)
[2022-12-17] MEDS: ALBUTEROL NEBULIZED 2.5 MG/3 ML INHALATION PRN ×3 (08:32→21:07)
[2022-12-17 09:21] LABS: Basophils # (A) 0.04 X 10*3/uL (0.00-0.10); Basophils % (A) 0.3 %; Eosinophils # (A) 0.26 X 10*3/uL (0.04-0.35); Eosinophils % (A) 2.1 %; HCT 28.4 % (39.6-50.0); HGB 8.8 d/dL (12.0-15.0); Lymphocytes % (A) 11.4 %; MCH 28.6 pg (27.0-32.0); MCV 92.2 FL (80.0-97.0); Mean Platelet Volume 9.1 FL (9.5-12.2); Monocytes # (A) 1.21 X 10*3/uL (0.20-1.00); Monocytes % (A) 9.9 %; NRBC Per 100 WBC 0 X 10*3/uL (0.00-0.01); Neutrophils # (A) 9.21 X 10*3/uL (1.80-7.70); Neutrophils % (A) 75.4 %; Platelet Count 399 X 10*3/uL (140-440); RBC 3.08 X 10*6/uL (4.40-5.60); RDW 13.6 % (11.5-14.5); WBC 12.23 X 10*3/uL (4.50-10.00)
[2022-12-17 09:32] LABS: ALT 12 U/L (10-49); AST 18 U/L (14-35); Albumin 2.9 d/dL (3.8-4.9); Albumin/Globulin Ratio 1.12 Ratio (1.60-3.17); Alkaline Phosphatase 103 U/L (41-126); BUN/Creat Ratio 17.86 Ratio (12.00-20.00); Calcium 8.1 mg/dL (8.7-10.3); Carbon Dioxide 19.9 mmol/L (21.6-31.8); Chloride 104 mmol/L (96-109); Globulin 2.6 d/dL (1.6-3.3); Glucose 98 mg/dL (70-110); Potassium 4.3 mmol/L (3.5-5.5); Sodium 138 mmol/L (135-145); Total Bilirubin <0.2 mg/dL (0.3-1.2); Total Protein 5.5 d/dL (6.2-8.2)
--- NOTE | 2022-12-17 10:14 | P.HPIM ---
History of Present Illness H&P Date: 12/16/22 Ian Paulino is a 67 year old male who presented to [facility] with a chief complaint of left foot pain and infection Patient has been receiving outpatient IV antibiotics of daptomycin and Flagyl and followed with wound care. Per patient's at bedside patient was developing blisters to foot over the past week and having increasing pain prompting the patient to come to ER. Patient has a past medical history of diabetes mellitus, hypertension, chronic kidney disease and previous amputations. Foot x-ray completed showing soft tissue wound overlying the heel without evidence for erosion of the osseous structures. At this time patient will be admitted patient was started on IV antibiotics of Rocephin and daptomycin along with by mouth Flagyl. Vascular surgery also consulted status post debridement with Dr. Armstrong on 12/16/2022. We'll also consult nephrology services for chronic kidney disease. At this time patient is resting comfortably in bed. Patient denies chest pain or shortness of breath. Patient denies nausea vomiting or diarrhea. Patient denies any urinary burning or frequency Past Medical History Past Medical History: Diabetes Mellitus, Hypertension Additional Past Medical History / Comment(s): wound rt great toe amputation area History of Any Multi-Drug Resistant Organisms: MRSA Date of last positivie culture/infection: 10/08/22 MDRO Source:: Left Heel Past Surgical History: Tonsillectomy Additional Past Surgical History / Comment(s): rt great toe amputation, RAKA Past Anesthesia/Blood Transfusion Reactions: No Reported Reaction Past Psychological History: No Psychological Hx Reported Smoking Status: Never smoker Past Alcohol Use History: Occasional Additional Past Alcohol Use History / Comment(s): Patient only smoked briefly as a teenager. He denies any medical marijuana, marijuana, street drug use. He drinks alcohol socially and denies alcohol abuse. He lives at home with his . 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 Past Drug Use History: None Reported - Past Family History Mother Family Medical History: No Reported History Medications and Allergies Home Medications Medication Instructions Recorded Confirmed Type Albuterol Sulfate [Ventolin HFA] 1 - 2 puff INHALATION RT-QID PRN 12/15/22 12/15/22 History Ferrous Sulfate [Feosol] 325 mg PO DAILY 12/15/22 12/15/22 History HYDROcodone/APAP 10-325MG [[place] 1 tab PO Q8H 12/15/22 12/15/22 History 10-325] Insulin Glargine,Hum.rec.anlog 14 units SQ HS 12/15/22 12/15/22 History [[place] Solostar] Levothyroxine Sodium [Synthroid] 25 mcg PO DAILY 12/15/22 12/15/22 History Loratadine [Claritin] 10 mg PO HS 12/15/22 12/15/22 History Potassium Chloride ER [K-Dur 20] 20 meq PO DAILY 12/15/22 12/15/22 History Tamsulosin HCl [Flomax] 0.4 mg PO DAILY 12/15/22 12/15/22 History Torsemide [Demadex] 40 mg PO DAILY 12/15/22 12/15/22 History allopurinoL [Zyloprim] 100 mg PO DAILY 12/15/22 12/15/22 History amLODIPine [Norvasc] 10 mg PO DAILY 12/15/22 12/15/22 History cloNIDine HCL [Catapres] 0.1 mg PO DAILY 12/15/22 12/15/22 History hydrALAZINE HCL [Apresoline] 100 mg PO DAILY 12/15/22 12/15/22 History metroNIDAZOLE [Flagyl] 500 mg PO TID 12/15/22 12/15/22 History Allergies Allergy/AdvReac Type Severity Reaction Status Date / Time No Known Allergies Allergy Verified 12/15/22 14:42 Physical Exam Vitals: Vital Signs Temp Pulse Pulse Pulse Resp BP BP 12/16/22 08:41 60 16 140/62 12/16/22 08:26 99.2 F 63 18 136/62 12/16/22 07:15 98.8 F 65 18 159/67 12/16/22 01:38 98.9 F 59 L 18 146/74 12/15/22 19:02 98.8 F 68 17 129/74 12/15/22 15:22 98.1 F 71 17 156/74 12/15/22 14:18 98.0 F 69 18 138/72 12/15/22 13:06 98.4 F 67 18 139/80 12/15/22 12:40 97.5 F L 67 17 138/70 12/15/22 11:15 69 69 18 129/60 12/15/22 11:10 99 F 74 18 135/65 Pulse Ox 12/16/22 08:41 95 12/16/22 08:26 98 12/16/22 07:15 95 12/16/22 01:38 96 12/15/22 19:02 97 12/15/22 15:22 97 12/15/22 14:18 98 12/15/22 13:06 97 12/15/22 12:40 97 12/15/22 11:15 96 12/15/22 11:10 97 Intake and Output 12/15/22 12/16/22 12/16/22 22:59 06:59 14:59 Intake Total 222 500 Output Total 450 5 Balance 222 -450 495 Intake: IV 500 Oral 222 Output: Urine 450 Estimated Blood Loss 5 Other: Voiding Method Urinal # Voids 1 Weight 99.79 kg In general patient is alert and oriented x 3 in no distress HEENT head normocephalic and atraumatic Neck is supple no JVD no goiter no lymphadenopathy no carotid bruit Chest examination is clear to auscultation no crackles no wheezing Cardiac exam reveals regular heart sounds S1 and S2 no gallops no murmurs Abdomen is soft nontender no organomegaly with normal bowel sounds Extremity exam reveals no edema no cyanosis or clubbing, Left foot dressing clean dry and intact Neurological examination reveals no gross focal deficits Results CBC & Chem 7: 12/17/22 05:12 12/17/22 05:12 Labs: Abnormal Lab Results - Last 24 Hours (Table) 12/15/22 12/15/22 12/15/22 Range/Units 11:29 11:40 11:40 WBC 12.1 H (3.8-10.6) k/uL RBC 3.34 L (4.30-5.90) m/uL Hgb 9.9 L (13.0-17.5) gm/dL Hct 30.7 L (39.0-53.0) % Neutrophils # (Manual) 9.20 H (1.3-7.7) k/uL Lymphocytes # (Manual) 0.97 L (1.0-4.8) k/uL Monocytes # (Manual) 1.33 H (0-1.0) k/uL Carbon Dioxide 21 L (22-30) mmol/L BUN 52 H (9-20) mg/dL Creatinine 3.08 H (0.66-1.25) mg/dL Glucose 136 H (74-99) mg/dL POC Glucose (mg/dL) (70-110) mg/dL Calcium 8.3 L (8.4-10.2) mg/dL Albumin 3.1 L (3.5-5.0) g/dL Urine Protein 1+ H (Negative) Ur Leukocyte Esterase Small H (Negative) Urine Bacteria Rare H (None) /hpf Hyaline Casts 3 H (0-2) /lpf Urine Mucus Rare H (None) /hpf 12/15/22 12/16/22 Range/Units 20:20 07:11 WBC (3.8-10.6) k/uL RBC (4.30-5.90) m/uL Hgb (13.0-17.5) gm/dL Hct (39.0-53.0) % Neutrophils # (Manual) (1.3-7.7) k/uL Lymphocytes # (Manual) (1.0-4.8) k/uL Monocytes # (Manual) (0-1.0) k/uL Carbon Dioxide (22-30) mmol/L BUN (9-20) mg/dL Creatinine (0.66-1.25) mg/dL Glucose (74-99) mg/dL POC Glucose (mg/dL) 171 H 112 H (70-110) mg/dL Calcium (8.4-10.2) mg/dL Albumin (3.5-5.0) g/dL Urine Protein (Negative) Ur Leukocyte Esterase (Negative) Urine Bacteria (None) /hpf Hyaline Casts (0-2) /lpf Urine Mucus (None) /hpf Thrombosis Risk Factor Assmnt - Choose All That Apply Any of the Below Risk Factors Present?: Yes Each Factor Represents 1 point: Medical pt on bed rest, Swollen legs (current) Each Risk Factor Represents 2 Points: Age 61-74 years, Patient confined to bed Thrombosis Risk Factor Assessment Total Risk Factor Score: 6 Thrombosis Risk Factor Assessment Level: High Risk Assessment and Plan Plan: 1. Left foot diabetic ulceration with failed outpatient treatment 2. Chronic kidney disease 3. Diabetes mellitus type 2. A home Lantus dose ordered plus sliding scale coverage 4. Essential hypertension 5. History of right greater toe amputation 6. Obesity 7. Hypothyroidism DVT prophylaxis Lovenox. GI prophylaxis Protonix Vascular, infectious disease and nephrology service is consulted Patient maintained on IV antibiotics of daptomycin Rocephin plus by mouth Flagyl Repeat labs ordered
--- NOTE | 2022-12-17 10:40 | P.PN ---
Subjective Patient is seen in follow-up for chronic kidney disease. Renal function fairly stable. Now receiving IV fluids. Torsemide stopped yesterday. No vomiting or diarrhea. Vital signs are stable. General: No acute distress. HEENT: Head exam is unremarkable. LUNGS: No audible rhonchi or wheezes. HEART: Rate and Rhythm are regular. ABDOMEN: Nontender. EXTREMITITES: Right AKA. Left foot fracture. No edema. Objective - Vital Signs Vital signs: Vital Signs Temp 98.6 F 12/17/22 07:46 Pulse 62 12/17/22 08:42 Resp 16 12/17/22 07:46 BP 153/71 12/17/22 07:46 Pulse Ox 96 12/17/22 07:46 FiO2 Intake & Output 12/16/22 12/17/22 12/17/22 18:59 06:59 18:59 Intake Total 500 500 Output Total 5 1400 475 Balance 495 900 475 Intake: IV 500 Oral 500 Output: Urine 1400 475 Estimated Blood Loss 5 Other: Voiding Method Urinal # Voids 4 - Labs CBC & Chem 7: 12/17/22 05:12 12/17/22 05:12 Labs: Abnormal Lab Results - Last 24 Hours (Table) 12/16/22 12/16/22 12/16/22 Range/Units 10:58 10:58 11:44 WBC 11.7 H (3.8-10.6) k/uL RBC 3.22 L (4.30-5.90) m/uL Hgb 9.4 L (13.0-17.5) gm/dL Hct 29.9 L (39.0-53.0) % MCHC (32.0-37.0) d/dL MPV (9.5-12.2) FL Neutrophils # 9.2 H (1.3-7.7) k/uL Monocytes # (0.20-1.00) X 10*3/uL Carbon Dioxide (21.6-31.8) mmol/L Anion Gap (4.00-12.00) mmol/L BUN 47 H (9-20) mg/dL Creatinine 2.77 H (0.66-1.25) mg/dL Est GFR (CKD-EPI) (>=60) Glucose 116 H (74-99) mg/dL POC Glucose (mg/dL) 133 H (70-110) mg/dL Calcium 8.2 L (8.4-10.2) mg/dL Total Bilirubin (0.3-1.2) mg/dL Total Protein 5.8 L (6.3-8.2) g/dL Albumin 2.8 L (3.5-5.0) g/dL Albumin/Globulin Ratio (1.60-3.17) Ratio 12/16/22 12/16/22 12/17/22 Range/Units 17:07 20:12 05:12 WBC 12.23 H (3.8-10.6) k/uL RBC 3.08 L (4.30-5.90) m/uL Hgb 8.8 L (13.0-17.5) gm/dL Hct 28.4 L (39.0-53.0) % MCHC 31.0 L (32.0-37.0) d/dL MPV 9.1 L (9.5-12.2) FL Neutrophils # 9.21 H (1.3-7.7) k/uL Monocytes # 1.21 H (0.20-1.00) X 10*3/uL Carbon Dioxide (21.6-31.8) mmol/L Anion Gap (4.00-12.00) mmol/L BUN (9-20) mg/dL Creatinine (0.66-1.25) mg/dL Est GFR (CKD-EPI) (>=60) Glucose (74-99) mg/dL POC Glucose (mg/dL) 153 H 164 H (70-110) mg/dL Calcium (8.4-10.2) mg/dL Total Bilirubin (0.3-1.2) mg/dL Total Protein (6.3-8.2) g/dL Albumin (3.5-5.0) g/dL Albumin/Globulin Ratio (1.60-3.17) Ratio 12/17/22 Range/Units 05:12 WBC (3.8-10.6) k/uL RBC (4.30-5.90) m/uL Hgb (13.0-17.5) gm/dL Hct (39.0-53.0) % MCHC (32.0-37.0) d/dL MPV (9.5-12.2) FL Neutrophils # (1.3-7.7) k/uL Monocytes # (0.20-1.00) X 10*3/uL Carbon Dioxide 19.9 L (21.6-31.8) mmol/L Anion Gap 14.10 H (4.00-12.00) mmol/L BUN 50.0 H (9-20) mg/dL Creatinine 2.8 H (0.66-1.25) mg/dL Est GFR (CKD-EPI) 24 L (>=60) Glucose (74-99) mg/dL POC Glucose (mg/dL) (70-110) mg/dL Calcium 8.1 L (8.4-10.2) mg/dL Total Bilirubin <0.2 L (0.3-1.2) mg/dL Total Protein 5.5 L (6.3-8.2) g/dL Albumin 2.9 L (3.5-5.0) g/dL Albumin/Globulin Ratio 1.12 L (1.60-3.17) Ratio Microbiology - Last 24 Hours (Table) 12/16/22 08:10 Gram Stain - Preliminary Heel - Left Tissue Culture - Preliminary Gram Neg Bacilli 12/15/22 11:40 Blood Culture Gram Stain - Preliminary Blood Blood Culture - Preliminary Gram Neg Bacilli 12/15/22 11:45 Blood Culture - Preliminary Blood Assessment and Plan Plan: Assessment: 1. Acute kidney injury mostly prerenal secondary to hypovolemia and infection. Creatinine 3.08 on admission and is stable at 2.8 today. 2. Chronic kidney disease stage IV with baseline creatinine near 3 secondary to diabetic kidney disease and cardiorenal syndrome. 3. Metabolic acidosis secondary to chronic kidney disease and IV fluids. 4. Left heel wound due to gram-negative bacilli. Blood culture also positive for gram-negative bacilli. On antibiotics. 5. Diabetes mellitus. 6. Hypertension with chronic kidney disease. 7. Anemia of chronic kidney disease. Rule out iron deficiency. Plan: Maintain IV fluids for another day. Stop potassium supplementation. Add oral bicarb. Increase hydralazine frequency to twice a day. Avoid nephrotoxins. Continue to monitor renal function and urine output. 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 He was advised to see rheumatology outpatient but doesn't believe he has. Stressed importance of following up outpatient.
[2022-12-17] MEDS: SODIUM CHLORIDE 0.9% 1,000 ML IV SCH ×2 (11:06→23:59)
[2022-12-17] MEDS: SODIUM BICARBONATE TAB 650 MG TAB PO SCH ×2 (11:06→21:02)
[2022-12-17 12:55] LABS: Glucose,Whole Blood 180 mg/dL (70-110)
[2022-12-17] MEDS: HYDROcodone/APAP 5-325MG 1 EACH TAB PO PRN ×2 (13:07→19:28)
--- NOTE | 2022-12-17 14:46 | P.PN ---
Progress Note - Text 67-year-old gentleman left ankle and the left heel wound dressing change today patient is an IV antibiotic under care of infectious disease we'll use sentinel cream we will continue with the Sentell cream and we'll change the dressing tomorrow
[2022-12-17 16:19] LABS: % Iron Saturation 14.6 (15.00-50.00)
[2022-12-17 17:29] LABS: Glucose,Whole Blood 139 mg/dL (70-110)
[2022-12-17 19:47] LABS: Glucose,Whole Blood 160 mg/dL (70-110)
[2022-12-17] MEDS: INSULIN DETEMIR (LEVEMIR) 100 UNIT/ML SYR SQ SCH (21:02)
[2022-12-17] MEDS: LORATADINE 10 MG TAB PO SCH (21:02)
[2022-12-18] MEDS: LEVOTHYROXINE 25 MCG TAB PO SCH (05:47)
[2022-12-18 07:30] LABS: Glucose,Whole Blood 79 mg/dL (70-110)
[2022-12-18] MEDS: INSULIN ASPART (NovoLOG) 100 UNIT/ML VIAL SQ SCH ×4 (07:32→20:57)
[2022-12-18] MEDS: SODIUM BICARBONATE TAB 650 MG TAB PO SCH ×2 (08:21→21:00)
[2022-12-18] MEDS: metroNIDAZOLE 500 MG TAB PO SCH ×3 (08:21→21:00)
[2022-12-18] MEDS: allopurinoL 100 MG TAB PO SCH (08:21)
[2022-12-18] MEDS: hydrALAZINE HCL 50 MG TAB PO SCH ×2 (08:21→21:00)
[2022-12-18] MEDS: TAMSULOSIN 0.4 MG CAP.ER.24H PO SCH (08:21)
[2022-12-18] MEDS: amLODIPine 10 MG TAB PO SCH (08:21)
[2022-12-18] MEDS: PANTOPRAZOLE 40 MG TABLET PO SCH (08:21)
[2022-12-18] MEDS: FERROUS SULFATE 325 MG TAB PO SCH (08:22)
[2022-12-18] MEDS: ENOXAPARIN 40 MG/0.4 ML SYRINGE SQ SCH (08:22)
[2022-12-18] MEDS: cloNIDine HCL 0.1 MG TAB PO SCH (08:22)
[2022-12-18] MEDS: HYDROcodone/APAP 10-325MG 1 EACH TAB PO SCH ×2 (08:22→16:44)
[2022-12-18] MEDS: COLLAGENASE 250 UNIT/GM OINTMENT 30 GM TUBE TOPICAL SCH (08:23)
--- NOTE | 2022-12-18 08:32 | P.PN ---
Subjective Progress Note Date: 12/16/22 Principal diagnosis: Left heel osteomyelitis/diabetic foot infection Patient is a 67-year-old male with a past medical history significant for diabetes mellitus hypertension patient did have a history of left heel diabetic foot infection underlying osteomyelitis with a culture positive for MRSA patient did have a renal insufficiency and is currently getting daptomycin in the outpatient setting along with oral Flagyl patient is presenting to the ER concerning for increasing discomfort to the left heel area , the patient is status post surgical debridement of the left heel on 12/16/2022. on today's evaluation that is 12/16/2022, the patient denies having any fever or any chills the patient is breathing comfortably on room air no chest pain or shortness of breath or cough no abdominal pain, pain to the left heel Has decreased in intensity Objective - Vital Signs Vital signs: Vital Signs Temp 97.9 F 12/16/22 13:06 Pulse 59 L 12/16/22 13:06 Resp 18 12/16/22 13:06 BP 129/73 12/16/22 13:06 Pulse Ox 97 12/16/22 13:06 FiO2 Intake & Output 12/15/22 12/16/22 12/16/22 18:59 06:59 18:59 Intake Total 222 500 Output Total 450 5 Balance -228 495 Weight 99.79 kg Intake: IV 500 Oral 222 Output: Urine 450 Estimated Blood Loss 5 Other: Voiding Method Urinal # Voids 1 - Exam GENERAL DESCRIPTION: An elderly male lying in bed in no distress RESPIRATORY SYSTEM: Unlabored breathing , decreased breath sounds at bases HEART: S1 S2 regular rate and rhythm , ABDOMEN: Soft , no tenderness EXTREMITIES: Left heel is currently dressed in OR dressing - Labs CBC & Chem 7: 12/17/22 05:12 12/17/22 05:12 Labs: Abnormal Lab Results - Last 24 Hours (Table) 12/15/22 12/15/22 12/16/22 Range/Units 11:29 20:20 07:11 WBC (3.8-10.6) k/uL RBC (4.30-5.90) m/uL Hgb (13.0-17.5) gm/dL Hct (39.0-53.0) % Neutrophils # (1.3-7.7) k/uL BUN (9-20) mg/dL Creatinine (0.66-1.25) mg/dL Glucose (74-99) mg/dL POC Glucose (mg/dL) 171 H 112 H (70-110) mg/dL Calcium (8.4-10.2) mg/dL Total Protein (6.3-8.2) g/dL Albumin (3.5-5.0) g/dL Urine Protein 1+ H (Negative) Ur Leukocyte Esterase Small H (Negative) Urine Bacteria Rare H (None) /hpf Hyaline Casts 3 H (0-2) /lpf Urine Mucus Rare H (None) /hpf 12/16/22 12/16/22 12/16/22 Range/Units 10:58 10:58 11:44 WBC 11.7 H (3.8-10.6) k/uL RBC 3.22 L (4.30-5.90) m/uL Hgb 9.4 L (13.0-17.5) gm/dL Hct 29.9 L (39.0-53.0) % Neutrophils # 9.2 H (1.3-7.7) k/uL BUN 47 H (9-20) mg/dL Creatinine 2.77 H (0.66-1.25) mg/dL Glucose 116 H (74-99) mg/dL POC Glucose (mg/dL) 133 H (70-110) mg/dL Calcium 8.2 L (8.4-10.2) mg/dL Total Protein 5.8 L (6.3-8.2) g/dL Albumin 2.8 L (3.5-5.0) g/dL Urine Protein (Negative) Ur Leukocyte Esterase (Negative) Urine Bacteria (None) /hpf Hyaline Casts (0-2) /lpf Urine Mucus (None) /hpf Microbiology - Last 24 Hours (Table) 12/15/22 11:40 Blood Culture Gram Stain - Preliminary Blood Assessment and Plan (1) Foot osteomyelitis, left Current Visit: Yes Status: Acute Code(s): M86.9 - OSTEOMYELITIS, UNSPECIFIED SNOMED Code(s): 9818125672413417 (2) Diabetic foot ulcer associated with type 2 diabetes mellitus, with fat layer exposed Current Visit: Yes Status: Acute Code(s): E11.621 - TYPE 2 DIABETES MELLITUS WITH FOOT ULCER; L97.502 - NON-PRS CHRONIC ULCER OTH PRT UNSP FOOT W FAT LAYER EXPOSED SNOMED Code(s): 7038620297443 (3) Failure of outpatient treatment Current Visit: Yes Status: Acute Code(s): Z78.9 - OTHER SPECIFIED HEALTH STATUS SNOMED Code(s): 807145073 Plan: 1patient with extensive left heel diabetic foot infection in this patient with recent outpatient culture positive for MRSA and the patient was getting daptomycin and oral Flagyl for it subsequently the patient did have a culture done on 12/10/2022 that did grew Proteus mirabilis now with worsening of cellulitis and necrotic changes patient did have a elevated white count no bony changes were noticed on the x-ray however concern of possible for deep infection , patient is status post surgical debridement and deep culture which are currently pending 2we will continue the patient on Rocephin 2 g daily Flagyl along with the daptomycin. 3local wound care with Santyl followed by moist dressing change daily and keep the area of the pressure. Dictation was produced using [employer] dictation software. please excuse any grammatical, word or spelling errors. Time with Patient: Less than 30
--- NOTE | 2022-12-18 08:33 | P.PN ---
Subjective Progress Note Date: 12/17/22 Principal diagnosis: Left heel osteomyelitis/diabetic foot infection Patient is a 67-year-old male with a past medical history significant for diabetes mellitus hypertension patient did have a history of left heel diabetic foot infection underlying osteomyelitis with a culture positive for MRSA patient did have a renal insufficiency and is currently getting daptomycin in the outpatient setting along with oral Flagyl patient is presenting to the ER concerning for increasing discomfort to the left heel area , the patient is status post surgical debridement of the left heel on 12/16/2022. on today's evaluation that is 12/17/2022, the patient remains to be afebrile, the patient is breathing comfortably on room air no chest pain or shortness of breath or cough no abdominal pain, the patient denies any worsening pain to the left heel Objective - Vital Signs Vital signs: Vital Signs Temp 98.6 F 12/17/22 07:46 Pulse 64 12/17/22 12:23 Resp 16 12/17/22 07:46 BP 153/71 12/17/22 07:46 Pulse Ox 96 12/17/22 07:46 FiO2 Intake & Output 12/16/22 12/17/22 12/17/22 18:59 06:59 18:59 Intake Total 500 500 Output Total 5 1400 475 Balance 495 900 -475 Intake: IV 500 Oral 500 Output: Urine 1400 475 Estimated Blood Loss 5 Other: Voiding Method Urinal # Voids 4 - Exam GENERAL DESCRIPTION: An elderly male lying in bed in no distress RESPIRATORY SYSTEM: Unlabored breathing , decreased breath sounds at bases HEART: S1 S2 regular rate and rhythm , ABDOMEN: Soft , no tenderness EXTREMITIES: Left heel is currently dressed in OR dressing - Labs CBC & Chem 7: 12/17/22 05:12 12/17/22 05:12 Labs: Abnormal Lab Results - Last 24 Hours (Table) 12/16/22 12/16/22 12/17/22 Range/Units 17:07 20:12 05:12 WBC 12.23 H (4.50-10.00) X 10*3/uL RBC 3.08 L (4.40-5.60) X 10*6/uL Hgb 8.8 L (12.0-15.0) d/dL Hct 28.4 L (39.6-50.0) % MCHC 31.0 L (32.0-37.0) d/dL MPV 9.1 L (9.5-12.2) FL Neutrophils # 9.21 H (1.80-7.70) X 10*3/uL Monocytes # 1.21 H (0.20-1.00) X 10*3/uL Carbon Dioxide (21.6-31.8) mmol/L Anion Gap (4.00-12.00) mmol/L BUN (9.0-27.0) mg/dL Creatinine (0.6-1.5) mg/dL Est GFR (CKD-EPI) (>=60) POC Glucose (mg/dL) 153 H 164 H (70-110) mg/dL Calcium (8.7-10.3) mg/dL Total Bilirubin (0.3-1.2) mg/dL Total Protein (6.2-8.2) d/dL Albumin (3.8-4.9) d/dL Albumin/Globulin Ratio (1.60-3.17) Ratio 12/17/22 12/17/22 Range/Units 05:12 12:54 WBC (4.50-10.00) X 10*3/uL RBC (4.40-5.60) X 10*6/uL Hgb (12.0-15.0) d/dL Hct (39.6-50.0) % MCHC (32.0-37.0) d/dL MPV (9.5-12.2) FL Neutrophils # (1.80-7.70) X 10*3/uL Monocytes # (0.20-1.00) X 10*3/uL Carbon Dioxide 19.9 L (21.6-31.8) mmol/L Anion Gap 14.10 H (4.00-12.00) mmol/L BUN 50.0 H (9.0-27.0) mg/dL Creatinine 2.8 H (0.6-1.5) mg/dL Est GFR (CKD-EPI) 24 L (>=60) POC Glucose (mg/dL) 180 H (70-110) mg/dL Calcium 8.1 L (8.7-10.3) mg/dL Total Bilirubin <0.2 L (0.3-1.2) mg/dL Total Protein 5.5 L (6.2-8.2) d/dL Albumin 2.9 L (3.8-4.9) d/dL Albumin/Globulin Ratio 1.12 L (1.60-3.17) Ratio Microbiology - Last 24 Hours (Table) 12/16/22 08:10 Gram Stain - Preliminary Heel - Left Tissue Culture - Preliminary Gram Neg Bacilli 12/15/22 11:40 Blood Culture Gram Stain - Preliminary Blood Blood Culture - Preliminary Gram Neg Bacilli 12/15/22 11:45 Blood Culture - Preliminary Blood Assessment and Plan (1) Gram-negative bacteremia Current Visit: Yes Status: Acute Code(s): R78.81 - BACTEREMIA SNOMED Code(s): 486104050479 (2) Diabetic foot ulcer associated with type 2 diabetes mellitus, with fat layer exposed Current Visit: Yes Status: Acute Code(s): E11.621 - TYPE 2 DIABETES MELLITUS WITH FOOT ULCER; L97.502 - NON-PRS CHRONIC ULCER OTH PRT UNSP FOOT W FAT LAYER EXPOSED SNOMED Code(s): 6220296335864 (3) Failure of outpatient treatment Current Visit: Yes Status: Acute Code(s): Z78.9 - OTHER SPECIFIED HEALTH STATUS SNOMED Code(s): 536966369 (4) Foot osteomyelitis, left Current Visit: Yes Status: Acute Code(s): M86.9 - OSTEOMYELITIS, UNSPECIFIED SNOMED Code(s): 7639011647662593 Plan: 1patient with extensive left heel diabetic foot infection in this patient with recent outpatient culture positive for MRSA and the patient was getting daptomycin and oral Flagyl for it subsequently the patient did have a culture done on 12/10/2022 that did grew Proteus mirabilis now with worsening of cellulitis and necrotic changes patient did have a elevated white count no bony changes were noticed on the x-ray however concern of possible for deep infection , patient is status post surgical debridement and deep culture which are currently growing gram-negative 2-patient with gram-negative bacteremia source is likely left heel osteomyelitis, blood cultures will be repeated from the PICC line and periphe rally 2we will continue the patient on Rocephin 2 g daily Flagyl along with the daptomycin. 3local wound care with Santyl followed by moist dressing change daily and keep the area of the pressure. Dictation was produced using [employer] software. please excuse any grammatical, word or spelling errors. Time with Patient: Less than 30
--- NOTE | 2022-12-18 09:44 | P.PN ---
Subjective Progress Note Date: 12/17/22 Ian Paulino is a 67 year old male who presented to [facility] with a chief complaint of left foot pain and infection. Patient has been receiving outpatient IV antibiotics of daptomycin and Flagyl and followed with wound care. Per patient's at bedside patient was developing blisters to foot over the past week and having increasing pain prompting the patient to come to ER. Patient has a past medical history of diabetes mellitus, hypertension, chronic kidney disease and previous amputations. Foot x-ray completed showing soft tissue wound overlying the heel without evidence for erosion of the osseous structures. At this time patient will be admitted patient was started on IV antibiotics of Rocephin and daptomycin along with by mouth Flagyl. Vascular surgery also consulted status post debridement with Dr. Armstrong on 12/16/2022. We'll also consult nephrology services for chronic kidney disease. At this time patient is resting comfortably in bed. Patient denies chest pain or shortness of breath. Patient denies nausea vomiting or diarrhea. Patient denies any urinary burning or frequency On 12/17/2022 patient is alert and oriented 3. Patient remains on IV an tibiotics. Followed by nephrology infectious disease and vascular services. At this time patient denies chest pain or shortness breath. Patient denies nausea vomiting or diarrhea. Patient denies any urinary burning or frequency Objective - Vital Signs Vital signs: Vital Signs Temp 98.4 F 12/17/22 14:26 Pulse 64 12/17/22 14:26 Resp 16 12/17/22 14:26 BP 116/42 12/17/22 14:26 Pulse Ox 98 12/17/22 14:26 FiO2 Intake & Output 12/16/22 12/17/22 12/17/22 18:59 06:59 18:59 Intake Total 500 500 Output Total 5 1400 475 Balance 495 900 -475 Intake: IV 500 Oral 500 Output: Urine 1400 475 Estimated Blood Loss 5 Other: Voiding Method Urinal # Voids 4 - Exam In general patient is alert and oriented x 3 in no distress HEENT head normocephalic and atraumatic Neck is supple no JVD no goiter no lymphadenopathy no carotid bruit Chest examination is clear to auscultation no crackles no wheezing Cardiac exam reveals regular heart sounds S1 and S2 no gallops no murmurs Abdomen is soft nontender no organomegaly with normal bowel sounds Extremity exam reveals no edema no cyanosis or clubbing, Left foot dressing clean dry and intact Neurological examination reveals no gross focal deficits - Labs CBC & Chem 7: 12/17/22 05:12 12/17/22 05:12 Labs: Abnormal Lab Results - Last 24 Hours (Table) 12/16/22 12/17/22 12/17/22 Range/Units 20:12 05:12 05:12 WBC 12.23 H (4.50-10.00) X 10*3/uL RBC 3.08 L (4.40-5.60) X 10*6/uL Hgb 8.8 L (12.0-15.0) d/dL Hct 28.4 L (39.6-50.0) % MCHC 31.0 L (32.0-37.0) d/dL MPV 9.1 L (9.5-12.2) FL Neutrophils # 9.21 H (1.80-7.70) X 10*3/uL Monocytes # 1.21 H (0.20-1.00) X 10*3/uL Carbon Dioxide 19.9 L (21.6-31.8) mmol/L Anion Gap 14.10 H (4.00-12.00) mmol/L BUN 50.0 H (9.0-27.0) mg/dL Creatinine 2.8 H (0.6-1.5) mg/dL Est GFR (CKD-EPI) 24 L (>=60) POC Glucose (mg/dL) 164 H (70-110) mg/dL Calcium 8.1 L (8.7-10.3) mg/dL Iron (65-175) UG/DL TIBC (228-460) UG/DL % Saturation (15.00-50.00) Transferrin (204.0-354.0) mg/dL Ferritin (22.0-322.0) ng/mL Total Bilirubin <0.2 L (0.3-1.2) mg/dL Total Protein 5.5 L (6.2-8.2) d/dL Albumin 2.9 L (3.8-4.9) d/dL Albumin/Globulin Ratio 1.12 L (1.60-3.17) Ratio 12/17/22 12/17/22 12/17/22 Range/Units 05:12 12:54 17:28 WBC (4.50-10.00) X 10*3/uL RBC (4.40-5.60) X 10*6/uL Hgb (12.0-15.0) d/dL Hct (39.6-50.0) % MCHC (32.0-37.0) d/dL MPV (9.5-12.2) FL Neutrophils # (1.80-7.70) X 10*3/uL Monocytes # (0.20-1.00) X 10*3/uL Carbon Dioxide (21.6-31.8) mmol/L Anion Gap (4.00-12.00) mmol/L BUN (9.0-27.0) mg/dL Creatinine (0.6-1.5) mg/dL Est GFR (CKD-EPI) (>=60) POC Glucose (mg/dL) 180 H 139 H (70-110) mg/dL Calcium (8.7-10.3) mg/dL Iron 20 L (65-175) UG/DL TIBC 137 L (228-460) UG/DL % Saturation 14.60 L (15.00-50.00) Transferrin 97.6 L (204.0-354.0) mg/dL Ferritin 754.0 H (22.0-322.0) ng/mL Total Bilirubin (0.3-1.2) mg/dL Total Protein (6.2-8.2) d/dL Albumin (3.8-4.9) d/dL Albumin/Globulin Ratio (1.60-3.17) Ratio Microbiology - Last 24 Hours (Table) 12/16/22 08:10 Gram Stain - Preliminary Heel - Left Tissue Culture - Preliminary Gram Neg Bacilli 12/15/22 11:40 Blood Culture Gram Stain - Preliminary Blood Blood Culture - Preliminary Gram Neg Bacilli 12/15/22 11:45 Blood Culture - Preliminary Blood Assessment and Plan Plan: 1. Left foot diabetic ulceration with failed outpatient treatment 2. Chronic kidney disease 3. Diabetes mellitus type 2. A home Lantus dose ordered plus sliding scale coverage 4. Essential hypertension 5. History of right greater toe amputation 6. Obesity 7. Hypothyroidism DVT prophylaxis Lovenox. GI prophylaxis Protonix Vascular, infectious disease and nephrology service is consulted Patient maintained on IV antibiotics of daptomycin Rocephin plus by mouth Flagyl Repeat labs ordered
--- NOTE | 2022-12-18 09:46 | P.PN ---
Subjective Progress Note Date: 12/18/22 Ian Paulino is a 67 year old male who presented to [facility] with a chief complaint of left foot pain and infection. Patient has been receiving outpatient IV antibiotics of daptomycin and Flagyl and followed with wound care. Per patient's at bedside patient was developing blisters to foot over the past week and having increasing pain prompting the patient to come to ER. Patient has a past medical history of diabetes mellitus, hypertension, chronic kidney disease and previous amputations. Foot x-ray completed showing soft tissue wound overlying the heel without evidence for erosion of the osseous structures. At this time patient will be admitted patient was started on IV antibiotics of Rocephin and daptomycin along with by mouth Flagyl. Vascular surgery also consulted status post debridement with Dr. Armstrong on 12/16/2022. We'll also consult nephrology services for chronic kidney disease. At this time patient is resting comfortably in bed. Patient denies chest pain or shortness of breath. Patient denies nausea vomiting or diarrhea. Patient denies any urinary burning or frequency On 12/17/2022 patient is alert and oriented 3. Patient remains on IV an tibiotics. Followed by nephrology infectious disease and vascular services. At this time patient denies chest pain or shortness breath. Patient denies nausea vomiting or diarrhea. Patient denies any urinary burning or frequency On 12/18/2022 patient is alert and oriented 3. Blood culture positive for gram-negative bacilli. Infectious disease services are following. PICC line placed patient remains on IV Rocephin, daptomycin and Flagyl. Current vital signs temp 98.7, heart rate 62, respiratory rate 16, blood pressure 142/60. Objective - Vital Signs Vital signs: Vital Signs Temp 98.7 F 12/18/22 07:24 Pulse 62 12/18/22 07:24 Resp 16 12/18/22 07:24 BP 142/60 12/18/22 07:24 Pulse Ox 98 12/18/22 07:24 FiO2 Intake & Output 12/17/22 12/18/22 12/18/22 18:59 06:59 18:59 Intake Total 1300 Output Total 475 850 Balance -475 450 Intake: Intake, IV Titration 950 Amount Sodium Chloride 0.9% 1, 900 000 ml @ 75 mls/hr IV . [id number] [facility] Rx#:[id number] cefTRIAXone 2 gm In 50 Sodium Chloride 0.9% 50 ml @ 100 mls/hr IVPB DAILY@2100 [facility] Rx#: [id number] Oral 350 Output: Urine 475 850 Other: Voiding Method Urinal - Exam In general patient is alert and oriented x 3 in no distress HEENT head normocephalic and atraumatic Neck is supple no JVD no goiter no lymphadenopathy no carotid bruit Chest examination is clear to auscultation no crackles no wheezing Cardiac exam reveals regular heart sounds S1 and S2 no gallops no murmurs Abdomen is soft nontender no organomegaly with normal bowel sounds Extremity exam reveals no edema no cyanosis or clubbing, Left foot dressing clean dry and intact Neurological examination reveals no gross focal deficits - Labs CBC & Chem 7: 12/17/22 05:12 12/17/22 05:12 Labs: Abnormal Lab Results - Last 24 Hours (Table) 12/17/22 12/17/22 12/17/22 Range/Units 05:12 12:54 17:28 POC Glucose (mg/dL) 180 H 139 H (70-110) mg/dL Iron 20 L (65-175) UG/DL TIBC 137 L (228-460) UG/DL % Saturation 14.60 L (15.00-50.00) Transferrin 97.6 L (204.0-354.0) mg/dL Ferritin 754.0 H (22.0-322.0) ng/mL 12/17/22 Range/Units 19:45 POC Glucose (mg/dL) 160 H (70-110) mg/dL Iron (65-175) UG/DL TIBC (228-460) UG/DL % Saturation (15.00-50.00) Transferrin (204.0-354.0) mg/dL Ferritin (22.0-322.0) ng/mL Microbiology - Last 24 Hours (Table) 12/15/22 11:45 Blood Culture - Preliminary Blood 12/16/22 08:10 Gram Stain - Preliminary Heel - Left Tissue Culture - Preliminary Gram Neg Bacilli 12/15/22 11:40 Blood Culture Gram Stain - Preliminary Blood Blood Culture - Preliminary Gram Neg Bacilli Assessment and Plan Plan: 1. Left foot diabetic ulceration with failed outpatient treatment with sepsis evident by positive blood culture 2. Chronic kidney disease 3. Diabetes mellitus type 2. A home Lantus dose ordered plus sliding scale coverage 4. Essential hypertension 5. History of right greater toe amputation 6. Obesity 7. Hypothyroidism DVT prophylaxis Lovenox. GI prophylaxis Protonix Vascular, infectious disease and nephrology service is consulted Patient maintained on IV antibiotics of daptomycin Rocephin plus by mouth Flagyl Repeat labs ordered
[2022-12-18] MEDS: ALBUTEROL NEBULIZED 2.5 MG/3 ML INHALATION PRN ×3 (11:14→19:59)
[2022-12-18 11:16] LABS: BUN/Creat Ratio 15.69 Ratio (12.00-20.00); Blood Urea Nitrogen 40.8 mg/dL (9.0-27.0); Calcium 8.3 mg/dL (8.7-10.3); Carbon Dioxide 21.5 mmol/L (21.6-31.8); Chloride 107 mmol/L (96-109); Glucose 65 mg/dL (70-110); Magnesium 2.2 mg/dL (1.5-2.4); Potassium 4.4 mmol/L (3.5-5.5); Sodium 140 mmol/L (135-145)
--- NOTE | 2022-12-18 12:04 | P.PN ---
Subjective Patient is seen in follow-up for chronic kidney disease. Renal function fairly stable. Now receiving IV fluids. Torsemide stopped 12/17/2022. No vomiting or diarrhea. No active complaints. Vital signs are stable. General: No acute distress. HEENT: Head exam is unremarkable. LUNGS: No audible rhonchi or wheezes. HEART: Rate and Rhythm are regular. ABDOMEN: Nontender. EXTREMITITES: Right AKA. Left foot fracture. No edema. Objective - Vital Signs Vital signs: Vital Signs Temp 98.7 F 12/18/22 07:24 Pulse 64 12/18/22 11:22 Resp 16 12/18/22 07:24 BP 142/60 12/18/22 07:24 Pulse Ox 98 12/18/22 07:24 FiO2 Intake & Output 12/17/22 12/18/22 12/18/22 18:59 06:59 18:59 Intake Total 1300 Output Total 475 850 Balance -475 450 Intake: Intake, IV Titration 950 Amount Sodium Chloride 0.9% 1, 900 000 ml @ 75 mls/hr IV . [id number] [facility] Rx#:[id number] cefTRIAXone 2 gm In 50 Sodium Chloride 0.9% 50 ml @ 100 mls/hr IVPB DAILY@2100 [facility] Rx#: [id number] Oral 350 Output: Urine 475 850 Other: Voiding Method Urinal - Labs CBC & Chem 7: 12/17/22 05:12 12/18/22 06:36 Labs: Abnormal Lab Results - Last 24 Hours (Table) 12/17/22 12/17/22 12/17/22 Range/Units 05:12 12:54 17:28 Carbon Dioxide (21.6-31.8) mmol/L BUN (9.0-27.0) mg/dL Creatinine (0.6-1.5) mg/dL Est GFR (CKD-EPI) (>=60) Glucose (70-110) mg/dL POC Glucose (mg/dL) 180 H 139 H (70-110) mg/dL Calcium (8.7-10.3) mg/dL Iron 20 L (65-175) UG/DL TIBC 137 L (228-460) UG/DL % Saturation 14.60 L (15.00-50.00) Transferrin 97.6 L (204.0-354.0) mg/dL Ferritin 754.0 H (22.0-322.0) ng/mL 12/17/22 12/18/22 Range/Units 19:45 06:36 Carbon Dioxide 21.5 L (21.6-31.8) mmol/L BUN 40.8 H (9.0-27.0) mg/dL Creatinine 2.6 H (0.6-1.5) mg/dL Est GFR (CKD-EPI) 27 L (>=60) Glucose 65 L (70-110) mg/dL POC Glucose (mg/dL) 160 H (70-110) mg/dL Calcium 8.3 L (8.7-10.3) mg/dL Iron (65-175) UG/DL TIBC (228-460) UG/DL % Saturation (15.00-50.00) Transferrin (204.0-354.0) mg/dL Ferritin (22.0-322.0) ng/mL Microbiology - Last 24 Hours (Table) 12/16/22 08:10 Gram Stain - Preliminary Heel - Left Tissue Culture - Preliminary Gram Neg Bacilli Gram Neg Bacilli#2 12/15/22 11:45 Blood Culture - Preliminary Blood 12/15/22 11:40 Blood Culture Gram Stain - Preliminary Blood Blood Culture - Preliminary Gram Neg Bacilli Assessment and Plan Plan: Assessment: 1. Acute kidney injury mostly prerenal secondary to hypovolemia and infection. Creatinine 3.08 on admission - 2.6 today. 2. Chronic kidney disease stage IV with baseline creatinine near 3 secondary to diabetic kidney disease and cardiorenal syndrome. 3. Metabolic acidosis secondary to chronic kidney disease and IV fluids. On oral bicarb. Better. 4. Left heel wound due to gram-negative bacilli. Blood culture also positive for gram-negative bacilli. On antibiotics. 5. Diabetes mellitus. 6. Hypertension with chronic kidney disease. 7. Anemia of chronic kidney disease. Iron deficiency noted. Plan: Hep-Lock IV fluids. Add IV iron. Continue to hold torsemide for now (held starting 12/17/22). Avoid nephrotoxins. Continue to monitor renal function and urine output. 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 He was advised to see rheumatology outpatient but doesn't believe he has. Repeat titers ordered. Stressed importance of following up outpatient.
[2022-12-18 12:18] LABS: Glucose,Whole Blood 143 mg/dL (70-110)
[2022-12-18] MEDS: SODIUM FERRIC GLUCONAT-SUCROSE 125 MG in SODIUM CHLORIDE 0.9% 100 ML IVPB SCH (13:21)
[2022-12-18] MEDS: HYDROcodone/APAP 5-325MG 1 EACH TAB PO PRN ×2 (13:22→19:26)
--- NOTE | 2022-12-18 14:43 | P.PN ---
Subjective Progress Note Date: 12/18/22 Principal diagnosis: Left heel osteomyelitis/diabetic foot infection Patient is a 67-year-old male with a past medical history significant for diabetes mellitus hypertension patient did have a history of left heel diabetic foot infection underlying osteomyelitis with a culture positive for MRSA patient did have a renal insufficiency and is currently getting daptomycin in the outpatient setting along with oral Flagyl patient is presenting to the ER concerning for increasing discomfort to the left heel area , the patient is status post surgical debridement of the left heel on 12/16/2022. on today's evaluation that is 12/18/2022, the patient continues to be afebrile, the patient is breathing comfortably on room air, the patient denies chest pain or shortness of breath or cough no abdominal pain, the patient denies any worsening pain to the left heel Objective - Vital Signs Vital signs: Vital Signs Temp 98.7 F 12/18/22 07:24 Pulse 64 12/18/22 11:22 Resp 16 12/18/22 07:24 BP 142/60 12/18/22 07:24 Pulse Ox 98 12/18/22 07:24 FiO2 Intake & Output 12/17/22 12/18/22 12/18/22 18:59 06:59 18:59 Intake Total 1300 Output Total 475 850 Balance -475 450 Intake: Intake, IV Titration 950 Amount Sodium Chloride 0.9% 1, 900 000 ml @ 75 mls/hr IV . [id number] [facility] Rx#:[id number] cefTRIAXone 2 gm In 50 Sodium Chloride 0.9% 50 ml @ 100 mls/hr IVPB DAILY@2100 [facility] Rx#: [id number] Oral 350 Output: Urine 475 850 Other: Voiding Method Urinal - Exam GENERAL DESCRIPTION: An elderly male lying in bed in no distress RESPIRATORY SYSTEM: Unlabored breathing , decreased breath sounds at bases HEART: S1 S2 regular rate and rhythm , ABDOMEN: Soft , no tenderness EXTREMITIES: Left heel is currently dressed in OR dressing - Labs CBC & Chem 7: 12/17/22 05:12 12/18/22 06:36 Labs: Abnormal Lab Results - Last 24 Hours (Table) 12/17/22 12/17/22 12/17/22 Range/Units 05:12 12:54 17:28 Carbon Dioxide (21.6-31.8) mmol/L BUN (9.0-27.0) mg/dL Creatinine (0.6-1.5) mg/dL Est GFR (CKD-EPI) (>=60) Glucose (70-110) mg/dL POC Glucose (mg/dL) 180 H 139 H (70-110) mg/dL Calcium (8.7-10.3) mg/dL Iron 20 L (65-175) UG/DL TIBC 137 L (228-460) UG/DL % Saturation 14.60 L (15.00-50.00) Transferrin 97.6 L (204.0-354.0) mg/dL Ferritin 754.0 H (22.0-322.0) ng/mL 12/17/22 12/18/22 12/18/22 Range/Units 19:45 06:36 12:17 Carbon Dioxide 21.5 L (21.6-31.8) mmol/L BUN 40.8 H (9.0-27.0) mg/dL Creatinine 2.6 H (0.6-1.5) mg/dL Est GFR (CKD-EPI) 27 L (>=60) Glucose 65 L (70-110) mg/dL POC Glucose (mg/dL) 160 H 143 H (70-110) mg/dL Calcium 8.3 L (8.7-10.3) mg/dL Iron (65-175) UG/DL TIBC (228-460) UG/DL % Saturation (15.00-50.00) Transferrin (204.0-354.0) mg/dL Ferritin (22.0-322.0) ng/mL Microbiology - Last 24 Hours (Table) 12/16/22 08:10 Anaerobic Culture - Preliminary Heel - Left 12/16/22 08:10 Gram Stain - Preliminary Heel - Left Tissue Culture - Preliminary Gram Neg Bacilli Gram Neg Bacilli#2 12/15/22 11:45 Blood Culture - Preliminary Blood Assessment and Plan (1) Gram-negative bacteremia Current Visit: Yes Status: Acute Code(s): R78.81 - BACTEREMIA SNOMED Code(s): 138118902356 (2) Diabetic foot ulcer associated with type 2 diabetes mellitus, with fat layer exposed Current Visit: Yes Status: Acute Code(s): E11.621 - TYPE 2 DIABETES MELLITUS WITH FOOT ULCER; L97.502 - NON-PRS CHRONIC ULCER OTH PRT UNSP FOOT W FAT LAYER EXPOSED SNOMED Code(s): 9639131111982 (3) Failure of outpatient treatment Current Visit: Yes Status: Acute Code(s): Z78.9 - OTHER SPECIFIED HEALTH STATUS SNOMED Code(s): 768163813 (4) Foot osteomyelitis, left Current Visit: Yes Status: Acute Code(s): M86.9 - OSTEOMYELITIS, UNSPECIFIED SNOMED Code(s): 9475583110106825 Plan: 1patient with extensive left heel diabetic foot infection in this patient with recent outpatient culture positive for MRSA and the patient was getting daptomycin and oral Flagyl for it subsequently the patient did have a culture done on 12/10/2022 that did grew Proteus mirabilis now with worsening of cellulitis and necrotic changes patient did have a elevated white count no bony changes were noticed on the x-ray however concern of possible for deep infection , patient is status post surgical debridement and deep culture which are currently growing gram-negative 2-patient with gram-negative bacteremia source is likely left heel osteomyelitis, blood cultures has been repeated from the PICC line and peripherally to document clearance of bacteremia 3we will continue the patient on Rocephin 2 g daily Flagyl along with the daptomycin. With the discharge antibiotics on the basis of final culture clinical response Dictation was produced using [employer] dictation software. please excuse any grammatical, word or spelling errors. Time with Patient: Less than 30
[2022-12-18 14:52] LABS: C-ANCA ATYP C Titer (<1:20)
[2022-12-18 17:33] LABS: Glucose,Whole Blood 191 mg/dL (70-110)
[2022-12-18 20:06] LABS: Glucose,Whole Blood 121 mg/dL (70-110)
[2022-12-18] MEDS: INSULIN DETEMIR (LEVEMIR) 100 UNIT/ML SYR SQ SCH (21:00)
[2022-12-18] MEDS: LORATADINE 10 MG TAB PO SCH (21:00)
[2022-12-18] MEDS: HYDROmorphone 0.5 MG/0.5 ML SYRINGE IVP PRN (21:04)
[2022-12-19] MEDS: HYDROcodone/APAP 10-325MG 1 EACH TAB PO SCH ×3 (00:54→17:05)
[2022-12-19 01:00] LABS: Glucose,Whole Blood 93 mg/dL (70-110)
[2022-12-19] MEDS: LEVOTHYROXINE 25 MCG TAB PO SCH (06:11)
[2022-12-19 07:24] LABS: Glucose,Whole Blood 82 mg/dL (70-110)
[2022-12-19] MEDS: ALBUTEROL NEBULIZED 2.5 MG/3 ML INHALATION PRN ×3 (08:32→20:19)
[2022-12-19] MEDS: INSULIN ASPART (NovoLOG) 100 UNIT/ML VIAL SQ SCH ×4 (08:33→21:30)
[2022-12-19] MEDS: SODIUM BICARBONATE TAB 650 MG TAB PO SCH ×2 (08:38→21:30)
[2022-12-19] MEDS: TAMSULOSIN 0.4 MG CAP.ER.24H PO SCH (08:38)
[2022-12-19] MEDS: metroNIDAZOLE 500 MG TAB PO SCH ×3 (08:38→21:29)
[2022-12-19] MEDS: PANTOPRAZOLE 40 MG TABLET PO SCH (08:38)
[2022-12-19] MEDS: hydrALAZINE HCL 50 MG TAB PO SCH ×2 (08:38→21:29)
[2022-12-19] MEDS: FERROUS SULFATE 325 MG TAB PO SCH (08:38)
[2022-12-19] MEDS: amLODIPine 10 MG TAB PO SCH (08:39)
[2022-12-19] MEDS: cloNIDine HCL 0.1 MG TAB PO SCH ×3 (08:39→21:29)
[2022-12-19] MEDS: allopurinoL 100 MG TAB PO SCH (08:39)
[2022-12-19] MEDS: SODIUM FERRIC GLUCONAT-SUCROSE 125 MG in SODIUM CHLORIDE 0.9% 100 ML IVPB SCH (08:39)
[2022-12-19] MEDS: ENOXAPARIN 40 MG/0.4 ML SYRINGE SQ SCH (08:39)
[2022-12-19 09:21] LABS: Basophils # (A) 0.06 X 10*3/uL (0.00-0.10); Basophils % (A) 0.5 %; Eosinophils # (A) 0.17 X 10*3/uL (0.04-0.35); Eosinophils % (A) 1.4 %; HCT 27.3 % (39.6-50.0); HGB 8.3 d/dL (13.0-17.0); Lymphocytes # (A) 1.15 X 10*3/uL (0.90-5.00); Lymphocytes % (A) 9.5 %; MCH 28.5 pg (27.0-32.0); MCHC 30.4 d/dL (32.0-37.0); MCV 93.8 FL (80.0-97.0); Mean Platelet Volume 9.2 FL (9.5-12.2); Monocytes # (A) 1.11 X 10*3/uL (0.20-1.00); Monocytes % (A) 9.2 %; NRBC Per 100 WBC 0 X 10*3/uL (0.00-0.01); Neutrophils # (A) 9.39 X 10*3/uL (1.80-7.70); Neutrophils % (A) 77.8 %; Platelet Count 464 X 10*3/uL (140-440); RBC 2.91 X 10*6/uL (4.40-5.60); RDW 13.9 % (11.5-14.5); WBC 12.07 X 10*3/uL (4.50-10.00)
[2022-12-19 09:46] LABS: ALT 10 U/L (10-49); AST 16 U/L (14-35); Albumin/Globulin Ratio 1.15 Ratio (1.60-3.17); Alkaline Phosphatase 92 U/L (41-126); BUN/Creat Ratio 14.29 Ratio (12.00-20.00); Blood Urea Nitrogen 34.3 mg/dL (9.0-27.0); Calcium 8.3 mg/dL (8.7-10.3); Carbon Dioxide 21.8 mmol/L (21.6-31.8); Chloride 106 mmol/L (96-109); Globulin 2.6 d/dL (1.6-3.3); Glucose 58 mg/dL (70-110); Potassium 4.4 mmol/L (3.5-5.5); Sodium 139 mmol/L (135-145); Total Bilirubin <0.2 mg/dL (0.3-1.2); Total Protein 5.6 d/dL (6.2-8.2)
--- NOTE | 2022-12-19 11:50 | P.PN ---
Subjective Progress Note Date: 12/19/22 Ian Paulino is a 67 year old male who presented to [facility] with a chief complaint of left foot pain and infection. Patient has been receiving outpatient IV antibiotics of daptomycin and Flagyl and followed with wound care. Per patient's at bedside patient was developing blisters to foot over the past week and having increasing pain prompting the patient to come to ER. Patient has a past medical history of diabetes mellitus, hypertension, chronic kidney disease and previous amputations. Foot x-ray completed showing soft tissue wound overlying the heel without evidence for erosion of the osseous structures. At this time patient will be admitted patient was started on IV antibiotics of Rocephin and daptomycin along with by mouth Flagyl. Vascular surgery also consulted status post debridement with Dr. Armstrong on 12/16/2022. We'll also consult nephrology services for chronic kidney disease. At this time patient is resting comfortably in bed. Patient denies chest pain or shortness of breath. Patient denies nausea vomiting or diarrhea. Patient denies any urinary burning or frequency On 12/17/2022 patient is alert and oriented 3. Patient remains on IV an tibiotics. Followed by nephrology infectious disease and vascular services. At this time patient denies chest pain or shortness breath. Patient denies nausea vomiting or diarrhea. Patient denies any urinary burning or frequency On 12/18/2022 patient is alert and oriented 3. Blood culture positive for gram-negative bacilli. Infectious disease services are following. PICC line placed patient remains on IV Rocephin, daptomycin and Flagyl. Current vital signs temp 98.7, heart rate 62, respiratory rate 16, blood pressure 142/60. On 12/19/2022 patient alert and oriented 3. Awaiting final recommendations per ID in regards to antibiotics. This time patient is resting in chair. Patient denies chest pain or shortness breath. Patient denies nausea vomiting or diarrhea. Patient denies any urinary burning or frequency. Current vital signs temp 98.3, heart rate 69, respiratory 18, blood pressure 156/80 with a pulse ox 97% on room air Objective - Vital Signs Vital signs: Vital Signs Temp 98.3 F 12/19/22 11:23 Pulse 69 12/19/22 11:23 Resp 18 12/19/22 11:23 BP 156/88 12/19/22 11:23 Pulse Ox 97 12/19/22 11:23 FiO2 Intake & Output 12/18/22 12/19/22 12/19/22 18:59 06:59 18:59 Output Total 500 300 Balance -500 -300 Output: Urine 500 300 Other: # Voids 1 - Exam In general patient is alert and oriented x 3 in no distress HEENT head normocephalic and atraumatic Neck is supple no JVD no goiter no lymphadenopathy no carotid bruit Chest examination is clear to auscultation no crackles no wheezing Cardiac exam reveals regular heart sounds S1 and S2 no gallops no murmurs Abdomen is soft nontender no organomegaly with normal bowel sounds Extremity exam reveals no edema no cyanosis or clubbing, Left foot dressing clean dry and intact Neurological examination reveals no gross focal deficits - Labs CBC & Chem 7: 12/19/22 05:44 12/19/22 05:44 Labs: Abnormal Lab Results - Last 24 Hours (Table) 12/17/22 12/18/22 12/18/22 Range/Units 05:12 12:17 17:32 WBC (4.50-10.00) X 10*3/uL RBC (4.40-5.60) X 10*6/uL Hgb (13.0-17.0) d/dL Hct (39.6-50.0) % MCHC (32.0-37.0) d/dL Plt Count (140-440) X 10*3/uL MPV (9.5-12.2) FL Neutrophils # (1.80-7.70) X 10*3/uL Monocytes # (0.20-1.00) X 10*3/uL BUN (9.0-27.0) mg/dL Creatinine (0.6-1.5) mg/dL Est GFR (CKD-EPI) (>=60) Glucose (70-110) mg/dL POC Glucose (mg/dL) 143 H 191 H (70-110) mg/dL Calcium (8.7-10.3) mg/dL Total Bilirubin (0.3-1.2) mg/dL Total Protein (6.2-8.2) d/dL Albumin (3.8-4.9) d/dL Albumin/Globulin Ratio (1.60-3.17) Ratio c-ANCA ATYP C A (<1:20) Titer 12/18/22 12/19/22 12/19/22 Range/Units 20:04 05:44 05:44 WBC 12.07 H (4.50-10.00) X 10*3/uL RBC 2.91 L (4.40-5.60) X 10*6/uL Hgb 8.3 L (13.0-17.0) d/dL Hct 27.3 L (39.6-50.0) % MCHC 30.4 L (32.0-37.0) d/dL Plt Count 464 H (140-440) X 10*3/uL MPV 9.2 L (9.5-12.2) FL Neutrophils # 9.39 H (1.80-7.70) X 10*3/uL Monocytes # 1.11 H (0.20-1.00) X 10*3/uL BUN 34.3 H (9.0-27.0) mg/dL Creatinine 2.4 H (0.6-1.5) mg/dL Est GFR (CKD-EPI) 29 L (>=60) Glucose 58 L (70-110) mg/dL POC Glucose (mg/dL) 121 H (70-110) mg/dL Calcium 8.3 L (8.7-10.3) mg/dL Total Bilirubin <0.2 L (0.3-1.2) mg/dL Total Protein 5.6 L (6.2-8.2) d/dL Albumin 3.0 L (3.8-4.9) d/dL Albumin/Globulin Ratio 1.15 L (1.60-3.17) Ratio c-ANCA (<1:20) Titer Microbiology - Last 24 Hours (Table) 12/16/22 08:10 Gram Stain - Final Heel - Left Tissue Culture - Final Proteus mirabilis Pseudomonas aeruginosa 12/15/22 11:45 Blood Culture - Preliminary Blood 12/15/22 11:40 Blood Culture Gram Stain - Final Blood Blood Culture - Final Proteus mirabilis 12/16/22 08:10 Anaerobic Culture - Preliminary Heel - Left Assessment and Plan Plan: 1. Left foot diabetic ulceration with failed outpatient treatment with sepsis evident by positive blood culture 2. Chronic kidney disease 3. Diabetes mellitus type 2. A home Lantus dose ordered plus sliding scale coverage 4. Essential hypertension 5. History of right greater toe amputation 6. Obesity 7. Hypothyroidism DVT prophylaxis Lovenox. GI prophylaxis Protonix Vascular, infectious disease and nephrology service is consulted Patient maintained on IV antibiotics of daptomycin Rocephin plus by mouth Flagyl Repeat labs ordered
[2022-12-19 11:56] LABS: Glucose,Whole Blood 192 mg/dL (70-110)
--- NOTE | 2022-12-19 12:36 | P.PN ---
Subjective Patient is seen in follow-up for chronic kidney disease. Renal function fairly stable. No vomiting or diarrhea. Oral intake is good. No active complaints. Vital signs are stable. General: No acute distress. HEENT: Head exam is unremarkable. LUNGS: No audible rhonchi or wheezes. HEART: Rate and Rhythm are regular. ABDOMEN: Nontender. EXTREMITITES: Right AKA. Left foot fracture. No edema. Objective - Vital Signs Vital signs: Vital Signs Temp 98.3 F 12/19/22 11:23 Pulse 69 12/19/22 11:23 Resp 18 12/19/22 11:23 BP 156/88 12/19/22 11:23 Pulse Ox 97 12/19/22 11:23 FiO2 Intake & Output 12/18/22 12/19/22 12/19/22 18:59 06:59 18:59 Output Total 500 300 Balance -500 -300 Output: Urine 500 300 Other: # Voids 1 - Labs CBC & Chem 7: 12/19/22 05:44 12/19/22 05:44 Labs: Abnormal Lab Results - Last 24 Hours (Table) 12/17/22 12/18/22 12/18/22 Range/Units 05:12 17:32 20:04 WBC (4.50-10.00) X 10*3/uL RBC (4.40-5.60) X 10*6/uL Hgb (13.0-17.0) d/dL Hct (39.6-50.0) % MCHC (32.0-37.0) d/dL Plt Count (140-440) X 10*3/uL MPV (9.5-12.2) FL Neutrophils # (1.80-7.70) X 10*3/uL Monocytes # (0.20-1.00) X 10*3/uL BUN (9.0-27.0) mg/dL Creatinine (0.6-1.5) mg/dL Est GFR (CKD-EPI) (>=60) Glucose (70-110) mg/dL POC Glucose (mg/dL) 191 H 121 H (70-110) mg/dL Calcium (8.7-10.3) mg/dL Total Bilirubin (0.3-1.2) mg/dL Total Protein (6.2-8.2) d/dL Albumin (3.8-4.9) d/dL Albumin/Globulin Ratio (1.60-3.17) Ratio c-ANCA ATYP C A (<1:20) Titer 12/19/22 12/19/22 12/19/22 Range/Units 05:44 05:44 11:53 WBC 12.07 H (4.50-10.00) X 10*3/uL RBC 2.91 L (4.40-5.60) X 10*6/uL Hgb 8.3 L (13.0-17.0) d/dL Hct 27.3 L (39.6-50.0) % MCHC 30.4 L (32.0-37.0) d/dL Plt Count 464 H (140-440) X 10*3/uL MPV 9.2 L (9.5-12.2) FL Neutrophils # 9.39 H (1.80-7.70) X 10*3/uL Monocytes # 1.11 H (0.20-1.00) X 10*3/uL BUN 34.3 H (9.0-27.0) mg/dL Creatinine 2.4 H (0.6-1.5) mg/dL Est GFR (CKD-EPI) 29 L (>=60) Glucose 58 L (70-110) mg/dL POC Glucose (mg/dL) 192 H (70-110) mg/dL Calcium 8.3 L (8.7-10.3) mg/dL Total Bilirubin <0.2 L (0.3-1.2) mg/dL Total Protein 5.6 L (6.2-8.2) d/dL Albumin 3.0 L (3.8-4.9) d/dL Albumin/Globulin Ratio 1.15 L (1.60-3.17) Ratio c-ANCA (<1:20) Titer Microbiology - Last 24 Hours (Table) 12/16/22 08:10 Gram Stain - Final Heel - Left Tissue Culture - Final Proteus mirabilis Pseudomonas aeruginosa 12/15/22 11:45 Blood Culture - Preliminary Blood 12/15/22 11:40 Blood Culture Gram Stain - Final Blood Blood Culture - Final Proteus mirabilis 12/16/22 08:10 Anaerobic Culture - Preliminary Heel - Left Assessment and Plan Plan: Assessment: 1. Acute kidney injury mostly prerenal secondary to hypovolemia and infection. Creatinine 3.08 on admission - 2.4 today. 2. Chronic kidney disease stage IV with baseline creatinine near 3 secondary to diabetic kidney disease and cardiorenal syndrome. 3. Metabolic acidosis secondary to chronic kidney disease and IV fluids. On oral bicarb. Better. 4. Left heel wound with tissue culture positive for Proteus and Pseudomonas along with Proteus bacteremia. On antibiotics. 5. Diabetes mellitus. 6. Hypertension with chronic kidney disease. 7. Anemia of chronic kidney disease. Iron deficiency noted. Plan: Maintain IV iron. Add Aranesp. Continue to hold torsemide for now (held starting 12/17/22). Increase clonidine to 0.1 mg 3 times daily. Avoid nephrotoxins. Continue to monitor renal function and urine output. 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 He was advised to see rheumatology outpatient but doesn't believe he has. 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 Stressed importance of following up outpatient.
[2022-12-19] MEDS: DARBEPOETIN ALFA 40 MCG/0.4 ML SYRINGE SQ SCH (15:25)
[2022-12-19] MEDS: COLLAGENASE 250 UNIT/GM OINTMENT 30 GM TUBE TOPICAL SCH (16:29)
[2022-12-19 16:48] LABS: Glucose,Whole Blood 121 mg/dL (70-110)
[2022-12-19] MEDS: HYDROcodone/APAP 5-325MG 1 EACH TAB PO PRN (19:39)
[2022-12-19 19:56] LABS: Glucose,Whole Blood 153 mg/dL (70-110)
[2022-12-19] MEDS: LORATADINE 10 MG TAB PO SCH (21:29)
[2022-12-19] MEDS: INSULIN DETEMIR (LEVEMIR) 100 UNIT/ML SYR SQ SCH (21:29)
[2022-12-20] MEDS: HYDROcodone/APAP 10-325MG 1 EACH TAB PO SCH ×4 (00:17→23:27)
[2022-12-20 04:32] LABS: ALT 13 U/L (4-49); AST 19 U/L (17-59); African American GFR (CKD) 31 (>60 ml/min/1.73 sqM); Albumin 2.8 g/dL (3.5-5.0); Alkaline Phosphatase 94 U/L (38-126); Anion Gap 9 mmol/L; Blood Urea Nitrogen 34 mg/dL (9-20); Calcium 8.2 mg/dL (8.4-10.2); Carbon Dioxide 21 mmol/L (22-30); Chloride 106 mmol/L (98-107); Globulin 2.9 g/dL; Glucose 110 mg/dL (74-99); Non-African American GFR(CKD) 27 (>60 ml/min/1.73 sqM); Potassium 4.4 mmol/L (3.5-5.1); Sodium 136 mmol/L (137-145); Total Bilirubin 0.3 mg/dL (0.2-1.3); Total Protein 5.7 g/dL (6.3-8.2)
[2022-12-20 05:22] LABS: Basophils % (A) 0 %; Eosinophils # (A) 0.1 k/uL (0-0.7); Eosinophils % (A) 1 %; HCT 27.2 % (39.0-53.0); HGB 8.4 gm/dL (13.0-17.5); Hypochromasia Slight; Lymphocytes # (A) 1.1 k/uL (1.0-4.8); Lymphocytes % (A) 11 %; MCH 29.1 pg (25.0-35.0); MCV 93.8 fL (80.0-100.0); Mean Platelet Volume 7.9; Monocytes # (A) 0.6 k/uL (0-1.0); Monocytes % (A) 6 %; Neutrophils # (A) 7.7 k/uL (1.3-7.7); Neutrophils % (A) 81 %; Platelet Count 435 k/uL (150-450); RDW 13.9 % (11.5-15.5); WBC 9.5 k/uL (3.8-10.6)
[2022-12-20] MEDS: LEVOTHYROXINE 25 MCG TAB PO SCH (06:08)
[2022-12-20 07:27] LABS: Glucose,Whole Blood 81 mg/dL (70-110)
[2022-12-20] MEDS: INSULIN ASPART (NovoLOG) 100 UNIT/ML VIAL SQ SCH ×4 (07:41→20:52)
[2022-12-20] MEDS: SODIUM FERRIC GLUCONAT-SUCROSE 125 MG in SODIUM CHLORIDE 0.9% 100 ML IVPB SCH (08:20)
[2022-12-20] MEDS: allopurinoL 100 MG TAB PO SCH (09:46)
[2022-12-20] MEDS: SODIUM BICARBONATE TAB 650 MG TAB PO SCH ×2 (09:46→20:53)
[2022-12-20] MEDS: ENOXAPARIN 40 MG/0.4 ML SYRINGE SQ SCH (09:46)
[2022-12-20] MEDS: amLODIPine 10 MG TAB PO SCH (09:49)
[2022-12-20] MEDS: PANTOPRAZOLE 40 MG TABLET PO SCH (09:49)
[2022-12-20] MEDS: metroNIDAZOLE 500 MG TAB PO SCH ×3 (09:49→20:59)
[2022-12-20] MEDS: FERROUS SULFATE 325 MG TAB PO SCH (09:49)
[2022-12-20] MEDS: TAMSULOSIN 0.4 MG CAP.ER.24H PO SCH (09:50)
[2022-12-20] MEDS: hydrALAZINE HCL 50 MG TAB PO SCH ×2 (09:50→20:53)
[2022-12-20] MEDS: cloNIDine HCL 0.1 MG TAB PO SCH ×3 (09:55→20:59)
--- NOTE | 2022-12-20 10:05 | P.PN ---
Subjective Patient is seen in follow-up for chronic kidney disease. Renal function fairly stable. No vomiting or diarrhea. Oral intake is good. No active complaints. Vital signs are stable. General: No acute distress. HEENT: Head exam is unremarkable. LUNGS: No audible rhonchi or wheezes. HEART: Rate and Rhythm are regular. ABDOMEN: Nontender. EXTREMITITES: Right AKA. Left foot fracture. No edema. Objective - Vital Signs Vital signs: Vital Signs Temp 97.3 F L 12/20/22 07:30 Pulse 53 L 12/20/22 07:30 Resp 18 12/20/22 07:30 BP 151/69 12/20/22 07:30 Pulse Ox 97 12/20/22 07:30 FiO2 Intake & Output 12/19/22 12/20/22 12/20/22 18:59 06:59 18:59 Output Total 1100 Balance -1100 Weight 99.79 kg Output: Urine 1100 Other: Voiding Method Urinal - Labs CBC & Chem 7: 12/20/22 03:03 12/20/22 03:03 Labs: Abnormal Lab Results - Last 24 Hours (Table) 12/19/22 12/19/22 12/19/22 Range/Units 11:53 16:46 19:54 RBC (4.30-5.90) m/uL Hgb (13.0-17.5) gm/dL Hct (39.0-53.0) % Sodium (137-145) mmol/L Carbon Dioxide (22-30) mmol/L BUN (9-20) mg/dL Creatinine (0.66-1.25) mg/dL Glucose (74-99) mg/dL POC Glucose (mg/dL) 192 H 121 H 153 H (70-110) mg/dL Calcium (8.4-10.2) mg/dL Total Protein (6.3-8.2) g/dL Albumin (3.5-5.0) g/dL 12/20/22 12/20/22 Range/Units 03:03 03:03 RBC 2.90 L (4.30-5.90) m/uL Hgb 8.4 L (13.0-17.5) gm/dL Hct 27.2 L (39.0-53.0) % Sodium 136 L (137-145) mmol/L Carbon Dioxide 21 L (22-30) mmol/L BUN 34 H (9-20) mg/dL Creatinine 2.44 H (0.66-1.25) mg/dL Glucose 110 H (74-99) mg/dL POC Glucose (mg/dL) (70-110) mg/dL Calcium 8.2 L (8.4-10.2) mg/dL Total Protein 5.7 L (6.3-8.2) g/dL Albumin 2.8 L (3.5-5.0) g/dL Microbiology - Last 24 Hours (Table) 12/18/22 11:00 Blood Culture - Preliminary Blood 12/18/22 10:45 Blood Culture - Preliminary Blood 12/16/22 08:10 Gram Stain - Final Heel - Left Tissue Culture - Final Proteus mirabilis Pseudomonas aeruginosa Assessment and Plan Plan: Assessment: 1. Acute kidney injury mostly prerenal secondary to hypovolemia and infection. Creatinine 3.08 on admission - 2.44 today. 2. Chronic kidney disease stage IV with baseline creatinine near 3 secondary to diabetic kidney disease and cardiorenal syndrome. 3. Metabolic acidosis secondary to chronic kidney disease and IV fluids. On oral bicarb. 4. Left heel wound with tissue culture positive for Proteus and Pseudomonas along with Proteus bacteremia. On antibiotics. 5. Diabetes mellitus. 6. Hypertension with chronic kidney disease. Stable. 7. Anemia of chronic kidney disease. Iron deficiency noted.. Plan: Maintain IV iron. Continue to hold torsemide for now (held starting 12/17/22). Avoid nephrotoxins. Continue to monitor renal function and urine output. 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 He was advised to see rheumatology outpatient but doesn't believe he has. 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 Stressed importance of following up outpatient. I advised patient to monitor his weight closely at home. To resume torsemide if develops edema or gains more than 3-4 pounds in one week duration. Follow-up outpatient in 1 week post discharge.
[2022-12-20 11:55] LABS: Glucose,Whole Blood 95 mg/dL (70-110)
--- NOTE | 2022-12-20 14:23 | P.PN ---
Subjective Progress Note Date: 12/19/22 Principal diagnosis: Left heel osteomyelitis/diabetic foot infection Patient is a 67-year-old male with a past medical history significant for diabetes mellitus hypertension patient did have a history of left heel diabetic foot infection underlying osteomyelitis with a culture positive for MRSA patient did have a renal insufficiency and is currently getting daptomycin in the outpatient setting along with oral Flagyl patient is presenting to the ER concerning for increasing discomfort to the left heel area , the patient is status post surgical debridement of the left heel on 12/16/2022. on today's evaluation that is 12/19/2022, the patient remains to be afebrile, the patient is breathing comfortably on room air, the patient denies chest pain or shortness of breath, patient denies any nausea no vomiting no abdominal pain, the patient denies pain to the left heel is currently controlled Objective - Vital Signs Vital signs: Vital Signs Temp 98.3 F 12/19/22 11:23 Pulse 68 12/19/22 12:37 Resp 18 12/19/22 11:23 BP 156/88 12/19/22 11:23 Pulse Ox 97 12/19/22 11:23 FiO2 Intake & Output 12/18/22 12/19/22 12/19/22 18:59 06:59 18:59 Output Total 500 300 Balance -500 -300 Output: Urine 500 300 Other: # Voids 1 - Exam GENERAL DESCRIPTION: An elderly male lying in bed in no distress RESPIRATORY SYSTEM: Unlabored breathing , decreased breath sounds at bases HEART: S1 S2 regular rate and rhythm , ABDOMEN: Soft , no tenderness EXTREMITIES: Left heel is currently dressed in OR dressing - Labs CBC & Chem 7: 12/20/22 03:03 12/20/22 03:03 Labs: Abnormal Lab Results - Last 24 Hours (Table) 12/17/22 12/18/22 12/18/22 Range/Units 05:12 17:32 20:04 WBC (4.50-10.00) X 10*3/uL RBC (4.40-5.60) X 10*6/uL Hgb (13.0-17.0) d/dL Hct (39.6-50.0) % MCHC (32.0-37.0) d/dL Plt Count (140-440) X 10*3/uL MPV (9.5-12.2) FL Neutrophils # (1.80-7.70) X 10*3/uL Monocytes # (0.20-1.00) X 10*3/uL BUN (9.0-27.0) mg/dL Creatinine (0.6-1.5) mg/dL Est GFR (CKD-EPI) (>=60) Glucose (70-110) mg/dL POC Glucose (mg/dL) 191 H 121 H (70-110) mg/dL Calcium (8.7-10.3) mg/dL Total Bilirubin (0.3-1.2) mg/dL Total Protein (6.2-8.2) d/dL Albumin (3.8-4.9) d/dL Albumin/Globulin Ratio (1.60-3.17) Ratio c-ANCA ATYP C A (<1:20) Titer 12/19/22 12/19/22 12/19/22 Range/Units 05:44 05:44 11:53 WBC 12.07 H (4.50-10.00) X 10*3/uL RBC 2.91 L (4.40-5.60) X 10*6/uL Hgb 8.3 L (13.0-17.0) d/dL Hct 27.3 L (39.6-50.0) % MCHC 30.4 L (32.0-37.0) d/dL Plt Count 464 H (140-440) X 10*3/uL MPV 9.2 L (9.5-12.2) FL Neutrophils # 9.39 H (1.80-7.70) X 10*3/uL Monocytes # 1.11 H (0.20-1.00) X 10*3/uL BUN 34.3 H (9.0-27.0) mg/dL Creatinine 2.4 H (0.6-1.5) mg/dL Est GFR (CKD-EPI) 29 L (>=60) Glucose 58 L (70-110) mg/dL POC Glucose (mg/dL) 192 H (70-110) mg/dL Calcium 8.3 L (8.7-10.3) mg/dL Total Bilirubin <0.2 L (0.3-1.2) mg/dL Total Protein 5.6 L (6.2-8.2) d/dL Albumin 3.0 L (3.8-4.9) d/dL Albumin/Globulin Ratio 1.15 L (1.60-3.17) Ratio c-ANCA (<1:20) Titer Microbiology - Last 24 Hours (Table) 12/16/22 08:10 Gram Stain - Final Heel - Left Tissue Culture - Final Proteus mirabilis Pseudomonas aeruginosa 12/15/22 11:45 Blood Culture - Preliminary Blood 12/15/22 11:40 Blood Culture Gram Stain - Final Blood Blood Culture - Final Proteus mirabilis 12/16/22 08:10 Anaerobic Culture - Preliminary Heel - Left Assessment and Plan (1) Gram-negative bacteremia Current Visit: Yes Status: Acute Code(s): R78.81 - BACTEREMIA SNOMED Code(s): 521051177110 (2) Diabetic foot ulcer associated with type 2 diabetes mellitus, with fat layer exposed Current Visit: Yes Status: Acute Code(s): E11.621 - TYPE 2 DIABETES MELLITUS WITH FOOT ULCER; L97.502 - NON-PRS CHRONIC ULCER OTH PRT UNSP FOOT W FAT LAYER EXPOSED SNOMED Code(s): 1891448882762 (3) Failure of outpatient treatment Current Visit: Yes Status: Acute Code(s): Z78.9 - OTHER SPECIFIED HEALTH STATUS SNOMED Code(s): 933548102 (4) Foot osteomyelitis, left Current Visit: Yes Status: Acute Code(s): M86.9 - OSTEOMYELITIS, UNSPECIFIED SNOMED Code(s): 0026317301882348 Plan: 1patient with extensive left heel diabetic foot infection in this patient with recent outpatient culture positive for MRSA and the patient was getting daptomycin and oral Flagyl for it subsequently the patient did have a culture done on 12/10/2022 that did grew Proteus mirabilis now with worsening of cellulitis and necrotic changes patient did have a elevated white count no bony changes were noticed on the x-ray however concern of possible for deep infection , patient is status post surgical debridement and deep culture which are cur rently growing gram-negative 2-patient with gram-negative bacteremia source is likely left heel oste omyelitis, blood cultures has been repeated from the PICC line and peripherally which is so far pending 3we will continue the patient on Rocephin 2 g daily Flagyl along with the daptomycin. With the discharge antibiotics on the basis of final culture clinical response at the bedside questions were answered Dictation was produced using [employer] software. please excuse any grammatical, word or spelling errors.
--- NOTE | 2022-12-20 14:26 | P.PN ---
Subjective Progress Note Date: 12/20/22 Principal diagnosis: Left heel osteomyelitis/diabetic foot infection Patient is a 67-year-old male with a past medical history significant for diabetes mellitus hypertension patient did have a history of left heel diabetic foot infection underlying osteomyelitis with a culture positive for MRSA patient did have a renal insufficiency and is currently getting daptomycin in the outpatient setting along with oral Flagyl patient is presenting to the ER concerning for increasing discomfort to the left heel area , the patient is status post surgical debridement of the left heel on 12/16/2022. on today's evaluation that is 12/20/2022, the patient continues to be afebrile, the patient is breathing comfortably on room air, the patient denies chest pain or shortness of breath, patient denies any nausea no vomiting no abdominal pain, the patient pain to the left heel has decreased in intensity Patient blood culture positive for Proteus, left heel culture positive for Proteus and also growing Pseudomonas, white count is normal. Creatinine is 2.44 Objective - Vital Signs Vital signs: Vital Signs Temp 97.3 F L 12/20/22 07:30 Pulse 53 L 12/20/22 07:30 Resp 18 12/20/22 07:30 BP 151/69 12/20/22 07:30 Pulse Ox 97 12/20/22 07:30 FiO2 Intake & Output 12/19/22 12/20/22 12/20/22 18:59 06:59 18:59 Output Total 1100 Balance -1100 Weight 99.79 kg Output: Urine 1100 Other: Voiding Method Urinal - Exam GENERAL DESCRIPTION: An elderly male lying in bed in no distress RESPIRATORY SYSTEM: Unlabored breathing , decreased breath sounds at bases HEART: S1 S2 regular rate and rhythm , ABDOMEN: Soft , no tenderness EXTREMITIES: Left heel is currently dressed up no drainage on the dressing - Labs CBC & Chem 7: 12/20/22 03:03 12/20/22 03:03 Labs: Abnormal Lab Results - Last 24 Hours (Table) 12/19/22 12/19/22 12/20/22 Range/Units 16:46 19:54 03:03 RBC 2.90 L (4.30-5.90) m/uL Hgb 8.4 L (13.0-17.5) gm/dL Hct 27.2 L (39.0-53.0) % Sodium (137-145) mmol/L Carbon Dioxide (22-30) mmol/L BUN (9-20) mg/dL Creatinine (0.66-1.25) mg/dL Glucose (74-99) mg/dL POC Glucose (mg/dL) 121 H 153 H (70-110) mg/dL Calcium (8.4-10.2) mg/dL Total Protein (6.3-8.2) g/dL Albumin (3.5-5.0) g/dL 12/20/22 Range/Units 03:03 RBC (4.30-5.90) m/uL Hgb (13.0-17.5) gm/dL Hct (39.0-53.0) % Sodium 136 L (137-145) mmol/L Carbon Dioxide 21 L (22-30) mmol/L BUN 34 H (9-20) mg/dL Creatinine 2.44 H (0.66-1.25) mg/dL Glucose 110 H (74-99) mg/dL POC Glucose (mg/dL) (70-110) mg/dL Calcium 8.2 L (8.4-10.2) mg/dL Total Protein 5.7 L (6.3-8.2) g/dL Albumin 2.8 L (3.5-5.0) g/dL Microbiology - Last 24 Hours (Table) 12/18/22 11:00 Blood Culture - Preliminary Blood 12/18/22 10:45 Blood Culture - Preliminary Blood 12/16/22 08:10 Gram Stain - Final Heel - Left Tissue Culture - Final Proteus mirabilis Pseudomonas aeruginosa Assessment and Plan (1) Gram-negative bacteremia Current Visit: Yes Status: Acute Code(s): R78.81 - BACTEREMIA SNOMED Code(s): 996755625253 (2) Diabetic foot ulcer associated with type 2 diabetes mellitus, with fat layer exposed Current Visit: Yes Status: Acute Code(s): E11.621 - TYPE 2 DIABETES MELLITUS WITH FOOT ULCER; L97.502 - NON-PRS CHRONIC ULCER OTH PRT UNSP FOOT W FAT LAYER EXPOSED SNOMED Code(s): 7690326807356 (3) Failure of outpatient treatment Current Visit: Yes Status: Acute Code(s): Z78.9 - OTHER SPECIFIED HEALTH STATUS SNOMED Code(s): 210989492 (4) Foot osteomyelitis, left Current Visit: Yes Status: Acute Code(s): M86.9 - OSTEOMYELITIS, UNSPECIFIED SNOMED Code(s): 9285618916409762 Plan: 1patient with extensive left heel diabetic foot infection in this patient with recent outpatient culture positive for MRSA and the patient was getting daptomycin and oral Flagyl for it subsequently the patient did have a culture done on 12/10/2022 that did grew Proteus mirabilis now with worsening of cellulitis and necrotic changes patient did have a elevated white count no bony changes were noticed on the x-ray however concern of possible for deep infection , patient is status post surgical debridement and deep culture which are currently growing gram-negative 2-patient with Proteus bacteremia source is likely left heel osteomyelitis, blood cultures has been repeated from the PICC line and peripherally which are negative so far 3patient left hip cultures are growing Proteus as well as Pseudomonas aeruginosa, we will continue daptomycin on the basis of previous culture discontinue Rocephin and started patient cefepime and continue with the Flagyl, await further recommendations from vascular surgery Dictation was produced using [employer] dictation software. please excuse any grammatical, word or spelling errors.
[2022-12-20] MEDS: ALBUTEROL NEBULIZED 2.5 MG/3 ML INHALATION PRN (15:08)
[2022-12-20] MEDS: CEFEPIME 2 GM in SODIUM CHLORIDE 0.9% 100 ML IVPB SCH (15:09)
[2022-12-20] MEDS: COLLAGENASE 250 UNIT/GM OINTMENT 30 GM TUBE TOPICAL SCH (15:10)
[2022-12-20 17:13] LABS: Glucose,Whole Blood 143 mg/dL (70-110)
--- NOTE | 2022-12-20 17:38 | P.PN ---
Subjective Progress Note Date: 12/20/22 Ian Paulino is a 67 year old male who presented to [facility] with a chief complaint of left foot pain and infection. Patient has been receiving outpatient IV antibiotics of daptomycin and Flagyl and followed with wound care. Per patient's at bedside patient was developing blisters to foot over the past week and having increasing pain prompting the patient to come to ER. Patient has a past medical history of diabetes mellitus, hypertension, chronic kidney disease and previous amputations. Foot x-ray completed showing soft tissue wound overlying the heel without evidence for erosion of the osseous structures. At this time patient will be admitted patient was started on IV antibiotics of Rocephin and daptomycin along with by mouth Flagyl. Vascular surgery also consulted status post debridement with Dr. Armstrong on 12/16/2022. We'll also consult nephrology services for chronic kidney disease. At this time patient is resting comfortably in bed. Patient denies chest pain or shortness of breath. Patient denies nausea vomiting or diarrhea. Patient denies any urinary burning or frequency On 12/17/2022 patient is alert and oriented 3. Patient remains on IV an tibiotics. Followed by nephrology infectious disease and vascular services. At this time patient denies chest pain or shortness breath. Patient denies nausea vomiting or diarrhea. Patient denies any urinary burning or frequency On 12/18/2022 patient is alert and oriented 3. Blood culture positive for gram-negative bacilli. Infectious disease services are following. PICC line placed patient remains on IV Rocephin, daptomycin and Flagyl. Current vital signs temp 98.7, heart rate 62, respiratory rate 16, blood pressure 142/60. On 12/19/2022 patient alert and oriented 3. Awaiting final recommendations per ID in regards to antibiotics. This time patient is resting in chair. Patient denies chest pain or shortness breath. Patient denies nausea vomiting or diarrhea. Patient denies any urinary burning or frequency. Current vital signs temp 98.3, heart rate 69, respiratory 18, blood pressure 156/80 with a pulse ox 97% on room air On 12/20/2022 patient was seen and examined on the medical floor he is alert and oriented 3 in no apparent distress there is no fever or chills no headache or dizziness no chest pain no shortness of breath no cough no nausea or vomiting no abdominal pain no diarrhea no blood in the stools no burning with urination no frequency or urgency and no hematuria, at this time I'm still waiting for further recommendation from infectious disease and vascular surgery, possible discharge tomorrow, if no further intervention is recommended. Objective - Vital Signs Vital signs: Vital Signs Temp 97.3 F L 12/20/22 07:30 Pulse 53 L 12/20/22 07:30 Resp 18 12/20/22 07:30 BP 151/69 12/20/22 07:30 Pulse Ox 97 12/20/22 07:30 FiO2 Intake & Output 12/19/22 12/20/22 12/20/22 18:59 06:59 18:59 Output Total 1100 Balance -1100 Weight 99.79 kg Output: Urine 1100 Other: Voiding Method Urinal - Exam In general patient is alert and oriented x 3 in no distress HEENT head normocephalic and atraumatic Neck is supple no JVD no goiter no lymphadenopathy no carotid bruit Chest examination is clear to auscultation no crackles no wheezing Cardiac exam reveals regular heart sounds S1 and S2 no gallops no murmurs Abdomen is soft nontender no organomegaly with normal bowel sounds Extremity exam reveals no edema no cyanosis or clubbing, Left foot dressing clean dry and intact Neurological examination reveals no gross focal deficits - Labs CBC & Chem 7: 12/20/22 03:03 12/20/22 03:03 Labs: Abnormal Lab Results - Last 24 Hours (Table) 12/19/22 12/19/22 12/19/22 Range/Units 11:53 16:46 19:54 RBC (4.30-5.90) m/uL Hgb (13.0-17.5) gm/dL Hct (39.0-53.0) % Sodium (137-145) mmol/L Carbon Dioxide (22-30) mmol/L BUN (9-20) mg/dL Creatinine (0.66-1.25) mg/dL Glucose (74-99) mg/dL POC Glucose (mg/dL) 192 H 121 H 153 H (70-110) mg/dL Calcium (8.4-10.2) mg/dL Total Protein (6.3-8.2) g/dL Albumin (3.5-5.0) g/dL 12/20/22 12/20/22 Range/Units 03:03 03:03 RBC 2.90 L (4.30-5.90) m/uL Hgb 8.4 L (13.0-17.5) gm/dL Hct 27.2 L (39.0-53.0) % Sodium 136 L (137-145) mmol/L Carbon Dioxide 21 L (22-30) mmol/L BUN 34 H (9-20) mg/dL Creatinine 2.44 H (0.66-1.25) mg/dL Glucose 110 H (74-99) mg/dL POC Glucose (mg/dL) (70-110) mg/dL Calcium 8.2 L (8.4-10.2) mg/dL Total Protein 5.7 L (6.3-8.2) g/dL Albumin 2.8 L (3.5-5.0) g/dL Microbiology - Last 24 Hours (Table) 12/18/22 11:00 Blood Culture - Preliminary Blood 12/18/22 10:45 Blood Culture - Preliminary Blood 12/16/22 08:10 Gram Stain - Final Heel - Left Tissue Culture - Final Proteus mirabilis Pseudomonas aeruginosa Assessment and Plan Plan: 1. Left foot diabetic ulceration with failed outpatient treatment with sepsis evident by positive blood culture 2. Chronic kidney disease 3. Diabetes mellitus type 2. A home Lantus dose ordered plus sliding scale coverage 4. Essential hypertension 5. History of right greater toe amputation 6. Obesity 7. Hypothyroidism DVT prophylaxis Lovenox. GI prophylaxis Protonix Vascular, infectious disease and nephrology service is consulted Patient maintained on IV antibiotics of daptomycin Rocephin plus by mouth Flagyl Repeat labs ordered
[2022-12-20 20:23] LABS: Glucose,Whole Blood 154 mg/dL (70-110)
[2022-12-20] MEDS: LORATADINE 10 MG TAB PO SCH (20:53)
[2022-12-20] MEDS: INSULIN DETEMIR (LEVEMIR) 100 UNIT/ML SYR SQ SCH (20:54)
--- NOTE | 2022-12-20 23:10 | PN ---
PROGRESS NOTE The patient has history of diabetes, hypertension, especially right leg above-knee amputation. The patient had a wound on his left heel. We did the debridement and also the patient had history of fall. Then, he developed a wound on his tendocalcaneus and medial aspect of the ankle. The patient was taken to the OR on 12/16/2022 and the tendo calcaneus was infected. With debridement of the tendocalcaneus, infected part was removed and also the patient had a wound on the medial aspect of the ankle, we did the debridement and the patient is growing MRSA, under care of Infectious Disease we have been changing dressing daily with Santyl cream and the patient was on hyperbaric before he fell down at home. I recommend to continue with rehab and hyperbaric treatment 5 days a week to increase the chance of healing. The patient also needs right leg prosthesis when he goes to rehab. We will continue with IV antibiotic and local wound care. MMODL / IJN: [id number] /
[2022-12-21] MEDS: CEFEPIME 2 GM in SODIUM CHLORIDE 0.9% 100 ML IVPB SCH ×2 (02:58→16:07)
[2022-12-21] MEDS: LEVOTHYROXINE 25 MCG TAB PO SCH (05:54)
[2022-12-21 07:11] LABS: Glucose,Whole Blood 94 mg/dL (70-110)
[2022-12-21] MEDS: amLODIPine 10 MG TAB PO SCH (08:27)
[2022-12-21] MEDS: PANTOPRAZOLE 40 MG TABLET PO SCH (08:27)
[2022-12-21] MEDS: ENOXAPARIN 40 MG/0.4 ML SYRINGE SQ SCH (08:27)
[2022-12-21] MEDS: allopurinoL 100 MG TAB PO SCH (08:27)
[2022-12-21] MEDS: metroNIDAZOLE 500 MG TAB PO SCH ×3 (08:27→21:15)
[2022-12-21] MEDS: cloNIDine HCL 0.1 MG TAB PO SCH ×3 (08:27→21:16)
[2022-12-21] MEDS: TAMSULOSIN 0.4 MG CAP.ER.24H PO SCH (08:28)
[2022-12-21] MEDS: HYDROcodone/APAP 10-325MG 1 EACH TAB PO SCH ×3 (08:28→23:26)
[2022-12-21] MEDS: FERROUS SULFATE 325 MG TAB PO SCH (08:28)
[2022-12-21] MEDS: hydrALAZINE HCL 50 MG TAB PO SCH ×2 (08:28→21:16)
[2022-12-21] MEDS: SODIUM BICARBONATE TAB 650 MG TAB PO SCH ×2 (08:28→21:15)
[2022-12-21] MEDS: INSULIN ASPART (NovoLOG) 100 UNIT/ML VIAL SQ SCH ×4 (08:40→21:16)
[2022-12-21] MEDS: SODIUM FERRIC GLUCONAT-SUCROSE 125 MG in SODIUM CHLORIDE 0.9% 100 ML IVPB SCH (09:10)
[2022-12-21 11:47] LABS: Glucose,Whole Blood 98 mg/dL (70-110)
--- NOTE | 2022-12-21 12:05 | P.PN ---
Subjective Patient is seen in follow-up for chronic kidney disease. Renal function fairly stable. No vomiting or diarrhea. Oral intake is good. No active complaints. Vital signs are stable. General: No acute distress. HEENT: Head exam is unremarkable. LUNGS: No audible rhonchi or wheezes. HEART: Rate and Rhythm are regular. ABDOMEN: Nontender. EXTREMITITES: Right AKA. Left foot fracture. No edema. Objective - Vital Signs Vital signs: Vital Signs Temp 97.5 F L 12/21/22 07:35 Pulse 55 L 12/21/22 07:35 Resp 14 12/21/22 07:35 BP 150/74 12/21/22 07:35 Pulse Ox 97 12/21/22 07:35 FiO2 Intake & Output 12/20/22 12/21/22 12/21/22 18:59 06:59 18:59 Intake Total 800 Output Total 1100 Balance -300 Intake: Intake, IV Titration 200 Amount Cefepime 2 gm In Sodium 200 Chloride 0.9% 100 ml @ 25 mls/hr IVPB Q12H [facility] Rx# :[id number] Oral 600 Output: Urine 1100 Other: Voiding Method Urinal Urinal - Labs CBC & Chem 7: 12/20/22 03:03 12/20/22 03:03 Labs: Abnormal Lab Results - Last 24 Hours (Table) 12/20/22 12/20/22 Range/Units 17:09 20:21 POC Glucose (mg/dL) 143 H 154 H (70-110) mg/dL Microbiology - Last 24 Hours (Table) 12/15/22 11:45 Blood Culture - Final Blood 12/18/22 11:00 Blood Culture - Preliminary Blood 12/18/22 10:45 Blood Culture - Preliminary Blood 12/16/22 08:10 Anaerobic Culture - Final Heel - Left Assessment and Plan Plan: Assessment: 1. Acute kidney injury mostly prerenal secondary to hypovolemia and infection. Creatinine 3.08 on admission - 2.44 yesterday. 2. Chronic kidney disease stage IV with baseline creatinine near 3 secondary to diabetic kidney disease and cardiorenal syndrome. 3. Metabolic acidosis secondary to chronic kidney disease and IV fluids. On oral bicarb. 4. Left heel wound with tissue culture positive for Proteus and Pseudomonas along with Proteus bacteremia. On antibiotics. 5. Diabetes mellitus. 6. Hypertension with chronic kidney disease. Stable. 7. Anemia of chronic kidney disease. Iron deficiency noted. On Aranesp. Plan: Maintain IV iron. Continue to hold torsemide for now (held starting 12/17/22). Avoid nephrotoxins. Continue to monitor renal function and urine output. Patient needs lower extremity angiogram per vascular surgery. I discussed with the patient the risk of worsening renal function, potentially requiring renal replacement therapy, post-IV contrast exposure. He understands. Start normal saline at 75 mL an hour at midnight and continue for 8-10 hours post IV contrast exposure. Plan is for angiogram tomorrow. Discussed with vascular surgery. 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 He was advised to see rheumatology outpatient but doesn't believe he has. 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 Stressed importance of following up outpatient. I advised patient to monitor his weight closely at home. To resume torsemide if develops edema or gains more than 3-4 pounds in one week duration. Follow-up outpatient in 1 week post discharge.
--- NOTE | 2022-12-21 13:02 | P.PN ---
Subjective Progress Note Date: 12/21/22 Ian Paulino is a 67 year old male who presented to [facility] with a chief complaint of left foot pain and infection. Patient has been receiving outpatient IV antibiotics of daptomycin and Flagyl and followed with wound care. Per patient's at bedside patient was developing blisters to foot over the past week and having increasing pain prompting the patient to come to ER. Patient has a past medical history of diabetes mellitus, hypertension, chronic kidney disease and previous amputations. Foot x-ray completed showing soft tissue wound overlying the heel without evidence for erosion of the osseous structures. At this time patient will be admitted patient was started on IV antibiotics of Rocephin and daptomycin along with by mouth Flagyl. Vascular surgery also consulted status post debridement with Dr. Armstrong on 12/16/2022. We'll also consult nephrology services for chronic kidney disease. At this time patient is resting comfortably in bed. Patient denies chest pain or shortness of breath. Patient denies nausea vomiting or diarrhea. Patient denies any urinary burning or frequency On 12/17/2022 patient is alert and oriented 3. Patient remains on IV an tibiotics. Followed by nephrology infectious disease and vascular services. At this time patient denies chest pain or shortness breath. Patient denies nausea vomiting or diarrhea. Patient denies any urinary burning or frequency On 12/18/2022 patient is alert and oriented 3. Blood culture positive for gram-negative bacilli. Infectious disease services are following. PICC line placed patient remains on IV Rocephin, daptomycin and Flagyl. Current vital signs temp 98.7, heart rate 62, respiratory rate 16, blood pressure 142/60. On 12/19/2022 patient alert and oriented 3. Awaiting final recommendations per ID in regards to antibiotics. This time patient is resting in chair. Patient denies chest pain or shortness breath. Patient denies nausea vomiting or diarrhea. Patient denies any urinary burning or frequency. Current vital signs temp 98.3, heart rate 69, respiratory 18, blood pressure 156/80 with a pulse ox 97% on room air On 12/20/2022 patient was seen and examined on the medical floor he is alert and oriented 3 in no apparent distress there is no fever or chills no headache or dizziness no chest pain no shortness of breath no cough no nausea or vomiting no abdominal pain no diarrhea no blood in the stools no burning with urination no frequency or urgency and no hematuria, at this time I'm still waiting for further recommendation from infectious disease and vascular surgery, possible discharge tomorrow, if no further intervention is recommended. On 12/21/2022 patient was seen and examined on the medical floor he is alert and oriented 3 in no apparent distress, there is no fever or chills no headache or dizziness no chest pain no shortness of breath no cough no nausea or vomiting no abdominal pain no diarrhea and no urinary symptoms. Patient is scheduled for an angiogram tomorrow per vascular surgery, will continue to follow closely. Objective - Vital Signs Vital signs: Vital Signs Temp 97.5 F L 12/21/22 07:35 Pulse 55 L 12/21/22 07:35 Resp 14 12/21/22 07:35 BP 150/74 12/21/22 07:35 Pulse Ox 97 12/21/22 07:35 FiO2 Intake & Output 12/20/22 12/21/22 12/21/22 18:59 06:59 18:59 Intake Total 800 Output Total 1100 Balance -300 Intake: Intake, IV Titration 200 Amount Cefepime 2 gm In Sodium 200 Chloride 0.9% 100 ml @ 25 mls/hr IVPB Q12H [facility] Rx# :[id number] Oral 600 Output: Urine 1100 Other: Voiding Method Urinal Urinal - Exam In general patient is alert and oriented x 3 in no distress HEENT head normocephalic and atraumatic Neck is supple no JVD no goiter no lymphadenopathy no carotid bruit Chest examination is clear to auscultation no crackles no wheezing Cardiac exam reveals regular heart sounds S1 and S2 no gallops no murmurs Abdomen is soft nontender no organomegaly with normal bowel sounds Extremity exam reveals no edema no cyanosis or clubbing, Left foot dressing clean dry and intact Neurological examination reveals no gross focal deficits - Labs CBC & Chem 7: 12/20/22 03:03 12/20/22 03:03 Labs: Abnormal Lab Results - Last 24 Hours (Table) 12/20/22 12/20/22 Range/Units 17:09 20:21 POC Glucose (mg/dL) 143 H 154 H (70-110) mg/dL Microbiology - Last 24 Hours (Table) 12/15/22 11:45 Blood Culture - Final Blood 12/18/22 11:00 Blood Culture - Preliminary Blood 12/18/22 10:45 Blood Culture - Preliminary Blood 12/16/22 08:10 Anaerobic Culture - Final Heel - Left Assessment and Plan Plan: 1. Left foot diabetic ulceration with failed outpatient treatment with sepsis evident by positive blood culture 2. Chronic kidney disease 3. Diabetes mellitus type 2. A home Lantus dose ordered plus sliding scale coverage 4. Essential hypertension 5. History of right greater toe amputation 6. Obesity 7. Hypothyroidism DVT prophylaxis Lovenox. GI prophylaxis Protonix Vascular, infectious disease and nephrology service is consulted Patient maintained on IV antibiotics of daptomycin Rocephin plus by mouth Flagyl Repeat labs ordered
--- NOTE | 2022-12-21 15:44 | P.PN ---
Subjective Progress Note Date: 12/21/22 Principal diagnosis: Left heel osteomyelitis/diabetic foot infection Patient is a 67-year-old male with a past medical history significant for diabetes mellitus hypertension patient did have a history of left heel diabetic foot infection underlying osteomyelitis with a culture positive for MRSA patient did have a renal insufficiency and is currently getting daptomycin in the outpatient setting along with oral Flagyl patient is presenting to the ER concerning for increasing discomfort to the left heel area , the patient is status post surgical debridement of the left heel on 12/16/2022. on today's evaluation that is 12/21/2022, the patient denies any fever or any chills, the patient is breathing comfortably on room air, the patient denies chest pain or shortness of breath, patient denies any nausea no vomiting no abdominal pain, the patient pain to the left heel has decreased in intensity, vascular surgery is planning for angiogram Patient blood culture positive for Proteus, left heel culture positive for Proteus and also growing Pseudomonas, white count is normal. Creatinine is 2.44 Objective - Vital Signs Vital signs: Vital Signs Temp 97.5 F L 12/21/22 07:35 Pulse 55 L 12/21/22 07:35 Resp 14 12/21/22 07:35 BP 150/74 12/21/22 07:35 Pulse Ox 97 12/21/22 07:35 FiO2 Intake & Output 12/20/22 12/21/22 12/21/22 18:59 06:59 18:59 Intake Total 800 Output Total 1100 Balance -300 Weight 99.79 kg Intake: Intake, IV Titration 200 Amount Cefepime 2 gm In Sodium 200 Chloride 0.9% 100 ml @ 25 mls/hr IVPB Q12H [facility] Rx# :[id number] Oral 600 Output: Urine 1100 Other: Voiding Method Urinal Urinal - Exam GENERAL DESCRIPTION: An elderly male lying in bed in no distress RESPIRATORY SYSTEM: Unlabored breathing , decreased breath sounds at bases HEART: S1 S2 regular rate and rhythm , ABDOMEN: Soft , no tenderness EXTREMITIES: Left heel is currently dressed up no drainage on the dressing - Labs CBC & Chem 7: 12/20/22 03:03 12/20/22 03:03 Labs: Abnormal Lab Results - Last 24 Hours (Table) 12/20/22 12/20/22 Range/Units 17:09 20:21 POC Glucose (mg/dL) 143 H 154 H (70-110) mg/dL Microbiology - Last 24 Hours (Table) 12/15/22 11:45 Blood Culture - Final Blood 12/18/22 11:00 Blood Culture - Preliminary Blood 12/18/22 10:45 Blood Culture - Preliminary Blood 12/16/22 08:10 Anaerobic Culture - Final Heel - Left Assessment and Plan (1) Gram-negative bacteremia Current Visit: Yes Status: Acute Code(s): R78.81 - BACTEREMIA SNOMED Code(s): 583181234005 (2) Diabetic foot ulcer associated with type 2 diabetes mellitus, with fat layer exposed Current Visit: Yes Status: Acute Code(s): E11.621 - TYPE 2 DIABETES MELLITUS WITH FOOT ULCER; L97.502 - NON-PRS CHRONIC ULCER OTH PRT UNSP FOOT W FAT LAYER EXPOSED SNOMED Code(s): 6634922725212 (3) Failure of outpatient treatment Current Visit: Yes Status: Acute Code(s): Z78.9 - OTHER SPECIFIED HEALTH STATUS SNOMED Code(s): 356976262 (4) Foot osteomyelitis, left Current Visit: Yes Status: Acute Code(s): M86.9 - OSTEOMYELITIS, UNSPECIFIED SNOMED Code(s): 9998714172419109 Plan: 1patient with extensive left heel diabetic foot infection in this patient with recent outpatient culture positive for MRSA and the patient was getting daptomycin and oral Flagyl for it subsequently the patient did have a culture done on 12/10/2022 that did grew Proteus mirabilis now with worsening of cellulitis and necrotic changes patient did have a elevated white count no bony changes were noticed on the x-ray however concern of possible for deep infection , patient is status post surgical debridement and deep culture which are currently growing gram-negative 2-patient with Proteus bacteremia source is likely left heel osteomyelitis, blood cultures has been repeated from the PICC line and peripherally which are negative so far 3patient left heel cultures are growing Proteus as well as Pseudomonas aeruginosa, we will continue daptomycin on the basis of previous culture and continue with cefepime and Flagyl, vascular surgery is pending for angiogram and intervention on the basis of angiogram as per discussion with the family Dictation was produced using [email or web address] dictation software. please excuse any grammatical, word or spelling errors. Time with Patient: Less than 30
[2022-12-21] MEDS: polyethylene glycoL 3350 17 GM POWD.PACK PO SCH (16:16)
[2022-12-21] MEDS: COLLAGENASE 250 UNIT/GM OINTMENT 30 GM TUBE TOPICAL SCH (16:40)
[2022-12-21] MEDS: ALBUTEROL NEBULIZED 2.5 MG/3 ML INHALATION PRN ×2 (16:43→20:22)
[2022-12-21 17:14] LABS: Glucose,Whole Blood 133 mg/dL (70-110)
[2022-12-21 20:18] LABS: Glucose,Whole Blood 191 mg/dL (70-110)
[2022-12-21] MEDS: DOCUSATE 100 MG CAP PO SCH (21:16)
[2022-12-21] MEDS: INSULIN DETEMIR (LEVEMIR) 100 UNIT/ML SYR SQ SCH (21:16)
[2022-12-21] MEDS: LORATADINE 10 MG TAB PO SCH (21:16)
[2022-12-22] MEDS: CEFEPIME 2 GM in SODIUM CHLORIDE 0.9% 100 ML IVPB SCH ×2 (02:12→16:40)
[2022-12-22 07:44] LABS: Glucose,Whole Blood 76 mg/dL (70-110)
[2022-12-22] MEDS: ALBUTEROL NEBULIZED 2.5 MG/3 ML INHALATION PRN ×2 (07:47→17:09)
[2022-12-22] MEDS: INSULIN ASPART (NovoLOG) 100 UNIT/ML VIAL SQ SCH ×4 (08:12→21:08)
[2022-12-22] MEDS ORDERED: IV FLUID CONTINUATION 1,000 ML IV ONE (08:14)
[2022-12-22] MEDS: MIDAZOLAM 2 MG/2 ML VIAL IVP ONE ×2 (08:25→08:35)
[2022-12-22] MEDS ORDERED: LIDOCAINE 1% INJ 10MG/ML (30 ML VIAL-PF) SQ ONE ×2 (08:26→08:56)
[2022-12-22] MEDS ORDERED: MIDAZOLAM 2 MG/2 ML VIAL IVP ONE (08:26)
[2022-12-22] MEDS: fentaNYL (PF) 50 MCG/1 ML VIAL IVP ONE ×2 (08:45→08:57)
[2022-12-22] MEDS ORDERED: IOPAMIDOL-370 100ML BTL INTRATHECA ONE (09:09)
--- NOTE | 2022-12-22 09:22 | IR ---
EXAMINATION TYPE: IR angio lower extremity LT DATE OF EXAM: 12/22/2022 COMPARISON: NONE HISTORY: Peripheral vascular disease, 4.9 minutes fluoroscopy time, total DAP [id number] uGym2. Fluoroscopy was provided to the referring clinician.
--- NOTE | 2022-12-22 09:22 | P.PCN ---
Description of Procedure: Preo we will perative diagnoses is peripheral vascular disease lower extremity with wound left foot involving the heel and tendocalcaneu Postoperative the same Procedure this patient brought to the [facility] right and left groin was prepped and draped applied sterile manner 1% lidocaine plain infiltrated in the right groin with IV sedation ultrasound guided micropuncture introduced to right common femoral artery micropuncture guidewire passed. Then 4-Sami sheath advanced top the guidewire. The possibility Glidewire 5-Sami sheath about top the guidewire flushed with heparin saline. Then Anthony catheter was passed on the top of guidewire and left common iliac artery guidewire passed and then the rim catheter was advanced. With hand injection left leg angiogram was performed Left common iliac artery was found to be patent Left common femoral and profunda was visualized Left superficial femoral artery and popliteal artery was visualized tibial. Trunk has some atherosclerosis disease Anterior tibial short segment visualized distally occluded Posttibial peroneal visualized up with the ankle some flow was noted in the posterior tibial artery Sheath was removed pressure was held patient was transferred to recovery room in satisfactory condition
[2022-12-22] MEDS: DOCUSATE 100 MG CAP PO SCH ×2 (10:06→21:08)
[2022-12-22] MEDS: HYDROcodone/APAP 10-325MG 1 EACH TAB PO SCH ×2 (10:06→16:40)
[2022-12-22] MEDS: polyethylene glycoL 3350 17 GM POWD.PACK PO SCH (10:06)
[2022-12-22] MEDS: PANTOPRAZOLE 40 MG TABLET PO SCH (10:07)
[2022-12-22] MEDS: hydrALAZINE HCL 50 MG TAB PO SCH ×2 (10:07→21:08)
[2022-12-22] MEDS: metroNIDAZOLE 500 MG TAB PO SCH ×3 (10:07→21:08)
[2022-12-22] MEDS: LEVOTHYROXINE 25 MCG TAB PO SCH (10:07)
[2022-12-22] MEDS: SODIUM BICARBONATE TAB 650 MG TAB PO SCH ×2 (10:07→21:08)
[2022-12-22] MEDS: FERROUS SULFATE 325 MG TAB PO SCH (10:07)
[2022-12-22] MEDS: TAMSULOSIN 0.4 MG CAP.ER.24H PO SCH (10:07)
[2022-12-22] MEDS: allopurinoL 100 MG TAB PO SCH (10:07)
[2022-12-22] MEDS: amLODIPine 10 MG TAB PO SCH (10:07)
[2022-12-22] MEDS: cloNIDine HCL 0.1 MG TAB PO SCH ×3 (10:07→21:08)
[2022-12-22] MEDS: ENOXAPARIN 40 MG/0.4 ML SYRINGE SQ SCH (10:08)
--- NOTE | 2022-12-22 11:25 | P.PN ---
Subjective Progress Note Date: 12/22/22 Ian Paulino is a 67 year old male who presented to [facility] with a chief complaint of left foot pain and infection. Patient has been receiving outpatient IV antibiotics of daptomycin and Flagyl and followed with wound care. Per patient's at bedside patient was developing blisters to foot over the past week and having increasing pain prompting the patient to come to ER. Patient has a past medical history of diabetes mellitus, hypertension, chronic kidney disease and previous amputations. Foot x-ray completed showing soft tissue wound overlying the heel without evidence for erosion of the osseous structures. At this time patient will be admitted patient was started on IV antibiotics of Rocephin and daptomycin along with by mouth Flagyl. Vascular surgery also consulted status post debridement with Dr. Armstrong on 12/16/2022. We'll also consult nephrology services for chronic kidney disease. At this time patient is resting comfortably in bed. Patient denies chest pain or shortness of breath. Patient denies nausea vomiting or diarrhea. Patient denies any urinary burning or frequency On 12/17/2022 patient is alert and oriented 3. Patient remains on IV an tibiotics. Followed by nephrology infectious disease and vascular services. At this time patient denies chest pain or shortness breath. Patient denies nausea vomiting or diarrhea. Patient denies any urinary burning or frequency On 12/18/2022 patient is alert and oriented 3. Blood culture positive for gram-negative bacilli. Infectious disease services are following. PICC line placed patient remains on IV Rocephin, daptomycin and Flagyl. Current vital signs temp 98.7, heart rate 62, respiratory rate 16, blood pressure 142/60. On 12/19/2022 patient alert and oriented 3. Awaiting final recommendations per ID in regards to antibiotics. This time patient is resting in chair. Patient denies chest pain or shortness breath. Patient denies nausea vomiting or diarrhea. Patient denies any urinary burning or frequency. Current vital signs temp 98.3, heart rate 69, respiratory 18, blood pressure 156/80 with a pulse ox 97% on room air On 12/20/2022 patient was seen and examined on the medical floor he is alert and oriented 3 in no apparent distress there is no fever or chills no headache or dizziness no chest pain no shortness of breath no cough no nausea or vomiting no abdominal pain no diarrhea no blood in the stools no burning with urination no frequency or urgency and no hematuria, at this time I'm still waiting for further recommendation from infectious disease and vascular surgery, possible discharge tomorrow, if no further intervention is recommended. On 12/21/2022 patient was seen and examined on the medical floor he is alert and oriented 3 in no apparent distress, there is no fever or chills no headache or dizziness no chest pain no shortness of breath no cough no nausea or vomiting no abdominal pain no diarrhea and no urinary symptoms. Patient is scheduled for an angiogram tomorrow per vascular surgery, will continue to follow closely. On 12/22/2022 patient was seen and examined on the medical floor he is alert and oriented 3 in no apparent distress, he underwent lower extremity angiogram today . there is no fever or chills no headache or dizziness no chest pain no shortness of breath no cough no nausea or vomiting no abdominal pain no diarrhea and no urinary symptoms. Patient is scheduled for an angiogram tomorrow per vascular surgery, will continue to follow closely. Objective - Vital Signs Vital signs: Vital Signs Temp 98.2 F 12/22/22 07:47 Pulse 66 12/22/22 08:04 Resp 16 12/22/22 07:47 BP 158/70 12/22/22 07:47 Pulse Ox 95 12/22/22 07:47 FiO2 Intake & Output 12/21/22 12/22/22 12/22/22 18:59 06:59 18:59 Intake Total 900 200 Output Total 500 1000 Balance -500 -100 200 Weight 99.79 kg Intake: IV 200 Intake, IV Titration 600 Amount Cefepime 2 gm In Sodium 100 Chloride 0.9% 100 ml @ 25 mls/hr IVPB Q12H [facility] Rx# :[id number] Sodium Chloride 0.9% 1, 500 000 ml @ 75 mls/hr IV . [id number] [facility] Rx#:[id number] Oral 300 Output: Urine 500 1000 Other: Voiding Method Urinal Urinal - Exam In general patient is alert and oriented x 3 in no distress HEENT head normocephalic and atraumatic Neck is supple no JVD no goiter no lymphadenopathy no carotid bruit Chest examination is clear to auscultation no crackles no wheezing Cardiac exam reveals regular heart sounds S1 and S2 no gallops no murmurs Abdomen is soft nontender no organomegaly with normal bowel sounds Extremity exam reveals no edema no cyanosis or clubbing, Left foot dressing clean dry and intact Neurological examination reveals no gross focal deficits - Labs CBC & Chem 7: 12/20/22 03:03 12/20/22 03:03 Labs: Abnormal Lab Results - Last 24 Hours (Table) 12/21/22 12/21/22 Range/Units 17:06 20:16 POC Glucose (mg/dL) 133 H 191 H (70-110) mg/dL Microbiology - Last 24 Hours (Table) 12/18/22 11:00 Blood Culture - Preliminary Blood 12/18/22 10:45 Blood Culture - Preliminary Blood Assessment and Plan Plan: 1. Left foot diabetic ulceration with failed outpatient treatment with sepsis evident by positive blood culture 2. Chronic kidney disease 3. Diabetes mellitus type 2. A home Lantus dose ordered plus sliding scale coverage 4. Essential hypertension 5. History of right greater toe amputation 6. Obesity 7. Hypothyroidism DVT prophylaxis Lovenox. GI prophylaxis Protonix Vascular, infectious disease and nephrology service is consulted Patient maintained on IV antibiotics of daptomycin Rocephin plus by mouth Flagyl Repeat labs ordered
[2022-12-22 12:03] LABS: Glucose,Whole Blood 93 mg/dL (70-110)
[2022-12-22 12:51] LABS: Basophils # (A) 0.06 X 10*3/uL (0.00-0.10); Basophils % (A) 0.6 %; Eosinophils # (A) 0.12 X 10*3/uL (0.04-0.35); Eosinophils % (A) 1.2 %; HCT 26.6 % (39.6-50.0); HGB 8.1 d/dL (13.0-17.0); Lymphocytes # (A) 1.11 X 10*3/uL (0.90-5.00); Lymphocytes % (A) 10.8 %; MCH 28.1 pg (27.0-32.0); MCHC 30.5 d/dL (32.0-37.0); MCV 92.4 FL (80.0-97.0); Monocytes # (A) 0.86 X 10*3/uL (0.20-1.00); Monocytes % (A) 8.4 %; NRBC Per 100 WBC 0 X 10*3/uL (0.00-0.01); Neutrophils # (A) 7.95 X 10*3/uL (1.80-7.70); Neutrophils % (A) 77.2 %; Platelet Count 440 X 10*3/uL (140-440); RBC 2.88 X 10*6/uL (4.40-5.60); RDW 13.8 % (11.5-14.5); WBC 10.29 X 10*3/uL (4.50-10.00)
[2022-12-22] MEDS: COLLAGENASE 250 UNIT/GM OINTMENT 30 GM TUBE TOPICAL SCH (12:56)
[2022-12-22 13:18] LABS: ALT 11 U/L (10-49); AST 21 U/L (14-35); Albumin/Globulin Ratio 1.15 Ratio (1.60-3.17); Alkaline Phosphatase 96 U/L (41-126); BUN/Creat Ratio 12.04 Ratio (12.00-20.00); Blood Urea Nitrogen 28.9 mg/dL (9.0-27.0); Calcium 8.5 mg/dL (8.7-10.3); Carbon Dioxide 21.2 mmol/L (21.6-31.8); Chloride 106 mmol/L (96-109); Globulin 2.6 d/dL (1.6-3.3); Glucose 59 mg/dL (70-110); Magnesium 2.2 mg/dL (1.5-2.4); Sodium 139 mmol/L (135-145); Total Bilirubin 0.2 mg/dL (0.3-1.2); Total Protein 5.6 d/dL (6.2-8.2)
--- NOTE | 2022-12-22 14:21 | P.PN ---
Subjective Progress Note Date: 12/22/22 Principal diagnosis: Left heel osteomyelitis/diabetic foot infection Patient is a 67-year-old male with a past medical history significant for diabetes mellitus hypertension patient did have a history of left heel diabetic foot infection underlying osteomyelitis with a culture positive for MRSA patient did have a renal insufficiency and is currently getting daptomycin in the outpatient setting along with oral Flagyl patient is presenting to the ER concerning for increasing discomfort to the left heel area , the patient is status post surgical debridement of the left heel on 12/16/2022. Patient is status post angiogram completed on 12/22/2022 did have evidence of anterior tibial occluded on today's evaluation that is 12/22/2022, the patient remains to be afebrile, the patient is breathing comfortably on room air, the patient denies chest pain or shortness of breath, patient denies any nausea no vomiting no abdominal pain, the patient pain to the left heel has decreased in intensity, vascular surgery is planning for angiogram Patient blood culture positive for Proteus, left heel culture positive for Proteus and also growing Pseudomonas, the patient white count is 10.29 today. Creatinine is 2.4, blood culture repeat on 12/18/2022 has been negative so far Objective - Vital Signs Vital signs: Vital Signs Temp 97.8 F 12/22/22 09:20 Pulse 66 12/22/22 08:04 Resp 16 12/22/22 09:50 BP 134/61 12/22/22 09:50 Pulse Ox 96 12/22/22 09:50 FiO2 Intake & Output 12/21/22 12/22/22 12/22/22 18:59 06:59 18:59 Intake Total 900 320 Output Total 500 1000 Balance -500 -100 320 Weight 99.79 kg Intake: IV 200 Intake, IV Titration 600 Amount Cefepime 2 gm In Sodium 100 Chloride 0.9% 100 ml @ 25 mls/hr IVPB Q12H [facility] Rx# :[id number] Sodium Chloride 0.9% 1, 500 000 ml @ 75 mls/hr IV . [id number] [facility] Rx#:[id number] Oral 300 120 Output: Urine 500 1000 Other: Voiding Method Urinal Urinal Urinal - Exam GENERAL DESCRIPTION: An elderly male lying in bed in no distress RESPIRATORY SYSTEM: Unlabored breathing , decreased breath sounds at bases HEART: S1 S2 regular rate and rhythm , ABDOMEN: Soft , no tenderness EXTREMITIES: Left heel did have extensive wound with slough tissue and some necrotic changes - Labs CBC & Chem 7: 12/22/22 07:26 12/22/22 07:26 Labs: Abnormal Lab Results - Last 24 Hours (Table) 12/21/22 12/21/22 12/22/22 Range/Units 17:06 20:16 07:26 WBC (4.50-10.00) X 10*3/uL RBC (4.40-5.60) X 10*6/uL Hgb (13.0-17.0) d/dL Hct (39.6-50.0) % MCHC (32.0-37.0) d/dL MPV (9.5-12.2) FL Neutrophils # (1.80-7.70) X 10*3/uL Carbon Dioxide 21.2 L (21.6-31.8) mmol/L BUN 28.9 H (9.0-27.0) mg/dL Creatinine 2.4 H (0.6-1.5) mg/dL Est GFR (CKD-EPI) 29 L (>=60) Glucose 59 L (70-110) mg/dL POC Glucose (mg/dL) 133 H 191 H (70-110) mg/dL Calcium 8.5 L (8.7-10.3) mg/dL Total Bilirubin 0.2 L (0.3-1.2) mg/dL Total Protein 5.6 L (6.2-8.2) d/dL Albumin 3.0 L (3.8-4.9) d/dL Albumin/Globulin Ratio 1.15 L (1.60-3.17) Ratio 12/22/22 Range/Units 07:26 WBC 10.29 H (4.50-10.00) X 10*3/uL RBC 2.88 L (4.40-5.60) X 10*6/uL Hgb 8.1 L (13.0-17.0) d/dL Hct 26.6 L (39.6-50.0) % MCHC 30.5 L (32.0-37.0) d/dL MPV 9.0 L (9.5-12.2) FL Neutrophils # 7.95 H (1.80-7.70) X 10*3/uL Carbon Dioxide (21.6-31.8) mmol/L BUN (9.0-27.0) mg/dL Creatinine (0.6-1.5) mg/dL Est GFR (CKD-EPI) (>=60) Glucose (70-110) mg/dL POC Glucose (mg/dL) (70-110) mg/dL Calcium (8.7-10.3) mg/dL Total Bilirubin (0.3-1.2) mg/dL Total Protein (6.2-8.2) d/dL Albumin (3.8-4.9) d/dL Albumin/Globulin Ratio (1.60-3.17) Ratio Microbiology - Last 24 Hours (Table) 12/18/22 11:00 Blood Culture - Preliminary Blood 12/18/22 10:45 Blood Culture - Preliminary Blood Assessment and Plan (1) Gram-negative bacteremia Current Visit: Yes Status: Acute Code(s): R78.81 - BACTEREMIA SNOMED Code(s): 445319988586 (2) Diabetic foot ulcer associated with type 2 diabetes mellitus, with fat layer exposed Current Visit: Yes Status: Acute Code(s): E11.621 - TYPE 2 DIABETES MELLITUS WITH FOOT ULCER; L97.502 - NON-PRS CHRONIC ULCER OTH PRT UNSP FOOT W FAT LAYER EXPOSED SNOMED Code(s): 5690443673923 (3) Failure of outpatient treatment Current Visit: Yes Status: Acute Code(s): Z78.9 - OTHER SPECIFIED HEALTH STATUS SNOMED Code(s): 734328640 (4) Foot osteomyelitis, left Current Visit: Yes Status: Acute Code(s): M86.9 - OSTEOMYELITIS, UNSPECIFIED SNOMED Code(s): 6428043595842410 Plan: 1patient with extensive left heel diabetic foot infection in this patient with recent outpatient culture positive for MRSA and the patient was getting daptomycin and oral Flagyl for it subsequently the patient did have a culture done on 12/10/2022 that did grew Proteus mirabilis now with worsening of c ellulitis and necrotic changes patient did have a elevated white count no bony changes were noticed on the x-ray however concern of possible for deep infection , patient is status post surgical debridement and deep culture which are currently growing gram-negative 2-patient with Proteus bacteremia source is likely left heel osteomyelitis, blood cultures has been repeated from the PICC line and peripherally which are negative so far 3patient left heel cultures are growing Proteus as well as Pseudomonas aeruginosa, patient did have angiogram with evidence of occlusion possibility responsible for nonhealing of this wound await further recommendation from vascular surgery 4-we will continue daptomycin along with cefepime and Flagyl, prognosis is very guarded as for as limb salavage Dictation was produced using [employer] dictation software. please excuse any grammatical, word or spelling errors. Time with Patient: Less than 30
--- NOTE | 2022-12-22 16:21 | P.PN ---
Subjective Progress Note Date: 12/22/22 Follow-up for chronic kidney disease. Objective - Vital Signs Vital signs: Vital Signs Temp 97.8 F 12/22/22 09:20 Pulse 66 12/22/22 08:04 Resp 16 12/22/22 09:50 BP 134/61 12/22/22 09:50 Pulse Ox 96 12/22/22 09:50 FiO2 Intake & Output 12/21/22 12/22/22 12/22/22 18:59 06:59 18:59 Intake Total 900 320 Output Total 500 1000 0 Balance -500 -100 320 Weight 99.79 kg Intake: IV 200 Intake, IV Titration 600 Amount Cefepime 2 gm In Sodium 100 Chloride 0.9% 100 ml @ 25 mls/hr IVPB Q12H [facility] Rx# :[id number] Sodium Chloride 0.9% 1, 500 000 ml @ 75 mls/hr IV . [id number] [facility] Rx#:[id number] Oral 300 120 Output: Gastric Drainage 0 Urine 500 1000 0 Stool 0 Urine/Stool Mix 0 Emesis 0 Oral Regurgitation 0 Other 0 Other: Voiding Method Urinal Urinal Urinal # Voids 0 # Bowel Movements 0 - Exam No acute distress S1-S2 heard Decreased breath sounds Trace edema - Labs CBC & Chem 7: 12/22/22 07:26 12/22/22 07:26 Labs: Abnormal Lab Results - Last 24 Hours (Table) 12/21/22 12/21/22 12/22/22 Range/Units 17:06 20:16 07:26 WBC (4.50-10.00) X 10*3/uL RBC (4.40-5.60) X 10*6/uL Hgb (13.0-17.0) d/dL Hct (39.6-50.0) % MCHC (32.0-37.0) d/dL MPV (9.5-12.2) FL Neutrophils # (1.80-7.70) X 10*3/uL Carbon Dioxide 21.2 L (21.6-31.8) mmol/L BUN 28.9 H (9.0-27.0) mg/dL Creatinine 2.4 H (0.6-1.5) mg/dL Est GFR (CKD-EPI) 29 L (>=60) Glucose 59 L (70-110) mg/dL POC Glucose (mg/dL) 133 H 191 H (70-110) mg/dL Calcium 8.5 L (8.7-10.3) mg/dL Total Bilirubin 0.2 L (0.3-1.2) mg/dL Total Protein 5.6 L (6.2-8.2) d/dL Albumin 3.0 L (3.8-4.9) d/dL Albumin/Globulin Ratio 1.15 L (1.60-3.17) Ratio 12/22/22 Range/Units 07:26 WBC 10.29 H (4.50-10.00) X 10*3/uL RBC 2.88 L (4.40-5.60) X 10*6/uL Hgb 8.1 L (13.0-17.0) d/dL Hct 26.6 L (39.6-50.0) % MCHC 30.5 L (32.0-37.0) d/dL MPV 9.0 L (9.5-12.2) FL Neutrophils # 7.95 H (1.80-7.70) X 10*3/uL Carbon Dioxide (21.6-31.8) mmol/L BUN (9.0-27.0) mg/dL Creatinine (0.6-1.5) mg/dL Est GFR (CKD-EPI) (>=60) Glucose (70-110) mg/dL POC Glucose (mg/dL) (70-110) mg/dL Calcium (8.7-10.3) mg/dL Total Bilirubin (0.3-1.2) mg/dL Total Protein (6.2-8.2) d/dL Albumin (3.8-4.9) d/dL Albumin/Globulin Ratio (1.60-3.17) Ratio Microbiology - Last 24 Hours (Table) 12/18/22 11:00 Blood Culture - Preliminary Blood 12/18/22 10:45 Blood Culture - Preliminary Blood Assessment and Plan Assessment: #1 acute kidney injury secondary to septic ATN. #2 CK D stage IV with a baseline creatinine around 3.0 MG per DL secondary to diabetic nephropathy. #3 left heel wound, tissue cultures growing Proteus and Pseudomonas #4 Proteus bacteremia #5 anemia with chronic kidney disease #6 hypertension with chronic kidney disease Plan: #1 renal function stable. #2 avoid nephrotoxic agents.
[2022-12-22 16:25] LABS: Glucose,Whole Blood 94 mg/dL (70-110)
[2022-12-22] MEDS: SODIUM CHLORIDE 0.9% 1,000 ML IV SCH ×2 (16:53)
[2022-12-22 20:11] LABS: Glucose,Whole Blood 153 mg/dL (70-110)
[2022-12-22] MEDS: INSULIN DETEMIR (LEVEMIR) 100 UNIT/ML SYR SQ SCH (21:08)
[2022-12-22] MEDS: LORATADINE 10 MG TAB PO SCH (21:08)
[2022-12-23] MEDS: HYDROcodone/APAP 10-325MG 1 EACH TAB PO SCH ×3 (00:05→17:07)
[2022-12-23] MEDS: CEFEPIME 2 GM in SODIUM CHLORIDE 0.9% 100 ML IVPB SCH ×2 (03:20→17:08)
[2022-12-23 06:08] LABS: Glucose,Whole Blood 62 mg/dL (70-110)
[2022-12-23] MEDS: SODIUM CHLORIDE 0.9% 1,000 ML IV SCH ×2 (06:15→21:50)
[2022-12-23] MEDS: INSULIN ASPART (NovoLOG) 100 UNIT/ML VIAL SQ SCH ×4 (06:18→20:41)
[2022-12-23] MEDS: PANTOPRAZOLE 40 MG TABLET PO SCH (06:56)
[2022-12-23] MEDS: LEVOTHYROXINE 25 MCG TAB PO SCH (06:56)
[2022-12-23 07:55] LABS: Basophils % (A) 0 %; Eosinophils # (A) 0.1 k/uL (0-0.7); Eosinophils % (A) 1 %; HCT 28.6 % (39.0-53.0); HGB 8.6 gm/dL (13.0-17.5); Hypochromasia Moderate; Lymphocytes # (A) 1.2 k/uL (1.0-4.8); Lymphocytes % (A) 11 %; MCH 28.6 pg (25.0-35.0); MCHC 30.3 g/dL (31.0-37.0); MCV 94.6 fL (80.0-100.0); Mean Platelet Volume 7.3; Monocytes # (A) 0.7 k/uL (0-1.0); Monocytes % (A) 7 %; Neutrophils # (A) 8.4 k/uL (1.3-7.7); Neutrophils % (A) 80 %; Platelet Count 484 k/uL (150-450); RBC 3.02 m/uL (4.30-5.90); RDW 14.1 % (11.5-15.5); WBC 10.5 k/uL (3.8-10.6)
[2022-12-23 08:16] LABS: ALT 16 U/L (4-49); AST 28 U/L (17-59); African American GFR (CKD) 33 (>60 ml/min/1.73 sqM); Albumin 2.9 g/dL (3.5-5.0); Alkaline Phosphatase 104 U/L (38-126); Anion Gap 10 mmol/L; Blood Urea Nitrogen 25 mg/dL (9-20); Calcium 8.2 mg/dL (8.4-10.2); Carbon Dioxide 18 mmol/L (22-30); Chloride 106 mmol/L (98-107); Glucose 56 mg/dL (74-99); Non-African American GFR(CKD) 29 (>60 ml/min/1.73 sqM); Potassium 4.8 mmol/L (3.5-5.1); Sodium 134 mmol/L (137-145); Total Bilirubin 0.5 mg/dL (0.2-1.3); Total Protein 5.9 g/dL (6.3-8.2)
[2022-12-23] MEDS: ALBUTEROL NEBULIZED 2.5 MG/3 ML INHALATION PRN ×3 (08:36→22:53)
[2022-12-23] MEDS: TAMSULOSIN 0.4 MG CAP.ER.24H PO SCH (09:38)
[2022-12-23] MEDS: hydrALAZINE HCL 50 MG TAB PO SCH ×2 (09:38→21:49)
[2022-12-23] MEDS: SODIUM BICARBONATE TAB 650 MG TAB PO SCH ×2 (09:38→21:49)
[2022-12-23] MEDS: DOCUSATE 100 MG CAP PO SCH ×2 (09:38→21:49)
[2022-12-23] MEDS: amLODIPine 10 MG TAB PO SCH (09:39)
[2022-12-23] MEDS: ENOXAPARIN 40 MG/0.4 ML SYRINGE SQ SCH (09:39)
[2022-12-23] MEDS: metroNIDAZOLE 500 MG TAB PO SCH ×3 (09:39→21:49)
[2022-12-23] MEDS: allopurinoL 100 MG TAB PO SCH (09:39)
[2022-12-23] MEDS: FERROUS SULFATE 325 MG TAB PO SCH (09:39)
[2022-12-23] MEDS: cloNIDine HCL 0.1 MG TAB PO SCH ×3 (09:39→21:49)
[2022-12-23] MEDS: polyethylene glycoL 3350 17 GM POWD.PACK PO SCH (09:39)
--- NOTE | 2022-12-23 10:39 | P.PN ---
Subjective Progress Note Date: 12/23/22 Ian Paulino is a 67 year old male who presented to [facility] with a chief complaint of left foot pain and infection. Patient has been receiving outpatient IV antibiotics of daptomycin and Flagyl and followed with wound care. Per patient's at bedside patient was developing blisters to foot over the past week and having increasing pain prompting the patient to come to ER. Patient has a past medical history of diabetes mellitus, hypertension, chronic kidney disease and previous amputations. Foot x-ray completed showing soft tissue wound overlying the heel without evidence for erosion of the osseous structures. At this time patient will be admitted patient was started on IV antibiotics of Rocephin and daptomycin along with by mouth Flagyl. Vascular surgery also consulted status post debridement with Dr. Armstrong on 12/16/2022. We'll also consult nephrology services for chronic kidney disease. At this time patient is resting comfortably in bed. Patient denies chest pain or shortness of breath. Patient denies nausea vomiting or diarrhea. Patient denies any urinary burning or frequency On 12/17/2022 patient is alert and oriented 3. Patient remains on IV an tibiotics. Followed by nephrology infectious disease and vascular services. At this time patient denies chest pain or shortness breath. Patient denies nausea vomiting or diarrhea. Patient denies any urinary burning or frequency On 12/18/2022 patient is alert and oriented 3. Blood culture positive for gram-negative bacilli. Infectious disease services are following. PICC line placed patient remains on IV Rocephin, daptomycin and Flagyl. Current vital signs temp 98.7, heart rate 62, respiratory rate 16, blood pressure 142/60. On 12/19/2022 patient alert and oriented 3. Awaiting final recommendations per ID in regards to antibiotics. This time patient is resting in chair. Patient denies chest pain or shortness breath. Patient denies nausea vomiting or diarrhea. Patient denies any urinary burning or frequency. Current vital signs temp 98.3, heart rate 69, respiratory 18, blood pressure 156/80 with a pulse ox 97% on room air On 12/20/2022 patient was seen and examined on the medical floor he is alert and oriented 3 in no apparent distress there is no fever or chills no headache or dizziness no chest pain no shortness of breath no cough no nausea or vomiting no abdominal pain no diarrhea no blood in the stools no burning with urination no frequency or urgency and no hematuria, at this time I'm still waiting for further recommendation from infectious disease and vascular surgery, possible discharge tomorrow, if no further intervention is recommended. On 12/21/2022 patient was seen and examined on the medical floor he is alert and oriented 3 in no apparent distress, there is no fever or chills no headache or dizziness no chest pain no shortness of breath no cough no nausea or vomiting no abdominal pain no diarrhea and no urinary symptoms. Patient is scheduled for an angiogram tomorrow per vascular surgery, will continue to follow closely. On 12/22/2022 patient was seen and examined on the medical floor he is alert and oriented 3 in no apparent distress, he underwent lower extremity angiogram today . there is no fever or chills no headache or dizziness no chest pain no shortness of breath no cough no nausea or vomiting no abdominal pain no diarrhea and no urinary symptoms. Patient is scheduled for an angiogram tomorrow per vascular surgery, will continue to follow closely. On 12/23/2022 patient alert and oriented 3. Patient underwent angiogram plans to have a meeting with Dr. Armstrong tomorrow to go over plan. Current vital signs temp 98.3, heart rate 62, respiratory rate 16, blood pressure 156/66 with pulse ox 98% on room air. Patient remains on antibiotics Objective - Vital Signs Vital signs: Vital Signs Temp 98.3 F 12/23/22 09:35 Pulse 62 12/23/22 08:49 Resp 16 12/23/22 09:35 BP 156/66 12/23/22 09:35 Pulse Ox 98 12/23/22 09:35 FiO2 Intake & Output 12/22/22 12/23/22 12/23/22 18:59 06:59 18:59 Intake Total 680 240 Output Total 500 1450 300 Balance 180 -1450 -60 Intake: IV 200 Oral 480 240 Output: Gastric Drainage 0 Urine 500 1450 300 Stool 0 Urine/Stool Mix 0 Emesis 0 Oral Regurgitation 0 Other 0 Other: Voiding Method Urinal # Voids 0 # Bowel Movements 0 - Exam In general patient is alert and oriented x 3 in no distress HEENT head normocephalic and atraumatic Neck is supple no JVD no goiter no lymphadenopathy no carotid bruit Chest examination is clear to auscultation no crackles no wheezing Cardiac exam reveals regular heart sounds S1 and S2 no gallops no murmurs Abdomen is soft nontender no organomegaly with normal bowel sounds Extremity exam reveals no edema no cyanosis or clubbing, Left foot dressing clean dry and intact Neurological examination reveals no gross focal deficits - Labs CBC & Chem 7: 12/23/22 07:15 12/23/22 07:15 Labs: Abnormal Lab Results - Last 24 Hours (Table) 12/22/22 12/22/22 12/22/22 Range/Units 07:26 07:26 20:08 WBC 10.29 H (4.50-10.00) X 10*3/uL RBC 2.88 L (4.40-5.60) X 10*6/uL Hgb 8.1 L (13.0-17.0) d/dL Hct 26.6 L (39.6-50.0) % MCHC 30.5 L (32.0-37.0) d/dL Plt Count (150-450) k/uL MPV 9.0 L (9.5-12.2) FL Neutrophils # 7.95 H (1.80-7.70) X 10*3/uL Sodium (137-145) mmol/L Carbon Dioxide 21.2 L (21.6-31.8) mmol/L BUN 28.9 H (9.0-27.0) mg/dL Creatinine 2.4 H (0.6-1.5) mg/dL Est GFR (CKD-EPI) 29 L (>=60) Glucose 59 L (70-110) mg/dL POC Glucose (mg/dL) 153 H (70-110) mg/dL Calcium 8.5 L (8.7-10.3) mg/dL Total Bilirubin 0.2 L (0.3-1.2) mg/dL Total Protein 5.6 L (6.2-8.2) d/dL Albumin 3.0 L (3.8-4.9) d/dL Albumin/Globulin Ratio 1.15 L (1.60-3.17) Ratio 12/23/22 12/23/22 12/23/22 Range/Units 06:07 07:15 07:15 WBC (4.50-10.00) X 10*3/uL RBC 3.02 L (4.40-5.60) X 10*6/uL Hgb 8.6 L (13.0-17.0) d/dL Hct 28.6 L (39.6-50.0) % MCHC 30.3 L (32.0-37.0) d/dL Plt Count 484 H (150-450) k/uL MPV (9.5-12.2) FL Neutrophils # 8.4 H (1.80-7.70) X 10*3/uL Sodium 134 L (137-145) mmol/L Carbon Dioxide 18 L (21.6-31.8) mmol/L BUN 25 H (9.0-27.0) mg/dL Creatinine 2.30 H (0.6-1.5) mg/dL Est GFR (CKD-EPI) (>=60) Glucose 56 L (70-110) mg/dL POC Glucose (mg/dL) 62 L (70-110) mg/dL Calcium 8.2 L (8.7-10.3) mg/dL Total Bilirubin (0.3-1.2) mg/dL Total Protein 5.9 L (6.2-8.2) d/dL Albumin 2.9 L (3.8-4.9) d/dL Albumin/Globulin Ratio (1.60-3.17) Ratio Assessment and Plan Plan: 1. Left foot diabetic ulceration with failed outpatient treatment with sepsis evident by positive blood culture 2. Chronic kidney disease 3. Diabetes mellitus type 2. A home Lantus dose ordered plus sliding scale coverage 4. Essential hypertension 5. History of right greater toe amputation 6. Obesity 7. Hypothyroidism DVT prophylaxis Lovenox. GI prophylaxis Protonix Vascular, infectious disease and nephrology service is consulted Patient maintained on IV antibiotics of daptomycin Rocephin plus by mouth Flagyl Repeat labs ordered
[2022-12-23 12:10] LABS: Glucose,Whole Blood 105 mg/dL (70-110)
[2022-12-23] MEDS: HYDROcodone/APAP 5-325MG 1 EACH TAB PO PRN (13:52)
[2022-12-23] MEDS: COLLAGENASE 250 UNIT/GM OINTMENT 30 GM TUBE TOPICAL SCH (13:52)
--- NOTE | 2022-12-23 14:23 | P.PN ---
Subjective Progress Note Date: 12/23/22 Follow-up for chronic kidney disease. Objective - Vital Signs Vital signs: Vital Signs Temp 97.8 F 12/23/22 13:00 Pulse 62 12/23/22 13:20 Resp 18 12/23/22 13:00 BP 116/62 12/23/22 13:00 Pulse Ox 100 12/23/22 13:00 FiO2 Intake & Output 12/22/22 12/23/22 12/23/22 18:59 06:59 18:59 Intake Total 680 240 Output Total 500 1450 300 Balance 180 -1450 -60 Intake: IV 200 Oral 480 240 Output: Gastric Drainage 0 Urine 500 1450 300 Stool 0 Urine/Stool Mix 0 Emesis 0 Oral Regurgitation 0 Other 0 Other: Voiding Method Urinal Urinal # Voids 0 # Bowel Movements 0 - Exam No acute distress S1-S2 heard Decreased breath sounds Trace edema Right BKA - Labs CBC & Chem 7: 12/23/22 07:15 12/23/22 07:15 Labs: Abnormal Lab Results - Last 24 Hours (Table) 12/22/22 12/23/22 12/23/22 Range/Units 20:08 06:07 07:15 RBC 3.02 L (4.30-5.90) m/uL Hgb 8.6 L (13.0-17.5) gm/dL Hct 28.6 L (39.0-53.0) % MCHC 30.3 L (31.0-37.0) g/dL Plt Count 484 H (150-450) k/uL Neutrophils # 8.4 H (1.3-7.7) k/uL Sodium (137-145) mmol/L Carbon Dioxide (22-30) mmol/L BUN (9-20) mg/dL Creatinine (0.66-1.25) mg/dL Glucose (74-99) mg/dL POC Glucose (mg/dL) 153 H 62 L (70-110) mg/dL Calcium (8.4-10.2) mg/dL Total Protein (6.3-8.2) g/dL Albumin (3.5-5.0) g/dL 12/23/22 Range/Units 07:15 RBC (4.30-5.90) m/uL Hgb (13.0-17.5) gm/dL Hct (39.0-53.0) % MCHC (31.0-37.0) g/dL Plt Count (150-450) k/uL Neutrophils # (1.3-7.7) k/uL Sodium 134 L (137-145) mmol/L Carbon Dioxide 18 L (22-30) mmol/L BUN 25 H (9-20) mg/dL Creatinine 2.30 H (0.66-1.25) mg/dL Glucose 56 L (74-99) mg/dL POC Glucose (mg/dL) (70-110) mg/dL Calcium 8.2 L (8.4-10.2) mg/dL Total Protein 5.9 L (6.3-8.2) g/dL Albumin 2.9 L (3.5-5.0) g/dL Assessment and Plan Assessment: #1 acute kidney injury secondary to septic ATN. #2 CK D stage IV with a baseline creatinine around 3.0 MG per DL secondary to diabetic nephropathy. #3 left heel wound, tissue cultures growing Proteus and Pseudomonas #4 Proteus bacteremia #5 anemia with chronic kidney disease #6 hypertension with chronic kidney disease Plan: #1 renal function stable, better than baseline. #2 avoid nephrotoxic agents.
[2022-12-23 16:51] LABS: Glucose,Whole Blood 159 mg/dL (70-110)
[2022-12-23 20:31] LABS: Glucose,Whole Blood 108 mg/dL (70-110)
[2022-12-23] MEDS: LORATADINE 10 MG TAB PO SCH (21:49)
[2022-12-23] MEDS: INSULIN DETEMIR (LEVEMIR) 100 UNIT/ML SYR SQ SCH (21:50)
[2022-12-24] MEDS: CEFEPIME 2 GM in SODIUM CHLORIDE 0.9% 100 ML IVPB SCH ×2 (03:36→16:14)
[2022-12-24] MEDS: HYDROcodone/APAP 10-325MG 1 EACH TAB PO SCH ×4 (06:06→23:40)
[2022-12-24 06:20] LABS: Glucose,Whole Blood 100 mg/dL (70-110)
[2022-12-24] MEDS: PANTOPRAZOLE 40 MG TABLET PO SCH (06:58)
[2022-12-24] MEDS: SODIUM CHLORIDE 0.9% 1,000 ML IV SCH (06:58)
[2022-12-24] MEDS: LEVOTHYROXINE 25 MCG TAB PO SCH (06:58)
[2022-12-24] MEDS: INSULIN ASPART (NovoLOG) 100 UNIT/ML VIAL SQ SCH ×4 (06:58→20:54)
[2022-12-24] MEDS: ALBUTEROL NEBULIZED 2.5 MG/3 ML INHALATION PRN ×3 (08:13→21:32)
[2022-12-24] MEDS ORDERED: MAGNESIUM HYDROXIDE 2,400 MG/30 ML CUP PO PRN (09:37)
[2022-12-24] MEDS: hydrALAZINE HCL 50 MG TAB PO SCH ×2 (09:51→20:52)
[2022-12-24] MEDS: FERROUS SULFATE 325 MG TAB PO SCH (09:51)
[2022-12-24] MEDS: DOCUSATE 100 MG CAP PO SCH ×2 (09:51→20:53)
[2022-12-24] MEDS: cloNIDine HCL 0.1 MG TAB PO SCH ×3 (09:51→20:53)
[2022-12-24] MEDS: metroNIDAZOLE 500 MG TAB PO SCH ×3 (09:51→20:53)
[2022-12-24] MEDS: SODIUM BICARBONATE TAB 650 MG TAB PO SCH ×2 (09:51→20:52)
[2022-12-24] MEDS: amLODIPine 10 MG TAB PO SCH (09:52)
[2022-12-24] MEDS: polyethylene glycoL 3350 17 GM POWD.PACK PO SCH (09:52)
[2022-12-24] MEDS: allopurinoL 100 MG TAB PO SCH (09:52)
[2022-12-24] MEDS: ENOXAPARIN 40 MG/0.4 ML SYRINGE SQ SCH (09:52)
[2022-12-24] MEDS: COLLAGENASE 250 UNIT/GM OINTMENT 30 GM TUBE TOPICAL SCH (09:52)
[2022-12-24] MEDS: TAMSULOSIN 0.4 MG CAP.ER.24H PO SCH (09:59)
[2022-12-24 11:40] LABS: Glucose,Whole Blood 122 mg/dL (70-110)
[2022-12-24 12:10] LABS: ALT 20 U/L (4-49); AST 36 U/L (17-59); African American GFR (CKD) 32 (>60 ml/min/1.73 sqM); Albumin 3.5 g/dL (3.5-5.0); Alkaline Phosphatase 126 U/L (38-126); Anion Gap 14 mmol/L; Blood Urea Nitrogen 23 mg/dL (9-20); Calcium 8.8 mg/dL (8.4-10.2); Carbon Dioxide 17 mmol/L (22-30); Chloride 108 mmol/L (98-107); Glucose 118 mg/dL (74-99); Non-African American GFR(CKD) 27 (>60 ml/min/1.73 sqM); Sodium 139 mmol/L (137-145); Total Bilirubin 0.5 mg/dL (0.2-1.3); Total Protein 6.6 g/dL (6.3-8.2)
[2022-12-24 12:36] LABS: Basophils # (A) 0.1 k/uL (0-0.2); Basophils % (A) 0 %; Eosinophils # (A) 0.1 k/uL (0-0.7); Eosinophils % (A) 1 %; HCT 30.2 % (39.0-53.0); HGB 9.6 gm/dL (13.0-17.5); Hypochromasia Moderate; Lymphocytes # (A) 1.2 k/uL (1.0-4.8); Lymphocytes % (A) 10 %; MCH 29.7 pg (25.0-35.0); MCHC 31.9 g/dL (31.0-37.0); MCV 93.3 fL (80.0-100.0); Monocytes # (A) 0.6 k/uL (0-1.0); Monocytes % (A) 5 %; Neutrophils # (A) 10.4 k/uL (1.3-7.7); Neutrophils % (A) 84 %; Platelet Count 470 k/uL (150-450); RBC 3.24 m/uL (4.30-5.90); RDW 14.2 % (11.5-15.5); WBC 12.4 k/uL (3.8-10.6)
--- NOTE | 2022-12-24 12:42 | P.PN ---
Subjective Progress Note Date: 12/23/22 Principal diagnosis: Left heel osteomyelitis/diabetic foot infection Patient is a 67-year-old male with a past medical history significant for diabetes mellitus hypertension patient did have a history of left heel diabetic foot infection underlying osteomyelitis with a culture positive for MRSA patient did have a renal insufficiency and is currently getting daptomycin in the outpatient setting along with oral Flagyl patient is presenting to the ER concerning for increasing discomfort to the left heel area , the patient is status post surgical debridement of the left heel on 12/16/2022. Patient is status post angiogram completed on 12/22/2022 did have evidence of anterior tibial occluded on today's evaluation that is 12/23/2022, the patient continues to be afebrile, the patient is breathing comfortably on room air, the patient denies chest pain or shortness of breath, patient denies any nausea no vomiting no abdominal pain, the patient pain to the left heel has decreased in intensity, Patient did have a white count of 10.5 and creatinine 2.30 today Patient blood culture positive for Proteus, left heel culture positive for Proteus and also growing Pseudomonas, Objective - Vital Signs Vital signs: Vital Signs Temp 98.3 F 12/23/22 09:35 Pulse 62 12/23/22 08:49 Resp 16 12/23/22 09:35 BP 156/66 12/23/22 09:35 Pulse Ox 98 12/23/22 09:35 FiO2 Intake & Output 12/22/22 12/23/22 12/23/22 18:59 06:59 18:59 Intake Total 680 240 Output Total 500 1450 300 Balance 180 -1450 -60 Intake: IV 200 Oral 480 240 Output: Gastric Drainage 0 Urine 500 1450 300 Stool 0 Urine/Stool Mix 0 Emesis 0 Oral Regurgitation 0 Other 0 Other: Voiding Method Urinal # Voids 0 # Bowel Movements 0 - Exam GENERAL DESCRIPTION: An elderly male lying in bed in no distress RESPIRATORY SYSTEM: Unlabored breathing , decreased breath sounds at bases HEART: S1 S2 regular rate and rhythm , ABDOMEN: Soft , no tenderness EXTREMITIES: Left heel wound is currently dressed no drainage on the dressing - Labs CBC & Chem 7: 12/24/22 10:47 12/24/22 10:47 Labs: Abnormal Lab Results - Last 24 Hours (Table) 12/22/22 12/22/22 12/22/22 Range/Units 07:26 07:26 20:08 WBC 10.29 H (4.50-10.00) X 10*3/uL RBC 2.88 L (4.40-5.60) X 10*6/uL Hgb 8.1 L (13.0-17.0) d/dL Hct 26.6 L (39.6-50.0) % MCHC 30.5 L (32.0-37.0) d/dL Plt Count (150-450) k/uL MPV 9.0 L (9.5-12.2) FL Neutrophils # 7.95 H (1.80-7.70) X 10*3/uL Sodium (137-145) mmol/L Carbon Dioxide 21.2 L (21.6-31.8) mmol/L BUN 28.9 H (9.0-27.0) mg/dL Creatinine 2.4 H (0.6-1.5) mg/dL Est GFR (CKD-EPI) 29 L (>=60) Glucose 59 L (70-110) mg/dL POC Glucose (mg/dL) 153 H (70-110) mg/dL Calcium 8.5 L (8.7-10.3) mg/dL Total Bilirubin 0.2 L (0.3-1.2) mg/dL Total Protein 5.6 L (6.2-8.2) d/dL Albumin 3.0 L (3.8-4.9) d/dL Albumin/Globulin Ratio 1.15 L (1.60-3.17) Ratio 12/23/22 12/23/22 12/23/22 Range/Units 06:07 07:15 07:15 WBC (4.50-10.00) X 10*3/uL RBC 3.02 L (4.40-5.60) X 10*6/uL Hgb 8.6 L (13.0-17.0) d/dL Hct 28.6 L (39.6-50.0) % MCHC 30.3 L (32.0-37.0) d/dL Plt Count 484 H (150-450) k/uL MPV (9.5-12.2) FL Neutrophils # 8.4 H (1.80-7.70) X 10*3/uL Sodium 134 L (137-145) mmol/L Carbon Dioxide 18 L (21.6-31.8) mmol/L BUN 25 H (9.0-27.0) mg/dL Creatinine 2.30 H (0.6-1.5) mg/dL Est GFR (CKD-EPI) (>=60) Glucose 56 L (70-110) mg/dL POC Glucose (mg/dL) 62 L (70-110) mg/dL Calcium 8.2 L (8.7-10.3) mg/dL Total Bilirubin (0.3-1.2) mg/dL Total Protein 5.9 L (6.2-8.2) d/dL Albumin 2.9 L (3.8-4.9) d/dL Albumin/Globulin Ratio (1.60-3.17) Ratio Assessment and Plan (1) Gram-negative bacteremia Current Visit: Yes Status: Acute Code(s): R78.81 - BACTEREMIA SNOMED Code(s): 352405679448 (2) Diabetic foot ulcer associated with type 2 diabetes mellitus, with fat layer exposed Current Visit: Yes Status: Acute Code(s): E11.621 - TYPE 2 DIABETES MELLITUS WITH FOOT ULCER; L97.502 - NON-PRS CHRONIC ULCER OTH PRT UNSP FOOT W FAT LAYER EXPOSED SNOMED Code(s): 4037481820515 (3) Failure of outpatient treatment Current Visit: Yes Status: Acute Code(s): Z78.9 - OTHER SPECIFIED HEALTH STATUS SNOMED Code(s): 608248505 (4) Foot osteomyelitis, left Current Visit: Yes Status: Acute Code(s): M86.9 - OSTEOMYELITIS, UNSPECIFIED SNOMED Code(s): 6094981435074609 Plan: 1patient with extensive left heel diabetic foot infection in this patient with recent outpatient culture positive for MRSA and the patient was getting daptomycin and oral Flagyl for it subsequently the patient did have a culture done on 12/10/2022 that did grew Proteus mirabilis now with worsening of cellulitis and necrotic changes patient did have a elevated white count no bony changes were noticed on the x-ray however concern of possible for deep infection , patient is status post surgical debridement and deep culture which are currently growing gram-negative 2-patient with Proteus bacteremia source is likely left heel osteomyelitis, bl ood cultures has been repeated from the PICC line and peripherally which are negative so far 3patient left heel cultures are growing Proteus as well as Pseudomonas aeruginosa, patient did have angiogram with evidence of occlusion possibility responsible for nonhealing of this wound await further recommendation from vascular surgery 4-patient to continue with the current treatment of daptomycin along with cefepime and Flagyl, prognosis is very guarded discussed with the family Dictation was produced using [employer] dictation software. please excuse any grammatical, word or spelling errors. Time with Patient: Less than 30
--- NOTE | 2022-12-24 12:45 | P.PN ---
Subjective Progress Note Date: 12/24/22 Principal diagnosis: Left heel osteomyelitis/diabetic foot infection Patient is a 67-year-old male with a past medical history significant for diabetes mellitus hypertension patient did have a history of left heel diabetic foot infection underlying osteomyelitis with a culture positive for MRSA patient did have a renal insufficiency and is currently getting daptomycin in the outpatient setting along with oral Flagyl patient is presenting to the ER concerning for increasing discomfort to the left heel area , the patient is status post surgical debridement of the left heel on 12/16/2022. Patient is status post angiogram completed on 12/22/2022 did have evidence of anterior tibial occluded on today's evaluation that is 12/24/2022, the patient remains to be afebrile, the patient is breathing comfortably on room air, the patient denies chest pain or shortness of breath, patient denies any nausea no vomiting no abdominal pain, the patient pain to the left heel is currently controlled has been complaining of some drainage in the wound Patient did have a white count is slightly up to 12.4 today and creatinine is up to 2.40 today Patient blood culture positive for Proteus, repeat blood culture has been negative left heel culture positive for Proteus and also growing Pseudomonas, Objective - Vital Signs Vital signs: Vital Signs Temp 98.3 F 12/24/22 08:42 Pulse 58 L 12/24/22 12:19 Resp 18 12/24/22 12:19 BP 158/65 12/24/22 12:19 Pulse Ox 98 12/24/22 12:19 FiO2 Intake & Output 12/23/22 12/24/22 12/24/22 18:59 06:59 18:59 Intake Total 720 358 Output Total 1350 1280 Balance -630 -1280 358 Weight 103 kg Intake: Oral 720 358 Output: Urine 1350 1280 Other: Voiding Method Urinal Urinal Urinal # Bowel Movements 1 - Exam GENERAL DESCRIPTION: An elderly male lying in bed in no distress RESPIRATORY SYSTEM: Unlabored breathing , decreased breath sounds at bases HEART: S1 S2 regular rate and rhythm , ABDOMEN: Soft , no tenderness EXTREMITIES: Left heel wound is currently dressed no drainage on the dressing - Labs CBC & Chem 7: 12/24/22 10:47 12/24/22 10:47 Labs: Abnormal Lab Results - Last 24 Hours (Table) 12/23/22 12/24/22 12/24/22 Range/Units 16:49 10:47 10:47 WBC 12.4 H (3.8-10.6) k/uL RBC 3.24 L (4.30-5.90) m/uL Hgb 9.6 L (13.0-17.5) gm/dL Hct 30.2 L (39.0-53.0) % Plt Count 470 H (150-450) k/uL Neutrophils # 10.4 H (1.3-7.7) k/uL Chloride 108 H (98-107) mmol/L Carbon Dioxide 17 L (22-30) mmol/L BUN 23 H (9-20) mg/dL Creatinine 2.40 H (0.66-1.25) mg/dL Glucose 118 H (74-99) mg/dL POC Glucose (mg/dL) 159 H (70-110) mg/dL 12/24/22 Range/Units 11:35 WBC (3.8-10.6) k/uL RBC (4.30-5.90) m/uL Hgb (13.0-17.5) gm/dL Hct (39.0-53.0) % Plt Count (150-450) k/uL Neutrophils # (1.3-7.7) k/uL Chloride (98-107) mmol/L Carbon Dioxide (22-30) mmol/L BUN (9-20) mg/dL Creatinine (0.66-1.25) mg/dL Glucose (74-99) mg/dL POC Glucose (mg/dL) 122 H (70-110) mg/dL Microbiology - Last 24 Hours (Table) 12/18/22 11:00 Blood Culture - Final Blood 12/18/22 10:45 Blood Culture - Final Blood Assessment and Plan (1) Gram-negative bacteremia Current Visit: Yes Status: Acute Code(s): R78.81 - BACTEREMIA SNOMED Code(s): 712454552624 (2) Diabetic foot ulcer associated with type 2 diabetes mellitus, with fat layer exposed Current Visit: Yes Status: Acute Code(s): E11.621 - TYPE 2 DIABETES MELLITUS WITH FOOT ULCER; L97.502 - NON-PRS CHRONIC ULCER OTH PRT UNSP FOOT W FAT LAYER EXPOSED SNOMED Code(s): 7920279816923 (3) Failure of outpatient treatment Current Visit: Yes Status: Acute Code(s): Z78.9 - OTHER SPECIFIED HEALTH STATUS SNOMED Code(s): 916628531 (4) Foot osteomyelitis, left Current Visit: Yes Status: Acute Code(s): M86.9 - OSTEOMYELITIS, UNSPECIFIED SNOMED Code(s): 6688343809360947 Plan: 1patient with extensive left heel diabetic foot infection in this patient with recent outpatient culture positive for MRSA and the patient was getting daptomy thomas and oral Flagyl for it subsequently the patient did have a culture done on 12/10/2022 that did grew Proteus mirabilis now with worsening of cellulitis and necrotic changes patient did have a elevated white count no bony changes were noticed on the x-ray however concern of possible for deep infection , patient is status post surgical debridement and deep culture which are currently growing gram-negative 2-patient with Proteus bacteremia source is likely left heel osteomyelitis, blood cultures has been repeated from the PICC line and peripherally which are negative so far 3patient left heel cultures are growing Proteus as well as Pseudomonas aeruginosa, patient did have angiogram with evidence of occlusion possibility responsible for nonhealing of this wound , and discussed in detail with the vascular surgery waiting for possible revascularization versus amputation 4-patient to continue with the current treatment of daptomycin along with cefepime and Flagyl, prognosis is guarded as for his limb salvage questions and concerns were answered Dictation was produced using [employer] dictation software. please excuse any grammatical, word or spelling errors. Time with Patient: Less than 30
[2022-12-24] MEDS: ALPRAZolam 0.5 MG TAB PO PRN ×2 (13:44→20:53)
--- NOTE | 2022-12-24 13:46 | P.PN ---
Subjective Patient is seen for follow-up for chronic kidney disease. Renal function has been stable with serum creatinine staying at about 2.4 mg/dL. Patient has been voiding. Maintained on IV fluids. Tolerating oral intake. Blood pressure is not low. Objective - Vital Signs Vital signs: Vital Signs Temp 98.3 F 12/24/22 08:42 Pulse 58 L 12/24/22 12:19 Resp 18 12/24/22 12:19 BP 158/65 12/24/22 12:19 Pulse Ox 98 12/24/22 12:19 FiO2 Intake & Output 12/23/22 12/24/22 12/24/22 18:59 06:59 18:59 Intake Total 720 358 Output Total 1350 1280 Balance -630 -1280 358 Weight 103 kg Intake: Oral 720 358 Output: Urine 1350 1280 Other: Voiding Method Urinal Urinal Urinal # Bowel Movements 1 - Exam Awake, comfortable, no acute distress Examination of the heart S1 and S2 Examination of the lungs bilateral breath sounds are heard Abdomen is soft nontender Examination lower extremities shows right AKA and left leg is wrapped - Labs CBC & Chem 7: 12/24/22 10:47 12/24/22 10:47 Labs: Abnormal Lab Results - Last 24 Hours (Table) 12/23/22 12/24/22 12/24/22 Range/Units 16:49 10:47 10:47 WBC 12.4 H (3.8-10.6) k/uL RBC 3.24 L (4.30-5.90) m/uL Hgb 9.6 L (13.0-17.5) gm/dL Hct 30.2 L (39.0-53.0) % Plt Count 470 H (150-450) k/uL Neutrophils # 10.4 H (1.3-7.7) k/uL Chloride 108 H (98-107) mmol/L Carbon Dioxide 17 L (22-30) mmol/L BUN 23 H (9-20) mg/dL Creatinine 2.40 H (0.66-1.25) mg/dL Glucose 118 H (74-99) mg/dL POC Glucose (mg/dL) 159 H (70-110) mg/dL 12/24/22 Range/Units 11:35 WBC (3.8-10.6) k/uL RBC (4.30-5.90) m/uL Hgb (13.0-17.5) gm/dL Hct (39.0-53.0) % Plt Count (150-450) k/uL Neutrophils # (1.3-7.7) k/uL Chloride (98-107) mmol/L Carbon Dioxide (22-30) mmol/L BUN (9-20) mg/dL Creatinine (0.66-1.25) mg/dL Glucose (74-99) mg/dL POC Glucose (mg/dL) 122 H (70-110) mg/dL Microbiology - Last 24 Hours (Table) 12/18/22 11:00 Blood Culture - Final Blood 12/18/22 10:45 Blood Culture - Final Blood Assessment and Plan Assessment: 1. Acute kidney injury likely ATN, nonoliguric currently maintained on IV fluids. 2. Chronic kidney disease NKF stage IV with baseline creatinine 2.7-3.3 mg/dL. Etiology is likely nephrosclerosis. 3. Left ankle wound/diabetic ulcer 4. History of right AKA 5. Non-gap metabolic acidosis secondary to tonic kidney disease/acute kidney injury Plan: Change IV fluids to IV bicarb Encourage increased oral intake Continue with antibiotics Repeat labs in a.m.
[2022-12-24] MEDS: DEXTROSE 5% IN WATER 1,000 ML with SODIUM BICARB (1 MEQ/ML) 150 ML IV SCH (14:42)
--- NOTE | 2022-12-24 14:54 | P.PN ---
Progress Note - Text Patient has a wound left foot involving the heel and medial lateral aspect of the foot. Patient is an IV antibiotic and local wound care we've been using Santyl cream we'll do the left leg angiogram 22 zion occluded posterior tibial was visualize to the ankle and that aspect of the foot there is some mild atherosclerotic risk O some disease noted on the popliteal artery. I have discussed the films with Dr. Geraldo Cheema patient is a candidate for atherectomy with angioplasty continue with local wound care and IV antibiotic
[2022-12-24 16:38] LABS: Glucose,Whole Blood 133 mg/dL (70-110)
--- NOTE | 2022-12-24 17:43 | P.PN ---
Subjective Progress Note Date: 12/24/22 Ian Paulino is a 67 year old male who presented to [facility] with a chief complaint of left foot pain and infection. Patient has been receiving outpatient IV antibiotics of daptomycin and Flagyl and followed with wound care. Per patient's at bedside patient was developing blisters to foot over the past week and having increasing pain prompting the patient to come to ER. Patient has a past medical history of diabetes mellitus, hypertension, chronic kidney disease and previous amputations. Foot x-ray completed showing soft tissue wound overlying the heel without evidence for erosion of the osseous structures. At this time patient will be admitted patient was started on IV antibiotics of Rocephin and daptomycin along with by mouth Flagyl. Vascular surgery also consulted status post debridement with Dr. Armstrong on 12/16/2022. We'll also consult nephrology services for chronic kidney disease. At this time patient is resting comfortably in bed. Patient denies chest pain or shortness of breath. Patient denies nausea vomiting or diarrhea. Patient denies any urinary burning or frequency On 12/17/2022 patient is alert and oriented 3. Patient remains on IV an tibiotics. Followed by nephrology infectious disease and vascular services. At this time patient denies chest pain or shortness breath. Patient denies nausea vomiting or diarrhea. Patient denies any urinary burning or frequency On 12/18/2022 patient is alert and oriented 3. Blood culture positive for gram-negative bacilli. Infectious disease services are following. PICC line placed patient remains on IV Rocephin, daptomycin and Flagyl. Current vital signs temp 98.7, heart rate 62, respiratory rate 16, blood pressure 142/60. On 12/19/2022 patient alert and oriented 3. Awaiting final recommendations per ID in regards to antibiotics. This time patient is resting in chair. Patient denies chest pain or shortness breath. Patient denies nausea vomiting or diarrhea. Patient denies any urinary burning or frequency. Current vital signs temp 98.3, heart rate 69, respiratory 18, blood pressure 156/80 with a pulse ox 97% on room air On 12/20/2022 patient was seen and examined on the medical floor he is alert and oriented 3 in no apparent distress there is no fever or chills no headache or dizziness no chest pain no shortness of breath no cough no nausea or vomiting no abdominal pain no diarrhea no blood in the stools no burning with urination no frequency or urgency and no hematuria, at this time I'm still waiting for further recommendation from infectious disease and vascular surgery, possible discharge tomorrow, if no further intervention is recommended. On 12/21/2022 patient was seen and examined on the medical floor he is alert and oriented 3 in no apparent distress, there is no fever or chills no headache or dizziness no chest pain no shortness of breath no cough no nausea or vomiting no abdominal pain no diarrhea and no urinary symptoms. Patient is scheduled for an angiogram tomorrow per vascular surgery, will continue to follow closely. On 12/22/2022 patient was seen and examined on the medical floor he is alert and oriented 3 in no apparent distress, he underwent lower extremity angiogram today . there is no fever or chills no headache or dizziness no chest pain no shortness of breath no cough no nausea or vomiting no abdominal pain no diarrhea and no urinary symptoms. Patient is scheduled for an angiogram tomorrow per vascular surgery, will continue to follow closely. On 12/23/2022 patient alert and oriented 3. Patient underwent angiogram plans to have a meeting with Dr. Armstrong tomorrow to go over plan. Current vital signs temp 98.3, heart rate 62, respiratory rate 16, blood pressure 156/66 with pulse ox 98% on room air. Patient remains on antibiotics. On 12/24/2022 patient was seen and examined on the medical floor he is alert and oriented 3 in no apparent distress he is still complaining of constipation otherwise he denies any complaints, there is no fever or chills no headache or dizziness no chest pain no shortness of breath no cough no nausea or vomiting no abdominal pain no diarrhea no blood in the stools no burning with urination no frequency or urgency and no hematuria. Objective - Vital Signs Vital signs: Vital Signs Temp 98.3 F 12/24/22 08:42 Pulse 58 L 12/24/22 12:19 Resp 18 12/24/22 12:19 BP 158/65 12/24/22 12:19 Pulse Ox 98 12/24/22 12:19 FiO2 Intake & Output 12/23/22 12/24/22 12/24/22 18:59 06:59 18:59 Intake Total 720 358 Output Total 1350 1280 Balance -630 -1280 358 Weight 103 kg Intake: Oral 720 358 Output: Urine 1350 1280 Other: Voiding Method Urinal Urinal Urinal # Bowel Movements 1 - Exam In general patient is alert and oriented x 3 in no distress HEENT head normocephalic and atraumatic Neck is supple no JVD no goiter no lymphadenopathy no carotid bruit Chest examination is clear to auscultation no crackles no wheezing Cardiac exam reveals regular heart sounds S1 and S2 no gallops no murmurs Abdomen is soft nontender no organomegaly with normal bowel sounds Extremity exam reveals no edema no cyanosis or clubbing, Left foot dressing clean dry and intact Neurological examination reveals no gross focal deficits - Labs CBC & Chem 7: 12/24/22 10:47 12/24/22 10:47 Labs: Abnormal Lab Results - Last 24 Hours (Table) 12/23/22 12/24/22 12/24/22 Range/Units 16:49 10:47 10:47 WBC 12.4 H (3.8-10.6) k/uL RBC 3.24 L (4.30-5.90) m/uL Hgb 9.6 L (13.0-17.5) gm/dL Hct 30.2 L (39.0-53.0) % Plt Count 470 H (150-450) k/uL Neutrophils # 10.4 H (1.3-7.7) k/uL Chloride 108 H (98-107) mmol/L Carbon Dioxide 17 L (22-30) mmol/L BUN 23 H (9-20) mg/dL Creatinine 2.40 H (0.66-1.25) mg/dL Glucose 118 H (74-99) mg/dL POC Glucose (mg/dL) 159 H (70-110) mg/dL 12/24/22 Range/Units 11:35 WBC (3.8-10.6) k/uL RBC (4.30-5.90) m/uL Hgb (13.0-17.5) gm/dL Hct (39.0-53.0) % Plt Count (150-450) k/uL Neutrophils # (1.3-7.7) k/uL Chloride (98-107) mmol/L Carbon Dioxide (22-30) mmol/L BUN (9-20) mg/dL Creatinine (0.66-1.25) mg/dL Glucose (74-99) mg/dL POC Glucose (mg/dL) 122 H (70-110) mg/dL Microbiology - Last 24 Hours (Table) 12/18/22 11:00 Blood Culture - Final Blood 12/18/22 10:45 Blood Culture - Final Blood Assessment and Plan Plan: 1. Left foot diabetic ulceration with failed outpatient treatment with sepsis evident by positive blood culture 2. Chronic kidney disease 3. Diabetes mellitus type 2. A home Lantus dose ordered plus sliding scale coverage 4. Essential hypertension 5. History of right greater toe amputation 6. Obesity 7. Hypothyroidism DVT prophylaxis Lovenox. GI prophylaxis Protonix Vascular, infectious disease and nephrology service is consulted Patient maintained on IV antibiotics of daptomycin Rocephin plus by mouth Flagyl Repeat labs ordered
[2022-12-24 20:01] LABS: Glucose,Whole Blood 165 mg/dL (70-110)
[2022-12-24] MEDS: INSULIN DETEMIR (LEVEMIR) 100 UNIT/ML SYR SQ SCH (20:53)
[2022-12-24] MEDS: LORATADINE 10 MG TAB PO SCH (20:53)
[2022-12-25] MEDS: CEFEPIME 2 GM in SODIUM CHLORIDE 0.9% 100 ML IVPB SCH ×2 (04:13→15:47)
[2022-12-25 05:55] LABS: Glucose,Whole Blood 73 mg/dL (70-110)
[2022-12-25] MEDS: INSULIN ASPART (NovoLOG) 100 UNIT/ML VIAL SQ SCH ×4 (05:55→21:11)
[2022-12-25] MEDS: LEVOTHYROXINE 25 MCG TAB PO SCH (06:29)
[2022-12-25] MEDS: PANTOPRAZOLE 40 MG TABLET PO SCH (06:29)
[2022-12-25 08:47] LABS: Basophils % (A) 0 %; Eosinophils # (A) 0.1 k/uL (0-0.7); Eosinophils % (A) 1 %; HCT 27.6 % (39.0-53.0); HGB 8.8 gm/dL (13.0-17.5); Hypochromasia Slight; Lymphocytes # (A) 1.6 k/uL (1.0-4.8); Lymphocytes % (A) 15 %; MCH 29.6 pg (25.0-35.0); MCHC 31.9 g/dL (31.0-37.0); Mean Platelet Volume 7.2; Monocytes # (A) 0.7 k/uL (0-1.0); Monocytes % (A) 7 %; Neutrophils % (A) 76 %; Platelet Count 450 k/uL (150-450); RBC 2.97 m/uL (4.30-5.90); RDW 14.4 % (11.5-15.5); WBC 10.5 k/uL (3.8-10.6)
[2022-12-25] MEDS: ALBUTEROL NEBULIZED 2.5 MG/3 ML INHALATION PRN ×3 (08:54→20:55)
[2022-12-25 09:00] LABS: ALT 21 U/L (4-49); AST 44 U/L (17-59); African American GFR (CKD) 31 (>60 ml/min/1.73 sqM); Albumin 3.1 g/dL (3.5-5.0); Alkaline Phosphatase 102 U/L (38-126); Anion Gap 6 mmol/L; Blood Urea Nitrogen 22 mg/dL (9-20); Calcium 8.6 mg/dL (8.4-10.2); Carbon Dioxide 24 mmol/L (22-30); Chloride 106 mmol/L (98-107); Glucose 62 mg/dL (74-99); Non-African American GFR(CKD) 27 (>60 ml/min/1.73 sqM); Potassium 5.3 mmol/L (3.5-5.1); Sodium 136 mmol/L (137-145); Total Bilirubin 0.6 mg/dL (0.2-1.3)
[2022-12-25] MEDS: ENOXAPARIN 40 MG/0.4 ML SYRINGE SQ SCH (09:38)
[2022-12-25] MEDS: polyethylene glycoL 3350 17 GM POWD.PACK PO SCH (09:39)
[2022-12-25] MEDS: amLODIPine 10 MG TAB PO SCH (09:39)
[2022-12-25] MEDS: hydrALAZINE HCL 50 MG TAB PO SCH ×2 (09:39→21:10)
[2022-12-25] MEDS: metroNIDAZOLE 500 MG TAB PO SCH ×3 (09:39→21:10)
[2022-12-25] MEDS: SODIUM BICARBONATE TAB 650 MG TAB PO SCH ×2 (09:39→21:10)
[2022-12-25] MEDS: TAMSULOSIN 0.4 MG CAP.ER.24H PO SCH (09:39)
[2022-12-25] MEDS: HYDROcodone/APAP 10-325MG 1 EACH TAB PO SCH ×3 (09:39→23:28)
[2022-12-25] MEDS: allopurinoL 100 MG TAB PO SCH (09:39)
[2022-12-25] MEDS: DOCUSATE 100 MG CAP PO SCH ×2 (09:39→21:10)
[2022-12-25] MEDS: FERROUS SULFATE 325 MG TAB PO SCH (09:39)
[2022-12-25] MEDS: ESCITALOPRAM 10 MG TAB PO SCH (09:39)
[2022-12-25] MEDS: cloNIDine HCL 0.1 MG TAB PO SCH ×3 (09:40→21:15)
[2022-12-25] MEDS: COLLAGENASE 250 UNIT/GM OINTMENT 30 GM TUBE TOPICAL SCH (09:40)
[2022-12-25 11:59] LABS: Glucose,Whole Blood 104 mg/dL (70-110)
--- NOTE | 2022-12-25 12:34 | P.PN ---
Subjective Patient is seen for follow-up for chronic kidney disease. Renal function has been stable with serum creatinine staying at about 2.4 mg/dL. Patient has been voiding. Maintained on IV fluids. Tolerating oral intake. Blood pressure is not low. Being considered for left BKA versus AKA Objective - Vital Signs Vital signs: Vital Signs Temp 98 F 12/25/22 09:35 Pulse 60 12/25/22 09:35 Resp 18 12/25/22 09:35 BP 157/69 12/25/22 09:35 Pulse Ox 99 12/25/22 09:35 FiO2 Intake & Output 12/24/22 12/25/22 12/25/22 18:59 06:59 18:59 Intake Total 1094 Output Total 525 600 Balance 569 -600 Intake: Oral 1094 Output: Urine 525 600 Other: Voiding Method Urinal Urinal Urinal # Bowel Movements 1 - Exam Awake, comfortable, no acute distress Examination of the heart S1 and S2 Examination of the lungs bilateral breath sounds are heard Abdomen is soft nontender Examination lower extremities shows right AKA and left leg is wrapped - Labs CBC & Chem 7: 12/25/22 08:01 12/25/22 08:01 Labs: Abnormal Lab Results - Last 24 Hours (Table) 12/24/22 12/24/22 12/24/22 Range/Units 10:47 16:34 19:59 WBC 12.4 H (3.8-10.6) k/uL RBC 3.24 L (4.30-5.90) m/uL Hgb 9.6 L (13.0-17.5) gm/dL Hct 30.2 L (39.0-53.0) % Plt Count 470 H (150-450) k/uL Neutrophils # 10.4 H (1.3-7.7) k/uL Sodium (137-145) mmol/L Potassium (3.5-5.1) mmol/L BUN (9-20) mg/dL Creatinine (0.66-1.25) mg/dL Glucose (74-99) mg/dL POC Glucose (mg/dL) 133 H 165 H (70-110) mg/dL Total Protein (6.3-8.2) g/dL Albumin (3.5-5.0) g/dL 08/01/23 08/01/23 Range/Units 08:01 08:01 WBC (3.8-10.6) k/uL RBC 2.97 L (4.30-5.90) m/uL Hgb 8.8 L (13.0-17.5) gm/dL Hct 27.6 L (39.0-53.0) % Plt Count (150-450) k/uL Neutrophils # 8.0 H (1.3-7.7) k/uL Sodium 136 L (137-145) mmol/L Potassium 5.3 H (3.5-5.1) mmol/L BUN 22 H (9-20) mg/dL Creatinine 2.42 H (0.66-1.25) mg/dL Glucose 62 L (74-99) mg/dL POC Glucose (mg/dL) (70-110) mg/dL Total Protein 6.0 L (6.3-8.2) g/dL Albumin 3.1 L (3.5-5.0) g/dL Assessment and Plan Assessment: 1. Acute kidney injury likely ATN, nonoliguric currently maintained on IV fluids. Serum creatinine is stable at 2.4 mg/dL 2. Chronic kidney disease NKF stage IV with baseline creatinine 2.7-3.3 mg/dL. Etiology is likely nephrosclerosis. 3. Left ankle wound/diabetic ulcer 4. History of right AKA 5. Non-gap metabolic acidosis secondary to chronic kidney disease/acute kidney injury Plan: DC IV bicarb Continue with oral sodium bicarb Encourage increased oral intake Low potassium diet Continue with antibiotics Repeat labs in a.m.
[2022-12-25] MEDS: DEXTROSE 5% IN WATER 1,000 ML with SODIUM BICARB (1 MEQ/ML) 150 ML IV SCH (14:36)
--- NOTE | 2022-12-25 15:04 | P.PN ---
Subjective Progress Note Date: 12/25/22 Principal diagnosis: Left heel osteomyelitis/diabetic foot infection Patient is a 67-year-old male with a past medical history significant for diabetes mellitus hypertension patient did have a history of left heel diabetic foot infection underlying osteomyelitis with a culture positive for MRSA patient did have a renal insufficiency and is currently getting daptomycin in the outpatient setting along with oral Flagyl patient is presenting to the ER concerning for increasing discomfort to the left heel area , the patient is status post surgical debridement of the left heel on 12/16/2022. Patient is status post angiogram completed on 12/22/2022 did have evidence of anterior tibial occluded on today's evaluation that is 12/25/2022, the patient continues to be afebrile, the patient is breathing comfortably on room air, the patient denies chest pain or shortness of breath, patient denies any nausea no vomiting no abdominal pain, the patient pain to the left heel is controlled with the current medication and no new symptoms Patient did have a white count is down to 10.5 today and creatinine is up to 2.42 today Patient blood culture positive for Proteus, repeat blood culture has been negative left heel culture positive for Proteus and also growing Pseudomonas, Objective - Vital Signs Vital signs: Vital Signs Temp 98 F 12/25/22 09:35 Pulse 60 12/25/22 09:35 Resp 18 12/25/22 09:35 BP 157/69 12/25/22 09:35 Pulse Ox 99 12/25/22 09:35 FiO2 Intake & Output 12/24/22 12/25/22 12/25/22 18:59 06:59 18:59 Intake Total 1094 240 Output Total 525 600 Balance 569 -600 240 Intake: Oral 1094 240 Output: Urine 525 600 Other: Voiding Method Urinal Urinal Urinal # Bowel Movements 1 - Exam GENERAL DESCRIPTION: An elderly male lying in bed in no distress RESPIRATORY SYSTEM: Unlabored breathing , decreased breath sounds at bases HEART: S1 S2 regular rate and rhythm , ABDOMEN: Soft , no tenderness EXTREMITIES: Left heel wound is currently dressed no drainage on the dressing - Labs CBC & Chem 7: 12/25/22 08:01 12/25/22 08:01 Labs: Abnormal Lab Results - Last 24 Hours (Table) 12/24/22 12/24/22 12/25/22 Range/Units 16:34 19:59 08:01 RBC 2.97 L (4.30-5.90) m/uL Hgb 8.8 L (13.0-17.5) gm/dL Hct 27.6 L (39.0-53.0) % Neutrophils # 8.0 H (1.3-7.7) k/uL Sodium (137-145) mmol/L Potassium (3.5-5.1) mmol/L BUN (9-20) mg/dL Creatinine (0.66-1.25) mg/dL Glucose (74-99) mg/dL POC Glucose (mg/dL) 133 H 165 H (70-110) mg/dL Total Protein (6.3-8.2) g/dL Albumin (3.5-5.0) g/dL 12/25/22 Range/Units 08:01 RBC (4.30-5.90) m/uL Hgb (13.0-17.5) gm/dL Hct (39.0-53.0) % Neutrophils # (1.3-7.7) k/uL Sodium 136 L (137-145) mmol/L Potassium 5.3 H (3.5-5.1) mmol/L BUN 22 H (9-20) mg/dL Creatinine 2.42 H (0.66-1.25) mg/dL Glucose 62 L (74-99) mg/dL POC Glucose (mg/dL) (70-110) mg/dL Total Protein 6.0 L (6.3-8.2) g/dL Albumin 3.1 L (3.5-5.0) g/dL Assessment and Plan (1) Gram-negative bacteremia Current Visit: Yes Status: Acute Code(s): R78.81 - BACTEREMIA SNOMED Code(s): 821175969058 (2) Diabetic foot ulcer associated with type 2 diabetes mellitus, with fat layer exposed Current Visit: Yes Status: Acute Code(s): E11.621 - TYPE 2 DIABETES MELLITUS WITH FOOT ULCER; L97.502 - NON-PRS CHRONIC ULCER OTH PRT UNSP FOOT W FAT LAYER EXPOSED SNOMED Code(s): 4784318652966 (3) Failure of outpatient treatment Current Visit: Yes Status: Acute Code(s): Z78.9 - OTHER SPECIFIED HEALTH STATUS SNOMED Code(s): 123134773 (4) Foot osteomyelitis, left Current Visit: Yes Status: Acute Code(s): M86.9 - OSTEOMYELITIS, UNSPECIFIED SNOMED Code(s): 8743680300944464 Plan: 1patient with extensive left heel diabetic foot infection in this patient with recent outpatient culture positive for MRSA and the patient was getting daptomycin and oral Flagyl for it subsequently the patient did have a culture done on 12/10/2022 that did grew Proteus mirabilis now with worsening of cellulitis and necrotic changes patient did have a elevated white count no bony changes were noticed on the x-ray however concern of possible for deep infection , patient is status post surgical debridement and deep culture which are currently growing gram-negative 2-patient with Proteus bacteremia source is likely left heel osteomyelitis, blood cultures has been repeated from the PICC line and peripherally which are negative so far 3patient left heel cultures are growing Proteus as well as Pseudomonas aeruginosa, patient did have angiogram with evidence of occlusion possibility responsible for nonhealing of this wound , plan is for possible [id number] amputation this admission as per discussion with the patient and the 4-patient to continue with the current treatment of daptomycin along with cefepime and Flagyl, and the patient undergoes amputation will more likely not need any antibiotics on discharge Dictation was produced using [employer] dictation software. please excuse any grammatical, word or spelling errors. Time with Patient: Less than 30
[2022-12-25 17:01] LABS: Glucose,Whole Blood 139 mg/dL (70-110)
--- NOTE | 2022-12-25 17:32 | P.PN ---
Subjective Progress Note Date: 12/25/22 Ian Paulino is a 67 year old male who presented to [facility] with a chief complaint of left foot pain and infection. Patient has been receiving outpatient IV antibiotics of daptomycin and Flagyl and followed with wound care. Per patient's at bedside patient was developing blisters to foot over the past week and having increasing pain prompting the patient to come to ER. Patient has a past medical history of diabetes mellitus, hypertension, chronic kidney disease and previous amputations. Foot x-ray completed showing soft tissue wound overlying the heel without evidence for erosion of the osseous structures. At this time patient will be admitted patient was started on IV antibiotics of Rocephin and daptomycin along with by mouth Flagyl. Vascular surgery also consulted status post debridement with Dr. Armstrong on 12/16/2022. We'll also consult nephrology services for chronic kidney disease. At this time patient is resting comfortably in bed. Patient denies chest pain or shortness of breath. Patient denies nausea vomiting or diarrhea. Patient denies any urinary burning or frequency On 12/17/2022 patient is alert and oriented 3. Patient remains on IV an tibiotics. Followed by nephrology infectious disease and vascular services. At this time patient denies chest pain or shortness breath. Patient denies nausea vomiting or diarrhea. Patient denies any urinary burning or frequency On 12/18/2022 patient is alert and oriented 3. Blood culture positive for gram-negative bacilli. Infectious disease services are following. PICC line placed patient remains on IV Rocephin, daptomycin and Flagyl. Current vital signs temp 98.7, heart rate 62, respiratory rate 16, blood pressure 142/60. On 12/19/2022 patient alert and oriented 3. Awaiting final recommendations per ID in regards to antibiotics. This time patient is resting in chair. Patient denies chest pain or shortness breath. Patient denies nausea vomiting or diarrhea. Patient denies any urinary burning or frequency. Current vital signs temp 98.3, heart rate 69, respiratory 18, blood pressure 156/80 with a pulse ox 97% on room air On 12/20/2022 patient was seen and examined on the medical floor he is alert and oriented 3 in no apparent distress there is no fever or chills no headache or dizziness no chest pain no shortness of breath no cough no nausea or vomiting no abdominal pain no diarrhea no blood in the stools no burning with urination no frequency or urgency and no hematuria, at this time I'm still waiting for further recommendation from infectious disease and vascular surgery, possible discharge tomorrow, if no further intervention is recommended. On 12/21/2022 patient was seen and examined on the medical floor he is alert and oriented 3 in no apparent distress, there is no fever or chills no headache or dizziness no chest pain no shortness of breath no cough no nausea or vomiting no abdominal pain no diarrhea and no urinary symptoms. Patient is scheduled for an angiogram tomorrow per vascular surgery, will continue to follow closely. On 12/22/2022 patient was seen and examined on the medical floor he is alert and oriented 3 in no apparent distress, he underwent lower extremity angiogram today . there is no fever or chills no headache or dizziness no chest pain no shortness of breath no cough no nausea or vomiting no abdominal pain no diarrhea and no urinary symptoms. Patient is scheduled for an angiogram tomorrow per vascular surgery, will continue to follow closely. On 12/23/2022 patient alert and oriented 3. Patient underwent angiogram plans to have a meeting with Dr. Armstrong tomorrow to go over plan. Current vital signs temp 98.3, heart rate 62, respiratory rate 16, blood pressure 156/66 with pulse ox 98% on room air. Patient remains on antibiotics. On 12/24/2022 patient was seen and examined on the medical floor he is alert and oriented 3 in no apparent distress he is still complaining of constipation otherwise he denies any complaints, there is no fever or chills no headache or dizziness no chest pain no shortness of breath no cough no nausea or vomiting no abdominal pain no diarrhea no blood in the stools no burning with urination no frequency or urgency and no hematuria. On 12/25/2022 patient was seen and examined on the medical floor he is alert and oriented 3 in no apparent distress there is no fever or chills no headache or dizziness no chest pain no shortness of breath no cough no nausea or vomiting no abdominal pain no diarrhea and no urinary symptoms. He remains on IV antibiotics. Awaiting further recommendations from vascular surgery. Objective - Vital Signs Vital signs: Vital Signs Temp 98 F 12/25/22 09:35 Pulse 58 L 08/01/23 12:05 Resp 17 12/25/22 12:05 BP 146/63 12/25/22 12:05 Pulse Ox 98 12/25/22 12:05 FiO2 Intake & Output 12/24/22 12/25/22 12/25/22 18:59 06:59 18:59 Intake Total 1094 240 Output Total 525 600 Balance 569 -600 240 Intake: Oral 1094 240 Output: Urine 525 600 Other: Voiding Method Urinal Urinal Urinal # Bowel Movements 1 - Exam In general patient is alert and oriented x 3 in no distress HEENT head normocephalic and atraumatic Neck is supple no JVD no goiter no lymphadenopathy no carotid bruit Chest examination is clear to auscultation no crackles no wheezing Cardiac exam reveals regular heart sounds S1 and S2 no gallops no murmurs Abdomen is soft nontender no organomegaly with normal bowel sounds Extremity exam reveals no edema no cyanosis or clubbing, Left foot dressing clean dry and intact Neurological examination reveals no gross focal deficits - Labs CBC & Chem 7: 12/25/22 08:01 12/25/22 08:01 Labs: Abnormal Lab Results - Last 24 Hours (Table) 12/24/22 12/24/22 12/25/22 Range/Units 16:34 19:59 08:01 RBC 2.97 L (4.30-5.90) m/uL Hgb 8.8 L (13.0-17.5) gm/dL Hct 27.6 L (39.0-53.0) % Neutrophils # 8.0 H (1.3-7.7) k/uL Sodium (137-145) mmol/L Potassium (3.5-5.1) mmol/L BUN (9-20) mg/dL Creatinine (0.66-1.25) mg/dL Glucose (74-99) mg/dL POC Glucose (mg/dL) 133 H 165 H (70-110) mg/dL Total Protein (6.3-8.2) g/dL Albumin (3.5-5.0) g/dL 12/25/22 Range/Units 08:01 RBC (4.30-5.90) m/uL Hgb (13.0-17.5) gm/dL Hct (39.0-53.0) % Neutrophils # (1.3-7.7) k/uL Sodium 136 L (137-145) mmol/L Potassium 5.3 H (3.5-5.1) mmol/L BUN 22 H (9-20) mg/dL Creatinine 2.42 H (0.66-1.25) mg/dL Glucose 62 L (74-99) mg/dL POC Glucose (mg/dL) (70-110) mg/dL Total Protein 6.0 L (6.3-8.2) g/dL Albumin 3.1 L (3.5-5.0) g/dL Assessment and Plan Plan: 1. Left foot diabetic ulceration with failed outpatient treatment with sepsis evident by positive blood culture 2. Chronic kidney disease 3. Diabetes mellitus type 2. A home Lantus dose ordered plus sliding scale coverage 4. Essential hypertension 5. History of right greater toe amputation 6. Obesity 7. Hypothyroidism DVT prophylaxis Lovenox. GI prophylaxis Protonix Vascular, infectious disease and nephrology service is consulted Patient maintained on IV antibiotics of daptomycin Rocephin plus by mouth Flagyl Repeat labs ordered
[2022-12-25 20:23] LABS: Glucose,Whole Blood 162 mg/dL (70-110)
[2022-12-25] MEDS: LORATADINE 10 MG TAB PO SCH (21:10)
[2022-12-25] MEDS: INSULIN DETEMIR (LEVEMIR) 100 UNIT/ML SYR SQ SCH (21:11)
[2022-12-26] MEDS: CEFEPIME 2 GM in SODIUM CHLORIDE 0.9% 100 ML IVPB SCH ×2 (04:04→15:46)
[2022-12-26 05:58] LABS: Glucose,Whole Blood 128 mg/dL (70-110)
[2022-12-26] MEDS: INSULIN ASPART (NovoLOG) 100 UNIT/ML VIAL SQ SCH ×4 (05:58→20:10)
[2022-12-26] MEDS: PANTOPRAZOLE 40 MG TABLET PO SCH (06:30)
[2022-12-26] MEDS: LEVOTHYROXINE 25 MCG TAB PO SCH (06:30)
[2022-12-26] MEDS: ALBUTEROL NEBULIZED 2.5 MG/3 ML INHALATION PRN ×3 (08:24→21:13)
[2022-12-26] MEDS: amLODIPine 10 MG TAB PO SCH (08:34)
[2022-12-26] MEDS: SODIUM BICARBONATE TAB 650 MG TAB PO SCH ×2 (08:34→20:49)
[2022-12-26] MEDS: cloNIDine HCL 0.1 MG TAB PO SCH ×3 (08:34→20:49)
[2022-12-26] MEDS: metroNIDAZOLE 500 MG TAB PO SCH ×3 (08:34→20:49)
[2022-12-26] MEDS: TAMSULOSIN 0.4 MG CAP.ER.24H PO SCH (08:34)
[2022-12-26] MEDS: HYDROcodone/APAP 10-325MG 1 EACH TAB PO SCH ×3 (08:34→23:59)
[2022-12-26] MEDS: DOCUSATE 100 MG CAP PO SCH ×2 (08:34→20:49)
[2022-12-26] MEDS: FERROUS SULFATE 325 MG TAB PO SCH (08:34)
[2022-12-26] MEDS: ENOXAPARIN 40 MG/0.4 ML SYRINGE SQ SCH (08:35)
[2022-12-26] MEDS: hydrALAZINE HCL 50 MG TAB PO SCH ×2 (08:35→20:49)
[2022-12-26] MEDS: ESCITALOPRAM 10 MG TAB PO SCH (08:35)
[2022-12-26] MEDS: polyethylene glycoL 3350 17 GM POWD.PACK PO SCH (08:35)
[2022-12-26] MEDS: allopurinoL 100 MG TAB PO SCH (08:35)
--- NOTE | 2022-12-26 10:25 | P.PN ---
Subjective Progress Note Date: 12/26/22 Ian Paulino is a 67 year old male who presented to [facility] with a chief complaint of left foot pain and infection. Patient has been receiving outpatient IV antibiotics of daptomycin and Flagyl and followed with wound care. Per patient's at bedside patient was developing blisters to foot over the past week and having increasing pain prompting the patient to come to ER. Patient has a past medical history of diabetes mellitus, hypertension, chronic kidney disease and previous amputations. Foot x-ray completed showing soft tissue wound overlying the heel without evidence for erosion of the osseous structures. At this time patient will be admitted patient was started on IV antibiotics of Rocephin and daptomycin along with by mouth Flagyl. Vascular surgery also consulted status post debridement with Dr. Armstrong on 12/16/2022. We'll also consult nephrology services for chronic kidney disease. At this time patient is resting comfortably in bed. Patient denies chest pain or shortness of breath. Patient denies nausea vomiting or diarrhea. Patient denies any urinary burning or frequency On 12/17/2022 patient is alert and oriented 3. Patient remains on IV an tibiotics. Followed by nephrology infectious disease and vascular services. At this time patient denies chest pain or shortness breath. Patient denies nausea vomiting or diarrhea. Patient denies any urinary burning or frequency On 12/18/2022 patient is alert and oriented 3. Blood culture positive for gram-negative bacilli. Infectious disease services are following. PICC line placed patient remains on IV Rocephin, daptomycin and Flagyl. Current vital signs temp 98.7, heart rate 62, respiratory rate 16, blood pressure 142/60. On 12/19/2022 patient alert and oriented 3. Awaiting final recommendations per ID in regards to antibiotics. This time patient is resting in chair. Patient denies chest pain or shortness breath. Patient denies nausea vomiting or diarrhea. Patient denies any urinary burning or frequency. Current vital signs temp 98.3, heart rate 69, respiratory 18, blood pressure 156/80 with a pulse ox 97% on room air On 12/20/2022 patient was seen and examined on the medical floor he is alert and oriented 3 in no apparent distress there is no fever or chills no headache or dizziness no chest pain no shortness of breath no cough no nausea or vomiting no abdominal pain no diarrhea no blood in the stools no burning with urination no frequency or urgency and no hematuria, at this time I'm still waiting for further recommendation from infectious disease and vascular surgery, possible discharge tomorrow, if no further intervention is recommended. On 12/21/2022 patient was seen and examined on the medical floor he is alert and oriented 3 in no apparent distress, there is no fever or chills no headache or dizziness no chest pain no shortness of breath no cough no nausea or vomiting no abdominal pain no diarrhea and no urinary symptoms. Patient is scheduled for an angiogram tomorrow per vascular surgery, will continue to follow closely. On 12/22/2022 patient was seen and examined on the medical floor he is alert and oriented 3 in no apparent distress, he underwent lower extremity angiogram today . there is no fever or chills no headache or dizziness no chest pain no shortness of breath no cough no nausea or vomiting no abdominal pain no diarrhea and no urinary symptoms. Patient is scheduled for an angiogram tomorrow per vascular surgery, will continue to follow closely. On 12/23/2022 patient alert and oriented 3. Patient underwent angiogram plans to have a meeting with Dr. Armstrong tomorrow to go over plan. Current vital signs temp 98.3, heart rate 62, respiratory rate 16, blood pressure 156/66 with pulse ox 98% on room air. Patient remains on antibiotics. On 12/24/2022 patient was seen and examined on the medical floor he is alert and oriented 3 in no apparent distress he is still complaining of constipation otherwise he denies any complaints, there is no fever or chills no headache or dizziness no chest pain no shortness of breath no cough no nausea or vomiting no abdominal pain no diarrhea no blood in the stools no burning with urination no frequency or urgency and no hematuria. On 12/25/2022 patient was seen and examined on the medical floor he is alert and oriented 3 in no apparent distress there is no fever or chills no headache or dizziness no chest pain no shortness of breath no cough no nausea or vomiting no abdominal pain no diarrhea and no urinary symptoms. He remains on IV antibiotics. Awaiting further recommendations from vascular surgery. On 12/26/2022 patient is alert and oriented 3 resting comfortably in bed. At this time patient denies chest pain or shortness breath. Patient denies nausea vomiting or diarrhea. Patient denies any urinary burning or frequency. Awaiting input from vascular surgery for the planned possibly amputation Objective - Vital Signs Vital signs: Vital Signs Temp 98 F 12/26/22 08:30 Pulse 54 L 12/26/22 08:37 Resp 18 12/26/22 08:30 BP 189/77 12/26/22 08:30 Pulse Ox 99 12/26/22 08:30 FiO2 Intake & Output 12/25/22 12/26/22 12/26/22 18:59 06:59 18:59 Intake Total 240 Output Total 1750 630 Balance 240 -1750 -630 Intake: Oral 240 Output: Urine 1750 630 Other: Voiding Method Urinal Urinal Urinal # Voids 3 - Exam In general patient is alert and oriented x 3 in no distress HEENT head normocephalic and atraumatic Neck is supple no JVD no goiter no lymphadenopathy no carotid bruit Chest examination is clear to auscultation no crackles no wheezing Cardiac exam reveals regular heart sounds S1 and S2 no gallops no murmurs Abdomen is soft nontender no organomegaly with normal bowel sounds Extremity exam reveals no edema no cyanosis or clubbing, Left foot dressing cl ese dry and intact Neurological examination reveals no gross focal deficits - Labs CBC & Chem 7: 12/25/22 08:01 12/25/22 08:01 Labs: Abnormal Lab Results - Last 24 Hours (Table) 12/25/22 12/25/22 12/26/22 Range/Units 16:53 20:21 05:57 POC Glucose (mg/dL) 139 H 162 H 128 H (70-110) mg/dL Assessment and Plan Plan: 1. Left foot diabetic ulceration with failed outpatient treatment with sepsis evident by positive blood culture 2. Chronic kidney disease 3. Diabetes mellitus type 2. A home Lantus dose ordered plus sliding scale coverage 4. Essential hypertension 5. History of right greater toe amputation 6. Obesity 7. Hypothyroidism DVT prophylaxis Lovenox. GI prophylaxis Protonix Vascular, infectious disease and nephrology service is consulted Patient maintained on IV antibiotics of daptomycin Rocephin plus by mouth Flagyl Repeat labs ordered
[2022-12-26 11:42] LABS: Glucose,Whole Blood 106 mg/dL (70-110)
[2022-12-26] MEDS: DARBEPOETIN ALFA 40 MCG/0.4 ML SYRINGE SQ SCH (11:54)
[2022-12-26] MEDS: COLLAGENASE 250 UNIT/GM OINTMENT 30 GM TUBE TOPICAL SCH (11:54)
[2022-12-26 12:33] VITALS: BMI 29.9
--- NOTE | 2022-12-26 12:46 | P.PN ---
Subjective Patient is seen for follow-up for chronic kidney disease. Renal function has been stable with serum creatinine staying at about 2.4 mg/dL. Patient has been voiding. Status post IV fluids Tolerating oral intake. Blood pressure is not low. Being considered for left BKA versus AKA Objective - Vital Signs Vital signs: Vital Signs Temp 98 F 12/26/22 08:30 Pulse 52 L 12/26/22 11:55 Resp 18 12/26/22 11:55 BP 152/68 12/26/22 11:55 Pulse Ox 98 12/26/22 11:55 FiO2 Intake & Output 12/25/22 12/26/22 12/26/22 18:59 06:59 18:59 Intake Total 240 Output Total 1750 630 Balance 240 -1750 -630 Weight 103 kg Intake: Oral 240 Output: Urine 1750 630 Other: Voiding Method Urinal Urinal Urinal # Voids 3 - Exam Awake, comfortable, no acute distress Examination of the heart S1 and S2 Examination of the lungs bilateral breath sounds are heard Abdomen is soft nontender Examination lower extremities shows right AKA and left leg is wrapped - Labs CBC & Chem 7: 12/25/22 08:01 12/25/22 08:01 Labs: Abnormal Lab Results - Last 24 Hours (Table) 12/25/22 12/25/22 12/26/22 Range/Units 16:53 20:21 05:57 POC Glucose (mg/dL) 139 H 162 H 128 H (70-110) mg/dL Assessment and Plan Assessment: 1. Acute kidney injury likely ATN, nonoliguric , status post IV fluids. Serum creatinine is stable at 2.4 mg/dL 2. Chronic kidney disease NKF stage IV with baseline creatinine 2.7-3.3 mg/dL. Etiology is likely nephrosclerosis. 3. Left ankle wound/diabetic ulcer, being considered for left BKA 4. History of right AKA 5. Non-gap metabolic acidosis secondary to chronic kidney disease/acute kidney injury Plan: Continue off of IV fluids Continue with oral sodium bicarb Encourage increased oral intake Low potassium diet Continue with antibiotics Repeat labs in a.m.
--- NOTE | 2022-12-26 15:47 | P.GSCN ---
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 Armstrong of her local wound care and hyperbaric treatment who had presented to our to the hospital for need for debridement and concern for infection. During this hospitalization patient was seen by Dr. Armstrong and underwent left heel debridement on 12/16/2022. Then patient also underwent left lower extremity angiography by Dr. Armstrong who then asked for further consultation with vascular surgery. Patient states that he has pain to the right heel, the wound has been chronic and not healing and it is infected. He has a history of previous right zjoaw-yvc-[id number] amputation for nonhealing wound that amputation was done in July 2022. Patient states he is very depressed due to having to have a second amputation. He denies any fevers or chills at this time. Denies any shortness of breath or chest pain. Review of Systems A 14 point review systems was completed all pertinent positives and negatives as stated in the HPI. Past Medical History Past Medical History: Diabetes Mellitus, Hypertension Additional Past Medical History / Comment(s): wound rt great toe amputation area History of Any Multi-Drug Resistant Organisms: MRSA Year Discovered:: 10/08/22 MDRO Source:: Left Heel Past Surgical History: Tonsillectomy Additional Past Surgical History / Comment(s): rt great toe amputation, RAKA Past Anesthesia/Blood Transfusion Reactions: No Reported Reaction Past Psychological History: No Psychological Hx Reported Smoking Status: Never smoker Past Alcohol Use History: Occasional Additional Past Alcohol Use History / Comment(s): Patient only smoked briefly as a teenager. He denies any medical marijuana, marijuana, street drug use. He drinks alcohol socially and denies alcohol abuse. He lives at home with his . 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 Past Drug Use History: None Reported - Past Family History Mother Family Medical History: No Reported History Medications and Allergies Home Medications Medication Instructions Recorded Confirmed Type Albuterol Sulfate [Ventolin HFA] 1 - 2 puff INHALATION RT-QID PRN 12/15/22 12/15/22 History Ferrous Sulfate [Feosol] 325 mg PO DAILY 12/15/22 12/15/22 History HYDROcodone/APAP 10-325MG [[place] 1 tab PO Q8H 12/15/22 12/15/22 History 10-325] Insulin Glargine,Hum.rec.anlog 14 units SQ HS 12/15/22 12/15/22 History [Chuckivviivon Leostbrit] Levothyroxine Sodium [Synthroid] 25 mcg PO DAILY 12/15/22 12/15/22 History Loratadine [Claritin] 10 mg PO HS 12/15/22 12/15/22 History Potassium Chloride ER [K-Dur 20] 20 meq PO DAILY 12/15/22 12/15/22 History Tamsulosin HCl [Flomax] 0.4 mg PO DAILY 12/15/22 12/15/22 History Torsemide [Demadex] 40 mg PO DAILY 12/15/22 12/15/22 History allopurinoL [Zyloprim] 100 mg PO DAILY 12/15/22 12/15/22 History amLODIPine [Norvasc] 10 mg PO DAILY 12/15/22 12/15/22 History cloNIDine HCL [Catapres] 0.1 mg PO DAILY 12/15/22 12/15/22 History hydrALAZINE HCL [Apresoline] 100 mg PO DAILY 12/15/22 12/15/22 History metroNIDAZOLE [Flagyl] 500 mg PO TID 12/15/22 12/15/22 History Allergies Allergy/AdvReac Type Severity Reaction Status Date / Time No Known Allergies Allergy Verified 12/15/22 14:42 Surgical - Exam Vital Signs Temp Pulse Resp BP Pulse Ox 99 F 74 18 135/65 97 12/15/22 11:10 12/15/22 11:10 12/15/22 11:10 12/15/22 11:10 12/15/22 11:10 General appearance: The patient is alert, oriented, appears in no acute distress. HET: Head is normocephalic and atraumatic. Pupils are equal and reactive. Neck: Supple. Heart: Regular. Lungs: Equal expansion, normal respiratory effort. Abdomen: Soft, nontender, nondistended. Extremities: Left heel wound, dressing clean dry intact. Good capillary refill. Sensorimotor intact. Right sbndk-twt-[id number] amputation stump well-healed. Neurological: No focal deficits. Alert and oriented 3. Results - Labs 12/25/22 08:01 12/25/22 08:01 Abnormal Lab Results - Last 24 Hours (Table) 12/25/22 12/25/22 12/26/22 Range/Units 16:53 20:21 05:57 POC Glucose (mg/dL) 139 H 162 H 128 H (70-110) mg/dL Assessment and Plan Assessment: 1. Chronic nonhealing infected wound to left heel 2. Diabetes mellitus 3. Chronic kidney disease 4. History of right zleuy-knb-izkk amputation Plan: 1. Nothing by mouth after midnight 2. Hold Lovenox 3. Plan for left below the knee amputation Thank you for this consultation, we will continue to follow. The impression and plan of care has been dictated as directed. I performed a history and examination of this patient, discussed the same with the dictator. I agree with the dictator's note ,documented as a scribe. Any additional findings or plans will be noted.
[2022-12-26 16:58] LABS: Glucose,Whole Blood 122 mg/dL (70-110)
[2022-12-26 19:55] LABS: Glucose,Whole Blood 147 mg/dL (70-110)
[2022-12-26] MEDS: INSULIN DETEMIR (LEVEMIR) 100 UNIT/ML SYR SQ SCH (20:49)
[2022-12-26] MEDS: LORATADINE 10 MG TAB PO SCH (20:49)
[2022-12-27] MEDS: CEFEPIME 2 GM in SODIUM CHLORIDE 0.9% 100 ML IVPB SCH ×2 (03:35→16:10)
[2022-12-27] MEDS: LEVOTHYROXINE 25 MCG TAB PO SCH (05:47)
[2022-12-27 06:12] LABS: Glucose,Whole Blood 79 mg/dL (70-110)
[2022-12-27] MEDS: PANTOPRAZOLE 40 MG TABLET PO SCH (06:49)
[2022-12-27] MEDS: INSULIN ASPART (NovoLOG) 100 UNIT/ML VIAL SQ SCH ×4 (06:49→20:17)
[2022-12-27 08:04] LABS: Basophils % (A) 0 %; Eosinophils # (A) 0.2 k/uL (0-0.7); Eosinophils % (A) 2 %; HGB 8.3 gm/dL (13.0-17.5); Hypochromasia Moderate; Lymphocytes # (A) 1.1 k/uL (1.0-4.8); Lymphocytes % (A) 12 %; MCH 29.2 pg (25.0-35.0); MCHC 30.8 g/dL (31.0-37.0); MCV 94.6 fL (80.0-100.0); Mean Platelet Volume 7.6; Monocytes # (A) 0.5 k/uL (0-1.0); Monocytes % (A) 6 %; Neutrophils # (A) 7.3 k/uL (1.3-7.7); Neutrophils % (A) 79 %; Platelet Count 369 k/uL (150-450); RBC 2.85 m/uL (4.30-5.90); RDW 14.6 % (11.5-15.5); WBC 9.2 k/uL (3.8-10.6)
[2022-12-27] MEDS: polyethylene glycoL 3350 17 GM POWD.PACK PO SCH (08:13)
[2022-12-27 08:17] LABS: ALT 28 U/L (4-49); AST 74 U/L (17-59); African American GFR (CKD) 27 (>60 ml/min/1.73 sqM); Albumin 2.9 g/dL (3.5-5.0); Alkaline Phosphatase 92 U/L (38-126); Anion Gap 8 mmol/L; Blood Urea Nitrogen 28 mg/dL (9-20); Calcium 8.5 mg/dL (8.4-10.2); Carbon Dioxide 22 mmol/L (22-30); Chloride 105 mmol/L (98-107); Glucose 68 mg/dL (74-99); Non-African American GFR(CKD) 23 (>60 ml/min/1.73 sqM); Potassium 5.1 mmol/L (3.5-5.1); Sodium 135 mmol/L (137-145); Total Bilirubin 0.6 mg/dL (0.2-1.3); Total Protein 5.6 g/dL (6.3-8.2)
[2022-12-27] MEDS: ESCITALOPRAM 10 MG TAB PO SCH (08:18)
[2022-12-27] MEDS: metroNIDAZOLE 500 MG TAB PO SCH ×3 (08:18→21:22)
[2022-12-27] MEDS: amLODIPine 10 MG TAB PO SCH (08:18)
[2022-12-27] MEDS: FERROUS SULFATE 325 MG TAB PO SCH (08:18)
[2022-12-27] MEDS: cloNIDine HCL 0.1 MG TAB PO SCH ×3 (08:18→21:22)
[2022-12-27] MEDS: DOCUSATE 100 MG CAP PO SCH ×2 (08:18→21:22)
[2022-12-27] MEDS: allopurinoL 100 MG TAB PO SCH (08:18)
[2022-12-27] MEDS: hydrALAZINE HCL 50 MG TAB PO SCH ×2 (08:18→21:22)
[2022-12-27] MEDS: HYDROcodone/APAP 10-325MG 1 EACH TAB PO SCH ×2 (08:18→16:09)
[2022-12-27] MEDS: TAMSULOSIN 0.4 MG CAP.ER.24H PO SCH (08:18)
[2022-12-27] MEDS: SODIUM BICARBONATE TAB 650 MG TAB PO SCH ×2 (08:19→21:22)
[2022-12-27] MEDS: COLLAGENASE 250 UNIT/GM OINTMENT 30 GM TUBE TOPICAL SCH (08:23)
[2022-12-27] MEDS: ALBUTEROL NEBULIZED 2.5 MG/3 ML INHALATION PRN ×2 (09:33→16:38)
[2022-12-27] MEDS: ENOXAPARIN 40 MG/0.4 ML SYRINGE SQ SCH (10:20)
[2022-12-27] MEDS ORDERED: IV FLUID CONTINUATION 1,000 ML IV ONE (10:37)
[2022-12-27 11:14] LABS: Glucose,Whole Blood 95 mg/dL (70-110)
[2022-12-27] MEDS ORDERED: MIDAZOLAM 2 MG/2 ML VIAL IVP ONE (11:29)
[2022-12-27] MEDS ORDERED: ONDANSETRON 4 MG/2 ML VIAL IVP ONE (11:30)
[2022-12-27] MEDS ORDERED: DEXAMETHASONE SOD PHOSPHATE 4 MG/ML 1 ML VIAL IVP ONE (11:30)
[2022-12-27] MEDS: LACTATED RINGERS 1,000 ML IV SCH (11:39)
[2022-12-27] MEDS ORDERED: SUCCINYLCHOLINE CHLORIDE 200 MG/10 ML VIAL IV ONE (12:25)
[2022-12-27] MEDS ORDERED: LIDOCAINE 2% INJ 20 MG/ML (2 ML VIAL) ONE (12:25)
[2022-12-27] MEDS ORDERED: PROPOFOL 10 MG/ML 20 ML VIAL IV ONE (12:25)
[2022-12-27] MEDS ORDERED: HYDROmorphone (PF) 1 MG/ML ONE (12:25)
[2022-12-27] MEDS ORDERED: fentaNYL (PF) 50 MCG/ML 2 ML AMP ONE (12:25)
--- NOTE | 2022-12-27 14:08 | P.OP ---
Date of Procedure: 12/27/22 Description of Procedure: PREOPERATIVE DIAGNOSIS: Nonhealing left lower extremity wound, osteomyelitis, peripheral arterial disease. POSTOPERATIVE DIAGNOSIS: Same. OPERATION: Left below knee amputation. SURGEON: Ashley Rice DO CAN LABELER: Harini ANESTHESIA: Gen. endotracheal ESTIMATED BLOOD LOSS: 1 25 mL SPECIMENS REMOVED: Left lower extremity COMPLICATIONS: None immediately apparent CONDITION: Stable to recovery FINDINGS AND INDICATIONS: Patient is a 67-year-old male with significant history including diabetes, nonhealing wound, osteomyelitis and has peripheral vascular disease. He was seen by others and recommended to undergo below-knee amputation. We had a long discussion regarding the options and decided upon this being the best for him given the amount tissue, his continued nonhealing despite maximal wound healing efforts and reported hyperbaric etc. and continuation of infection to the wound. Risks and benefits were discussed including but not limited to bleeding, infection, cardiopulmonary risks. He seemingly understood and was willing to proceed. PROCEDURE IN DETAIL: The patient was brought to the operating room, the operative leg was prepped and draped in the usual sterile manner. 10 cm below the tibial plateau was marked. The calf circumference was measured. Two thirds was utilized for the anterior incision, one third was utilized to create the flap. The incision was marked. The incision was deepened through the subcutaneous tissue and fascia to the level of the bone. The fascia was transected around the level of the incision. Anterior compartment muscles were divided and visualized to the tibial vessels which were suture ligated with 2-0 silk. Then the lateral compartment muscles were divided. Dissection was carried down to the level of the bone. The periosteal elevator was used and the tibia was freed from its periosteal tissues. The tibia was divided with an oscillating saw. The same was done of the fibula, approximately 1-1/2-2 cm more proximal to the tibia itself. The posterior flap was created with an amputation knife. Bleeding was controlled with suture ligation of the vessels. Electrocautery was also used for hemostasis. The specimen was removed. The wound was copiously irrigated. The tibia and fibula were smoothed with a rasp. 2-0 and 3-0 Vicryl was utilized to approximate the fascia. The skin was reapproximated with chey. The incsion was cleansed and a dressing was placed. The patient was extubated and transferred to PACU in stable condition having tolerated the procedure well
[2022-12-27] MEDS ORDERED: HYDROmorphone 0.5 MG/0.5 ML SYRINGE IVP ONE ×4 (14:13→14:20)
[2022-12-27] MEDS ORDERED: MORPHINE SULFATE 4 MG/ML SYRINGE IVP ONE ×2 (14:33→14:44)
[2022-12-27 15:05] LABS: HCT 25.8 % (39.0-53.0); HGB 8.3 gm/dL (13.0-17.5); Hypochromasia Moderate; MCHC 32.2 g/dL (31.0-37.0); Mean Platelet Volume 7.2; Platelet Count 322 k/uL (150-450); RBC 2.77 m/uL (4.30-5.90); RDW 14.4 % (11.5-15.5); WBC 13.3 k/uL (3.8-10.6)
[2022-12-27] MEDS ORDERED: ACETAMINOPHEN IV (For NPO) 1,000 MG/100 ML VIAL IVPB ONE (15:07)
[2022-12-27 16:15] LABS: Glucose,Whole Blood 118 mg/dL (70-110)
[2022-12-27] MEDS: HYDROmorphone 1 MG/ML 1 ML SYRINGE IVP PRN ×2 (18:02→21:21)
[2022-12-27 19:56] LABS: Glucose,Whole Blood 144 mg/dL (70-110)
[2022-12-27] MEDS: INSULIN DETEMIR (LEVEMIR) 100 UNIT/ML SYR SQ SCH (21:23)
[2022-12-27] MEDS: LORATADINE 10 MG TAB PO SCH (21:23)
[2022-12-28] MEDS: HYDROcodone/APAP 10-325MG 1 EACH TAB PO SCH ×2 (00:35→08:10)
[2022-12-28] MEDS: CEFEPIME 2 GM in SODIUM CHLORIDE 0.9% 100 ML IVPB SCH ×2 (02:33→15:48)
[2022-12-28] MEDS: HYDROmorphone 1 MG/ML 1 ML SYRINGE IVP PRN ×4 (02:33→21:39)
[2022-12-28 06:04] LABS: Glucose,Whole Blood 83 mg/dL (70-110)
[2022-12-28] MEDS: INSULIN ASPART (NovoLOG) 100 UNIT/ML VIAL SQ SCH ×4 (06:19→20:17)
[2022-12-28] MEDS: PANTOPRAZOLE 40 MG TABLET PO SCH (06:42)
[2022-12-28] MEDS: LEVOTHYROXINE 25 MCG TAB PO SCH (06:42)
[2022-12-28 07:09] LABS: HCT 25.2 % (39.0-53.0); Hypochromasia Marked; MCH 29.9 pg (25.0-35.0); MCHC 31.6 g/dL (31.0-37.0); MCV 94.4 fL (80.0-100.0); Mean Platelet Volume 7.8; Platelet Count 318 k/uL (150-450); RBC 2.67 m/uL (4.30-5.90); RDW 14.3 % (11.5-15.5); WBC 12.7 k/uL (3.8-10.6)
[2022-12-28] MEDS: ENOXAPARIN 40 MG/0.4 ML SYRINGE SQ SCH (08:10)
[2022-12-28] MEDS: DOCUSATE 100 MG CAP PO SCH ×2 (08:11→21:39)
[2022-12-28] MEDS: hydrALAZINE HCL 50 MG TAB PO SCH ×2 (08:11→21:38)
[2022-12-28] MEDS: allopurinoL 100 MG TAB PO SCH (08:11)
[2022-12-28] MEDS: ESCITALOPRAM 10 MG TAB PO SCH (08:11)
[2022-12-28] MEDS: cloNIDine HCL 0.1 MG TAB PO SCH ×3 (08:11→21:39)
[2022-12-28] MEDS: amLODIPine 10 MG TAB PO SCH (08:11)
[2022-12-28] MEDS: FERROUS SULFATE 325 MG TAB PO SCH (08:12)
[2022-12-28] MEDS: SODIUM BICARBONATE TAB 650 MG TAB PO SCH ×2 (08:12→21:39)
[2022-12-28] MEDS: TAMSULOSIN 0.4 MG CAP.ER.24H PO SCH (08:12)
[2022-12-28] MEDS: metroNIDAZOLE 500 MG TAB PO SCH ×3 (08:13→21:39)
[2022-12-28] MEDS: polyethylene glycoL 3350 17 GM POWD.PACK PO SCH (08:13)
[2022-12-28] MEDS: ALBUTEROL NEBULIZED 2.5 MG/3 ML INHALATION PRN ×3 (09:16→21:37)
--- NOTE | 2022-12-28 09:39 | P.PN ---
Subjective Progress Note Date: 12/27/22 Ian Paulino is a 67 year old male who presented to [facility] with a chief complaint of left foot pain and infection. Patient has been receiving outpatient IV antibiotics of daptomycin and Flagyl and followed with wound care. Per patient's at bedside patient was developing blisters to foot over the past week and having increasing pain prompting the patient to come to ER. Patient has a past medical history of diabetes mellitus, hypertension, chronic kidney disease and previous amputations. Foot x-ray completed showing soft tissue wound overlying the heel without evidence for erosion of the osseous structures. At this time patient will be admitted patient was started on IV antibiotics of Rocephin and daptomycin along with by mouth Flagyl. Vascular surgery also consulted status post debridement with Dr. Armstrong on 12/16/2022. We'll also consult nephrology services for chronic kidney disease. At this time patient is resting comfortably in bed. Patient denies chest pain or shortness of breath. Patient denies nausea vomiting or diarrhea. Patient denies any urinary burning or frequency On 12/17/2022 patient is alert and oriented 3. Patient remains on IV an tibiotics. Followed by nephrology infectious disease and vascular services. At this time patient denies chest pain or shortness breath. Patient denies nausea vomiting or diarrhea. Patient denies any urinary burning or frequency On 12/18/2022 patient is alert and oriented 3. Blood culture positive for gram-negative bacilli. Infectious disease services are following. PICC line placed patient remains on IV Rocephin, daptomycin and Flagyl. Current vital signs temp 98.7, heart rate 62, respiratory rate 16, blood pressure 142/60. On 12/19/2022 patient alert and oriented 3. Awaiting final recommendations per ID in regards to antibiotics. This time patient is resting in chair. Patient denies chest pain or shortness breath. Patient denies nausea vomiting or diarrhea. Patient denies any urinary burning or frequency. Current vital signs temp 98.3, heart rate 69, respiratory 18, blood pressure 156/80 with a pulse ox 97% on room air On 12/20/2022 patient was seen and examined on the medical floor he is alert and oriented 3 in no apparent distress there is no fever or chills no headache or dizziness no chest pain no shortness of breath no cough no nausea or vomiting no abdominal pain no diarrhea no blood in the stools no burning with urination no frequency or urgency and no hematuria, at this time I'm still waiting for further recommendation from infectious disease and vascular surgery, possible discharge tomorrow, if no further intervention is recommended. On 12/21/2022 patient was seen and examined on the medical floor he is alert and oriented 3 in no apparent distress, there is no fever or chills no headache or dizziness no chest pain no shortness of breath no cough no nausea or vomiting no abdominal pain no diarrhea and no urinary symptoms. Patient is scheduled for an angiogram tomorrow per vascular surgery, will continue to follow closely. On 12/22/2022 patient was seen and examined on the medical floor he is alert and oriented 3 in no apparent distress, he underwent lower extremity angiogram today . there is no fever or chills no headache or dizziness no chest pain no shortness of breath no cough no nausea or vomiting no abdominal pain no diarrhea and no urinary symptoms. Patient is scheduled for an angiogram tomorrow per vascular surgery, will continue to follow closely. On 12/23/2022 patient alert and oriented 3. Patient underwent angiogram plans to have a meeting with Dr. Armstrong tomorrow to go over plan. Current vital signs temp 98.3, heart rate 62, respiratory rate 16, blood pressure 156/66 with pulse ox 98% on room air. Patient remains on antibiotics. On 12/24/2022 patient was seen and examined on the medical floor he is alert and oriented 3 in no apparent distress he is still complaining of constipation otherwise he denies any complaints, there is no fever or chills no headache or dizziness no chest pain no shortness of breath no cough no nausea or vomiting no abdominal pain no diarrhea no blood in the stools no burning with urination no frequency or urgency and no hematuria. On 12/25/2022 patient was seen and examined on the medical floor he is alert and oriented 3 in no apparent distress there is no fever or chills no headache or dizziness no chest pain no shortness of breath no cough no nausea or vomiting no abdominal pain no diarrhea and no urinary symptoms. He remains on IV antibiotics. Awaiting further recommendations from vascular surgery. On 12/26/2022 patient is alert and oriented 3 resting comfortably in bed. At this time patient denies chest pain or shortness breath. Patient denies nausea vomiting or diarrhea. Patient denies any urinary burning or frequency. Awaiting input from vascular surgery for the planned possibly amputation On 12/27/2022 patient's alert and oriented 3 patient to undergo amputation today. Patient denies chest pain or shortness breath. Patient denies nausea vomiting or diarrhea. Patient denies any urinary burning or frequency Objective - Vital Signs Vital signs: Vital Signs Temp 98.4 F 12/27/22 15:40 Pulse 52 L 12/27/22 16:38 Resp 18 12/27/22 16:30 BP 137/60 12/27/22 16:30 Pulse Ox 97 12/27/22 16:30 FiO2 Intake & Output 12/26/22 12/27/22 12/27/22 18:59 06:59 18:59 Intake Total 180 500 Output Total 1770 650 525 Balance -1590 -650 -25 Weight 103 kg Intake: IV 500 Oral 180 Output: Urine 1770 650 400 Stool 0 Estimated Blood Loss 125 Other: Voiding Method Urinal Urinal Urinal - Exam In general patient is alert and oriented x 3 in no distress HEENT head normocephalic and atraumatic Neck is supple no JVD no goiter no lymphadenopathy no carotid bruit Chest examination is clear to auscultation no crackles no wheezing Cardiac exam reveals regular heart sounds S1 and S2 no gallops no murmurs Abdomen is soft nontender no organomegaly with normal bowel sounds Extremity exam reveals no edema no cyanosis or clubbing, Left foot dressing clean dry and intact Neurological examination reveals no gross focal deficits - Labs CBC & Chem 7: 12/28/22 06:49 12/27/22 07:36 Labs: Abnormal Lab Results - Last 24 Hours (Table) 12/26/22 12/26/22 12/27/22 Range/Units 16:57 19:53 07:36 WBC (3.8-10.6) k/uL RBC 2.85 L (4.30-5.90) m/uL Hgb 8.3 L (13.0-17.5) gm/dL Hct 27.0 L (39.0-53.0) % MCHC 30.8 L (31.0-37.0) g/dL Sodium (137-145) mmol/L BUN (9-20) mg/dL Creatinine (0.66-1.25) mg/dL Glucose (74-99) mg/dL POC Glucose (mg/dL) 122 H 147 H (70-110) mg/dL AST (17-59) U/L Total Protein (6.3-8.2) g/dL Albumin (3.5-5.0) g/dL 12/27/22 12/27/22 12/27/22 Range/Units 07:36 14:51 16:14 WBC 13.3 H (3.8-10.6) k/uL RBC 2.77 L (4.30-5.90) m/uL Hgb 8.3 L (13.0-17.5) gm/dL Hct 25.8 L (39.0-53.0) % MCHC (31.0-37.0) g/dL Sodium 135 L (137-145) mmol/L BUN 28 H (9-20) mg/dL Creatinine 2.73 H (0.66-1.25) mg/dL Glucose 68 L (74-99) mg/dL POC Glucose (mg/dL) 118 H (70-110) mg/dL AST 74 H (17-59) U/L Total Protein 5.6 L (6.3-8.2) g/dL Albumin 2.9 L (3.5-5.0) g/dL Assessment and Plan Plan: 1. Left foot diabetic ulceration with failed outpatient treatment with sepsis evident by positive blood culture 2. Chronic kidney disease 3. Diabetes mellitus type 2. A home Lantus dose ordered plus sliding scale coverage 4. Essential hypertension 5. History of right greater toe amputation 6. Obesity 7. Hypothyroidism DVT prophylaxis Lovenox. GI prophylaxis Protonix Vascular, infectious disease and nephrology service is consulted Patient maintained on IV antibiotics of daptomycin Rocephin plus by mouth Flagyl Repeat labs ordered
--- NOTE | 2022-12-28 09:42 | P.PN ---
Subjective Progress Note Date: 12/28/22 Ian Paulino is a 67 year old male who presented to [facility] with a chief complaint of left foot pain and infection. Patient has been receiving outpatient IV antibiotics of daptomycin and Flagyl and followed with wound care. Per patient's at bedside patient was developing blisters to foot over the past week and having increasing pain prompting the patient to come to ER. Patient has a past medical history of diabetes mellitus, hypertension, chronic kidney disease and previous amputations. Foot x-ray completed showing soft tissue wound overlying the heel without evidence for erosion of the osseous structures. At this time patient will be admitted patient was started on IV antibiotics of Rocephin and daptomycin along with by mouth Flagyl. Vascular surgery also consulted status post debridement with Dr. Armstrong on 12/16/2022. We'll also consult nephrology services for chronic kidney disease. At this time patient is resting comfortably in bed. Patient denies chest pain or shortness of breath. Patient denies nausea vomiting or diarrhea. Patient denies any urinary burning or frequency On 12/17/2022 patient is alert and oriented 3. Patient remains on IV an tibiotics. Followed by nephrology infectious disease and vascular services. At this time patient denies chest pain or shortness breath. Patient denies nausea vomiting or diarrhea. Patient denies any urinary burning or frequency On 12/18/2022 patient is alert and oriented 3. Blood culture positive for gram-negative bacilli. Infectious disease services are following. PICC line placed patient remains on IV Rocephin, daptomycin and Flagyl. Current vital signs temp 98.7, heart rate 62, respiratory rate 16, blood pressure 142/60. On 12/19/2022 patient alert and oriented 3. Awaiting final recommendations per ID in regards to antibiotics. This time patient is resting in chair. Patient denies chest pain or shortness breath. Patient denies nausea vomiting or diarrhea. Patient denies any urinary burning or frequency. Current vital signs temp 98.3, heart rate 69, respiratory 18, blood pressure 156/80 with a pulse ox 97% on room air On 12/20/2022 patient was seen and examined on the medical floor he is alert and oriented 3 in no apparent distress there is no fever or chills no headache or dizziness no chest pain no shortness of breath no cough no nausea or vomiting no abdominal pain no diarrhea no blood in the stools no burning with urination no frequency or urgency and no hematuria, at this time I'm still waiting for further recommendation from infectious disease and vascular surgery, possible discharge tomorrow, if no further intervention is recommended. On 12/21/2022 patient was seen and examined on the medical floor he is alert and oriented 3 in no apparent distress, there is no fever or chills no headache or dizziness no chest pain no shortness of breath no cough no nausea or vomiting no abdominal pain no diarrhea and no urinary symptoms. Patient is scheduled for an angiogram tomorrow per vascular surgery, will continue to follow closely. On 12/22/2022 patient was seen and examined on the medical floor he is alert and oriented 3 in no apparent distress, he underwent lower extremity angiogram today . there is no fever or chills no headache or dizziness no chest pain no shortness of breath no cough no nausea or vomiting no abdominal pain no diarrhea and no urinary symptoms. Patient is scheduled for an angiogram tomorrow per vascular surgery, will continue to follow closely. On 12/23/2022 patient alert and oriented 3. Patient underwent angiogram plans to have a meeting with Dr. Armstrong tomorrow to go over plan. Current vital signs temp 98.3, heart rate 62, respiratory rate 16, blood pressure 156/66 with pulse ox 98% on room air. Patient remains on antibiotics. On 12/24/2022 patient was seen and examined on the medical floor he is alert and oriented 3 in no apparent distress he is still complaining of constipation otherwise he denies any complaints, there is no fever or chills no headache or dizziness no chest pain no shortness of breath no cough no nausea or vomiting no abdominal pain no diarrhea no blood in the stools no burning with urination no frequency or urgency and no hematuria. On 12/25/2022 patient was seen and examined on the medical floor he is alert and oriented 3 in no apparent distress there is no fever or chills no headache or dizziness no chest pain no shortness of breath no cough no nausea or vomiting no abdominal pain no diarrhea and no urinary symptoms. He remains on IV antibiotics. Awaiting further recommendations from vascular surgery. On 12/26/2022 patient is alert and oriented 3 resting comfortably in bed. At this time patient denies chest pain or shortness breath. Patient denies nausea vomiting or diarrhea. Patient denies any urinary burning or frequency. Awaiting input from vascular surgery for the planned possibly amputation On 12/27/2022 patient's alert and oriented 3 patient to undergo amputation today. Patient denies chest pain or shortness breath. Patient denies nausea vomiting or diarrhea. Patient denies any urinary burning or frequency On 12/28/2022 patient's alert and oriented 3. Status post left BKA with Dr. Rice yesterday. Patient complaining of pain currently maintained on [place] and Dilaudid. Lab work Pending. patient maintained on daptomycin and Maxipime. Current vital signs temp 98.1, heart 55, respiratory rate 18 blood pressure 135/73 pulse ox 98% on room air Objective - Vital Signs Vital signs: Vital Signs Temp 98.1 F 12/28/22 08:23 Pulse 56 L 12/28/22 09:27 Resp 18 12/28/22 08:23 BP 135/73 12/28/22 08:23 Pulse Ox 98 12/28/22 08:23 FiO2 Intake & Output 12/27/22 12/28/22 12/28/22 18:59 06:59 18:59 Intake Total 500 Output Total 525 925 Balance -25 -925 Intake: IV 500 Output: Urine 400 925 Stool 0 Estimated Blood Loss 125 Other: Voiding Method Urinal Urinal - Exam In general patient is alert and oriented x 3 in no distress HEENT head normocephalic and atraumatic Neck is supple no JVD no goiter no lymphadenopathy no carotid bruit Chest examination is clear to auscultation no crackles no wheezing Cardiac exam reveals regular heart sounds S1 and S2 no gallops no murmurs Abdomen is soft nontender no organomegaly with normal bowel sounds Extremity exam reveals no edema no cyanosis or clubbing, Left foot dressing clean dry and intact Neurological examination reveals no gross focal deficits - Labs CBC & Chem 7: 12/28/22 06:49 12/27/22 07:36 Labs: Abnormal Lab Results - Last 24 Hours (Table) 12/27/22 12/27/22 12/27/22 Range/Units 13:03 14:51 16:14 WBC 13.3 H (3.8-10.6) k/uL RBC 2.77 L (4.30-5.90) m/uL Hgb 8.3 L (13.0-17.5) gm/dL Hct 25.8 L (39.0-53.0) % POC Glucose (mg/dL) 118 H (70-110) mg/dL Crossmatch See Detail 12/27/22 12/28/22 Range/Units 19:54 06:49 WBC 12.7 H (3.8-10.6) k/uL RBC 2.67 L (4.30-5.90) m/uL Hgb 8.0 L (13.0-17.5) gm/dL Hct 25.2 L (39.0-53.0) % POC Glucose (mg/dL) 144 H (70-110) mg/dL Crossmatch Assessment and Plan Plan: 1. Left foot diabetic ulceration with failed outpatient treatment with sepsis evident by positive blood culture 2. Chronic kidney disease 3. Diabetes mellitus type 2. A home Lantus dose ordered plus sliding scale coverage 4. Essential hypertension 5. History of right greater toe amputation 6. Obesity 7. Hypothyroidism DVT prophylaxis Lovenox. 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
[2022-12-28 09:52] LABS: ALT 31 U/L (4-49); AST 74 U/L (17-59); African American GFR (CKD) 26 (>60 ml/min/1.73 sqM); Alkaline Phosphatase 82 U/L (38-126); Anion Gap 8 mmol/L; Blood Urea Nitrogen 38 mg/dL (9-20); Calcium 8.4 mg/dL (8.4-10.2); Carbon Dioxide 19 mmol/L (22-30); Chloride 106 mmol/L (98-107); Glucose 68 mg/dL (74-99); Non-African American GFR(CKD) 23 (>60 ml/min/1.73 sqM); Potassium 5.4 mmol/L (3.5-5.1); Sodium 133 mmol/L (137-145); Total Bilirubin 0.5 mg/dL (0.2-1.3); Total Protein 5.7 g/dL (6.3-8.2)
[2022-12-28] MEDS: COLLAGENASE 250 UNIT/GM OINTMENT 30 GM TUBE TOPICAL SCH (10:36)
[2022-12-28] MEDS: diazePAM 5 MG TAB PO SCH ×3 (10:42→21:46)
--- NOTE | 2022-12-28 10:46 | P.PN ---
Subjective Progress Note Date: 12/28/22 Principal diagnosis: Peripheral arterial disease, infected nonhealing wound Patient seen and examined today as follow-up. He is postop day #1 for left below the knee amputation. He states he is having quite a bit of pain. His knee immobilizer is in place. Dressing is clean dry and intact. He denies any shortness of breath, chest pain abdominal pain, nausea, vomiting, fevers or chills. He did have a drop in his hemoglobin to 8.0. One unit of blood ordered. Objective - Vital Signs Vital signs: Vital Signs Temp 98.1 F 12/28/22 08:23 Pulse 56 L 12/28/22 09:27 Resp 18 12/28/22 08:23 BP 135/73 12/28/22 08:23 Pulse Ox 98 12/28/22 08:23 FiO2 Intake & Output 12/27/22 12/28/22 12/28/22 18:59 06:59 18:59 Intake Total 500 Output Total 525 925 425 Balance -25 -925 -425 Intake: IV 500 Output: Urine 400 925 425 Stool 0 Estimated Blood Loss 125 Other: Voiding Method Urinal Urinal Urinal - Exam General appearance: The patient is alert, oriented, appears in no acute distress. HET: Head is normocephalic and atraumatic. Pupils are equal and reactive. Neck: Supple. Heart: Regular. Lungs: Equal expansion, normal respiratory effort. Abdomen: Soft, nontender, nondistended. Extremities: Right [id number]-[id number] amputation with stump solderer electronic. Left below the knee amputation with dressing clean dry and intact. Knee immobilizer in place. Neurological: No focal deficits. Strength and sensation are grossly intact. - Labs CBC & Chem 7: 12/28/22 06:49 12/28/22 06:49 Labs: Abnormal Lab Results - Last 24 Hours (Table) 12/27/22 12/27/22 12/27/22 Range/Units 13:03 14:51 16:14 WBC 13.3 H (3.8-10.6) k/uL RBC 2.77 L (4.30-5.90) m/uL Hgb 8.3 L (13.0-17.5) gm/dL Hct 25.8 L (39.0-53.0) % Sodium (137-145) mmol/L Potassium (3.5-5.1) mmol/L Carbon Dioxide (22-30) mmol/L BUN (9-20) mg/dL Creatinine (0.66-1.25) mg/dL Glucose (74-99) mg/dL POC Glucose (mg/dL) 118 H (70-110) mg/dL AST (17-59) U/L Total Protein (6.3-8.2) g/dL Albumin (3.5-5.0) g/dL Crossmatch See Detail 12/27/22 12/28/22 12/28/22 Range/Units 19:54 06:49 06:49 WBC 12.7 H (3.8-10.6) k/uL RBC 2.67 L (4.30-5.90) m/uL Hgb 8.0 L (13.0-17.5) gm/dL Hct 25.2 L (39.0-53.0) % Sodium 133 L (137-145) mmol/L Potassium 5.4 H (3.5-5.1) mmol/L Carbon Dioxide 19 L (22-30) mmol/L BUN 38 H (9-20) mg/dL Creatinine 2.79 H (0.66-1.25) mg/dL Glucose 68 L (74-99) mg/dL POC Glucose (mg/dL) 144 H (70-110) mg/dL AST 74 H (17-59) U/L Total Protein 5.7 L (6.3-8.2) g/dL Albumin 3.0 L (3.5-5.0) g/dL Crossmatch Assessment and Plan Assessment: 1. Postop day #1 for left below the knee amputation 2. Chronic nonhealing infected wound to left heel 3. Peripheral arterial disease 4. Diabetes mellitus 5. Chronic kidney disease 6. History of right otbbi-ykf-uhzr amputation Plan: 1. Continue symptomatic and supportive care 2. 1 unit PRBC ordered 3. Repeat CBC 4. Pain medications adjusted, Valium 5 mg 3 times a day added 5. Consult to physical therapy 6. Recommend subacute rehab placement 7. First dressing change to be done on 11/28/2022. Adaptic, 4 x 4, Kerlix, Mohan wrap or stump solderer electronic 8. Prescription given to case management for stump solderer electronic and rigid dressing, comfort prosthetics 9. Rest of medical management per primary medical team Thank you for this consultation, we will continue to follow. The impression and plan of care has been dictated as directed. Dr. Cheema I performed a history and examination of this patient, discussed the same with the dictator. I agree with the dictator's note ,documented as a scribe. Any additional findings or plans will be noted.
[2022-12-28 11:31] LABS: Glucose,Whole Blood 100 mg/dL (70-110)
[2022-12-28] MEDS: HYDROcodone/APAP 5-325MG 1 EACH TAB PO PRN ×2 (12:17→17:28)
[2022-12-28] MEDS: LACTATED RINGERS 1,000 ML IV SCH (15:48)
[2022-12-28 15:49] LABS: HCT 24.8 % (39.0-53.0); HGB 7.6 gm/dL (13.0-17.5); Hypochromasia Moderate; MCH 29.1 pg (25.0-35.0); MCHC 30.5 g/dL (31.0-37.0); MCV 95.2 fL (80.0-100.0); Mean Platelet Volume 8.6; Platelet Count 310 k/uL (150-450); RDW 14.4 % (11.5-15.5)
[2022-12-28 16:15] LABS: Glucose,Whole Blood 103 mg/dL (70-110)
[2022-12-28 20:07] LABS: Glucose,Whole Blood 116 mg/dL (70-110)
[2022-12-28] MEDS: LORATADINE 10 MG TAB PO SCH (21:39)
[2022-12-28] MEDS: INSULIN DETEMIR (LEVEMIR) 100 UNIT/ML SYR SQ SCH (21:47)
--- NOTE | 2022-12-28 23:57 | P.PN ---
Subjective Patient is seen for follow-up for chronic kidney disease. Renal function has been stable with serum creatinine staying at about 2.4 mg/dL. Patient has been voiding. Status post left BKA on 12/27/22 C/o pain. No other complaints. Good UOP. Objective - Vital Signs Vital signs: Vital Signs Temp 96.4 F L 12/28/22 20:00 Pulse 58 L 12/28/22 21:50 Resp 18 12/28/22 20:00 BP 146/65 12/28/22 20:00 Pulse Ox 97 12/28/22 20:00 FiO2 Intake & Output 12/28/22 12/28/22 12/29/22 06:59 18:59 06:59 Output Total 925 775 Balance -925 -775 Weight 103 kg Output: Urine 925 775 Other: Voiding Method Urinal Urinal Urinal - Exam Awake, comfortable, no acute distress Examination of the heart S1 and S2 Examination of the lungs bilateral breath sounds are heard Abdomen is soft nontender Examination lower extremities shows right AKA and left BKA, dressing intact. - Labs CBC & Chem 7: 12/28/22 15:35 12/28/22 06:49 Labs: Abnormal Lab Results - Last 24 Hours (Table) 12/27/22 12/28/22 12/28/22 Range/Units 13:03 06:49 06:49 WBC 12.7 H (3.8-10.6) k/uL RBC 2.67 L (4.30-5.90) m/uL Hgb 8.0 L (13.0-17.5) gm/dL Hct 25.2 L (39.0-53.0) % MCHC (31.0-37.0) g/dL Sodium 133 L (137-145) mmol/L Potassium 5.4 H (3.5-5.1) mmol/L Carbon Dioxide 19 L (22-30) mmol/L BUN 38 H (9-20) mg/dL Creatinine 2.79 H (0.66-1.25) mg/dL Glucose 68 L (74-99) mg/dL POC Glucose (mg/dL) (70-110) mg/dL AST 74 H (17-59) U/L Total Protein 5.7 L (6.3-8.2) g/dL Albumin 3.0 L (3.5-5.0) g/dL Crossmatch See Detail 12/28/22 12/28/22 Range/Units 15:35 20:04 WBC 12.0 H (3.8-10.6) k/uL RBC 2.60 L (4.30-5.90) m/uL Hgb 7.6 L (13.0-17.5) gm/dL Hct 24.8 L (39.0-53.0) % MCHC 30.5 L (31.0-37.0) g/dL Sodium (137-145) mmol/L Potassium (3.5-5.1) mmol/L Carbon Dioxide (22-30) mmol/L BUN (9-20) mg/dL Creatinine (0.66-1.25) mg/dL Glucose (74-99) mg/dL POC Glucose (mg/dL) 116 H (70-110) mg/dL AST (17-59) U/L Total Protein (6.3-8.2) g/dL Albumin (3.5-5.0) g/dL Crossmatch Assessment and Plan Assessment: 1. Acute kidney injury likely ATN, nonoliguric , status post IV fluids. Serum creatinine is stable at 2.4 mg/dL 2. Chronic kidney disease NKF stage IV with baseline creatinine 2.7-3.3 mg/dL. Etiology is likely nephrosclerosis. 3. Left ankle wound/diabetic ulcer, s/p left BKA on 12/27/22 4. History of right AKA 5. Non-gap metabolic acidosis secondary to chronic kidney disease/acute kidney injury Plan: Continue off of IV fluids Continue with oral sodium bicarb Encourage increased oral intake Low potassium diet Continue with antibiotics Repeat labs in a.m. Check post void residual if potassium remains elevated.
[2022-12-29] MEDS: CEFEPIME 2 GM in SODIUM CHLORIDE 0.9% 100 ML IVPB SCH ×2 (01:50→16:20)
[2022-12-29] MEDS: HYDROmorphone 1 MG/ML 1 ML SYRINGE IVP PRN ×5 (01:50→20:29)
[2022-12-29] MEDS: HYDROcodone/APAP 5-325MG 1 EACH TAB PO PRN ×3 (02:43→14:09)
[2022-12-29 05:47] LABS: Basophils % (A) 0 %; Eosinophils # (A) 0.1 k/uL (0-0.7); Eosinophils % (A) 1 %; HGB 7.7 gm/dL (13.0-17.5); Hypochromasia Moderate; Lymphocytes # (A) 1.3 k/uL (1.0-4.8); Lymphocytes % (A) 16 %; MCHC 32.1 g/dL (31.0-37.0); MCV 93.5 fL (80.0-100.0); Mean Platelet Volume 8.4; Monocytes # (A) 0.6 k/uL (0-1.0); Monocytes % (A) 8 %; Neutrophils # (A) 6.3 k/uL (1.3-7.7); Neutrophils % (A) 75 %; Platelet Count 249 k/uL (150-450); RBC 2.57 m/uL (4.30-5.90); RDW 14.4 % (11.5-15.5); WBC 8.4 k/uL (3.8-10.6)
[2022-12-29 05:57] LABS: Glucose,Whole Blood 95 mg/dL (70-110)
[2022-12-29 05:59] LABS: ALT 32 U/L (4-49); AST 73 U/L (17-59); African American GFR (CKD) 27 (>60 ml/min/1.73 sqM); Albumin 2.9 g/dL (3.5-5.0); Alkaline Phosphatase 74 U/L (38-126); Anion Gap 8 mmol/L; Blood Urea Nitrogen 49 mg/dL (9-20); Calcium 8.2 mg/dL (8.4-10.2); Carbon Dioxide 21 mmol/L (22-30); Chloride 106 mmol/L (98-107); Glucose 85 mg/dL (74-99); Non-African American GFR(CKD) 23 (>60 ml/min/1.73 sqM); Potassium 4.4 mmol/L (3.5-5.1); Sodium 135 mmol/L (137-145); Total Bilirubin 0.5 mg/dL (0.2-1.3); Total Protein 5.6 g/dL (6.3-8.2)
[2022-12-29] MEDS: INSULIN ASPART (NovoLOG) 100 UNIT/ML VIAL SQ SCH ×4 (06:30→20:13)
[2022-12-29] MEDS: LEVOTHYROXINE 25 MCG TAB PO SCH (06:35)
[2022-12-29] MEDS: PANTOPRAZOLE 40 MG TABLET PO SCH (06:35)
[2022-12-29] MEDS: ALBUTEROL NEBULIZED 2.5 MG/3 ML INHALATION PRN ×3 (07:52→21:23)
[2022-12-29] MEDS: ENOXAPARIN 40 MG/0.4 ML SYRINGE SQ SCH (08:43)
[2022-12-29] MEDS: diazePAM 5 MG TAB PO SCH ×3 (08:43→20:29)
[2022-12-29] MEDS: amLODIPine 10 MG TAB PO SCH (08:43)
[2022-12-29] MEDS: FERROUS SULFATE 325 MG TAB PO SCH (08:44)
[2022-12-29] MEDS: DOCUSATE 100 MG CAP PO SCH ×2 (08:44→20:29)
[2022-12-29] MEDS: TAMSULOSIN 0.4 MG CAP.ER.24H PO SCH (08:44)
[2022-12-29] MEDS: SODIUM BICARBONATE TAB 650 MG TAB PO SCH ×2 (08:44→20:28)
[2022-12-29] MEDS: cloNIDine HCL 0.1 MG TAB PO SCH ×3 (08:44→20:29)
[2022-12-29] MEDS: ESCITALOPRAM 10 MG TAB PO SCH (08:44)
[2022-12-29] MEDS: hydrALAZINE HCL 50 MG TAB PO SCH ×2 (08:44→20:29)
[2022-12-29] MEDS: allopurinoL 100 MG TAB PO SCH (08:44)
[2022-12-29] MEDS: metroNIDAZOLE 500 MG TAB PO SCH ×3 (08:45→20:28)
[2022-12-29] MEDS: polyethylene glycoL 3350 17 GM POWD.PACK PO SCH (08:46)
[2022-12-29] MEDS: COLLAGENASE 250 UNIT/GM OINTMENT 30 GM TUBE TOPICAL SCH (08:46)
--- NOTE | 2022-12-29 09:00 | P.PN ---
Subjective Progress Note Date: 12/26/22 Principal diagnosis: Left heel osteomyelitis/diabetic foot infection Patient is a 67-year-old male with a past medical history significant for diabetes mellitus hypertension patient did have a history of left heel diabetic foot infection underlying osteomyelitis with a culture positive for MRSA patient did have a renal insufficiency and is currently getting daptomycin in the outpatient setting along with oral Flagyl patient is presenting to the ER concerning for increasing discomfort to the left heel area , the patient is status post surgical debridement of the left heel on 12/16/2022. Patient is status post angiogram completed on 12/22/2022 did have evidence of anterior tibial occluded on today's evaluation that is 12/26/2022, patient remains to be afebrile, the patient is breathing comfortably on room air denies any chest pain shortness of breath or cough still some discomfort to the left heel area no vomiting or diarrhea. Patient did have a normal white count of 10.5 as of yesterday no CBC was done today Patient blood culture positive for Proteus, repeat blood culture has been negative left heel culture positive for Proteus and also growing Pseudomonas, Objective - Vital Signs Vital signs: Vital Signs Temp 98 F 12/26/22 08:30 Pulse 52 L 12/26/22 11:55 Resp 18 12/26/22 11:55 BP 152/68 12/26/22 11:55 Pulse Ox 98 12/26/22 11:55 FiO2 Intake & Output 12/25/22 12/26/22 12/26/22 18:59 06:59 18:59 Intake Total 240 Output Total 1750 630 Balance 240 -1750 -630 Weight 103 kg Intake: Oral 240 Output: Urine 1750 630 Other: Voiding Method Urinal Urinal Urinal # Voids 3 - Exam GENERAL DESCRIPTION: An elderly male lying in bed in no distress RESPIRATORY SYSTEM: Unlabored breathing , decreased breath sounds at bases HEART: S1 S2 regular rate and rhythm , ABDOMEN: Soft , no tenderness EXTREMITIES: Left heel wound is currently dressed no drainage on the dressing - Labs CBC & Chem 7: 12/29/22 05:33 12/29/22 05:33 Labs: Abnormal Lab Results - Last 24 Hours (Table) 12/25/22 12/25/22 12/26/22 Range/Units 16:53 20:21 05:57 POC Glucose (mg/dL) 139 H 162 H 128 H (70-110) mg/dL Assessment and Plan (1) Gram-negative bacteremia Current Visit: Yes Status: Acute Code(s): R78.81 - BACTEREMIA SNOMED Code(s): 713079000894 (2) Diabetic foot ulcer associated with type 2 diabetes mellitus, with fat layer exposed Current Visit: Yes Status: Acute Code(s): E11.621 - TYPE 2 DIABETES MELLITUS WITH FOOT ULCER; L97.502 - NON-PRS CHRONIC ULCER OTH PRT UNSP FOOT W FAT LAYER EXPOSED SNOMED Code(s): 9509499735163 (3) Failure of outpatient treatment Current Visit: Yes Status: Acute Code(s): Z78.9 - OTHER SPECIFIED HEALTH STATUS SNOMED Code(s): 594724222 (4) Foot osteomyelitis, left Current Visit: Yes Status: Acute Code(s): M86.9 - OSTEOMYELITIS, UNSPECIFIED SNOMED Code(s): 6452972306286669 Plan: 1patient with extensive left heel diabetic foot infection in this patient with recent outpatient culture positive for MRSA and the patient was getting daptomycin and oral Flagyl for it subsequently the patient did have a culture done on 12/10/2022 that did grew Proteus mirabilis now with worsening of cellulitis and necrotic changes patient did have a elevated white count no bony changes were noticed on the x-ray however concern of possible for deep infection , patient is status post surgical debridement and deep culture which are currently growing gram-negative 2-patient with Proteus bacteremia source is likely left heel osteomyelitis, blood cultures has been repeated from the PICC line and peripherally which are negative so far 3patient left heel cultures are growing Proteus as well as Pseudomonas aeruginosa, patient did have angiogram with evidence of occlusion possibility responsible for nonhealing of this wound , plan is for possible [id number]-[id number] amputation tomorrow as per discussion with vascular surgery 4-patient to continue with the current treatment of daptomycin along with cefepime and Flagyl, and monitor clinical course closely Dictation was produced using [employer] dictation software. please excuse any grammatical, word or spelling errors. Time with Patient: Less than 30
--- NOTE | 2022-12-29 09:06 | P.PN ---
Subjective Progress Note Date: 12/27/22 Principal diagnosis: Left heel osteomyelitis/diabetic foot infection Patient is a 67-year-old male with a past medical history significant for diabetes mellitus hypertension patient did have a history of left heel diabetic foot infection underlying osteomyelitis with a culture positive for MRSA patient did have a renal insufficiency and is currently getting daptomycin in the outpatient setting along with oral Flagyl patient is presenting to the ER concerning for increasing discomfort to the left heel area , the patient is status post surgical debridement of the left heel on 12/16/2022. Patient is status post angiogram completed on 12/22/2022 did have evidence of anterior tibial occluded, Patient is status post right below the knee amputation completed on 12/27/2022, On today's evaluation that is 12/27/2022 , patient remains to be afebrile has been complaining of pain to the right BKA stump patient denies having any chest pain or shortness of breath or cough no nausea no vomiting no abdominal pain and no diarrhea. Patient white count was 13.3 this morning hemoglobin 8.3 creatinine 2.73 Patient blood culture positive for Proteus, repeat blood culture has been negative left heel culture positive for Proteus and also growing Pseudomonas, Objective - Vital Signs Vital signs: Vital Signs Temp 98.2 F 12/27/22 10:39 Pulse 45 L 12/27/22 11:45 Resp 16 12/27/22 11:45 BP 132/64 12/27/22 11:45 Pulse Ox 96 12/27/22 11:45 FiO2 Intake & Output 12/26/22 12/27/22 12/27/22 18:59 06:59 18:59 Intake Total 180 100 Output Total 1770 650 400 Balance -1590 -650 -300 Weight 103 kg Intake: IV 100 Oral 180 Output: Urine 1770 650 400 Stool 0 Other: Voiding Method Urinal Urinal Urinal - Exam GENERAL DESCRIPTION: An elderly male lying in bed in no distress RESPIRATORY SYSTEM: Unlabored breathing , decreased breath sounds at bases HEART: S1 S2 regular rate and rhythm , ABDOMEN: Soft , no tenderness EXTREMITIES: Left BKA stump is currently covered in OR dressing - Labs CBC & Chem 7: 12/29/22 05:33 12/29/22 05:33 Labs: Abnormal Lab Results - Last 24 Hours (Table) 12/26/22 12/26/22 12/27/22 Range/Units 16:57 19:53 07:36 RBC 2.85 L (4.30-5.90) m/uL Hgb 8.3 L (13.0-17.5) gm/dL Hct 27.0 L (39.0-53.0) % MCHC 30.8 L (31.0-37.0) g/dL Sodium (137-145) mmol/L BUN (9-20) mg/dL Creatinine (0.66-1.25) mg/dL Glucose (74-99) mg/dL POC Glucose (mg/dL) 122 H 147 H (70-110) mg/dL AST (17-59) U/L Total Protein (6.3-8.2) g/dL Albumin (3.5-5.0) g/dL 12/27/22 Range/Units 07:36 RBC (4.30-5.90) m/uL Hgb (13.0-17.5) gm/dL Hct (39.0-53.0) % MCHC (31.0-37.0) g/dL Sodium 135 L (137-145) mmol/L BUN 28 H (9-20) mg/dL Creatinine 2.73 H (0.66-1.25) mg/dL Glucose 68 L (74-99) mg/dL POC Glucose (mg/dL) (70-110) mg/dL AST 74 H (17-59) U/L Total Protein 5.6 L (6.3-8.2) g/dL Albumin 2.9 L (3.5-5.0) g/dL Assessment and Plan (1) Gram-negative bacteremia Current Visit: Yes Status: Acute Code(s): R78.81 - BACTEREMIA SNOMED Code(s): 205959388853 (2) Diabetic foot ulcer associated with type 2 diabetes mellitus, with fat layer exposed Current Visit: Yes Status: Acute Code(s): E11.621 - TYPE 2 DIABETES MELLITUS WITH FOOT ULCER; L97.502 - NON-PRS CHRONIC ULCER OTH PRT UNSP FOOT W FAT LAYER EXPOSED SNOMED Code(s): 6374244472733 (3) Failure of outpatient treatment Current Visit: Yes Status: Acute Code(s): Z78.9 - OTHER SPECIFIED HEALTH STATUS SNOMED Code(s): 784510522 (4) Foot osteomyelitis, left Current Visit: Yes Status: Acute Code(s): M86.9 - OSTEOMYELITIS, UNSPECIFIED SNOMED Code(s): 4450413857845986 Plan: 1patient with extensive left heel diabetic foot infection in this patient with recent outpatient culture positive for MRSA and the patient was getting daptomycin and oral Flagyl for it subsequently the patient did have a culture done on 12/10/2022 that did grew Proteus mirabilis now with worsening of cellul itis and necrotic changes patient did have a elevated white count no bony changes were noticed on the x-ray however concern of possible for deep infection , patient is status post surgical debridement and deep culture which are currently growing gram-negative 2-patient with Proteus bacteremia source is likely left heel osteomyelitis, blood cultures has been repeated from the PICC line and peripherally which are negative so far 3patient left heel cultures are growing Proteus as well as Pseudomonas aeruginosa, patient did have angiogram with evidence of occlusion possibility responsible for nonhealing of this wound , plan is for possible awesf-igd-juhi amputation on 12/27/2022 4-patient to continue with the current treatment of daptomycin along with cefepime and Flagyl, however will not need long-term IV antibiotic therapy as infected part has been removed on dictation software. please excuse any grammatical, word or spelling errors. Time with Patient: Less than 30
--- NOTE | 2022-12-29 09:08 | P.PN ---
Subjective Progress Note Date: 12/28/22 Principal diagnosis: Left heel osteomyelitis/diabetic foot infection Patient is a 67-year-old male with a past medical history significant for diabetes mellitus hypertension patient did have a history of left heel diabetic foot infection underlying osteomyelitis with a culture positive for MRSA patient did have a renal insufficiency and is currently getting daptomycin in the outpatient setting along with oral Flagyl patient is presenting to the ER concerning for increasing discomfort to the left heel area , the patient is status post surgical debridement of the left heel on 12/16/2022. Patient is status post angiogram completed on 12/22/2022 did have evidence of anterior tibial occluded, Patient is status post right below the knee amputation completed on 12/27/2022, On today's evaluation that is 12/28/2022 the patient remains to be afebrile, patient is breathing comfortably on room air, the patient pain to the right BKA stump is controlled with pain medication. Denies any chest pain shortness of breath or cough no nausea vomiting no abdominal pain and no diarrhea. The patient white count is 12,000 creatinine is 2.79 Patient blood culture positive for Proteus, repeat blood culture has been negative left heel culture positive for Proteus and also growing Pseudomonas, Objective - Vital Signs Vital signs: Vital Signs Temp 98.1 F 12/28/22 08:23 Pulse 56 L 12/28/22 13:26 Resp 18 12/28/22 14:00 BP 144/72 12/28/22 12:11 Pulse Ox 98 12/28/22 12:11 FiO2 Intake & Output 12/27/22 12/28/22 12/28/22 18:59 06:59 18:59 Intake Total 500 Output Total 525 925 425 Balance -25 -925 -425 Intake: IV 500 Output: Urine 400 925 425 Stool 0 Estimated Blood Loss 125 Other: Voiding Method Urinal Urinal Urinal - Exam GENERAL DESCRIPTION: An elderly male lying in bed in no distress RESPIRATORY SYSTEM: Unlabored breathing , decreased breath sounds at bases HEART: S1 S2 regular rate and rhythm , ABDOMEN: Soft , no tenderness EXTREMITIES: Left BKA stump is currently covered in OR dressing - Labs CBC & Chem 7: 12/29/22 05:33 12/29/22 05:33 Labs: Abnormal Lab Results - Last 24 Hours (Table) 12/27/22 12/27/22 12/27/22 Range/Units 13:03 14:51 16:14 WBC 13.3 H (3.8-10.6) k/uL RBC 2.77 L (4.30-5.90) m/uL Hgb 8.3 L (13.0-17.5) gm/dL Hct 25.8 L (39.0-53.0) % Sodium (137-145) mmol/L Potassium (3.5-5.1) mmol/L Carbon Dioxide (22-30) mmol/L BUN (9-20) mg/dL Creatinine (0.66-1.25) mg/dL Glucose (74-99) mg/dL POC Glucose (mg/dL) 118 H (70-110) mg/dL AST (17-59) U/L Total Protein (6.3-8.2) g/dL Albumin (3.5-5.0) g/dL Crossmatch See Detail 12/27/22 12/28/22 12/28/22 Range/Units 19:54 06:49 06:49 WBC 12.7 H (3.8-10.6) k/uL RBC 2.67 L (4.30-5.90) m/uL Hgb 8.0 L (13.0-17.5) gm/dL Hct 25.2 L (39.0-53.0) % Sodium 133 L (137-145) mmol/L Potassium 5.4 H (3.5-5.1) mmol/L Carbon Dioxide 19 L (22-30) mmol/L BUN 38 H (9-20) mg/dL Creatinine 2.79 H (0.66-1.25) mg/dL Glucose 68 L (74-99) mg/dL POC Glucose (mg/dL) 144 H (70-110) mg/dL AST 74 H (17-59) U/L Total Protein 5.7 L (6.3-8.2) g/dL Albumin 3.0 L (3.5-5.0) g/dL Crossmatch Assessment and Plan (1) Gram-negative bacteremia Current Visit: Yes Status: Acute Code(s): R78.81 - BACTEREMIA SNOMED Code(s): 004402087987 (2) Diabetic foot ulcer associated with type 2 diabetes mellitus, with fat layer exposed Current Visit: Yes Status: Acute Code(s): E11.621 - TYPE 2 DIABETES MELLITUS WITH FOOT ULCER; L97.502 - NON-PRS CHRONIC ULCER OTH PRT UNSP FOOT W FAT LAYER EXPOSED SNOMED Code(s): 7688034033488 (3) Failure of outpatient treatment Current Visit: Yes Status: Acute Code(s): Z78.9 - OTHER SPECIFIED HEALTH STATUS SNOMED Code(s): 490155302 (4) Foot osteomyelitis, left Current Visit: Yes Status: Acute Code(s): M86.9 - OSTEOMYELITIS, UNSPECIFIED SNOMED Code(s): 0499297980801586 Plan: 1patient with extensive left heel diabetic foot infection in this patient with recent outpatient culture positive for MRSA and the patient was getting daptomycin and oral Flagyl for it subsequently the patient did have a culture done on 12/10/2022 that did grew Proteus mirabilis now with worsening of cellu litis and necrotic changes patient did have a elevated white count no bony changes were noticed on the x-ray however concern of possible for deep infection , patient is status post surgical debridement and deep culture which are currently growing gram-negative 2-patient with Proteus bacteremia source is likely left heel osteomyelitis, blood cultures has been repeated from the PICC line and peripherally which are negative so far 3patient left heel cultures are growing Proteus as well as Pseudomonas aeruginosa, patient did have angiogram with evidence of occlusion possibility responsible for nonhealing of this wound , plan is for possible [id number] amputation on 12/27/2022 4-patient currently being treated daptomycin , cefepime and Flagyl, however the patient will not need long-term IV antibiotic therapy as infected part has been removed, multiple questions and concerns were answered 5-patient also have stage I sacral pressure ulcer will apply skin protective cream and keep the area off the pressure on dictation software. please excuse any grammatical, word or spelling errors.
[2022-12-29 11:45] LABS: Glucose,Whole Blood 115 mg/dL (70-110)
--- NOTE | 2022-12-29 12:14 | P.PN ---
Subjective Patient is seen for follow-up for chronic kidney disease. Renal function has been stable with serum creatinine staying at about 2.4 mg/dL. Patient has been voiding. Status post left BKA on 12/27/22 Resting comfortably today. Patient is sleeping Objective - Vital Signs Vital signs: Vital Signs Temp 98.0 F 12/29/22 10:41 Pulse 49 L 12/29/22 10:41 Resp 16 12/29/22 10:41 BP 147/70 12/29/22 10:41 Pulse Ox 97 12/29/22 10:41 FiO2 Intake & Output 12/28/22 12/29/22 12/29/22 18:59 06:59 18:59 Intake Total 0 310 Output Total 775 1200 450 Balance -775 -1200 -140 Weight 103 kg Intake: Blood Product 0 310 Rc As-1 Unit 0 310 [id number] Output: Urine 775 1200 450 Other: Voiding Method Urinal Urinal Urinal - Exam Sleeping but arousable comfortable, no acute distress Examination of the heart S1 and S2 Examination of the lungs bilateral breath sounds are heard Abdomen is soft nontender Examination lower extremities shows right AKA and left BKA, dressing intact. - Labs CBC & Chem 7: 12/29/22 05:33 12/29/22 05:33 Labs: Abnormal Lab Results - Last 24 Hours (Table) 12/27/22 12/28/22 12/28/22 Range/Units 13:03 15:35 20:04 WBC 12.0 H (3.8-10.6) k/uL RBC 2.60 L (4.30-5.90) m/uL Hgb 7.6 L (13.0-17.5) gm/dL Hct 24.8 L (39.0-53.0) % MCHC 30.5 L (31.0-37.0) g/dL Sodium (137-145) mmol/L Carbon Dioxide (22-30) mmol/L BUN (9-20) mg/dL Creatinine (0.66-1.25) mg/dL POC Glucose (mg/dL) 116 H (70-110) mg/dL Calcium (8.4-10.2) mg/dL AST (17-59) U/L Total Protein (6.3-8.2) g/dL Albumin (3.5-5.0) g/dL Crossmatch See Detail 12/29/22 12/29/22 12/29/22 Range/Units 05:33 05:33 11:38 WBC (3.8-10.6) k/uL RBC 2.57 L (4.30-5.90) m/uL Hgb 7.7 L (13.0-17.5) gm/dL Hct 24.0 L (39.0-53.0) % MCHC (31.0-37.0) g/dL Sodium 135 L (137-145) mmol/L Carbon Dioxide 21 L (22-30) mmol/L BUN 49 H (9-20) mg/dL Creatinine 2.74 H (0.66-1.25) mg/dL POC Glucose (mg/dL) 115 H (70-110) mg/dL Calcium 8.2 L (8.4-10.2) mg/dL AST 73 H (17-59) U/L Total Protein 5.6 L (6.3-8.2) g/dL Albumin 2.9 L (3.5-5.0) g/dL Crossmatch Assessment and Plan Assessment: 1. Acute kidney injury likely ATN, nonoliguric , status post IV fluids. Serum creatinine is stable at 2.4 mg/dL 2. Chronic kidney disease NKF stage IV with baseline creatinine 2.7-3.3 mg/dL. Etiology is likely nephrosclerosis. 3. Left ankle wound/diabetic ulcer, s/p left BKA on 12/27/22 4. History of right AKA 5. Non-gap metabolic acidosis secondary to chronic kidney disease/acute kidney injury Plan: Continue off of IV fluids Continue with oral sodium bicarb Encourage increased oral intake Low potassium diet Continue with antibiotics
--- NOTE | 2022-12-29 12:17 | P.PN ---
Subjective Progress Note Date: 12/29/22 Ian Paulino is a 67 year old male who presented to [facility] with a chief complaint of left foot pain and infection. Patient has been receiving outpatient IV antibiotics of daptomycin and Flagyl and followed with wound care. Per patient's at bedside patient was developing blisters to foot over the past week and having increasing pain prompting the patient to come to ER. Patient has a past medical history of diabetes mellitus, hypertension, chronic kidney disease and previous amputations. Foot x-ray completed showing soft tissue wound overlying the heel without evidence for erosion of the osseous structures. At this time patient will be admitted patient was started on IV antibiotics of Rocephin and daptomycin along with by mouth Flagyl. Vascular surgery also consulted status post debridement with Dr. Armstrong on 12/16/2022. We'll also consult nephrology services for chronic kidney disease. At this time patient is resting comfortably in bed. Patient denies chest pain or shortness of breath. Patient denies nausea vomiting or diarrhea. Patient denies any urinary burning or frequency On 12/17/2022 patient is alert and oriented 3. Patient remains on IV an tibiotics. Followed by nephrology infectious disease and vascular services. At this time patient denies chest pain or shortness breath. Patient denies nausea vomiting or diarrhea. Patient denies any urinary burning or frequency On 12/18/2022 patient is alert and oriented 3. Blood culture positive for gram-negative bacilli. Infectious disease services are following. PICC line placed patient remains on IV Rocephin, daptomycin and Flagyl. Current vital signs temp 98.7, heart rate 62, respiratory rate 16, blood pressure 142/60. On 12/19/2022 patient alert and oriented 3. Awaiting final recommendations per ID in regards to antibiotics. This time patient is resting in chair. Patient denies chest pain or shortness breath. Patient denies nausea vomiting or diarrhea. Patient denies any urinary burning or frequency. Current vital signs temp 98.3, heart rate 69, respiratory 18, blood pressure 156/80 with a pulse ox 97% on room air On 12/20/2022 patient was seen and examined on the medical floor he is alert and oriented 3 in no apparent distress there is no fever or chills no headache or dizziness no chest pain no shortness of breath no cough no nausea or vomiting no abdominal pain no diarrhea no blood in the stools no burning with urination no frequency or urgency and no hematuria, at this time I'm still waiting for further recommendation from infectious disease and vascular surgery, possible discharge tomorrow, if no further intervention is recommended. On 12/21/2022 patient was seen and examined on the medical floor he is alert and oriented 3 in no apparent distress, there is no fever or chills no headache or dizziness no chest pain no shortness of breath no cough no nausea or vomiting no abdominal pain no diarrhea and no urinary symptoms. Patient is scheduled for an angiogram tomorrow per vascular surgery, will continue to follow closely. On 12/22/2022 patient was seen and examined on the medical floor he is alert and oriented 3 in no apparent distress, he underwent lower extremity angiogram today . there is no fever or chills no headache or dizziness no chest pain no shortness of breath no cough no nausea or vomiting no abdominal pain no diarrhea and no urinary symptoms. Patient is scheduled for an angiogram tomorrow per vascular surgery, will continue to follow closely. On 12/23/2022 patient alert and oriented 3. Patient underwent angiogram plans to have a meeting with Dr. Armstrong tomorrow to go over plan. Current vital signs temp 98.3, heart rate 62, respiratory rate 16, blood pressure 156/66 with pulse ox 98% on room air. Patient remains on antibiotics. On 12/24/2022 patient was seen and examined on the medical floor he is alert and oriented 3 in no apparent distress he is still complaining of constipation otherwise he denies any complaints, there is no fever or chills no headache or dizziness no chest pain no shortness of breath no cough no nausea or vomiting no abdominal pain no diarrhea no blood in the stools no burning with urination no frequency or urgency and no hematuria. On 12/25/2022 patient was seen and examined on the medical floor he is alert and oriented 3 in no apparent distress there is no fever or chills no headache or dizziness no chest pain no shortness of breath no cough no nausea or vomiting no abdominal pain no diarrhea and no urinary symptoms. He remains on IV antibiotics. Awaiting further recommendations from vascular surgery. On 12/26/2022 patient is alert and oriented 3 resting comfortably in bed. At this time patient denies chest pain or shortness breath. Patient denies nausea vomiting or diarrhea. Patient denies any urinary burning or frequency. Awaiting input from vascular surgery for the planned possibly amputation On 12/27/2022 patient's alert and oriented 3 patient to undergo amputation today. Patient denies chest pain or shortness breath. Patient denies nausea vomiting or diarrhea. Patient denies any urinary burning or frequency On 12/28/2022 patient's alert and oriented 3. Status post left BKA with Dr. Rice yesterday. Patient complaining of pain currently maintained on [place] and Dilaudid. Lab work Pending. patient maintained on daptomycin and Maxipime. Current vital signs temp 98.1, heart 55, respiratory rate 18 blood pressure 135/73 pulse ox 98% on room air. On 12/29/2022 patient was seen and examined on the medical floor he is alert and oriented 3 in no apparent distress there is no fever or chills no headache or dizziness no chest pain no shortness of breath no cough no nausea or vomiting no abdominal pain no diarrhea and no urinary symptoms, patient is improving gradually, possible transfer to rehab on Saturday. Objective - Vital Signs Vital signs: Vital Signs Temp 97.5 F L 12/29/22 08:26 Pulse 54 L 12/29/22 08:26 Resp 18 12/29/22 08:26 BP 136/70 12/29/22 08:26 Pulse Ox 96 12/29/22 08:26 FiO2 Intake & Output 12/28/22 12/29/22 12/29/22 18:59 06:59 18:59 Intake Total 0 Output Total 775 1200 Balance -775 -1200 Weight 103 kg Intake: Blood Product 0 Rc As-1 Unit 0 [id number] Output: Urine 775 1200 Other: Voiding Method Urinal Urinal - Exam In general patient is alert and oriented x 3 in no distress HEENT head normocephalic and atraumatic Neck is supple no JVD no goiter no lymphadenopathy no carotid bruit Chest examination is clear to auscultation no crackles no wheezing Cardiac exam reveals regular heart sounds S1 and S2 no gallops no murmurs Abdomen is soft nontender no organomegaly with normal bowel sounds Extremity exam reveals no edema no cyanosis or clubbing, Left foot dressing clean dry and intact Neurological examination reveals no gross focal deficits - Labs CBC & Chem 7: 12/29/22 05:33 08/05/23 05:33 Labs: Abnormal Lab Results - Last 24 Hours (Table) 12/27/22 12/28/22 12/28/22 Range/Units 13:03 06:49 15:35 WBC 12.0 H (3.8-10.6) k/uL RBC 2.60 L (4.30-5.90) m/uL Hgb 7.6 L (13.0-17.5) gm/dL Hct 24.8 L (39.0-53.0) % MCHC 30.5 L (31.0-37.0) g/dL Sodium 133 L (137-145) mmol/L Potassium 5.4 H (3.5-5.1) mmol/L Carbon Dioxide 19 L (22-30) mmol/L BUN 38 H (9-20) mg/dL Creatinine 2.79 H (0.66-1.25) mg/dL Glucose 68 L (74-99) mg/dL POC Glucose (mg/dL) (70-110) mg/dL Calcium (8.4-10.2) mg/dL AST 74 H (17-59) U/L Total Protein 5.7 L (6.3-8.2) g/dL Albumin 3.0 L (3.5-5.0) g/dL Crossmatch See Detail 12/28/22 12/29/22 12/29/22 Range/Units 20:04 05:33 05:33 WBC (3.8-10.6) k/uL RBC 2.57 L (4.30-5.90) m/uL Hgb 7.7 L (13.0-17.5) gm/dL Hct 24.0 L (39.0-53.0) % MCHC (31.0-37.0) g/dL Sodium 135 L (137-145) mmol/L Potassium (3.5-5.1) mmol/L Carbon Dioxide 21 L (22-30) mmol/L BUN 49 H (9-20) mg/dL Creatinine 2.74 H (0.66-1.25) mg/dL Glucose (74-99) mg/dL POC Glucose (mg/dL) 116 H (70-110) mg/dL Calcium 8.2 L (8.4-10.2) mg/dL AST 73 H (17-59) U/L Total Protein 5.6 L (6.3-8.2) g/dL Albumin 2.9 L (3.5-5.0) g/dL Crossmatch Assessment and Plan Plan: 1. Left foot diabetic ulceration with failed outpatient treatment with sepsis evident by positive blood culture 2. Chronic kidney disease 3. Diabetes mellitus type 2. A home Lantus dose ordered plus sliding scale coverage 4. Essential hypertension 5. History of right greater toe amputation 6. Obesity 7. Hypothyroidism DVT prophylaxis Lovenox. 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
[2022-12-29 16:49] LABS: Glucose,Whole Blood 123 mg/dL (70-110)
[2022-12-29] MEDS: LACTATED RINGERS 1,000 ML IV SCH (17:41)
[2022-12-29 20:11] LABS: Glucose,Whole Blood 127 mg/dL (70-110)
[2022-12-29] MEDS: LORATADINE 10 MG TAB PO SCH (20:28)
[2022-12-29] MEDS: INSULIN DETEMIR (LEVEMIR) 100 UNIT/ML SYR SQ SCH (20:29)
[2022-12-30] MEDS: CEFEPIME 2 GM in SODIUM CHLORIDE 0.9% 100 ML IVPB SCH ×2 (03:32→15:10)
[2022-12-30] MEDS: HYDROmorphone 1 MG/ML 1 ML SYRINGE IVP PRN ×3 (03:33→15:17)
[2022-12-30] MEDS: INSULIN ASPART (NovoLOG) 100 UNIT/ML VIAL SQ SCH ×4 (06:20→21:25)
[2022-12-30 06:22] LABS: Glucose,Whole Blood 94 mg/dL (70-110)
[2022-12-30] MEDS: PANTOPRAZOLE 40 MG TABLET PO SCH (06:23)
[2022-12-30] MEDS: HYDROcodone/APAP 5-325MG 1 EACH TAB PO PRN ×4 (06:23→23:21)
[2022-12-30] MEDS: LEVOTHYROXINE 25 MCG TAB PO SCH (06:23)
[2022-12-30] MEDS: ALBUTEROL NEBULIZED 2.5 MG/3 ML INHALATION PRN (08:39)
[2022-12-30] MEDS: ESCITALOPRAM 10 MG TAB PO SCH (09:03)
[2022-12-30] MEDS: diazePAM 5 MG TAB PO SCH ×3 (09:03→21:24)
[2022-12-30] MEDS: amLODIPine 10 MG TAB PO SCH (09:03)
[2022-12-30] MEDS: hydrALAZINE HCL 50 MG TAB PO SCH ×2 (09:04→21:23)
[2022-12-30] MEDS: metroNIDAZOLE 500 MG TAB PO SCH ×3 (09:04→21:23)
[2022-12-30] MEDS: DOCUSATE 100 MG CAP PO SCH ×2 (09:04→21:23)
[2022-12-30] MEDS: cloNIDine HCL 0.1 MG TAB PO SCH ×3 (09:04→21:23)
[2022-12-30] MEDS: FERROUS SULFATE 325 MG TAB PO SCH (09:04)
[2022-12-30] MEDS: allopurinoL 100 MG TAB PO SCH (09:04)
[2022-12-30] MEDS: polyethylene glycoL 3350 17 GM POWD.PACK PO SCH (09:04)
[2022-12-30] MEDS: SODIUM BICARBONATE TAB 650 MG TAB PO SCH ×2 (09:04→21:23)
[2022-12-30] MEDS: TAMSULOSIN 0.4 MG CAP.ER.24H PO SCH (09:04)
[2022-12-30] MEDS: COLLAGENASE 250 UNIT/GM OINTMENT 30 GM TUBE TOPICAL SCH (09:05)
[2022-12-30] MEDS: ENOXAPARIN 40 MG/0.4 ML SYRINGE SQ SCH (09:05)
--- NOTE | 2022-12-30 09:30 | P.PN ---
Subjective Progress Note Date: 12/30/22 Ian Paulino is a 67 year old male who presented to [facility] with a chief complaint of left foot pain and infection. Patient has been receiving outpatient IV antibiotics of daptomycin and Flagyl and followed with wound care. Per patient's at bedside patient was developing blisters to foot over the past week and having increasing pain prompting the patient to come to ER. Patient has a past medical history of diabetes mellitus, hypertension, chronic kidney disease and previous amputations. Foot x-ray completed showing soft tissue wound overlying the heel without evidence for erosion of the osseous structures. At this time patient will be admitted patient was started on IV antibiotics of Rocephin and daptomycin along with by mouth Flagyl. Vascular surgery also consulted status post debridement with Dr. Armstrong on 12/16/2022. We'll also consult nephrology services for chronic kidney disease. At this time patient is resting comfortably in bed. Patient denies chest pain or shortness of breath. Patient denies nausea vomiting or diarrhea. Patient denies any urinary burning or frequency On 12/17/2022 patient is alert and oriented 3. Patient remains on IV an tibiotics. Followed by nephrology infectious disease and vascular services. At this time patient denies chest pain or shortness breath. Patient denies nausea vomiting or diarrhea. Patient denies any urinary burning or frequency On 12/18/2022 patient is alert and oriented 3. Blood culture positive for gram-negative bacilli. Infectious disease services are following. PICC line placed patient remains on IV Rocephin, daptomycin and Flagyl. Current vital signs temp 98.7, heart rate 62, respiratory rate 16, blood pressure 142/60. On 12/19/2022 patient alert and oriented 3. Awaiting final recommendations per ID in regards to antibiotics. This time patient is resting in chair. Patient denies chest pain or shortness breath. Patient denies nausea vomiting or diarrhea. Patient denies any urinary burning or frequency. Current vital signs temp 98.3, heart rate 69, respiratory 18, blood pressure 156/80 with a pulse ox 97% on room air On 12/20/2022 patient was seen and examined on the medical floor he is alert and oriented 3 in no apparent distress there is no fever or chills no headache or dizziness no chest pain no shortness of breath no cough no nausea or vomiting no abdominal pain no diarrhea no blood in the stools no burning with urination no frequency or urgency and no hematuria, at this time I'm still waiting for further recommendation from infectious disease and vascular surgery, possible discharge tomorrow, if no further intervention is recommended. On 12/21/2022 patient was seen and examined on the medical floor he is alert and oriented 3 in no apparent distress, there is no fever or chills no headache or dizziness no chest pain no shortness of breath no cough no nausea or vomiting no abdominal pain no diarrhea and no urinary symptoms. Patient is scheduled for an angiogram tomorrow per vascular surgery, will continue to follow closely. On 12/22/2022 patient was seen and examined on the medical floor he is alert and oriented 3 in no apparent distress, he underwent lower extremity angiogram today . there is no fever or chills no headache or dizziness no chest pain no shortness of breath no cough no nausea or vomiting no abdominal pain no diarrhea and no urinary symptoms. Patient is scheduled for an angiogram tomorrow per vascular surgery, will continue to follow closely. On 12/23/2022 patient alert and oriented 3. Patient underwent angiogram plans to have a meeting with Dr. Armstrong tomorrow to go over plan. Current vital signs temp 98.3, heart rate 62, respiratory rate 16, blood pressure 156/66 with pulse ox 98% on room air. Patient remains on antibiotics. On 12/24/2022 patient was seen and examined on the medical floor he is alert and oriented 3 in no apparent distress he is still complaining of constipation otherwise he denies any complaints, there is no fever or chills no headache or dizziness no chest pain no shortness of breath no cough no nausea or vomiting no abdominal pain no diarrhea no blood in the stools no burning with urination no frequency or urgency and no hematuria. On 12/25/2022 patient was seen and examined on the medical floor he is alert and oriented 3 in no apparent distress there is no fever or chills no headache or dizziness no chest pain no shortness of breath no cough no nausea or vomiting no abdominal pain no diarrhea and no urinary symptoms. He remains on IV antibiotics. Awaiting further recommendations from vascular surgery. On 12/26/2022 patient is alert and oriented 3 resting comfortably in bed. At this time patient denies chest pain or shortness breath. Patient denies nausea vomiting or diarrhea. Patient denies any urinary burning or frequency. Awaiting input from vascular surgery for the planned possibly amputation On 12/27/2022 patient's alert and oriented 3 patient to undergo amputation today. Patient denies chest pain or shortness breath. Patient denies nausea vomiting or diarrhea. Patient denies any urinary burning or frequency On 12/28/2022 patient's alert and oriented 3. Status post left BKA with Dr. Rice yesterday. Patient complaining of pain currently maintained on [place] and Dilaudid. Lab work Pending. patient maintained on daptomycin and Maxipime. Current vital signs temp 98.1, heart 55, respiratory rate 18 blood pressure 135/73 pulse ox 98% on room air. On 12/29/2022 patient was seen and examined on the medical floor he is alert and oriented 3 in no apparent distress there is no fever or chills no headache or dizziness no chest pain no shortness of breath no cough no nausea or vomiting no abdominal pain no diarrhea and no urinary symptoms, patient is improving gradually, possible transfer to rehab on Saturday. On 12/30/2022 patient alert and oriented 3. At this time patient denies chest pain or shortness breath. Patient is vomiting or diarrhea. Denies any urinary burning or frequency. Current vital signs temp 97.7, heart rate 55, respiratory rate 18, blood pressure 1 5462 with pulse ox of 98% Objective - Vital Signs Vital signs: Vital Signs Temp 97.7 F 12/30/22 09:19 Pulse 55 L 12/30/22 09:20 Resp 18 12/30/22 09:20 BP 154/62 12/30/22 09:19 Pulse Ox 98 12/30/22 09:19 FiO2 Intake & Output 12/29/22 12/30/22 12/30/22 18:59 06:59 18:59 Intake Total 1090 Output Total 1050 700 Balance 40 -700 Intake: Oral 780 Blood Product 310 Rc As-1 Unit 310 [id number] Output: Urine 1050 700 Other: Voiding Method Urinal Urinal Urinal - Exam In general patient is alert and oriented x 3 in no distress HEENT head normocephalic and atraumatic Neck is supple no JVD no goiter no lymphadenopathy no carotid bruit Chest examination is clear to auscultation no crackles no wheezing Cardiac exam reveals regular heart sounds S1 and S2 no gallops no murmurs Abdomen is soft nontender no organomegaly with normal bowel sounds Extremity exam reveals no edema no cyanosis or clubbing, Left foot dressing clean dry and intact Neurological examination reveals no gross focal deficits - Labs CBC & Chem 7: 12/29/22 05:33 12/29/22 05:33 Labs: Abnormal Lab Results - Last 24 Hours (Table) 12/27/22 12/29/22 12/29/22 Range/Units 13:03 11:38 16:47 POC Glucose (mg/dL) 115 H 123 H (70-110) mg/dL Crossmatch See Detail 12/29/22 Range/Units 20:09 POC Glucose (mg/dL) 127 H (70-110) mg/dL Crossmatch Assessment and Plan Plan: 1. Left foot diabetic ulceration with failed outpatient treatment with sepsis evident by positive blood culture 2. Chronic kidney disease 3. Diabetes mellitus type 2. A home Lantus dose ordered plus sliding scale coverage 4. Essential hypertension 5. History of right greater toe amputation 6. Obesity 7. Hypothyroidism DVT prophylaxis Lovenox. 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
[2022-12-30 10:01] LABS: ALT 34 U/L (4-49); AST 73 U/L (17-59); African American GFR (CKD) 27 (>60 ml/min/1.73 sqM); Albumin 3.1 g/dL (3.5-5.0); Alkaline Phosphatase 87 U/L (38-126); Anion Gap 10 mmol/L; Blood Urea Nitrogen 49 mg/dL (9-20); Calcium 8.3 mg/dL (8.4-10.2); Carbon Dioxide 22 mmol/L (22-30); Chloride 104 mmol/L (98-107); Glucose 84 mg/dL (74-99); Non-African American GFR(CKD) 23 (>60 ml/min/1.73 sqM); Sodium 136 mmol/L (137-145); Total Bilirubin 0.5 mg/dL (0.2-1.3)
[2022-12-30 10:07] LABS: Basophils # (A) 0.1 k/uL (0-0.2); Basophils % (A) 1 %; Eosinophils # (A) 0.2 k/uL (0-0.7); Eosinophils % (A) 2 %; HCT 27.5 % (39.0-53.0); HGB 8.8 gm/dL (13.0-17.5); Hypochromasia Moderate; Lymphocytes # (A) 1.6 k/uL (1.0-4.8); Lymphocytes % (A) 16 %; MCH 29.9 pg (25.0-35.0); MCHC 31.9 g/dL (31.0-37.0); MCV 93.8 fL (80.0-100.0); Mean Platelet Volume 7.7; Monocytes # (A) 0.7 k/uL (0-1.0); Monocytes % (A) 8 %; Neutrophils # (A) 7.1 k/uL (1.3-7.7); Neutrophils % (A) 73 %; Platelet Count 272 k/uL (150-450); RBC 2.93 m/uL (4.30-5.90); RDW 14.5 % (11.5-15.5); WBC 9.7 k/uL (3.8-10.6)
[2022-12-30 10:18] LABS: Potassium 4.2 mmol/L (3.5-5.1)
--- NOTE | 2022-12-30 11:35 | P.PN ---
Subjective Patient is seen for follow-up for chronic kidney disease. Renal function has been stable with serum creatinine staying at about 2.4 mg/dL. Patient has been voiding. Status post left BKA on 12/27/22 Patient is awake, comfortable, no significant complaints Objective - Vital Signs Vital signs: Vital Signs Temp 97.7 F 12/30/22 09:19 Pulse 55 L 12/30/22 09:20 Resp 18 12/30/22 09:20 BP 154/62 12/30/22 09:19 Pulse Ox 98 12/30/22 09:19 FiO2 Intake & Output 12/29/22 12/30/22 12/30/22 18:59 06:59 18:59 Intake Total 1090 Output Total 1050 700 Balance 40 -700 Intake: Oral 780 Blood Product 310 Rc As-1 Unit 310 [id number] Output: Urine 1050 700 Other: Voiding Method Urinal Urinal Urinal - Exam Patient is awake, comfortable, no acute distress Examination of the heart S1 and S2 Examination of the lungs bilateral breath sounds are heard Abdomen is soft nontender Examination lower extremities shows right AKA and left BKA, dressing intact. [employer] exam grossly intact - Labs CBC & Chem 7: 12/30/22 08:57 12/30/22 08:57 Labs: Abnormal Lab Results - Last 24 Hours (Table) 12/29/22 12/29/22 12/29/22 Range/Units 11:38 16:47 20:09 RBC (4.30-5.90) m/uL Hgb (13.0-17.5) gm/dL Hct (39.0-53.0) % Sodium (137-145) mmol/L BUN (9-20) mg/dL Creatinine (0.66-1.25) mg/dL POC Glucose (mg/dL) 115 H 123 H 127 H (70-110) mg/dL Calcium (8.4-10.2) mg/dL AST (17-59) U/L Total Protein (6.3-8.2) g/dL Albumin (3.5-5.0) g/dL 12/30/22 12/30/22 Range/Units 08:57 08:57 RBC 2.93 L (4.30-5.90) m/uL Hgb 8.8 L (13.0-17.5) gm/dL Hct 27.5 L (39.0-53.0) % Sodium 136 L (137-145) mmol/L BUN 49 H (9-20) mg/dL Creatinine 2.73 H (0.66-1.25) mg/dL POC Glucose (mg/dL) (70-110) mg/dL Calcium 8.3 L (8.4-10.2) mg/dL AST 73 H (17-59) U/L Total Protein 6.0 L (6.3-8.2) g/dL Albumin 3.1 L (3.5-5.0) g/dL Assessment and Plan Assessment: 1. Acute kidney injury likely ATN, nonoliguric , status post IV fluids. Serum creatinine is stable at 2.4-2.7 mg/dL 2. Chronic kidney disease NKF stage IV with baseline creatinine 2.7-3.3 mg/dL. Etiology is nephrosclerosis. 3. Left ankle wound/diabetic ulcer, s/p left BKA on 12/27/22 4. History of right AKA 5. Non-gap metabolic acidosis secondary to chronic kidney disease/acute kidney injury maintained on oral sodium bicarb Plan: Continue off of IV fluids Continue with oral sodium bicarb Encourage increased oral intake Continue with antibiotics
[2022-12-30 11:58] LABS: Glucose,Whole Blood 127 mg/dL (70-110)
[2022-12-30] MEDS: HYDROmorphone 0.5 MG/0.5 ML SYRINGE IVP PRN ×2 (13:18→21:25)
[2022-12-30] MEDS: LACTATED RINGERS 1,000 ML IV SCH (14:39)
[2022-12-30] MEDS: ALBUTEROL NEBULIZED 2.5 MG/3 ML INHALATION SCH ×2 (14:47→21:30)
[2022-12-30 16:47] LABS: Glucose,Whole Blood 91 mg/dL (70-110)
--- NOTE | 2022-12-30 16:49 | P.PN ---
Subjective Progress Note Date: 12/29/22 Principal diagnosis: Left heel osteomyelitis/diabetic foot infection Patient is a 67-year-old male with a past medical history significant for diabetes mellitus hypertension patient did have a history of left heel diabetic foot infection underlying osteomyelitis with a culture positive for MRSA patient did have a renal insufficiency and is currently getting daptomycin in the outpatient setting along with oral Flagyl patient is presenting to the ER concerning for increasing discomfort to the left heel area , the patient is status post surgical debridement of the left heel on 12/16/2022. Patient is status post angiogram completed on 12/22/2022 did have evidence of anterior tibial occluded, Patient is status post right below the knee amputation completed on 12/27/2022, On today's evaluation that is 12/29/2022 the patient continues to be afebrile, patient is breathing comfortably on room air, the patient pain to the right BKA stump is controlled with current pain medication. The patient is sleepy and taking respiratory the at the bedside no new symptoms has been reported The patient white count is down to 8.4, hemoglobin is 7.7, creatinine is 2.74 Patient blood culture positive for Proteus, repeat blood culture has been negative left heel culture positive for Proteus and also growing Pseudomonas, Objective - Vital Signs Vital signs: Vital Signs Temp 98.0 F 12/29/22 10:41 Pulse 49 L 12/29/22 10:41 Resp 16 12/29/22 10:41 BP 147/70 12/29/22 10:41 Pulse Ox 97 12/29/22 10:41 FiO2 Intake & Output 12/28/22 12/29/22 12/29/22 18:59 06:59 18:59 Intake Total 0 310 Output Total 775 1200 450 Balance -775 -1200 -140 Weight 103 kg Intake: Blood Product 0 310 Rc As-1 Unit 0 310 [id number] Output: Urine 775 1200 450 Other: Voiding Method Urinal Urinal Urinal - Exam GENERAL DESCRIPTION: An elderly male lying in bed in no distress RESPIRATORY SYSTEM: Unlabored breathing , decreased breath sounds at bases HEART: S1 S2 regular rate and rhythm , ABDOMEN: Soft , no tenderness EXTREMITIES: Left BKA stump is currently covered in OR dressing - Labs CBC & Chem 7: 12/30/22 08:57 12/30/22 08:57 Labs: Abnormal Lab Results - Last 24 Hours (Table) 12/27/22 12/28/22 12/28/22 Range/Units 13:03 15:35 20:04 WBC 12.0 H (3.8-10.6) k/uL RBC 2.60 L (4.30-5.90) m/uL Hgb 7.6 L (13.0-17.5) gm/dL Hct 24.8 L (39.0-53.0) % MCHC 30.5 L (31.0-37.0) g/dL Sodium (137-145) mmol/L Carbon Dioxide (22-30) mmol/L BUN (9-20) mg/dL Creatinine (0.66-1.25) mg/dL POC Glucose (mg/dL) 116 H (70-110) mg/dL Calcium (8.4-10.2) mg/dL AST (17-59) U/L Total Protein (6.3-8.2) g/dL Albumin (3.5-5.0) g/dL Crossmatch See Detail 12/29/22 12/29/22 Range/Units 05:33 05:33 WBC (3.8-10.6) k/uL RBC 2.57 L (4.30-5.90) m/uL Hgb 7.7 L (13.0-17.5) gm/dL Hct 24.0 L (39.0-53.0) % MCHC (31.0-37.0) g/dL Sodium 135 L (137-145) mmol/L Carbon Dioxide 21 L (22-30) mmol/L BUN 49 H (9-20) mg/dL Creatinine 2.74 H (0.66-1.25) mg/dL POC Glucose (mg/dL) (70-110) mg/dL Calcium 8.2 L (8.4-10.2) mg/dL AST 73 H (17-59) U/L Total Protein 5.6 L (6.3-8.2) g/dL Albumin 2.9 L (3.5-5.0) g/dL Crossmatch Assessment and Plan (1) Gram-negative bacteremia Current Visit: Yes Status: Acute Code(s): R78.81 - BACTEREMIA SNOMED Code(s): 707085540723 (2) Diabetic foot ulcer associated with type 2 diabetes mellitus, with fat layer exposed Current Visit: Yes Status: Acute Code(s): E11.621 - TYPE 2 DIABETES MELLITUS WITH FOOT ULCER; L97.502 - NON-PRS CHRONIC ULCER OTH PRT UNSP FOOT W FAT LAYER EXPOSED SNOMED Code(s): 3585624054655 (3) Failure of outpatient treatment Current Visit: Yes Status: Acute Code(s): Z78.9 - OTHER SPECIFIED HEALTH STATUS SNOMED Code(s): 976905354 (4) Foot osteomyelitis, left Current Visit: Yes Status: Acute Code(s): M86.9 - OSTEOMYELITIS, UNSPECIFIED SNOMED Code(s): 9874615358248654 Plan: 1patient with extensive left heel diabetic foot infection in this patient with recent outpatient culture positive for MRSA and the patient was getting daptomycin and oral Flagyl for it subsequently the patient did have a culture done on 12/10/2022 that did grew Proteus mirabilis now with worsening of cellulitis and necrotic changes patient did have a elevated white count no bony changes were noticed on the x-ray however concern of possible for deep infection , patient is status post surgical debridement and deep culture which are currently growing gram-negative 2-patient with Proteus bacteremia source is likely left heel osteomyelitis, blood cultures has been repeated from the PICC line and peripherally which are negative so far 3patient left heel cultures are growing Proteus as well as Pseudomonas aeruginosa, patient did have angiogram with evidence of occlusion possibility responsible for nonhealing of this wound , plan is for possible [id number] amputation on 12/27/2022 4-patient currently being treated daptomycin , cefepime and Flagyl, however as infected part has been removed . There Will be no need for any IV antibiotics on discharge 5-patient also have stage I sacral pressure ulcer will apply skin protective cream and keep the area off the pressure on dictation software. please excuse any grammatical, word or spelling errors. Time with Patient: Less than 30
--- NOTE | 2022-12-30 16:50 | P.PN ---
Subjective Progress Note Date: 12/30/22 Principal diagnosis: Left heel osteomyelitis/diabetic foot infection Patient is a 67-year-old male with a past medical history significant for diabetes mellitus hypertension patient did have a history of left heel diabetic foot infection underlying osteomyelitis with a culture positive for MRSA patient did have a renal insufficiency and is currently getting daptomycin in the outpatient setting along with oral Flagyl patient is presenting to the ER concerning for increasing discomfort to the left heel area , the patient is status post surgical debridement of the left heel on 12/16/2022. Patient is status post angiogram completed on 12/22/2022 did have evidence of anterior tibial occluded, Patient is status post right below the knee amputation completed on 12/27/2022, On today's evaluation that is 12/30/2022 the patient denies any fever or any chills, patient is breathing comfortably on room air, the patient pain to the right BKA stump is currently controlled, The patient is breathing comfortably on room air no chest pain shortness of breath or cough no abdominal pain and no diarrhea The patient white count is normal at 9.7, hemoglobin is 8.8, creatinine is 2.73 Patient blood culture positive for Proteus, repeat blood culture has been negative left heel culture positive for Proteus and also growing Pseudomonas, Objective - Vital Signs Vital signs: Vital Signs Temp 98.3 F 12/30/22 15:11 Pulse 58 L 12/30/22 15:11 Resp 16 12/30/22 15:11 BP 143/65 12/30/22 15:11 Pulse Ox 98 12/30/22 15:11 FiO2 Intake & Output 12/29/22 12/30/22 12/30/22 18:59 06:59 18:59 Intake Total 1090 Output Total 1050 700 525 Balance 40 -077 -525 Intake: Oral 780 Blood Product 310 Rc As-1 Unit 310 [id number] Output: Urine 1050 700 525 Other: Voiding Method Urinal Urinal Urinal - Exam GENERAL DESCRIPTION: An elderly male lying in bed in no distress RESPIRATORY SYSTEM: Unlabored breathing , decreased breath sounds at bases HEART: S1 S2 regular rate and rhythm , ABDOMEN: Soft , no tenderness EXTREMITIES: Left BKA stump is currently covered in OR dressing - Labs CBC & Chem 7: 12/30/22 08:57 12/30/22 08:57 Labs: Abnormal Lab Results - Last 24 Hours (Table) 12/29/22 12/29/22 12/30/22 Range/Units 16:47 20:09 08:57 RBC 2.93 L (4.30-5.90) m/uL Hgb 8.8 L (13.0-17.5) gm/dL Hct 27.5 L (39.0-53.0) % Sodium (137-145) mmol/L BUN (9-20) mg/dL Creatinine (0.66-1.25) mg/dL POC Glucose (mg/dL) 123 H 127 H (70-110) mg/dL Calcium (8.4-10.2) mg/dL AST (17-59) U/L Total Protein (6.3-8.2) g/dL Albumin (3.5-5.0) g/dL 12/30/22 12/30/22 Range/Units 08:57 11:49 RBC (4.30-5.90) m/uL Hgb (13.0-17.5) gm/dL Hct (39.0-53.0) % Sodium 136 L (137-145) mmol/L BUN 49 H (9-20) mg/dL Creatinine 2.73 H (0.66-1.25) mg/dL POC Glucose (mg/dL) 127 H (70-110) mg/dL Calcium 8.3 L (8.4-10.2) mg/dL AST 73 H (17-59) U/L Total Protein 6.0 L (6.3-8.2) g/dL Albumin 3.1 L (3.5-5.0) g/dL Assessment and Plan (1) Gram-negative bacteremia Current Visit: Yes Status: Acute Code(s): R78.81 - BACTEREMIA SNOMED Code(s): 612129573807 (2) Diabetic foot ulcer associated with type 2 diabetes mellitus, with fat layer exposed Current Visit: Yes Status: Acute Code(s): E11.621 - TYPE 2 DIABETES MELLITUS WITH FOOT ULCER; L97.502 - NON-PRS CHRONIC ULCER OTH PRT UNSP FOOT W FAT LAYER EXPOSED SNOMED Code(s): 2813359779866 (3) Failure of outpatient treatment Current Visit: Yes Status: Acute Code(s): Z78.9 - OTHER SPECIFIED HEALTH STATUS SNOMED Code(s): 404252145 (4) Foot osteomyelitis, left Current Visit: Yes Status: Acute Code(s): M86.9 - OSTEOMYELITIS, UNSPECIFIED SNOMED Code(s): 4377538276744738 Plan: 1patient with extensive left heel diabetic foot infection in this patient with recent outpatient culture positive for MRSA and the patient was getting daptomycin and oral Flagyl for it subsequently the patient did have a culture do ne on 12/10/2022 that did grew Proteus mirabilis now with worsening of cellulitis and necrotic changes patient did have a elevated white count no bony changes were noticed on the x-ray however concern of possible for deep infection , patient is status post surgical debridement and deep culture which are currently growing gram-negative 2-patient with Proteus bacteremia source is likely left heel osteomyelitis, blood cultures has been repeated from the PICC line and peripherally which are negative so far 3patient left heel cultures are growing Proteus as well as Pseudomonas aeruginosa, patient did have angiogram with evidence of occlusion possibility responsible for nonhealing of this wound , plan is for possible [id number] amputation on 12/27/2022 4-patient currently being treated daptomycin , cefepime and Flagyl, however as infected part has been removed . I'm not planning for any IV antibiotics on discharge this was discussed in detail with the multiple questions concerned were answered 5-patient also have stage I sacral pressure ulcer will apply skin protective cream and keep the area off the pressure on dictation software. please excuse any grammatical, word or spelling errors. Time with Patient: Less than 30
[2022-12-30 20:45] LABS: Glucose,Whole Blood 111 mg/dL (70-110)
[2022-12-30] MEDS: LORATADINE 10 MG TAB PO SCH (21:23)
[2022-12-30] MEDS: INSULIN DETEMIR (LEVEMIR) 100 UNIT/ML SYR SQ SCH (21:24)
[2022-12-31] MEDS: HYDROmorphone 1 MG/ML 1 ML SYRINGE IVP PRN ×3 (03:21→14:15)
[2022-12-31] MEDS: CEFEPIME 2 GM in SODIUM CHLORIDE 0.9% 100 ML IVPB SCH ×2 (03:22→14:18)
[2022-12-31 03:23] LABS: Glucose,Whole Blood 126 mg/dL (70-110)
[2022-12-31 06:19] LABS: Glucose,Whole Blood 105 mg/dL (70-110)
[2022-12-31] MEDS: INSULIN ASPART (NovoLOG) 100 UNIT/ML VIAL SQ SCH ×4 (06:21→21:03)
[2022-12-31] MEDS: HYDROcodone/APAP 5-325MG 1 EACH TAB PO PRN ×4 (06:26→21:14)
[2022-12-31] MEDS: LEVOTHYROXINE 25 MCG TAB PO SCH (06:26)
[2022-12-31] MEDS: PANTOPRAZOLE 40 MG TABLET PO SCH (06:26)
[2022-12-31] MEDS: ALBUTEROL NEBULIZED 2.5 MG/3 ML INHALATION SCH ×3 (07:57→20:11)
[2022-12-31] MEDS: SODIUM BICARBONATE TAB 650 MG TAB PO SCH ×2 (08:34→21:14)
[2022-12-31] MEDS: TAMSULOSIN 0.4 MG CAP.ER.24H PO SCH (08:34)
[2022-12-31] MEDS: amLODIPine 10 MG TAB PO SCH (08:34)
[2022-12-31] MEDS: metroNIDAZOLE 500 MG TAB PO SCH ×3 (08:34→21:14)
[2022-12-31] MEDS: allopurinoL 100 MG TAB PO SCH (08:34)
[2022-12-31] MEDS: ENOXAPARIN 40 MG/0.4 ML SYRINGE SQ SCH (08:35)
[2022-12-31] MEDS: ESCITALOPRAM 10 MG TAB PO SCH (08:35)
[2022-12-31] MEDS: hydrALAZINE HCL 50 MG TAB PO SCH ×2 (08:35→21:14)
[2022-12-31] MEDS: FERROUS SULFATE 325 MG TAB PO SCH (08:35)
[2022-12-31] MEDS: cloNIDine HCL 0.1 MG TAB PO SCH ×3 (08:35→21:14)
[2022-12-31] MEDS: DOCUSATE 100 MG CAP PO SCH ×2 (08:35→21:14)
[2022-12-31] MEDS: polyethylene glycoL 3350 17 GM POWD.PACK PO SCH (08:36)
[2022-12-31] MEDS: diazePAM 5 MG TAB PO SCH ×3 (08:41→21:14)
[2022-12-31 09:59] LABS: Basophils % (A) 1 %; Eosinophils # (A) 0.2 k/uL (0-0.7); Eosinophils % (A) 3 %; HCT 27.6 % (39.0-53.0); HGB 8.8 gm/dL (13.0-17.5); Hypochromasia Slight; Lymphocytes # (A) 1.5 k/uL (1.0-4.8); Lymphocytes % (A) 18 %; MCH 29.8 pg (25.0-35.0); MCV 93.1 fL (80.0-100.0); Mean Platelet Volume 7.7; Monocytes # (A) 0.6 k/uL (0-1.0); Monocytes % (A) 7 %; Neutrophils # (A) 5.6 k/uL (1.3-7.7); Neutrophils % (A) 70 %; Platelet Count 270 k/uL (150-450); RBC 2.97 m/uL (4.30-5.90); RDW 14.7 % (11.5-15.5)
--- NOTE | 2022-12-31 10:11 | P.PN ---
Subjective Progress Note Date: 12/31/22 Principal diagnosis: Peripheral arterial disease, infected nonhealing wound Patient seen and examined today as follow-up. He is postop day # 4 for left below the knee amputation. Patient states pain has improved. 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 He has been afebrile. Denies any shortness of breath, chest pain, abdominal pain, fever or chills. Patient had bowel movement yesterday. Currently on MiraLAX. Plan is for possible discharge today to [facility]. Objective - Vital Signs Vital signs: Vital Signs Temp 97.9 F 12/31/22 03:16 Pulse 48 L 12/31/22 08:08 Resp 16 12/31/22 03:16 BP 160/74 12/31/22 03:16 Pulse Ox 98 12/31/22 03:16 FiO2 Intake & Output 12/30/22 12/31/22 12/31/22 18:59 06:59 18:59 Intake Total 420 Output Total 525 1950 Balance -525 -1950 420 Intake: Oral 420 Output: Urine 525 1950 Other: Voiding Method Urinal Urinal # Bowel Movements 1 - Exam General appearance: The patient is alert, oriented, appears in no acute distress. HET: Head is normocephalic and atraumatic. Pupils are equal and reactive. Neck: Supple. Heart: Regular. Lungs: Equal expansion, normal respiratory effort. Abdomen: Soft, nontender, nondistended. 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 Left below the knee amputation with stump pathology laboratory aides teacher which was removed. Incision well approximated with chey, no drainage, surrounding tissue pink, viable, warm. Neurological: No focal deficits. Strength and sensation are grossly intact. - Labs CBC & Chem 7: 12/31/22 09:29 12/30/22 08:57 Labs: Abnormal Lab Results - Last 24 Hours (Table) 12/30/22 12/30/22 12/30/22 Range/Units 08:57 08:57 11:49 RBC 2.93 L (4.30-5.90) m/uL Hgb 8.8 L (13.0-17.5) gm/dL Hct 27.5 L (39.0-53.0) % Sodium 136 L (137-145) mmol/L BUN 49 H (9-20) mg/dL Creatinine 2.73 H (0.66-1.25) mg/dL POC Glucose (mg/dL) 127 H (70-110) mg/dL Calcium 8.3 L (8.4-10.2) mg/dL AST 73 H (17-59) U/L Total Protein 6.0 L (6.3-8.2) g/dL Albumin 3.1 L (3.5-5.0) g/dL 12/30/22 12/31/22 12/31/22 Range/Units 20:44 03:22 09:29 RBC 2.97 L (4.30-5.90) m/uL Hgb 8.8 L (13.0-17.5) gm/dL Hct 27.6 L (39.0-53.0) % Sodium (137-145) mmol/L BUN (9-20) mg/dL Creatinine (0.66-1.25) mg/dL POC Glucose (mg/dL) 111 H 126 H (70-110) mg/dL Calcium (8.4-10.2) mg/dL AST (17-59) U/L Total Protein (6.3-8.2) g/dL Albumin (3.5-5.0) g/dL Assessment and Plan Assessment: 1. Postop day #4 for left below the knee amputation 2. Chronic nonhealing infected wound to left heel 3. Peripheral arterial disease 4. Diabetes mellitus 5. Chronic kidney disease 6. History of right qwptn-[id number]-cvyo amputation Plan: 1. Continue symptomatic and supportive care 2. 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 Continue with physical therapy 4. Dressing change as needed 5. Recommend subacute rehab on discharge 6. Rest of medical management per primary medical team Thank you for this consultation, patient is cleared from vascular surgery for discharge. We will sign off at this time. The impression and plan of care has been dictated as directed. Dr. Andrew I performed a history and examination of this patient, discussed the same with the dictator. I agree with the dictator's note ,documented as a scribe. Any additional findings or plans will be noted.
[2022-12-31 10:21] LABS: ALT 33 U/L (4-49); AST 64 U/L (17-59); African American GFR (CKD) 29 (>60 ml/min/1.73 sqM); Alkaline Phosphatase 97 U/L (38-126); Anion Gap 8 mmol/L; Blood Urea Nitrogen 56 mg/dL (9-20); Calcium 8.2 mg/dL (8.4-10.2); Carbon Dioxide 21 mmol/L (22-30); Chloride 106 mmol/L (98-107); Glucose 105 mg/dL (74-99); Non-African American GFR(CKD) 25 (>60 ml/min/1.73 sqM); Potassium 4.2 mmol/L (3.5-5.1); Sodium 135 mmol/L (137-145); Total Bilirubin 0.5 mg/dL (0.2-1.3); Total Protein 5.7 g/dL (6.3-8.2)
--- NOTE | 2022-12-31 11:26 | P.PN ---
Subjective Patient is seen in follow-up for chronic kidney disease. Renal function fairly stable. No vomiting or diarrhea. Oral intake is good. Pain at surgical site. Vital signs are stable. General: No acute distress. HEENT: Head exam is unremarkable. LUNGS: No audible rhonchi or wheezes. HEART: Rate and Rhythm are regular. ABDOMEN: Nontender. EXTREMITITES: Right AKA. Left BKA. Objective - Vital Signs Vital signs: Vital Signs Temp 97.9 F 12/31/22 03:16 Pulse 48 L 12/31/22 08:08 Resp 16 12/31/22 03:16 BP 160/74 12/31/22 03:16 Pulse Ox 98 12/31/22 03:16 FiO2 Intake & Output 12/30/22 12/31/22 12/31/22 18:59 06:59 18:59 Intake Total 420 Output Total 525 1950 Balance -525 -1950 420 Intake: Oral 420 Output: Urine 525 1950 Other: Voiding Method Urinal Urinal # Bowel Movements 1 - Labs CBC & Chem 7: 12/31/22 09:29 12/31/22 09:29 Labs: Abnormal Lab Results - Last 24 Hours (Table) 12/30/22 12/30/22 12/31/22 Range/Units 11:49 20:44 03:22 RBC (4.30-5.90) m/uL Hgb (13.0-17.5) gm/dL Hct (39.0-53.0) % Sodium (137-145) mmol/L Carbon Dioxide (22-30) mmol/L BUN (9-20) mg/dL Creatinine (0.66-1.25) mg/dL Glucose (74-99) mg/dL POC Glucose (mg/dL) 127 H 111 H 126 H (70-110) mg/dL Calcium (8.4-10.2) mg/dL AST (17-59) U/L Total Protein (6.3-8.2) g/dL Albumin (3.5-5.0) g/dL 12/31/22 12/31/22 Range/Units 09:29 09:29 RBC 2.97 L (4.30-5.90) m/uL Hgb 8.8 L (13.0-17.5) gm/dL Hct 27.6 L (39.0-53.0) % Sodium 135 L (137-145) mmol/L Carbon Dioxide 21 L (22-30) mmol/L BUN 56 H (9-20) mg/dL Creatinine 2.55 H (0.66-1.25) mg/dL Glucose 105 H (74-99) mg/dL POC Glucose (mg/dL) (70-110) mg/dL Calcium 8.2 L (8.4-10.2) mg/dL AST 64 H (17-59) U/L Total Protein 5.7 L (6.3-8.2) g/dL Albumin 3.0 L (3.5-5.0) g/dL Assessment and Plan Plan: Assessment: 1. Acute kidney injury mostly prerenal secondary to hypovolemia and infection. Renal function stable. 2. Chronic kidney disease stage IV with baseline creatinine near 3 secondary to diabetic kidney disease and cardiorenal syndrome. 3. Metabolic acidosis secondary to chronic kidney disease and IV fluids. On oral bicarb. 4. Left heel wound with tissue culture positive for Proteus and Pseudomonas along with Proteus bacteremia. On antibiotics. 5. Diabetes mellitus. 6. Hypertension with chronic kidney disease. Stable. Exacerbated by pain. 7. Anemia of chronic kidney disease. Iron deficiency noted - status post IV iron. On Aranesp. Plan: Encouraged oral intake. Diuretics held. Avoid nephrotoxins. Continue to monitor renal function and urine output. 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 He was advised to see rheumatology outpatient but doesn't believe he has. 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 Stressed importance of following up outpatient. Pain control.
[2022-12-31 11:40] LABS: Glucose,Whole Blood 142 mg/dL (70-110)
[2022-12-31] MEDS: LACTATED RINGERS 1,000 ML IV SCH (11:56)
[2022-12-31 16:56] LABS: Glucose,Whole Blood 127 mg/dL (70-110)
--- NOTE | 2022-12-31 17:15 | P.PN ---
Subjective Progress Note Date: 12/31/22 Ian Paulino is a 67 year old male who presented to [facility] with a chief complaint of left foot pain and infection. Patient has been receiving outpatient IV antibiotics of daptomycin and Flagyl and followed with wound care. Per patient's at bedside patient was developing blisters to foot over the past week and having increasing pain prompting the patient to come to ER. Patient has a past medical history of diabetes mellitus, hypertension, chronic kidney disease and previous amputations. Foot x-ray completed showing soft tissue wound overlying the heel without evidence for erosion of the osseous structures. At this time patient will be admitted patient was started on IV antibiotics of Rocephin and daptomycin along with by mouth Flagyl. Vascular surgery also consulted status post debridement with Dr. Armstrong on 12/16/2022. We'll also consult nephrology services for chronic kidney disease. At this time patient is resting comfortably in bed. Patient denies chest pain or shortness of breath. Patient denies nausea vomiting or diarrhea. Patient denies any urinary burning or frequency On 12/17/2022 patient is alert and oriented 3. Patient remains on IV an tibiotics. Followed by nephrology infectious disease and vascular services. At this time patient denies chest pain or shortness breath. Patient denies nausea vomiting or diarrhea. Patient denies any urinary burning or frequency On 12/18/2022 patient is alert and oriented 3. Blood culture positive for gram-negative bacilli. Infectious disease services are following. PICC line placed patient remains on IV Rocephin, daptomycin and Flagyl. Current vital signs temp 98.7, heart rate 62, respiratory rate 16, blood pressure 142/60. On 12/19/2022 patient alert and oriented 3. Awaiting final recommendations per ID in regards to antibiotics. This time patient is resting in chair. Patient denies chest pain or shortness breath. Patient denies nausea vomiting or diarrhea. Patient denies any urinary burning or frequency. Current vital signs temp 98.3, heart rate 69, respiratory 18, blood pressure 156/80 with a pulse ox 97% on room air On 12/20/2022 patient was seen and examined on the medical floor he is alert and oriented 3 in no apparent distress there is no fever or chills no headache or dizziness no chest pain no shortness of breath no cough no nausea or vomiting no abdominal pain no diarrhea no blood in the stools no burning with urination no frequency or urgency and no hematuria, at this time I'm still waiting for further recommendation from infectious disease and vascular surgery, possible discharge tomorrow, if no further intervention is recommended. On 12/21/2022 patient was seen and examined on the medical floor he is alert and oriented 3 in no apparent distress, there is no fever or chills no headache or dizziness no chest pain no shortness of breath no cough no nausea or vomiting no abdominal pain no diarrhea and no urinary symptoms. Patient is scheduled for an angiogram tomorrow per vascular surgery, will continue to follow closely. On 12/22/2022 patient was seen and examined on the medical floor he is alert and oriented 3 in no apparent distress, he underwent lower extremity angiogram today . there is no fever or chills no headache or dizziness no chest pain no shortness of breath no cough no nausea or vomiting no abdominal pain no diarrhea and no urinary symptoms. Patient is scheduled for an angiogram tomorrow per vascular surgery, will continue to follow closely. On 12/23/2022 patient alert and oriented 3. Patient underwent angiogram plans to have a meeting with Dr. Armstrong tomorrow to go over plan. Current vital signs temp 98.3, heart rate 62, respiratory rate 16, blood pressure 156/66 with pulse ox 98% on room air. Patient remains on antibiotics. On 12/24/2022 patient was seen and examined on the medical floor he is alert and oriented 3 in no apparent distress he is still complaining of constipation otherwise he denies any complaints, there is no fever or chills no headache or dizziness no chest pain no shortness of breath no cough no nausea or vomiting no abdominal pain no diarrhea no blood in the stools no burning with urination no frequency or urgency and no hematuria. On 12/25/2022 patient was seen and examined on the medical floor he is alert and oriented 3 in no apparent distress there is no fever or chills no headache or dizziness no chest pain no shortness of breath no cough no nausea or vomiting no abdominal pain no diarrhea and no urinary symptoms. He remains on IV antibiotics. Awaiting further recommendations from vascular surgery. On 12/26/2022 patient is alert and oriented 3 resting comfortably in bed. At this time patient denies chest pain or shortness breath. Patient denies nausea vomiting or diarrhea. Patient denies any urinary burning or frequency. Awaiting input from vascular surgery for the planned possibly amputation On 12/27/2022 patient's alert and oriented 3 patient to undergo amputation today. Patient denies chest pain or shortness breath. Patient denies nausea vomiting or diarrhea. Patient denies any urinary burning or frequency On 12/28/2022 patient's alert and oriented 3. Status post left BKA with Dr. Rice yesterday. Patient complaining of pain currently maintained on Ross and Dilaudid. Lab work Pending. patient maintained on daptomycin and Maxipime. Current vital signs temp 98.1, heart 55, respiratory rate 18 blood pressure 135/73 pulse ox 98% on room air. On 12/29/2022 patient was seen and examined on the medical floor he is alert and oriented 3 in no apparent distress there is no fever or chills no headache or dizziness no chest pain no shortness of breath no cough no nausea or vomiting no abdominal pain no diarrhea and no urinary symptoms, patient is improving gradually, possible transfer to rehab on Saturday. On 12/30/2022 patient alert and oriented 3. At this time patient denies chest pain or shortness breath. Patient is vomiting or diarrhea. Denies any urinary burning or frequency. Current vital signs temp 97.7, heart rate 55, respiratory rate 18, blood pressure 1 5462 with pulse ox of 98% On 12/31/2022 patient was seen and examined on the telemetry floor he is alert and oriented 3 in no apparent distress he is still complaining of lower extremity pain otherwise he denies any complaints there is no fever or chills no headache or dizziness no chest pain no shortness of breath no cough no nausea or vomiting no abdominal pain no diarrhea and no urinary symptoms Objective - Vital Signs Vital signs: Vital Signs Temp 97.6 F 12/31/22 12:00 Pulse 53 L 12/31/22 12:00 Resp 16 12/31/22 12:00 BP 161/77 12/31/22 12:00 Pulse Ox 97 12/31/22 12:00 FiO2 Intake & Output 12/30/22 12/31/22 12/31/22 18:59 06:59 18:59 Intake Total 420 Output Total 525 7738 810 Balance -119 -8578 -492 Intake: Oral 420 Output: Urine 525 1950 700 Other: Voiding Method Urinal Urinal # Bowel Movements 1 - Exam In general patient is alert and oriented x 3 in no distress HEENT head normocephalic and atraumatic Neck is supple no JVD no goiter no lymphadenopathy no carotid bruit Chest examination is clear to auscultation no crackles no wheezing Cardiac exam reveals regular heart sounds S1 and S2 no gallops no murmurs Abdomen is soft nontender no organomegaly with normal bowel sounds Extremity exam reveals no edema no cyanosis or clubbing, Left foot dressing clean dry and intact Neurological examination reveals no gross focal deficits - Labs CBC & Chem 7: 12/31/22 09:29 12/31/22 09:29 Labs: Abnormal Lab Results - Last 24 Hours (Table) 12/30/22 12/31/22 12/31/22 Range/Units 20:44 03:22 09:29 RBC 2.97 L (4.30-5.90) m/uL Hgb 8.8 L (13.0-17.5) gm/dL Hct 27.6 L (39.0-53.0) % Sodium (137-145) mmol/L Carbon Dioxide (22-30) mmol/L BUN (9-20) mg/dL Creatinine (0.66-1.25) mg/dL Glucose (74-99) mg/dL POC Glucose (mg/dL) 111 H 126 H (70-110) mg/dL Calcium (8.4-10.2) mg/dL AST (17-59) U/L Total Protein (6.3-8.2) g/dL Albumin (3.5-5.0) g/dL 12/31/22 12/31/22 Range/Units 09:29 11:33 RBC (4.30-5.90) m/uL Hgb (13.0-17.5) gm/dL Hct (39.0-53.0) % Sodium 135 L (137-145) mmol/L Carbon Dioxide 21 L (22-30) mmol/L BUN 56 H (9-20) mg/dL Creatinine 2.55 H (0.66-1.25) mg/dL Glucose 105 H (74-99) mg/dL POC Glucose (mg/dL) 142 H (70-110) mg/dL Calcium 8.2 L (8.4-10.2) mg/dL AST 64 H (17-59) U/L Total Protein 5.7 L (6.3-8.2) g/dL Albumin 3.0 L (3.5-5.0) g/dL Assessment and Plan Plan: 1. Left foot diabetic ulceration with failed outpatient treatment with sepsis evident by positive blood culture 2. Chronic kidney disease 3. Diabetes mellitus type 2. A home Lantus dose ordered plus sliding scale coverage 4. Essential hypertension 5. History of right greater toe amputation 6. Obesity 7. Hypothyroidism DVT prophylaxis Lovenox. 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
[2022-12-31 20:35] LABS: Glucose,Whole Blood 148 mg/dL (70-110)
[2022-12-31] MEDS: LORATADINE 10 MG TAB PO SCH (21:14)
[2022-12-31] MEDS: INSULIN DETEMIR (LEVEMIR) 100 UNIT/ML SYR SQ SCH (21:16)
[2023-01-01] MEDS: HYDROcodone/APAP 5-325MG 1 EACH TAB PO PRN ×6 (00:48→21:17)
[2023-01-01] MEDS: CEFEPIME 2 GM in SODIUM CHLORIDE 0.9% 100 ML IVPB SCH ×2 (04:29→15:07)
[2023-01-01 06:15] LABS: Glucose,Whole Blood 59 mg/dL (70-110)
[2023-01-01] MEDS: INSULIN ASPART (NovoLOG) 100 UNIT/ML VIAL SQ SCH ×4 (06:23→21:11)
[2023-01-01] MEDS: LEVOTHYROXINE 25 MCG TAB PO SCH (06:25)
[2023-01-01] MEDS: PANTOPRAZOLE 40 MG TABLET PO SCH (06:25)
[2023-01-01 06:36] LABS: Glucose,Whole Blood 73 mg/dL (70-110)
[2023-01-01] MEDS: ALBUTEROL NEBULIZED 2.5 MG/3 ML INHALATION SCH ×3 (07:45→21:31)
[2023-01-01] MEDS: ENOXAPARIN 40 MG/0.4 ML SYRINGE SQ SCH (08:51)
[2023-01-01] MEDS: metroNIDAZOLE 500 MG TAB PO SCH ×3 (08:52→21:16)
[2023-01-01] MEDS: hydrALAZINE HCL 50 MG TAB PO SCH ×2 (08:52→21:16)
[2023-01-01] MEDS: diazePAM 5 MG TAB PO SCH ×3 (08:52→21:17)
[2023-01-01] MEDS: allopurinoL 100 MG TAB PO SCH (08:52)
[2023-01-01] MEDS: cloNIDine HCL 0.1 MG TAB PO SCH ×3 (08:52→21:17)
[2023-01-01] MEDS: FERROUS SULFATE 325 MG TAB PO SCH (08:52)
[2023-01-01] MEDS: amLODIPine 10 MG TAB PO SCH (08:52)
[2023-01-01] MEDS: ESCITALOPRAM 10 MG TAB PO SCH (08:52)
[2023-01-01] MEDS: TAMSULOSIN 0.4 MG CAP.ER.24H PO SCH (08:52)
[2023-01-01] MEDS: DOCUSATE 100 MG CAP PO SCH ×2 (08:52→21:16)
[2023-01-01] MEDS: SODIUM BICARBONATE TAB 650 MG TAB PO SCH ×2 (08:52→21:16)
[2023-01-01] MEDS: polyethylene glycoL 3350 17 GM POWD.PACK PO SCH (08:58)
[2023-01-01] MEDS: HYDROmorphone 1 MG/ML 1 ML SYRINGE IVP PRN ×3 (09:55→23:34)
[2023-01-01 11:27] LABS: Glucose,Whole Blood 102 mg/dL (70-110)
--- NOTE | 2023-01-01 11:32 | P.PN ---
Subjective Patient is seen in follow-up for chronic kidney disease. Renal function fairly stable. No vomiting or diarrhea. Oral intake is good. No active complaints. Vital signs are stable. General: No acute distress. HEENT: Head exam is unremarkable. LUNGS: No audible rhonchi or wheezes. HEART: Rate and Rhythm are regular. ABDOMEN: Nontender. EXTREMITITES: Right AKA. Left BKA. Objective - Vital Signs Vital signs: Vital Signs Temp 98.4 F 01/01/23 07:26 Pulse 46 L 01/01/23 07:56 Resp 17 01/01/23 07:31 BP 133/54 01/01/23 07:26 Pulse Ox 99 01/01/23 07:26 FiO2 Intake & Output 12/31/22 01/01/23 01/01/23 18:59 06:59 18:59 Intake Total 420 Output Total 700 1350 Balance -280 -1350 Intake: Oral 420 Output: Urine 700 1350 Other: Voiding Method Urinal Urinal Urinal - Labs CBC & Chem 7: 12/31/22 09:29 12/31/22 09:29 Labs: Abnormal Lab Results - Last 24 Hours (Table) 12/31/22 12/31/22 12/31/22 Range/Units 11:33 16:54 20:33 POC Glucose (mg/dL) 142 H 127 H 148 H (70-110) mg/dL 01/01/23 Range/Units 06:13 POC Glucose (mg/dL) 59 L (70-110) mg/dL Assessment and Plan Plan: Assessment: 1. Acute kidney injury mostly prerenal secondary to hypovolemia and infection. Renal function stable. Creatinine 2.55 yesterday. 2. Chronic kidney disease stage IV with baseline creatinine near 3 secondary to diabetic kidney disease and cardiorenal syndrome. 3. Metabolic acidosis secondary to chronic kidney disease and IV fluids. On oral bicarb. 4. Left heel wound with tissue culture positive for Proteus and Pseudomonas along with Proteus bacteremia. On antibiotics. Status post left BKA this admission. 5. Diabetes mellitus. 6. Hypertension with chronic kidney disease. Stable. Exacerbated by pain. 7. Anemia of chronic kidney disease. Iron deficiency noted - status post IV iron. On Aranesp. Plan: Encouraged oral intake. Diuretics held. Avoid nephrotoxins. Continue to monitor renal function and urine output. 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 He was advised to see rheumatology outpatient but doesn't believe he has. 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 Stressed importance of following up outpatient.
[2023-01-01] MEDS: LACTATED RINGERS 1,000 ML IV SCH (12:58)
[2023-01-01] MEDS ORDERED: HYDROmorphone 0.5 MG/0.5 ML SYRINGE IVP PRN (15:53)
[2023-01-01 16:45] LABS: Glucose,Whole Blood 108 mg/dL (70-110)
--- NOTE | 2023-01-01 16:52 | P.PN ---
Subjective Progress Note Date: 12/31/22 Principal diagnosis: Left heel osteomyelitis/diabetic foot infection Patient is a 67-year-old male with a past medical history significant for diabetes mellitus hypertension patient did have a history of left heel diabetic foot infection underlying osteomyelitis with a culture positive for MRSA patient did have a renal insufficiency and is currently getting daptomycin in the outpatient setting along with oral Flagyl patient is presenting to the ER concerning for increasing discomfort to the left heel area , the patient is status post surgical debridement of the left heel on 12/16/2022. Patient is status post angiogram completed on 12/22/2022 did have evidence of anterior tibial occluded, Patient is status post right below the knee amputation completed on 12/27/2022, On today's evaluation that is 12/31/2022 the patient remains to be afebrile, patient is breathing comfortably on room air, the patient pain to the right BKA stump is currently controlled, The patient is breathing comfortably on room air , the patient denies chest pain shortness of breath or cough no abdominal pain and no diarrhea The patient white count is normal at 8.0, hemoglobin is 8.8, creatinine is 2.55 Patient blood culture positive for Proteus, repeat blood culture has been negative left heel culture positive for Proteus and also growing Pseudomonas, Objective - Vital Signs Vital signs: Vital Signs Temp 97.6 F 12/31/22 12:00 Pulse 53 L 12/31/22 12:00 Resp 16 12/31/22 12:00 BP 161/77 12/31/22 12:00 Pulse Ox 97 12/31/22 12:00 FiO2 Intake & Output 12/30/22 12/31/22 12/31/22 18:59 06:59 18:59 Intake Total 420 Output Total 525 5290 700 Balance -525 -1950 -280 Intake: Oral 420 Output: Urine 525 1950 700 Other: Voiding Method Urinal Urinal # Bowel Movements 1 - Exam GENERAL DESCRIPTION: An elderly male lying in bed in no distress RESPIRATORY SYSTEM: Unlabored breathing , decreased breath sounds at bases HEART: S1 S2 regular rate and rhythm , ABDOMEN: Soft , no tenderness EXTREMITIES: Left BKA stump is currently covered in dressing no drainage on the dressing - Labs CBC & Chem 7: 12/31/22 09:29 12/31/22 09:29 Labs: Abnormal Lab Results - Last 24 Hours (Table) 12/30/22 12/31/22 12/31/22 Range/Units 20:44 03:22 09:29 RBC 2.97 L (4.30-5.90) m/uL Hgb 8.8 L (13.0-17.5) gm/dL Hct 27.6 L (39.0-53.0) % Sodium (137-145) mmol/L Carbon Dioxide (22-30) mmol/L BUN (9-20) mg/dL Creatinine (0.66-1.25) mg/dL Glucose (74-99) mg/dL POC Glucose (mg/dL) 111 H 126 H (70-110) mg/dL Calcium (8.4-10.2) mg/dL AST (17-59) U/L Total Protein (6.3-8.2) g/dL Albumin (3.5-5.0) g/dL 12/31/22 12/31/22 Range/Units 09:29 11:33 RBC (4.30-5.90) m/uL Hgb (13.0-17.5) gm/dL Hct (39.0-53.0) % Sodium 135 L (137-145) mmol/L Carbon Dioxide 21 L (22-30) mmol/L BUN 56 H (9-20) mg/dL Creatinine 2.55 H (0.66-1.25) mg/dL Glucose 105 H (74-99) mg/dL POC Glucose (mg/dL) 142 H (70-110) mg/dL Calcium 8.2 L (8.4-10.2) mg/dL AST 64 H (17-59) U/L Total Protein 5.7 L (6.3-8.2) g/dL Albumin 3.0 L (3.5-5.0) g/dL Assessment and Plan (1) Gram-negative bacteremia Current Visit: Yes Status: Acute Code(s): R78.81 - BACTEREMIA SNOMED Code(s): 147291066421 (2) Diabetic foot ulcer associated with type 2 diabetes mellitus, with fat layer exposed Current Visit: Yes Status: Acute Code(s): E11.621 - TYPE 2 DIABETES MELLITUS WITH FOOT ULCER; L97.502 - NON-PRS CHRONIC ULCER OTH PRT UNSP FOOT W FAT LAYER EXPOSED SNOMED Code(s): 7458048189855 (3) Failure of outpatient treatment Current Visit: Yes Status: Acute Code(s): Z78.9 - OTHER SPECIFIED HEALTH STATUS SNOMED Code(s): 428352707 (4) Foot osteomyelitis, left Current Visit: Yes Status: Acute Code(s): M86.9 - OSTEOMYELITIS, UNSPECIFIED SNOMED Code(s): 1863462082973817 Plan: 1patient with extensive left heel diabetic foot infection in this patient with recent outpatient culture positive for MRSA and the patient was getting daptomycin and oral Flagyl for it subsequently the patient did have a culture done on 12/10/2022 that did grew Proteus mirabilis now with worsening of cellu litis and necrotic changes patient did have a elevated white count no bony changes were noticed on the x-ray however concern of possible for deep infection , patient is status post surgical debridement and deep culture which are currently growing gram-negative 2-patient with Proteus bacteremia source is likely left heel osteomyelitis, blood cultures has been repeated from the PICC line and peripherally which are negative so far 3patient left heel cultures are growing Proteus as well as Pseudomonas aeruginosa, patient did have angiogram with evidence of occlusion possibility responsible for nonhealing of this wound , plan is for possible [id number] amputation on 12/27/2022 4-patient infected part has been removed . I'm not planning for any IV antibiotics on discharge we will go ahead and discontinue daptomycin continue with the cefepime for another day 5-patient also have stage I sacral pressure ulcer will apply skin protective cream and keep the area off the pressure on dictation software. please excuse any grammatical, word or spelling errors. Time with Patient: Less than 30
--- NOTE | 2023-01-01 16:53 | P.PN ---
Subjective Progress Note Date: 01/01/23 Principal diagnosis: Left heel osteomyelitis/diabetic foot infection Patient is a 67-year-old male with a past medical history significant for diabetes mellitus hypertension patient did have a history of left heel diabetic foot infection underlying osteomyelitis with a culture positive for MRSA patient did have a renal insufficiency and is currently getting daptomycin in the outpatient setting along with oral Flagyl patient is presenting to the ER concerning for increasing discomfort to the left heel area , the patient is status post surgical debridement of the left heel on 12/16/2022. Patient is status post angiogram completed on 12/22/2022 did have evidence of anterior tibial occluded, Patient is status post right below the knee amputation completed on 12/27/2022, On today's evaluation that is 01/01/2023 the patient continues to be afebrile, patient is breathing comfortably on room air, the patient pain to the right BKA stump is currently controlled, The patient is breathing comfortably on room air , the patient denies chest pain shortness of breath or cough no abdominal pain and no diarrhea, no new symptoms The patient white count is normal at 8.0, hemoglobin is 8.8, creatinine is 2.55 as of 12/31/2022 no labs were done today Patient blood culture positive for Proteus, repeat blood culture has been negative left heel culture positive for Proteus and Pseudomonas, Objective - Vital Signs Vital signs: Vital Signs Temp 98.4 F 01/01/23 07:26 Pulse 52 L 01/01/23 11:38 Resp 17 01/01/23 07:31 BP 133/54 01/01/23 07:26 Pulse Ox 99 01/01/23 07:26 FiO2 Intake & Output 12/31/22 01/01/23 01/01/23 18:59 06:59 18:59 Intake Total 420 Output Total 700 1350 Balance -280 -1350 Intake: Oral 420 Output: Urine 700 1350 Other: Voiding Method Urinal Urinal Urinal - Exam GENERAL DESCRIPTION: An elderly male lying in bed in no distress RESPIRATORY SYSTEM: Unlabored breathing , decreased breath sounds at bases HEART: S1 S2 regular rate and rhythm , ABDOMEN: Soft , no tenderness EXTREMITIES: Left BKA stump is currently covered in dressing no drainage on the dressing - Labs CBC & Chem 7: 12/31/22 09:29 12/31/22 09:29 Labs: Abnormal Lab Results - Last 24 Hours (Table) 12/31/22 12/31/22 01/01/23 Range/Units 16:54 20:33 06:13 POC Glucose (mg/dL) 127 H 148 H 59 L (70-110) mg/dL Assessment and Plan (1) Gram-negative bacteremia Current Visit: Yes Status: Acute Code(s): R78.81 - BACTEREMIA SNOMED Code(s): 022738194134 (2) Diabetic foot ulcer associated with type 2 diabetes mellitus, with fat layer exposed Current Visit: Yes Status: Acute Code(s): E11.621 - TYPE 2 DIABETES MELLITUS WITH FOOT ULCER; L97.502 - NON-PRS CHRONIC ULCER OTH PRT UNSP FOOT W FAT LAYER EXPOSED SNOMED Code(s): 4091915254348 (3) Failure of outpatient treatment Current Visit: Yes Status: Acute Code(s): Z78.9 - OTHER SPECIFIED HEALTH STATUS SNOMED Code(s): 858887526 (4) Foot osteomyelitis, left Current Visit: Yes Status: Acute Code(s): M86.9 - OSTEOMYELITIS, UNSPECIFIED SNOMED Code(s): 8107239463786990 Plan: 1patient with extensive left heel diabetic foot infection in this patient with recent outpatient culture positive for MRSA and the patient was getting daptomycin and oral Flagyl for it subsequently the patient did have a culture done on 12/10/2022 that did grew Proteus mirabilis now with worsening of cellulitis and necrotic changes patient did have a elevated white count no bony changes were noticed on the x-ray however concern of possible for deep infection , patient is status post surgical debridement and deep culture which are currently growing gram-negative 2-patient with Proteus bacteremia source is likely left heel osteomyelitis, blood cultures has been repeated from the PICC line and peripherally which are negative so far 3patient left heel cultures are growing Proteus as well as Pseudomonas aeruginosa, patient did have angiogram with evidence of occlusion possibility responsible for nonhealing of this wound , plan is for possible [id number] amputation on 12/27/2022 4-patient also have stage I sacral pressure ulcer will apply skin protective cream and keep the area off the pressure 5-patient infected part has been removed and the patient has received adequate antibiotic therapy for his bacteremia we will go ahead and discontinue cefepime and monitor the patient closely off antibiotic therapy, the patient PICC line should be discontinued at the time of discharge Multiple questions concerned were answered on dictation software. please excuse any grammatical, word or spelling errors. Time with Patient: Less than 30
--- NOTE | 2023-01-01 16:53 | P.PN ---
Subjective Progress Note Date: 01/01/23 Ian Paulino is a 67 year old male who presented to [facility] with a chief complaint of left foot pain and infection. Patient has been receiving outpatient IV antibiotics of daptomycin and Flagyl and followed with wound care. Per patient's at bedside patient was developing blisters to foot over the past week and having increasing pain prompting the patient to come to ER. Patient has a past medical history of diabetes mellitus, hypertension, chronic kidney disease and previous amputations. Foot x-ray completed showing soft tissue wound overlying the heel without evidence for erosion of the osseous structures. At this time patient will be admitted patient was started on IV antibiotics of Rocephin and daptomycin along with by mouth Flagyl. Vascular surgery also consulted status post debridement with Dr. Armstrong on 12/16/2022. We'll also consult nephrology services for chronic kidney disease. At this time patient is resting comfortably in bed. Patient denies chest pain or shortness of breath. Patient denies nausea vomiting or diarrhea. Patient denies any urinary burning or frequency On 12/17/2022 patient is alert and oriented 3. Patient remains on IV an tibiotics. Followed by nephrology infectious disease and vascular services. At this time patient denies chest pain or shortness breath. Patient denies nausea vomiting or diarrhea. Patient denies any urinary burning or frequency On 12/18/2022 patient is alert and oriented 3. Blood culture positive for gram-negative bacilli. Infectious disease services are following. PICC line placed patient remains on IV Rocephin, daptomycin and Flagyl. Current vital signs temp 98.7, heart rate 62, respiratory rate 16, blood pressure 142/60. On 12/19/2022 patient alert and oriented 3. Awaiting final recommendations per ID in regards to antibiotics. This time patient is resting in chair. Patient denies chest pain or shortness breath. Patient denies nausea vomiting or diarrhea. Patient denies any urinary burning or frequency. Current vital signs temp 98.3, heart rate 69, respiratory 18, blood pressure 156/80 with a pulse ox 97% on room air On 12/20/2022 patient was seen and examined on the medical floor he is alert and oriented 3 in no apparent distress there is no fever or chills no headache or dizziness no chest pain no shortness of breath no cough no nausea or vomiting no abdominal pain no diarrhea no blood in the stools no burning with urination no frequency or urgency and no hematuria, at this time I'm still waiting for further recommendation from infectious disease and vascular surgery, possible discharge tomorrow, if no further intervention is recommended. On 12/21/2022 patient was seen and examined on the medical floor he is alert and oriented 3 in no apparent distress, there is no fever or chills no headache or dizziness no chest pain no shortness of breath no cough no nausea or vomiting no abdominal pain no diarrhea and no urinary symptoms. Patient is scheduled for an angiogram tomorrow per vascular surgery, will continue to follow closely. On 12/22/2022 patient was seen and examined on the medical floor he is alert and oriented 3 in no apparent distress, he underwent lower extremity angiogram today . there is no fever or chills no headache or dizziness no chest pain no shortness of breath no cough no nausea or vomiting no abdominal pain no diarrhea and no urinary symptoms. Patient is scheduled for an angiogram tomorrow per vascular surgery, will continue to follow closely. On 12/23/2022 patient alert and oriented 3. Patient underwent angiogram plans to have a meeting with Dr. Armstrong tomorrow to go over plan. Current vital signs temp 98.3, heart rate 62, respiratory rate 16, blood pressure 156/66 with pulse ox 98% on room air. Patient remains on antibiotics. On 12/24/2022 patient was seen and examined on the medical floor he is alert and oriented 3 in no apparent distress he is still complaining of constipation otherwise he denies any complaints, there is no fever or chills no headache or dizziness no chest pain no shortness of breath no cough no nausea or vomiting no abdominal pain no diarrhea no blood in the stools no burning with urination no frequency or urgency and no hematuria. On 12/25/2022 patient was seen and examined on the medical floor he is alert and oriented 3 in no apparent distress there is no fever or chills no headache or dizziness no chest pain no shortness of breath no cough no nausea or vomiting no abdominal pain no diarrhea and no urinary symptoms. He remains on IV antibiotics. Awaiting further recommendations from vascular surgery. On 12/26/2022 patient is alert and oriented 3 resting comfortably in bed. At this time patient denies chest pain or shortness breath. Patient denies nausea vomiting or diarrhea. Patient denies any urinary burning or frequency. Awaiting input from vascular surgery for the planned possibly amputation On 12/27/2022 patient's alert and oriented 3 patient to undergo amputation today. Patient denies chest pain or shortness breath. Patient denies nausea vomiting or diarrhea. Patient denies any urinary burning or frequency On 12/28/2022 patient's alert and oriented 3. Status post left BKA with Dr. Rice yesterday. Patient complaining of pain currently maintained on [place] and Dilaudid. Lab work Pending. patient maintained on daptomycin and Maxipime. Current vital signs temp 98.1, heart 55, respiratory rate 18 blood pressure 135/73 pulse ox 98% on room air. On 12/29/2022 patient was seen and examined on the medical floor he is alert and oriented 3 in no apparent distress there is no fever or chills no headache or dizziness no chest pain no shortness of breath no cough no nausea or vomiting no abdominal pain no diarrhea and no urinary symptoms, patient is improving gradually, possible transfer to rehab on Saturday. On 12/30/2022 patient alert and oriented 3. At this time patient denies chest pain or shortness breath. Patient is vomiting or diarrhea. Denies any urinary burning or frequency. Current vital signs temp 97.7, heart rate 55, respiratory rate 18, blood pressure 1 5462 with pulse ox of 98% On 12/31/2022 patient was seen and examined on the telemetry floor he is alert and oriented 3 in no apparent distress he is still complaining of lower extremity pain otherwise he denies any complaints there is no fever or chills no headache or dizziness no chest pain no shortness of breath no cough no nausea or vomiting no abdominal pain no diarrhea and no urinary symptoms. On 01/01/2023 patient was seen and examined on the telemetry floor he is alert and oriented 3 in no apparent distress he is still complaining of lower extremity pain otherwise he denies any complaints there is no fever or chills no headache or dizziness no chest pain no shortness of breath no cough no nausea or vomiting no abdominal pain no diarrhea and no urinary symptoms. At this time we are awaiting insurance authorization for possible transfer to rehab unit. Objective - Vital Signs Vital signs: Vital Signs Temp 98.4 F 01/01/23 07:26 Pulse 52 L 08/08/23 11:38 Resp 17 01/01/23 07:31 BP 133/54 01/01/23 07:26 Pulse Ox 99 01/01/23 07:26 FiO2 Intake & Output 12/31/22 01/01/23 01/01/23 18:59 06:59 18:59 Intake Total 420 Output Total 700 1350 Balance -280 -1350 Intake: Oral 420 Output: Urine 700 1350 Other: Voiding Method Urinal Urinal Urinal - Exam In general patient is alert and oriented x 3 in no distress HEENT head normocephalic and atraumatic Neck is supple no JVD no goiter no lymphadenopathy no carotid bruit Chest examination is clear to auscultation no crackles no wheezing Cardiac exam reveals regular heart sounds S1 and S2 no gallops no murmurs Abdomen is soft nontender no organomegaly with normal bowel sounds Extremity exam reveals no edema no cyanosis or clubbing, Left foot dressing clean dry and intact Neurological examination reveals no gross focal deficits - Labs CBC & Chem 7: 12/31/22 09:29 12/31/22 09:29 Labs: Abnormal Lab Results - Last 24 Hours (Table) 12/31/22 12/31/22 01/01/23 Range/Units 16:54 20:33 06:13 POC Glucose (mg/dL) 127 H 148 H 59 L (70-110) mg/dL Assessment and Plan Plan: 1. Left foot diabetic ulceration with failed outpatient treatment with sepsis evident by positive blood culture 2. Chronic kidney disease 3. Diabetes mellitus type 2. A home Lantus dose ordered plus sliding scale coverage 4. Essential hypertension 5. History of right greater toe amputation 6. Obesity 7. Hypothyroidism DVT prophylaxis Lovenox. 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
[2023-01-01 20:11] LABS: Glucose,Whole Blood 103 mg/dL (70-110)
[2023-01-01] MEDS: LORATADINE 10 MG TAB PO SCH (21:17)
[2023-01-01] MEDS: INSULIN DETEMIR (LEVEMIR) 100 UNIT/ML SYR SQ SCH (21:18)
[2023-01-02] MEDS: HYDROcodone/APAP 5-325MG 1 EACH TAB PO PRN ×2 (04:48→14:41)
[2023-01-02 06:12] LABS: Glucose,Whole Blood 111 mg/dL (70-110)
[2023-01-02] MEDS: INSULIN ASPART (NovoLOG) 100 UNIT/ML VIAL SQ SCH ×2 (06:13→13:05)
[2023-01-02] MEDS: PANTOPRAZOLE 40 MG TABLET PO SCH (06:15)
[2023-01-02] MEDS: LEVOTHYROXINE 25 MCG TAB PO SCH (06:15)
[2023-01-02 07:20] LABS: African American GFR (CKD) 32 (>60 ml/min/1.73 sqM); Anion Gap 8 mmol/L; Blood Urea Nitrogen 55 mg/dL (9-20); Calcium 8.1 mg/dL (8.4-10.2); Carbon Dioxide 21 mmol/L (22-30); Chloride 108 mmol/L (98-107); Glucose 95 mg/dL (74-99); Magnesium 2.2 mg/dL (1.6-2.3); Non-African American GFR(CKD) 28 (>60 ml/min/1.73 sqM); Potassium 4.1 mmol/L (3.5-5.1); Sodium 137 mmol/L (137-145)
[2023-01-02] MEDS: ALBUTEROL NEBULIZED 2.5 MG/3 ML INHALATION SCH ×2 (07:24→10:56)
[2023-01-02] MEDS: HYDROmorphone 1 MG/ML 1 ML SYRINGE IVP PRN (09:29)
[2023-01-02] MEDS: TAMSULOSIN 0.4 MG CAP.ER.24H PO SCH (09:30)
[2023-01-02] MEDS: ESCITALOPRAM 10 MG TAB PO SCH (09:30)
[2023-01-02] MEDS: ENOXAPARIN 40 MG/0.4 ML SYRINGE SQ SCH (09:30)
[2023-01-02] MEDS: amLODIPine 10 MG TAB PO SCH (09:30)
[2023-01-02] MEDS: diazePAM 5 MG TAB PO SCH (09:30)
[2023-01-02] MEDS: SODIUM BICARBONATE TAB 650 MG TAB PO SCH (09:30)
[2023-01-02] MEDS: metroNIDAZOLE 500 MG TAB PO SCH (09:30)
[2023-01-02] MEDS: cloNIDine HCL 0.1 MG TAB PO SCH (09:30)
[2023-01-02] MEDS: polyethylene glycoL 3350 17 GM POWD.PACK PO SCH (09:30)
[2023-01-02] MEDS: hydrALAZINE HCL 50 MG TAB PO SCH (09:30)
[2023-01-02] MEDS: allopurinoL 100 MG TAB PO SCH (09:30)
[2023-01-02] MEDS: DOCUSATE 100 MG CAP PO SCH (09:30)
[2023-01-02] MEDS: FERROUS SULFATE 325 MG TAB PO SCH (09:30)
[2023-01-02 10:12] LABS: Basophils % (A) 0 %; Eosinophils # (A) 0.2 k/uL (0-0.7); Eosinophils % (A) 4 %; HCT 29.4 % (39.0-53.0); HGB 9.1 gm/dL (13.0-17.5); Hypochromasia Moderate; Lymphocytes # (A) 1.2 k/uL (1.0-4.8); Lymphocytes % (A) 18 %; MCH 29.7 pg (25.0-35.0); MCV 95.9 fL (80.0-100.0); Mean Platelet Volume 8.2; Monocytes # (A) 0.4 k/uL (0-1.0); Monocytes % (A) 6 %; Neutrophils # (A) 4.8 k/uL (1.3-7.7); Neutrophils % (A) 71 %; Platelet Count 246 k/uL (150-450); RBC 3.06 m/uL (4.30-5.90); RDW 15.2 % (11.5-15.5); WBC 6.8 k/uL (3.8-10.6)
[2023-01-02 10:27] LABS: ALT 32 U/L (4-49); AST 44 U/L (17-59); Albumin 2.7 g/dL (3.5-5.0); Alkaline Phosphatase 87 U/L (38-126); Total Bilirubin 0.4 mg/dL (0.2-1.3); Total Protein 5.3 g/dL (6.3-8.2)
[2023-01-02 10:30] VITALS: BP 164/64; RESP 18; TEMP 98
--- NOTE | 2023-01-02 11:08 | P.DS ---
Providers Date of admission: 12/15/22 13:36 Expected date of discharge: 01/02/23 Attending physician: Jose Hannah Consults: 12/15/22 13:44 Consult Physician Urgent Consulting Provider: Jewel Armstrong Consult Reason/Comments: Established patient, diabetic foot Do you want consulting provider notified?: Yes Consult Physician Urgent Consulting Provider: Ryan Giles Consult Reason/Comments: Diabetic ulceration, infection Do you want consulting provider notified?: Yes 12/16/22 09:30 Consult Physician Urgent Consulting Provider: Lorri Solorzano Consult Reason/Comments: acute on chronic kidney disease Do you want consulting provider notified?: Yes 12/25/22 16:19 Consult Physician Routine Consulting Provider: Geraldo Cheema Consult Reason/Comments: left BKA Do you want consulting provider notified?: Yes Primary care physician: Josetyree Hannah [facility] Course: Diagnosis on discharge: 1. Left foot diabetic ulceration with failed outpatient treatment with sepsis evident by positive blood culture, patient had nonhealing ulcers, and underwent left below knee amputation during this admission 2. Chronic kidney disease 3. Diabetes mellitus type 2. A home Lantus dose ordered plus sliding scale coverage 4. Essential hypertension 5. History of right greater toe amputation 6. Obesity 7. Hypothyroidism Hospital course: Ian Paulino is a 67 year old male who presented to [facility] with a chief complaint of left foot pain and infection. Patient has been receiving outpatient IV antibiotics of daptomycin and Flagyl and followed with wound care. Per patient's at bedside patient was developing blisters to foot over the past week and having increasing pain prompting the patient to come to ER. Patient has a past medical history of diabetes mellitus, hypertension, chronic kidney disease and previous amputations. Foot x-ray completed showing soft tissue wound overlying the heel without evidence for erosion of the osseous structures. At this time patient will be admitted patient was started on IV antibiotics of Rocephin and daptomycin along with by mouth Flagyl. Vascular surgery also consulted status post debridement with Dr. Armstrong on 12/16/2022. We'll also consult nephrology services for chronic kidney disease. At this time patient is resting comfort ably in bed. Patient denies chest pain or shortness of breath. Patient denies nausea vomiting or diarrhea. Patient denies any urinary burning or frequency On 12/17/2022 patient is alert and oriented 3. Patient remains on IV antibiotics. Followed by nephrology infectious disease and vascular services. At this time patient denies chest pain or shortness breath. Patient denies nausea vomiting or diarrhea. Patient denies any urinary burning or frequency On 12/18/2022 patient is alert and oriented 3. Blood culture positive for gram-negative bacilli. Infectious disease services are following. PICC line placed patient remains on IV Rocephin, daptomycin and Flagyl. Current vital signs temp 98.7, heart rate 62, respiratory rate 16, blood pressure 142/60. On 12/19/2022 patient alert and oriented 3. Awaiting final recommendations per ID in regards to antibiotics. This time patient is resting in chair. Patient denies chest pain or shortness breath. Patient denies nausea vomiting or diarrhea. Patient denies any urinary burning or frequency. Current vital signs temp 98.3, heart rate 69, respiratory 18, blood pressure 156/80 with a pulse ox 97% on room air On 12/20/2022 patient was seen and examined on the medical floor he is alert and oriented 3 in no apparent distress there is no fever or chills no headache or dizziness no chest pain no shortness of breath no cough no nausea or vomiting no abdominal pain no diarrhea no blood in the stools no burning with urination no frequency or urgency and no hematuria, at this time I'm still waiting for further recommendation from infectious disease and vascular surgery, possible discharge tomorrow, if no further intervention is recommended. On 12/21/2022 patient was seen and examined on the medical floor he is alert and oriented 3 in no apparent distress, there is no fever or chills no headache or dizziness no chest pain no shortness of breath no cough no nausea or vomiting no abdominal pain no diarrhea and no urinary symptoms. Patient is scheduled for an angiogram tomorrow per vascular surgery, will continue to follow closely. On 12/22/2022 patient was seen and examined on the medical floor he is alert and oriented 3 in no apparent distress, he underwent lower extremity angiogram today . there is no fever or chills no headache or dizziness no chest pain no shortness of breath no cough no nausea or vomiting no abdominal pain no diarrhea and no urinary symptoms. Patient is scheduled for an angiogram tomorrow per vascular surgery, will continue to follow closely. On 12/23/2022 patient alert and oriented 3. Patient underwent angiogram plans to have a meeting with Dr. Armstrong tomorrow to go over plan. Current vital signs temp 98.3, heart rate 62, respiratory rate 16, blood pressure 156/66 with pulse ox 98% on room air. Patient remains on antibiotics. On 12/24/2022 patient was seen and examined on the medical floor he is alert and oriented 3 in no apparent distress he is still complaining of constipation otherwise he denies any complaints, there is no fever or chills no headache or dizziness no chest pain no shortness of breath no cough no nausea or vomiting no abdominal pain no diarrhea no blood in the stools no burning with urination no frequency or urgency and no hematuria. On 12/25/2022 patient was seen and examined on the medical floor he is alert and oriented 3 in no apparent distress there is no fever or chills no headache or dizziness no chest pain no shortness of breath no cough no nausea or vomiting no abdominal pain no diarrhea and no urinary symptoms. He remains on IV antibiotics. Awaiting further recommendations from vascular surgery. On 12/26/2022 patient is alert and oriented 3 resting comfortably in bed. At this time patient denies chest pain or shortness breath. Patient denies nausea vomiting or diarrhea. Patient denies any urinary burning or frequency. Awaiting input from vascular surgery for the planned possibly amputation On 12/27/2022 patient's alert and oriented 3 patient to undergo amputation today. Patient denies chest pain or shortness breath. Patient denies nausea vomiting or diarrhea. Patient denies any urinary burning or frequency On 12/28/2022 patient's alert and oriented 3. Status post left BKA with Dr. Rice yesterday. Patient complaining of pain currently maintained on [place] and Dilaudid. Lab work Pending. patient maintained on daptomycin and Maxipime. Current vital signs temp 98.1, heart 55, respiratory rate 18 blood pressure 135/73 pulse ox 98% on room air. On 12/29/2022 patient was seen and examined on the medical floor he is alert and oriented 3 in no apparent distress there is no fever or chills no headache or dizziness no chest pain no shortness of breath no cough no nausea or vomiting no abdominal pain no diarrhea and no urinary symptoms, patient is improving gradually, possible transfer to rehab on Saturday. On 12/30/2022 patient alert and oriented 3. At this time patient denies chest pain or shortness breath. Patient is vomiting or diarrhea. Denies any urinary burning or frequency. Current vital signs temp 97.7, heart rate 55, respiratory rate 18, blood pressure 1 5462 with pulse ox of 98% On 12/31/2022 patient was seen and examined on the telemetry floor he is alert and oriented 3 in no apparent distress he is still complaining of lower extremity pain otherwise he denies any complaints there is no fever or chills no headache or dizziness no chest pain no shortness of breath no cough no nausea or vomiting no abdominal pain no diarrhea and no urinary symptoms. On 01/01/2023 patient was seen and examined on the telemetry floor he is alert and oriented 3 in no apparent distress he is still complaining of lower extremity pain otherwise he denies any complaints there is no fever or chills no headache or dizziness no chest pain no shortness of breath no cough no nausea or vomiting no abdominal pain no diarrhea and no urinary symptoms. At this time we are awaiting insurance authorization for possible transfer to rehab unit. Patient Condition at Discharge: Poor Plan - Discharge Summary New Discharge Prescriptions: New polyethylene glycoL 3350 [Miralax] 17 gm PO DAILY packet HYDROcodone/APAP 10-325MG [[place] 10-325] 1 tab PO Q4HR PRN 3 Days #18 tab PRN Reason: Pain INSULIN ASPART (NovoLOG) [NovoLOG (formulary)] 0 unit SQ ACHS each diazePAM [Valium] 5 mg PO TID tab Darbepoetin Cordell [Aranesp] 40 mcg SQ Q7D each Docusate [Colace] 100 mg PO BID cap Insulin Detemir (Levemir) [Levemir] 14 unit SQ HS each Escitalopram [Lexapro] 10 mg PO DAILY tab Pantoprazole [Protonix] 40 mg PO AC-BRKFST tab Sodium Bicarbonate Tab 650 mg PO BID tab Continue Albuterol Sulfate [Ventolin HFA] 1 - 2 puff INHALATION RT-QID PRN PRN Reason: Shortness Of Breath hydrALAZINE HCL [Apresoline] 100 mg PO DAILY cloNIDine HCL [Catapres] 0.1 mg PO DAILY Potassium Chloride ER [K-Dur 20] 20 meq PO DAILY Torsemide [Demadex] 40 mg PO DAILY Tamsulosin HCl [Flomax] 0.4 mg PO DAILY allopurinoL [Zyloprim] 100 mg PO DAILY amLODIPine [Norvasc] 10 mg PO DAILY Loratadine [Claritin] 10 mg PO HS Levothyroxine Sodium [Synthroid] 25 mcg PO DAILY Ferrous Sulfate [Iron (65 MG Elemental)] 325 mg PO DAILY Discontinued Insulin Glargine,Hum.rec.anlog [Toujeo Solostar] 14 units SQ HS metroNIDAZOLE [Flagyl] 500 mg PO TID HYDROcodone/APAP 10-325MG [[place] 10-325] 1 tab PO Q8H Discharge Medication List Albuterol Sulfate [Ventolin HFA] 1 - 2 puff INHALATION RT-QID PRN 12/15/22 [History] Ferrous Sulfate [Iron (65 MG Elemental)] 325 mg PO DAILY 12/15/22 [History] Levothyroxine Sodium [Synthroid] 25 mcg PO DAILY 12/15/22 [History] Loratadine [Claritin] 10 mg PO HS 12/15/22 [History] Potassium Chloride ER [K-Dur 20] 20 meq PO DAILY 12/15/22 [History] Tamsulosin HCl [Flomax] 0.4 mg PO DAILY 12/15/22 [History] Torsemide [Demadex] 40 mg PO DAILY 12/15/22 [History] allopurinoL [Zyloprim] 100 mg PO DAILY 12/15/22 [History] amLODIPine [Norvasc] 10 mg PO DAILY 12/15/22 [History] cloNIDine HCL [Catapres] 0.1 mg PO DAILY 12/15/22 [History] hydrALAZINE HCL [Apresoline] 100 mg PO DAILY 12/15/22 [History] Darbepoetin Cordell [Aranesp] 40 mcg SQ Q7D each 01/02/23 [Rx] Docusate [Colace] 100 mg PO BID cap 01/02/23 [Rx] Escitalopram [Lexapro] 10 mg PO DAILY tab 01/02/23 [Rx] HYDROcodone/APAP 10-325MG [[place] 10-325] 1 tab PO Q4HR PRN 3 Days #18 tab 01/02/23 [Rx] INSULIN ASPART (NovoLOG) [NovoLOG (formulary)] 0 unit SQ ACHS each 01/02/23 [Rx] Insulin Detemir (Levemir) [Levemir] 14 unit SQ HS each 01/02/23 [Rx] Pantoprazole [Protonix] 40 mg PO AC-BRKFST tab 01/02/23 [Rx] Sodium Bicarbonate Tab 650 mg PO BID tab 01/02/23 [Rx] diazePAM [Valium] 5 mg PO TID tab 01/02/23 [Rx] polyethylene glycoL 3350 [Miralax] 17 gm PO DAILY packet 01/02/23 [Rx] Follow up Appointment(s)/Referral(s): Ashley Rice DO [STAFF PHYSICIAN] - 2 Weeks [facility], [NON-STAFF] - As Needed Jose Hannah MD [Primary Care Provider] - 1-2 days
[2023-01-02 11:12] VITALS: PULSE 52
[2023-01-02 11:56] LABS: Glucose,Whole Blood 139 mg/dL (70-110)
--- NOTE | 2023-01-02 12:29 | P.PN ---
Subjective Patient is seen in follow-up for chronic kidney disease. Renal function fairly stable. No vomiting or diarrhea. Oral intake is good. No active complaints. Going to rehab today. Vital signs are stable. General: No acute distress. HEENT: Head exam is unremarkable. LUNGS: No audible rhonchi or wheezes. HEART: Rate and Rhythm are regular. ABDOMEN: Nontender. EXTREMITITES: Right AKA. Left BKA. Objective - Vital Signs Vital signs: Vital Signs Temp 98 F 01/02/23 08:00 Pulse 52 L 01/02/23 11:12 Resp 18 01/02/23 08:00 BP 164/64 01/02/23 08:00 Pulse Ox 98 01/02/23 08:00 FiO2 Intake & Output 01/01/23 01/02/23 01/02/23 18:59 06:59 18:59 Intake Total 90 Output Total 600 1725 0 Balance -510 -1725 0 Weight 103 kg Intake: Oral 90 Output: Urine 600 1725 Stool 0 0 Other: Voiding Method Urinal Urinal Urinal - Labs CBC & Chem 7: 01/02/23 06:00 01/02/23 06:00 Labs: Abnormal Lab Results - Last 24 Hours (Table) 01/02/23 01/02/23 01/02/23 Range/Units 06:00 06:00 06:11 RBC 3.06 L (4.30-5.90) m/uL Hgb 9.1 L (13.0-17.5) gm/dL Hct 29.4 L (39.0-53.0) % Chloride 108 H (98-107) mmol/L Carbon Dioxide 21 L (22-30) mmol/L BUN 55 H (9-20) mg/dL Creatinine 2.38 H (0.66-1.25) mg/dL POC Glucose (mg/dL) 111 H (70-110) mg/dL Calcium 8.1 L (8.4-10.2) mg/dL Total Protein 5.3 L (6.3-8.2) g/dL Albumin 2.7 L (3.5-5.0) g/dL 01/02/23 Range/Units 11:46 RBC (4.30-5.90) m/uL Hgb (13.0-17.5) gm/dL Hct (39.0-53.0) % Chloride (98-107) mmol/L Carbon Dioxide (22-30) mmol/L BUN (9-20) mg/dL Creatinine (0.66-1.25) mg/dL POC Glucose (mg/dL) 139 H (70-110) mg/dL Calcium (8.4-10.2) mg/dL Total Protein (6.3-8.2) g/dL Albumin (3.5-5.0) g/dL Assessment and Plan Plan: Assessment: 1. Acute kidney injury mostly prerenal secondary to hypovolemia and infection. Renal function stable. 2. Chronic kidney disease stage IV with baseline creatinine near 3 secondary to diabetic kidney disease and cardiorenal syndrome. 3. Metabolic acidosis secondary to chronic kidney disease and IV fluids. On oral bicarb. 4. Left heel wound with tissue culture positive for Proteus and Pseudomonas along with Proteus bacteremia. On antibiotics. Status post left BKA this admission. 5. Diabetes mellitus. 6. Hypertension with chronic kidney disease. Stable. Exacerbated by pain. 7. Anemia of chronic kidney disease. Iron deficiency noted - status post IV ir on. On Aranesp. Plan: Encouraged oral intake. Resume torsemide 20 mg every other day upon discharge. Avoid nephrotoxins. Continue to monitor renal function and urine output. 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 He was advised to see rheumatology outpatient but doesn't believe he has. 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 Stressed importance of following up outpatient. Follow up outpatient in 1 week post discharge.
[2023-01-02] MEDS: LACTATED RINGERS 1,000 ML IV SCH (13:05)
== END 2023-01-02 15:10 | DRG 853 ==
LOC: EC 11:04 → 5NMEDONC 13:36 → UNDODISIN 16:23 → 3SCARD 12-22 08:34
PROVIDERS: ADMIT Internal Medicine; ATTEND Internal Medicine
PROC: 0JBR0ZZ Excision of Left Foot Subcutaneous Tissue and Fascia, Open Approach (ICD-10-PCS; principal; 2022-12-16 08:00)
PROC: 0LB Tendons, Excision (ICD-10-PCS; principal; 2022-12-16 08:00)
PROC: B4101ZZ Fluoroscopy of Abdominal Aorta using Low Osmolar Contrast (ICD-10-PCS; 2022-12-22 08:00)
PROC: B41G1ZZ Fluoroscopy of Left Lower Extremity Arteries using Low Osmolar Contrast (ICD-10-PCS; 2022-12-22 08:00)
PROC: 0Y6J0Z3 Detachment at Left Lower Leg, Low, Open Approach (ICD-10-PCS; 2022-12-27)
PROC: 30233N1 Transfusion of Nonautologous Red Blood Cells into Peripheral Vein, Percutaneous Approach (ICD-10-PCS; 2022-12-29)
DX: A41.59 Other Gram-negative sepsis (principal); N17.0 Acute kidney failure with tubular necrosis; E87.20 Acidosis, unspecified; L97.323 Non-pressure chronic ulcer of left ankle with necrosis of muscle; L03.116 Cellulitis of left lower limb; L97.422 Non-pressure chronic ulcer of left heel and midfoot with fat layer exposed; N18.4 Chronic kidney disease, stage 4 (severe); M86.9 Osteomyelitis, unspecified; L89.151 Pressure ulcer of sacral region, stage 1; D63.1 Anemia in chronic kidney disease; E11.22 Type 2 diabetes mellitus with diabetic chronic kidney disease; E11.51 Type 2 diabetes mellitus with diabetic peripheral angiopathy without gangrene; E11.69 Type 2 diabetes mellitus with other specified complication; E11.622 Type 2 diabetes mellitus with other skin ulcer; E11.621 Type 2 diabetes mellitus with foot ulcer; E11.628 Type 2 diabetes mellitus with other skin complications; Z89.611 Acquired absence of right leg above knee; I13.10 Hypertensive heart and chronic kidney disease without heart failure, with stage 1 through stage 4 chronic kidney disease, or unspecified chronic kidney disease; Z79.4 Long term (current) use of insulin; Z28.310 Unvaccinated for COVID-19; E03.9 Hypothyroidism, unspecified; E61.1 Iron deficiency; E86.1 Hypovolemia; F32.A Depression, unspecified; K59.00 Constipation, unspecified; E66.9 Obesity, unspecified; Z68.29 Body mass index [BMI] 29.0-29.9, adult; S90.829A Blister (nonthermal), unspecified foot, initial encounter; Z79.890 Hormone replacement therapy; Z79.899 Other long term (current) drug therapy; Z86.14 Personal history of Methicillin resistant Staphylococcus aureus infection; Z87.891 Personal history of nicotine dependence; W19.XXXA Unspecified fall, initial encounter; Z71.3 Dietary counseling and surveillance
CPT/HCPCS: 36200; 36415; 71045; 75625; 75710; 76937; 80048; 80053; 81001; 82728; 83036; 83540; 83550; 83605; 83735; 85025; 85027; 85610; 85730; 86255; 86850; 86900; 86901; 86920; 87040; 87070; 87075; 87077; 87186; 87205; 93005; 94640; 94760; 96365; 96375; 99285